=== PATIENT | male | born 1955 | race American Indian/Alaskan Native ===

== ENCOUNTER 2018-05-31 04:32 | Inpatient (IN) | payer MEDICARE, OTHER ==
[2018-05-31] MEDS ORDERED: D50W (25GM) Syringe IV ONE (04:45)
[2018-05-31] MEDS: D50W (25GM) Syringe IV PRN ×4 (04:55→16:34)
[2018-05-31 05:27] LABS: Hematocrit 45.8 % (35.5-45.6); Hemoglobin 14.7 gm/dl (11.8-15.2); Mean Corpuscular HGB Conc 32 % (32-34); Mean Corpuscular Hemoglobin 28 pg (28-32); Mean Corpuscular Volume 86 fl (84-94); Platelet Count 192 K/mm3 (140-440); Red Blood Count 5.33 M/mm3 (3.65-5.03); Red Cell Distribution Width 16.4 % (13.2-15.2)
[2018-05-31 05:37] LABS: INR 1.74 (0.87-1.13)
[2018-05-31 05:38] LABS: Partial Thromboplastin Time 28.2 Sec. (24.2-36.6)
[2018-05-31 06:04] LABS: Bilirubin,Urine NEG (Negative); Blood,Urine SM (Negative); Color,Urine Amber (Yellow); Mucus,Urine FEW /HPF
[2018-05-31 06:06] LABS: Protein,Urine >500 mg/dL (Negative)
--- NOTE | 2018-05-31 06:06 | XRay Report ---
FINAL REPORT EXAM: XR CHEST 1V AP HISTORY: hypoxia TECHNIQUE: AP portable view(s) of the chest obtained. PRIORS: None. FINDINGS: No mediastinal shift. Cardiomegaly. Left larger than right pleural effusions with ill-defined bibasilar opacities. No pneumothorax. Question minimally displaced anterolateral left 9th rib fracture. IMPRESSION: Cardiomegaly and left larger than right pleural effusion. Question minimally displaced anterolateral left 9th rib fracture.
[2018-05-31 06:09] LABS: Amphetamine Screen,Urine PRESUMPTIVE NEGATIVE; Benzodiazepines Screen,Urine PRESUMPTIVE NEGATIVE; Cannabinoid Screen,Urine PRESUMPTIVE NEGATIVE; Cocaine Screen,Urine PRESUMPTIVE NEGATIVE; Methadone Screen,Urine PRESUMPTIVE NEGATIVE; Opiate Screen,Urine PRESUMPTIVE NEGATIVE
[2018-05-31 06:11] LABS: Basophils % (Manual) 0 % (0.0-1.8); Total Cells Counted 100
[2018-05-31 06:12] LABS: Anisocytosis 1+; Burr Cells 1+; Crenated RBC 2+; Giant Platelets Rare; Ovalocytes 1+; Target Cells Few
[2018-05-31 06:16] LABS: Creatine Kinase MB 22.3 ng/mL (0.0-4.0)
[2018-05-31 06:20] LABS: Calcium 7.8 mg/dL (8.4-10.2)
[2018-05-31] MEDS ORDERED: VANCOMYCIN/NS 1 GM/250 ML 1 GM/250 ML BAG IV ONE (06:38)
[2018-05-31] MEDS ORDERED: ROCEPHIN/NS 1 GM/50 ML 1 GM/50 ML BAG IV ONE (06:38)
[2018-05-31] MEDS ORDERED: CALCIUM GLUCONATE 1,000 MG in NACL 0.9% 100 ML IV ONE (06:40)
[2018-05-31] MEDS ORDERED: HumuLIN R IV ONE (06:40)
[2018-05-31] MEDS ORDERED: MAXIPIME/NS 1 GM/100 ML 1 GM/100 ML BAG IV ONE (06:41)
--- NOTE | 2018-05-31 06:51 | Emergency Department Report ---
ED Altered Mental Status HPI - General Chief Complaint: Hypoglycemia Stated Complaint: LOW BLOOD GLUCOSE Time Seen by Provider: 05/31/18 06:21 Source: EMS Mode of arrival: Stretcher Limitations: Altered Mental Status, Physical Limitation - History of Present Illness Initial Comments: Daughter reports patient with hx HTN and CHF. Denies blood thinners. Reports patient has heart percent of ~10%. Reports patient was fine yesterday. Last seen normal at approximately midnight. Reports that around 0330 this morning patient was found altered, foaming at the mouth, and with extremities clinched. Denies hx of seizure. Reports patient last diabetes number was "7" and that the patient was deemed pre-diabetic. Denies hx of taking DM medications. ER nurse reports EMS recorded accucheck of 14. Reports EMS administered one amp D50. Reports accucheck upon arrival in the ER of 39. Reports patient received approximately 2 amps D50 in the ER. Family reports patient symptoms improved after receiving sugar in the IV. MD Complaint: altered mental status - Related Data Home Medications Medication Instructions Recorded Confirmed Last Taken Furosemide [Lasix] 20 mg PO DAILY 05/31/18 05/31/18 Unknown Isosorbide Dinitrate 30 mg PO DAILY 05/31/18 05/31/18 Unknown hydrALAZINE 50 mg PO TID 05/31/18 05/31/18 Unknown Allergies Allergy/AdvReac Type Severity Reaction Status Date / Time Unable to Assess Allergy Verified 05/31/18 06:39 ED Review of Systems ROS: Stated complaint: LOW BLOOD GLUCOSE Other details as noted in HPI Comment: Unobtainable due to pts medical conditions ED Past Medical Hx - Past Medical History Hx Diabetes: Yes - Social History Smoking Status: Never Smoker Substance Use Type: None - Medications Home Medications: Home Medications Medication Instructions Recorded Confirmed Last Taken Type Furosemide [Lasix] 20 mg PO DAILY 05/31/18 05/31/18 Unknown History Isosorbide Dinitrate 30 mg PO DAILY 05/31/18 05/31/18 Unknown History hydrALAZINE 50 mg PO TID 05/31/18 05/31/18 Unknown History ED Physical Exam - General Limitations: Altered Mental Status, Physical Limitation - Other Other exam information: GENERAL: Patient in mild acute distress HEAD: Normocephalic, atraumatic EYES: PERRLA, EOM intact NOSE: No tenderness, discharge, sinus tenderness MOUTH: No erythema, bleeding, exudate HEART: Regular rate and rhythm, no murmur, S1-S2 are auscultated, pulses are symmetric LUNGS: bilateral breath sounds. No wheezing, rales, rhonchi ABDOMEN: Normal bowel sounds, no tenderness, no rebound, no guarding, no masses , no CVA tenderness MUSCULOSKELETAL: no redness, mild swelling, no tenderness NEUROLOGIC: Alert but patient writing in bed with periods of altered mental status incomprehensible sounds, Oriented x2, Cranial nerves intact, normal sensation, no focal motor deficit SKIN: Skin is warm and dry - Assessment Assessment Interval: Baseline - Level of Consciousness 1a. Level of Consciousness: alert - LOC Questions 1b. LOC Questions: answers correctly - LOC Command 1c. LOC Commands: performs tasks correctly - Best Gaze 2. Best Gaze: normal - Visual 3. Visual: no visual loss - Facial Palsy 4. Facial Palsy: normal symmetrical movement - Motor Arm 5b. Motor Arm Right: no drift 5a. Motor Arm Left: no drift - Motor Leg 6a. Motor Leg Left: some gravity effort 6b. Motor Leg Right: some gravity effort - Limb Ataxia 7. Limb Ataxia: absent - Sensory 8. Sensory: normal - Best Language 9. Best Language: mild/moderate aphasia - Dysarthria 10. Dysarthria: mild/moderate dysarthria - Extinction and Inattention 11. Extinction/Inattention: no abnormality - Scoring Total Score: 6 Stroke Severity: Moderate Stroke ED Course Vital Signs 05/31/18 05/31/18 05/31/18 04:53 04:55 04:56 Temperature 90.3 F L Pulse Rate 95 H 66 79 Respiratory 18 12 Rate Blood Pressure 130/90 Blood Pressure 130/98 130/90 [Left] O2 Sat by Pulse Oximetry 05/31/18 05/31/18 05/31/18 06:01 07:30 07:31 Temperature 89.9 F L Pulse Rate 63 Respiratory 13 Rate Blood Pressure 147/108 Blood Pressure [Left] O2 Sat by Pulse 97 99 Oximetry 05/31/18 11:20 Temperature 92.2 F L Pulse Rate Respiratory Rate Blood Pressure Blood Pressure [Left] O2 Sat by Pulse Oximetry - Lab Data Result diagrams: 05/31/18 11:48 05/31/18 05:49 Lab Results 05/31/18 05/31/18 05/31/18 Range/Units 04:38 04:58 05:14 WBC (4.5-11.0) K/mm3 RBC (3.65-5.03) M/mm3 Hgb (11.8-15.2) gm/dl Hct (35.5-45.6) % MCV (84-94) fl MCH (28-32) pg MCHC (32-34) % RDW (13.2-15.2) % Plt Count (140-440) K/mm3 Add Manual Diff Total Counted Seg Neuts % (Manual) (40.0-70.0) % Band Neutrophils % % Lymphocytes % (Manual) (13.4-35.0) % Reactive Lymphs % (Man) % Monocytes % (Manual) (0.0-7.3) % Eosinophils % (Manual) (0.0-4.3) % Basophils % (Manual) (0.0-1.8) % Metamyelocytes % % Myelocytes % % Promyelocytes % % Blast Cells % % Nucleated RBC % (0.0-0.9) % Seg Neutrophils # Man (1.8-7.7) K/mm3 Band Neutrophils # K/mm3 Lymphocytes # (Manual) (1.2-5.4) K/mm3 Abs React Lymphs (Man) K/mm3 Monocytes # (Manual) (0.0-0.8) K/mm3 Eosinophils # (Manual) (0.0-0.4) K/mm3 Basophils # (Manual) (0.0-0.1) K/mm3 Metamyelocytes # K/mm3 Myelocytes # K/mm3 Promyelocytes # K/mm3 Blast Cells # K/mm3 WBC Morphology Hypersegmented Neuts Hyposegmented Neuts Hypogranular Neuts Smudge Cells Toxic Granulation Toxic Vacuolation Dohle Bodies Pelger-Huet Anomaly Trae Rods Platelet Estimate Clumped Platelets Plt Clumps, EDTA Large Platelets Giant Platelets Platelet Satelliting Plt Morphology Comment RBC Morphology Dimorphic RBCs Polychromasia Hypochromasia Poikilocytosis Anisocytosis Microcytosis Macrocytosis Spherocytes Pappenheimer Bodies Sickle Cells Target Cells Tear Drop Cells Ovalocytes Helmet Cells [place] Bodies [place] Rings Andres Cells Bite Cells Crenated Cell Elliptocytes Acanthocytes (Spur) Rouleaux Hemoglobin C Crystals Schistocytes Malaria parasites Dann Bodies Hem Pathologist Commnt PT (12.2-14.9) Sec. INR (0.87-1.13) APTT (24.2-36.6) Sec. Sodium (137-145) mmol/L Potassium (3.6-5.0) mmol/L Chloride (98-107) mmol/L Carbon Dioxide (22-30) mmol/L Anion Gap mmol/L BUN (9-20) mg/dL Creatinine (0.8-1.5) mg/dL Estimated GFR ml/min BUN/Creatinine Ratio % Glucose (75-100) mg/dL POC Glucose < 40 L 64 L 258 H (70-105) Lactic Acid (0.7-2.0) mmol/L Calcium (8.4-10.2) mg/dL Magnesium (1.7-2.3) mg/dL Total Bilirubin (0.1-1.2) mg/dL AST (5-40) units/L ALT (7-56) units/L Alkaline Phosphatase (35-129) units/L Ammonia (25-60) umol/L Total Creatine Kinase (55-170) units/L CK-MB (CK-2) (0.0-4.0) ng/mL CK-MB (CK-2) Rel Index (0-4) Troponin T (0.00-0.029) ng/mL NT-Pro-B Natriuret Pep (0-900) pg/mL Total Protein (6.3-8.2) g/dL Albumin (3.9-5) g/dL Albumin/Globulin Ratio % Triglycerides (2-149) mg/dL Cholesterol (50-199) mg/dL LDL Cholesterol Direct (50-130) mg/dL HDL Cholesterol (40-59) mg/dL Cholesterol/HDL Ratio % Urine Color (Yellow) Urine Turbidity (Clear) Urine pH (5.0-7.0) Ur Specific [place] (1.003-1.030) Urine Protein (Negative) mg/dL Urine Glucose (UA) (Negative) mg/dL Urine Ketones (Negative) mg/dL Urine Blood (Negative) Urine Nitrite (Negative) Urine Bilirubin (Negative) Urine Urobilinogen (<2.0) mg/dL Ur Leukocyte Esterase (Negative) Urine WBC (Auto) (0.0-6.0) /HPF Urine RBC (Auto) (0.0-6.0) /HPF U Epithel Cells (Auto) (0-13.0) /HPF Urine Mucus /HPF Urine Yeast (Budding) /HPF Urine Opiates Screen Urine Methadone Screen Ur Barbiturates Screen Ur Phencyclidine Scrn Ur Amphetamines Screen U Benzodiazepines Scrn Urine Cocaine Screen U Marijuana (THC) Screen Drugs of Abuse Note Plasma/Serum Alcohol (0-0.07) % 05/31/18 05/31/18 05/31/18 Range/Units 05:15 05:15 05:20 WBC 5.9 (4.5-11.0) K/mm3 RBC 5.33 H (3.65-5.03) M/mm3 Hgb 14.7 (11.8-15.2) gm/dl Hct 45.8 H (35.5-45.6) % MCV 86 (84-94) fl MCH 28 (28-32) pg MCHC 32 (32-34) % RDW 16.4 H (13.2-15.2) % Plt Count 192 (140-440) K/mm3 Add Manual Diff Complete Total Counted 100 Seg Neuts % (Manual) 88.0 H (40.0-70.0) % Band Neutrophils % 0 % Lymphocytes % (Manual) 6.0 L (13.4-35.0) % Reactive Lymphs % (Man) 0 % Monocytes % (Manual) 2.0 (0.0-7.3) % Eosinophils % (Manual) 4.0 (0.0-4.3) % Basophils % (Manual) 0 (0.0-1.8) % Metamyelocytes % 0 % Myelocytes % 0 % Promyelocytes % 0 % Blast Cells % 0 % Nucleated RBC % 1.0 H (0.0-0.9) % Seg Neutrophils # Man 5.2 (1.8-7.7) K/mm3 Band Neutrophils # 0.0 K/mm3 Lymphocytes # (Manual) 0.4 L (1.2-5.4) K/mm3 Abs React Lymphs (Man) 0.0 K/mm3 Monocytes # (Manual) 0.1 (0.0-0.8) K/mm3 Eosinophils # (Manual) 0.2 (0.0-0.4) K/mm3 Basophils # (Manual) 0.0 (0.0-0.1) K/mm3 Metamyelocytes # 0.0 K/mm3 Myelocytes # 0.0 K/mm3 Promyelocytes # 0.0 K/mm3 Blast Cells # 0.0 K/mm3 WBC Morphology Not Reportable Hypersegmented Neuts Not Reportable Hyposegmented Neuts Not Reportable Hypogranular Neuts Not Reportable Smudge Cells Not Reportable Toxic Granulation Not Reportable Toxic Vacuolation Not Reportable Dohle Bodies Not Reportable Pelger-Huet Anomaly Not Reportable Trae Rods Not Reportable Platelet Estimate Appears normal Clumped Platelets Not Reportable Plt Clumps, EDTA Not Reportable Large Platelets Not Reportable Giant Platelets Rare Platelet Satelliting Not Reportable Plt Morphology Comment Not Reportable RBC Morphology Not Reportable Dimorphic RBCs Not Reportable Polychromasia 1+ Hypochromasia Not Reportable Poikilocytosis Not Reportable Anisocytosis 1+ Microcytosis Not Reportable Macrocytosis Not Reportable Spherocytes Not Reportable Pappenheimer Bodies Not Reportable Sickle Cells Not Reportable Target Cells Few Tear Drop Cells Not Reportable Ovalocytes 1+ Helmet Cells Not Reportable [place] Bodies Not Reportable [place] Rings Not Reportable Andres Cells 1+ Bite Cells Not Reportable Crenated Cell 2+ Elliptocytes Not Reportable Acanthocytes (Spur) Not Reportable Rouleaux Not Reportable Hemoglobin C Crystals Not Reportable Schistocytes Not Reportable Malaria parasites Not Reportable Dann Bodies Not Reportable Hem Pathologist Commnt No PT 20.9 H (12.2-14.9) Sec. INR 1.74 H (0.87-1.13) APTT 28.2 (24.2-36.6) Sec. Sodium (137-145) mmol/L Potassium (3.6-5.0) mmol/L Chloride (98-107) mmol/L Carbon Dioxide (22-30) mmol/L Anion Gap mmol/L BUN (9-20) mg/dL Creatinine (0.8-1.5) mg/dL Estimated GFR ml/min BUN/Creatinine Ratio % Glucose (75-100) mg/dL POC Glucose (70-105) Lactic Acid (0.7-2.0) mmol/L Calcium (8.4-10.2) mg/dL Magnesium (1.7-2.3) mg/dL Total Bilirubin (0.1-1.2) mg/dL AST (5-40) units/L ALT (7-56) units/L Alkaline Phosphatase (35-129) units/L Ammonia (25-60) umol/L Total Creatine Kinase (55-170) units/L CK-MB (CK-2) (0.0-4.0) ng/mL CK-MB (CK-2) Rel Index (0-4) Troponin T (0.00-0.029) ng/mL NT-Pro-B Natriuret Pep (0-900) pg/mL Total Protein (6.3-8.2) g/dL Albumin (3.9-5) g/dL Albumin/Globulin Ratio % Triglycerides (2-149) mg/dL Cholesterol (50-199) mg/dL LDL Cholesterol Direct (50-130) mg/dL HDL Cholesterol (40-59) mg/dL Cholesterol/HDL Ratio % Urine Color [place] (Yellow) Urine Turbidity Slightly-cloudy (Clear) Urine pH 5.0 (5.0-7.0) Ur Specific [place] 1.016 (1.003-1.030) Urine Protein >500 (Negative) mg/dL Urine Glucose (UA) Neg (Negative) mg/dL Urine Ketones Neg (Negative) mg/dL Urine Blood Sm (Negative) Urine Nitrite Neg (Negative) Urine Bilirubin Neg (Negative) Urine Urobilinogen 4.0 (<2.0) mg/dL Ur Leukocyte Esterase Neg (Negative) Urine WBC (Auto) 6.0 (0.0-6.0) /HPF Urine RBC (Auto) 9.0 (0.0-6.0) /HPF U Epithel Cells (Auto) < 1.0 (0-13.0) /HPF Urine Mucus Few /HPF Urine Yeast (Budding) 1+ /HPF Urine Opiates Screen Urine Methadone Screen Ur Barbiturates Screen Ur Phencyclidine Scrn Ur Amphetamines Screen U Benzodiazepines Scrn Urine Cocaine Screen U Marijuana (THC) Screen Drugs of Abuse Note Plasma/Serum Alcohol (0-0.07) % 05/31/18 05/31/18 05/31/18 Range/Units 05:20 05:22 05:22 WBC (4.5-11.0) K/mm3 RBC (3.65-5.03) M/mm3 Hgb (11.8-15.2) gm/dl Hct (35.5-45.6) % MCV (84-94) fl MCH (28-32) pg MCHC (32-34) % RDW (13.2-15.2) % Plt Count (140-440) K/mm3 Add Manual Diff Total Counted Seg Neuts % (Manual) (40.0-70.0) % Band Neutrophils % % Lymphocytes % (Manual) (13.4-35.0) % Reactive Lymphs % (Man) % Monocytes % (Manual) (0.0-7.3) % Eosinophils % (Manual) (0.0-4.3) % Basophils % (Manual) (0.0-1.8) % Metamyelocytes % % Myelocytes % % Promyelocytes % % Blast Cells % % Nucleated RBC % (0.0-0.9) % Seg Neutrophils # Man (1.8-7.7) K/mm3 Band Neutrophils # K/mm3 Lymphocytes # (Manual) (1.2-5.4) K/mm3 Abs React Lymphs (Man) K/mm3 Monocytes # (Manual) (0.0-0.8) K/mm3 Eosinophils # (Manual) (0.0-0.4) K/mm3 Basophils # (Manual) (0.0-0.1) K/mm3 Metamyelocytes # K/mm3 Myelocytes # K/mm3 Promyelocytes # K/mm3 Blast Cells # K/mm3 WBC Morphology Hypersegmented Neuts Hyposegmented Neuts Hypogranular Neuts Smudge Cells Toxic Granulation Toxic Vacuolation Dohle Bodies Pelger-Huet Anomaly Trae Rods Platelet Estimate Clumped Platelets Plt Clumps, EDTA Large Platelets Giant Platelets Platelet Satelliting Plt Morphology Comment RBC Morphology Dimorphic RBCs Polychromasia Hypochromasia Poikilocytosis Anisocytosis Microcytosis Macrocytosis Spherocytes Pappenheimer Bodies Sickle Cells Target Cells Tear Drop Cells Ovalocytes Helmet Cells [place] Bodies [place] Rings Andres Cells Bite Cells Crenated Cell Elliptocytes Acanthocytes (Spur) Rouleaux Hemoglobin C Crystals Schistocytes Malaria parasites Dann Bodies Hem Pathologist Commnt PT (12.2-14.9) Sec. INR (0.87-1.13) APTT (24.2-36.6) Sec. Sodium (137-145) mmol/L Potassium (3.6-5.0) mmol/L Chloride (98-107) mmol/L Carbon Dioxide (22-30) mmol/L Anion Gap mmol/L BUN (9-20) mg/dL Creatinine (0.8-1.5) mg/dL Estimated GFR ml/min BUN/Creatinine Ratio % Glucose (75-100) mg/dL POC Glucose (70-105) Lactic Acid (0.7-2.0) mmol/L Calcium (8.4-10.2) mg/dL Magnesium (1.7-2.3) mg/dL Total Bilirubin (0.1-1.2) mg/dL AST (5-40) units/L ALT (7-56) units/L Alkaline Phosphatase (35-129) units/L Ammonia 68.0 H (25-60) umol/L Total Creatine Kinase (55-170) units/L CK-MB (CK-2) (0.0-4.0) ng/mL CK-MB (CK-2) Rel Index (0-4) Troponin T (0.00-0.029) ng/mL NT-Pro-B Natriuret Pep (0-900) pg/mL Total Protein (6.3-8.2) g/dL Albumin (3.9-5) g/dL Albumin/Globulin Ratio % Triglycerides (2-149) mg/dL Cholesterol (50-199) mg/dL LDL Cholesterol Direct (50-130) mg/dL HDL Cholesterol (40-59) mg/dL Cholesterol/HDL Ratio % Urine Color (Yellow) Urine Turbidity (Clear) Urine pH (5.0-7.0) Ur Specific [place] (1.003-1.030) Urine Protein (Negative) mg/dL Urine Glucose (UA) (Negative) mg/dL Urine Ketones (Negative) mg/dL Urine Blood (Negative) Urine Nitrite (Negative) Urine Bilirubin (Negative) Urine Urobilinogen (<2.0) mg/dL Ur Leukocyte Esterase (Negative) Urine WBC (Auto) (0.0-6.0) /HPF Urine RBC (Auto) (0.0-6.0) /HPF U Epithel Cells (Auto) (0-13.0) /HPF Urine Mucus /HPF Urine Yeast (Budding) /HPF Urine Opiates Screen Presumptive negative Urine Methadone Screen Presumptive negative Ur Barbiturates Screen Presumptive negative Ur Phencyclidine Scrn Presumptive negative Ur Amphetamines Screen Presumptive negative U Benzodiazepines Scrn Presumptive negative Urine Cocaine Screen Presumptive negative U Marijuana (THC) Screen Presumptive negative Drugs of Abuse Note Disclamer Plasma/Serum Alcohol < 0.01 (0-0.07) % 05/31/18 05/31/18 05/31/18 Range/Units 05:49 07:13 07:13 WBC (4.5-11.0) K/mm3 RBC (3.65-5.03) M/mm3 Hgb (11.8-15.2) gm/dl Hct (35.5-45.6) % MCV (84-94) fl MCH (28-32) pg MCHC (32-34) % RDW (13.2-15.2) % Plt Count (140-440) K/mm3 Add Manual Diff Total Counted Seg Neuts % (Manual) (40.0-70.0) % Band Neutrophils % % Lymphocytes % (Manual) (13.4-35.0) % Reactive Lymphs % (Man) % Monocytes % (Manual) (0.0-7.3) % Eosinophils % (Manual) (0.0-4.3) % Basophils % (Manual) (0.0-1.8) % Metamyelocytes % % Myelocytes % % Promyelocytes % % Blast Cells % % Nucleated RBC % (0.0-0.9) % Seg Neutrophils # Man (1.8-7.7) K/mm3 Band Neutrophils # K/mm3 Lymphocytes # (Manual) (1.2-5.4) K/mm3 Abs React Lymphs (Man) K/mm3 Monocytes # (Manual) (0.0-0.8) K/mm3 Eosinophils # (Manual) (0.0-0.4) K/mm3 Basophils # (Manual) (0.0-0.1) K/mm3 Metamyelocytes # K/mm3 Myelocytes # K/mm3 Promyelocytes # K/mm3 Blast Cells # K/mm3 WBC Morphology Hypersegmented Neuts Hyposegmented Neuts Hypogranular Neuts Smudge Cells Toxic Granulation Toxic Vacuolation Dohle Bodies Pelger-Huet Anomaly Trae Rods Platelet Estimate Clumped Platelets Plt Clumps, EDTA Large Platelets Giant Platelets Platelet Satelliting Plt Morphology Comment RBC Morphology Dimorphic RBCs Polychromasia Hypochromasia Poikilocytosis Anisocytosis Microcytosis Macrocytosis Spherocytes Pappenheimer Bodies Sickle Cells Target Cells Tear Drop Cells Ovalocytes Helmet Cells [place] Bodies [place] Rings Andres Cells Bite Cells Crenated Cell Elliptocytes Acanthocytes (Spur) Rouleaux Hemoglobin C Crystals Schistocytes Malaria parasites Dann Bodies Hem Pathologist Commnt PT (12.2-14.9) Sec. INR (0.87-1.13) APTT (24.2-36.6) Sec. Sodium 135 L (137-145) mmol/L Potassium 6.0 H (3.6-5.0) mmol/L Chloride 104.3 (98-107) mmol/L Carbon Dioxide 13 L (22-30) mmol/L Anion Gap 24 mmol/L BUN 87 H (9-20) mg/dL Creatinine 2.5 H (0.8-1.5) mg/dL Estimated GFR 32 ml/min BUN/Creatinine Ratio 35 % Glucose 249 H (75-100) mg/dL POC Glucose (70-105) Lactic Acid 1.50 (0.7-2.0) mmol/L Calcium 7.8 L (8.4-10.2) mg/dL Magnesium 2.40 H (1.7-2.3) mg/dL Total Bilirubin 2.60 H (0.1-1.2) mg/dL AST 60 H (5-40) units/L ALT 55 (7-56) units/L Alkaline Phosphatase 592 H (35-129) units/L Ammonia (25-60) umol/L Total Creatine Kinase 374 H (55-170) units/L CK-MB (CK-2) 22.3 H (0.0-4.0) ng/mL CK-MB (CK-2) Rel Index 5.9 H (0-4) Troponin T 0.260 H* (0.00-0.029) ng/mL NT-Pro-B Natriuret Pep 09098 H (0-900) pg/mL Total Protein 5.5 L (6.3-8.2) g/dL Albumin 3.0 L (3.9-5) g/dL Albumin/Globulin Ratio 1.2 % Triglycerides 16 (2-149) mg/dL Cholesterol 142 (50-199) mg/dL LDL Cholesterol Direct 52 (50-130) mg/dL HDL Cholesterol 91 H (40-59) mg/dL Cholesterol/HDL Ratio 1.56 % Urine Color (Yellow) Urine Turbidity (Clear) Urine pH (5.0-7.0) Ur Specific [place] (1.003-1.030) Urine Protein (Negative) mg/dL Urine Glucose (UA) (Negative) mg/dL Urine Ketones (Negative) mg/dL Urine Blood (Negative) Urine Nitrite (Negative) Urine Bilirubin (Negative) Urine Urobilinogen (<2.0) mg/dL Ur Leukocyte Esterase (Negative) Urine WBC (Auto) (0.0-6.0) /HPF Urine RBC (Auto) (0.0-6.0) /HPF U Epithel Cells (Auto) (0-13.0) /HPF Urine Mucus /HPF Urine Yeast (Budding) /HPF Urine Opiates Screen Urine Methadone Screen Ur Barbiturates Screen Ur Phencyclidine Scrn Ur Amphetamines Screen U Benzodiazepines Scrn Urine Cocaine Screen U Marijuana (THC) Screen Drugs of Abuse Note Plasma/Serum Alcohol (0-0.07) % 05/31/18 05/31/18 05/31/18 Range/Units 07:22 09:33 10:53 WBC (4.5-11.0) K/mm3 RBC (3.65-5.03) M/mm3 Hgb (11.8-15.2) gm/dl Hct (35.5-45.6) % MCV (84-94) fl MCH (28-32) pg MCHC (32-34) % RDW (13.2-15.2) % Plt Count (140-440) K/mm3 Add Manual Diff Total Counted Seg Neuts % (Manual) (40.0-70.0) % Band Neutrophils % % Lymphocytes % (Manual) (13.4-35.0) % Reactive Lymphs % (Man) % Monocytes % (Manual) (0.0-7.3) % Eosinophils % (Manual) (0.0-4.3) % Basophils % (Manual) (0.0-1.8) % Metamyelocytes % % Myelocytes % % Promyelocytes % % Blast Cells % % Nucleated RBC % (0.0-0.9) % Seg Neutrophils # Man (1.8-7.7) K/mm3 Band Neutrophils # K/mm3 Lymphocytes # (Manual) (1.2-5.4) K/mm3 Abs React Lymphs (Man) K/mm3 Monocytes # (Manual) (0.0-0.8) K/mm3 Eosinophils # (Manual) (0.0-0.4) K/mm3 Basophils # (Manual) (0.0-0.1) K/mm3 Metamyelocytes # K/mm3 Myelocytes # K/mm3 Promyelocytes # K/mm3 Blast Cells # K/mm3 WBC Morphology Hypersegmented Neuts Hyposegmented Neuts Hypogranular Neuts Smudge Cells Toxic Granulation Toxic Vacuolation Dohle Bodies Pelger-Huet Anomaly Trae Rods Platelet Estimate Clumped Platelets Plt Clumps, EDTA Large Platelets Giant Platelets Platelet Satelliting Plt Morphology Comment RBC Morphology Dimorphic RBCs Polychromasia Hypochromasia Poikilocytosis Anisocytosis Microcytosis Macrocytosis Spherocytes Pappenheimer Bodies Sickle Cells Target Cells Tear Drop Cells Ovalocytes Helmet Cells [place] Bodies [place] Rings Baxter Cells Bite Cells Crenated Cell Elliptocytes Acanthocytes (Spur) Rouleaux Hemoglobin C Crystals Schistocytes Malaria parasites Dann Bodies Hem Pathologist Commnt PT (12.2-14.9) Sec. INR (0.87-1.13) APTT (24.2-36.6) Sec. Sodium (137-145) mmol/L Potassium (3.6-5.0) mmol/L Chloride (98-107) mmol/L Carbon Dioxide (22-30) mmol/L Anion Gap mmol/L BUN (9-20) mg/dL Creatinine (0.8-1.5) mg/dL Estimated GFR ml/min BUN/Creatinine Ratio % Glucose (75-100) mg/dL POC Glucose 124 H 168 H 106 H (70-105) Lactic Acid (0.7-2.0) mmol/L Calcium (8.4-10.2) mg/dL Magnesium (1.7-2.3) mg/dL Total Bilirubin (0.1-1.2) mg/dL AST (5-40) units/L ALT (7-56) units/L Alkaline Phosphatase (35-129) units/L Ammonia (25-60) umol/L Total Creatine Kinase (55-170) units/L CK-MB (CK-2) (0.0-4.0) ng/mL CK-MB (CK-2) Rel Index (0-4) Troponin T (0.00-0.029) ng/mL NT-Pro-B Natriuret Pep (0-900) pg/mL Total Protein (6.3-8.2) g/dL Albumin (3.9-5) g/dL Albumin/Globulin Ratio % Triglycerides (2-149) mg/dL Cholesterol (50-199) mg/dL LDL Cholesterol Direct (50-130) mg/dL HDL Cholesterol (40-59) mg/dL Cholesterol/HDL Ratio % Urine Color (Yellow) Urine Turbidity (Clear) Urine pH (5.0-7.0) Ur Specific [place] (1.003-1.030) Urine Protein (Negative) mg/dL Urine Glucose (UA) (Negative) mg/dL Urine Ketones (Negative) mg/dL Urine Blood (Negative) Urine Nitrite (Negative) Urine Bilirubin (Negative) Urine Urobilinogen (<2.0) mg/dL Ur Leukocyte Esterase (Negative) Urine WBC (Auto) (0.0-6.0) /HPF Urine RBC (Auto) (0.0-6.0) /HPF U Epithel Cells (Auto) (0-13.0) /HPF Urine Mucus /HPF Urine Yeast (Budding) /HPF Urine Opiates Screen Urine Methadone Screen Ur Barbiturates Screen Ur Phencyclidine Scrn Ur Amphetamines Screen U Benzodiazepines Scrn Urine Cocaine Screen U Marijuana (THC) Screen Drugs of Abuse Note Plasma/Serum Alcohol (0-0.07) % - Medical Decision Making At 1030 Dr. Myles hospitalist recommends admit patient to Dr. Martinez. Request consult ICU for acceptance of patient to the ICU. At 1121 Dr. Jenna Perdomo Neurology updated. Reports patient NIHSS improved to 0. Dr. Perdomo recommends low likelihood of CVA with improving symptoms after dextrose administration. Recommends MRI evaluation during hospitalization but not emergent in the ER. Recommends no TPA. Reports if symptoms worsen please re-consult neurology for evaluation for TPA. Declines evalution in the ER at this time. If MRI brain shows any findings, willing to evaluate patient. At 1124 Dr. Frances ICU updated and agrees to ICU admission. Will evaluate patient. Critical Care Time: Yes (42) Critical care attestation.: If time is entered above; I have spent that time in minutes in the direct care of this critically ill patient, excluding procedure time. ED Disposition Clinical Impression: Hyperammonemia, Hypoglycemia, Non-ST elevation [place] (NSTEMI), Abnormal ECG, Hyperkalemia, Metabolic acidosis, Multiorgan failure, Pleural effusion, Hyperbilirubinemia Altered mental status, unspecified Qualifiers: Altered mental status type: unspecified Qualified Code(s): R41.82 - Altered mental status, unspecified Acute renal failure (ARF) Qualifiers: Acute renal failure type: unspecified Qualified Code(s): N17.9 - Acute kidney failure, unspecified Hypothermia Qualifiers: Encounter type: initial encounter Qualified Code(s): T68.XXXA - Hypothermia, initial encounter Pneumonia Qualifiers: Pneumonia type: due to unspecified organism Laterality: bilateral Lung location : unspecified part of lung Qualified Code(s): J18.9 - Pneumonia, unspecified organism Sepsis Qualifiers: Sepsis type: sepsis due to unspecified organism Qualified Code(s): A41.9 - Sepsis, unspecified organism Disposition: DC-09 OP ADMIT IP TO THIS HOSP Is pt being admited?: Yes Condition: Critical Time of Disposition: 11:33
[2018-05-31] MEDS ORDERED: SODIUM BICARBONATE IV ONE (07:00)
--- NOTE | 2018-05-31 07:18 | Cat Scan Report ---
FINAL REPORT EXAM: CT HEAD/BRAIN WO CON HISTORY: altered mental status TECHNIQUE: CT imaging is acquired through the brain without contrast. Transaxial reformations are provided. PRIORS: None. FINDINGS: Examination is compromised by extensive streak artifact. Ventricles and CSF spaces are proportionately enlarged, consistent with parenchymal atrophy. Scattered deep and subcortical white matter hypodense foci are confluent in some areas and are compatible with microvascular angiopathy. No acute intracranial hemorrhage or mass effect. No skull fracture. The mastoid air cells are clear. Small fluid levels in the maxillary sinuses. IMPRESSION: No acute intracranial abnormality identified within limits of this exam. There are chronic sequela of atrophy and microvascular angiopathy. Small fluid levels in the maxillary sinuses are suggestive of sinusitis.
[2018-05-31 08:39] LABS: Chol/HDL Ratio 1.56 %
--- NOTE | 2018-05-31 09:11 | XRay Report ---
AP PELVIS: HISTORY: Trauma, pelvic pain. There is mild rotation to the left. No pelvic fracture, bony lesion or diastasis is appreciated. The hips appear anatomic. Soft tissue gas overlies the right pubic bone and right superior pelvic ramus which could represent a soft tissue injury. IMPRESSION: No injury to the bony pelvis is appreciated.
[2018-05-31] MEDS ORDERED: ASPIRIN PR ONE (10:16)
[2018-05-31] MEDS ORDERED: NITRO-BID 2% TP ONE (11:14)
[2018-05-31] MEDS ORDERED: MORPHINE ONE (11:15)
[2018-05-31] MEDS ORDERED: KIONEX PR ONE ×2 (11:22→23:02)
[2018-05-31] MEDS ORDERED: MORPHINE IV ONE (11:23)
[2018-05-31] MEDS ORDERED: TYLENOL PO PRN (11:24)
[2018-05-31] MEDS ORDERED: ZOFRAN IV PRN (11:24)
[2018-05-31] MEDS ORDERED: SODIUM CHLORIDE FLUSH SYRINGE 10 ML IV PRN (11:24)
--- NOTE | 2018-05-31 11:42 | History and Physical Report ---
History of Present Illness Date of examination: 05/31/18 Chief complaint: Chest pain History of present illness: 63-year-old -[place]ian male presented to the emergency department with complaints of chest pain and shortness of breath. Patient said he had chest pain for the last 1 week, sharp, 6 out of 10 in intensity, intermittent, with no radiation. No aggravating or elevating factors identified. Patient is also complaining of shortness of breath and dry cough but denied diaphoresis. Patient was agitated and on restraints. Patient was recently diagnosed with hypertension and diabetes. He denied any of the medical conditions. REVIEW OF SYSTEMS: GENERAL: no weight change, no fatigue, no fever HEAD: no head ache EYES: no blurry vision, no acute visual loss EARS: no hearing loss, no discharge, no earache NOSE: no stuffiness, no sneezing, no discharge MOUTH, THROAT AND NECK: no bleeding gums, no sore throat, no swollen neck CARDIAC: As stated in the HPI. RESPIRATORY: As stated in the HPI. GI: no decreased appetite, no nausea, no vomiting, no dysphagia, no diarrhea, no constipation, no abdominal pain URINARY: no change in frequency, no urgency, no polyuria, no hematuria, no incontinence MUSCULOSKELETAL: no muscle weakness, no pain, no joint stiffness NEUROLOGIC: no loss of sensation/numbness, no tingling, no tremors, no weakness/ paralysis HEMATOLOGIC: no anemia, no easy bruising SKIN: no rashes ENDOCRINE: no heat/cold intolerance, no polyuria, no polydipsia, no thyroid problems PSYCHIATRIC: no anxiety, no depression, no suicidal ideations Past History Past Medical History: diabetes, hypertension Past Surgical History: Other (couldn't obtained) Social history: full code. denies: smoking, alcohol abuse, prescription drug abuse, IV drug use Family history: no significant family history Medications and Allergies Allergies Allergy/AdvReac Type Severity Reaction Status Date / Time Unable to Assess Allergy Verified 05/31/18 06:39 Home Medications Medication Instructions Recorded Confirmed Last Taken Type Furosemide [Lasix] 20 mg PO DAILY 05/31/18 05/31/18 Unknown History Isosorbide Dinitrate 30 mg PO DAILY 05/31/18 05/31/18 Unknown History hydrALAZINE 50 mg PO TID 05/31/18 05/31/18 Unknown History Active Meds: Active Medications Acetaminophen (Tylenol) 650 mg PO Q4H PRN PRN Reason: Pain MILD(1-3)/Fever >100.5/VARGAS Albuterol/Ipratropium (Duoneb *Not For Prn Use*) 1 ampul IH QIDRT ALYSIA Dextrose (D50w (25gm) Syringe) 50 ml IV PRN PRN PRN Reason: Hypoglycemia Last Admin: 05/31/18 04:58 Dose: 50 ml Furosemide (Lasix) 40 mg IV ONCE ONE Stop: 05/31/18 11:29 Heparin Sodium/Sodium Chloride (Heparin/ 0.45% Nacl-25,000 Unit/500 Ml) 25,000 unit in 500 mls @ 20.412 mls/hr IV TITRATE ALYSIA; Protocol Morphine Sulfate (Morphine) 2 mg IV Q4H PRN PRN Reason: Pain, Moderate (4-6) Ondansetron HCl (Zofran) 4 mg IV Q8H PRN PRN Reason: Nausea And Vomiting Sodium Chloride (Sodium Chloride Flush Syringe 10 Ml) 10 ml IV BID ALYSIA Sodium Chloride (Sodium Chloride Flush Syringe 10 Ml) 10 ml IV PRN PRN PRN Reason: LINE FLUSH Sodium Polystyrene Sulfonate (Kionex) 60 gm VT ONCE ONE Stop: 05/31/18 11:23 Exam - Physical Exam Narrative exam: Not in cardiopulmonary distress. The patient appeared well nourished and normally developed. Vital signs as documented. Head exam is unremarkable. No scleral icterus . Neck is without jugular venous distension, thyromegaly, or carotid bruits. Lungs coarse creptations. Cardiac exam reveals regular rate and Rhythm. First and second heart sounds normal. No murmurs, rubs or gallops. Abdominal exam reveals normal bowel sounds, no masses, no organomegaly and no aortic enlargement. Extremities are nonedematous and both femoral and pedal pulses are normal. CLINICAL INFORMATICS MANAGER: Alert and oriented 3. Patient was agitated and on restraints. - Constitutional Vitals: Temp Pulse Resp BP Pulse Ox 92.2 F L 63 13 147/108 99 05/31/18 11:20 05/31/18 07:30 05/31/18 07:30 05/31/18 07:30 05/31/18 07:31 Results - Labs CBC & Chem 7: 05/31/18 05:15 05/31/18 05:49 Labs: Laboratory Last Values WBC 5.9 K/mm3 (4.5-11.0) 05/31/18 05:15 RBC 5.33 M/mm3 (3.65-5.03) H 05/31/18 05:15 Hgb 14.7 gm/dl (11.8-15.2) 05/31/18 05:15 Hct 45.8 % (35.5-45.6) H 05/31/18 05:15 MCV 86 fl (84-94) 05/31/18 05:15 MCH 28 pg (28-32) 05/31/18 05:15 MCHC 32 % (32-34) 05/31/18 05:15 RDW 16.4 % (13.2-15.2) H 05/31/18 05:15 Plt Count 192 K/mm3 (140-440) 05/31/18 05:15 Add Manual Diff Complete 05/31/18 05:15 Total Counted 100 05/31/18 05:15 Seg Neuts % (Manual) 88.0 % (40.0-70.0) H 05/31/18 05:15 Band Neutrophils % 0 % 05/31/18 05:15 Lymphocytes % (Manual) 6.0 % (13.4-35.0) L 05/31/18 05:15 Reactive Lymphs % (Man) 0 % 05/31/18 05:15 Monocytes % (Manual) 2.0 % (0.0-7.3) 05/31/18 05:15 Eosinophils % (Manual) 4.0 % (0.0-4.3) 05/31/18 05:15 Basophils % (Manual) 0 % (0.0-1.8) 05/31/18 05:15 Metamyelocytes % 0 % 05/31/18 05:15 Myelocytes % 0 % 05/31/18 05:15 Promyelocytes % 0 % 05/31/18 05:15 Blast Cells % 0 % 05/31/18 05:15 Nucleated RBC % 1.0 % (0.0-0.9) H 05/31/18 05:15 Seg Neutrophils # Man 5.2 K/mm3 (1.8-7.7) 05/31/18 05:15 Band Neutrophils # 0.0 K/mm3 05/31/18 05:15 Lymphocytes # (Manual) 0.4 K/mm3 (1.2-5.4) L 05/31/18 05:15 Abs React Lymphs (Man) 0.0 K/mm3 05/31/18 05:15 Monocytes # (Manual) 0.1 K/mm3 (0.0-0.8) 05/31/18 05:15 Eosinophils # (Manual) 0.2 K/mm3 (0.0-0.4) 05/31/18 05:15 Basophils # (Manual) 0.0 K/mm3 (0.0-0.1) 05/31/18 05:15 Metamyelocytes # 0.0 K/mm3 05/31/18 05:15 Myelocytes # 0.0 K/mm3 05/31/18 05:15 Promyelocytes # 0.0 K/mm3 05/31/18 05:15 Blast Cells # 0.0 K/mm3 05/31/18 05:15 WBC Morphology Not Reportable 05/31/18 05:15 Hypersegmented Neuts Not Reportable 05/31/18 05:15 Hyposegmented Neuts Not Reportable 05/31/18 05:15 Hypogranular Neuts Not Reportable 05/31/18 05:15 Smudge Cells Not Reportable 05/31/18 05:15 Toxic Granulation Not Reportable 05/31/18 05:15 Toxic Vacuolation Not Reportable 05/31/18 05:15 Dohle Bodies Not Reportable 05/31/18 05:15 Pelger-Huet Anomaly Not Reportable 05/31/18 05:15 Trae Rods Not Reportable 05/31/18 05:15 Platelet Estimate Appears normal 05/31/18 05:15 Clumped Platelets Not Reportable 05/31/18 05:15 Plt Clumps, EDTA Not Reportable 05/31/18 05:15 Large Platelets Not Reportable 05/31/18 05:15 Giant Platelets Rare 05/31/18 05:15 Platelet Satelliting Not Reportable 05/31/18 05:15 Plt Morphology Comment Not Reportable 05/31/18 05:15 RBC Morphology Not Reportable 05/31/18 05:15 Dimorphic RBCs Not Reportable 05/31/18 05:15 Polychromasia 1+ 05/31/18 05:15 Hypochromasia Not Reportable 05/31/18 05:15 Poikilocytosis Not Reportable 05/31/18 05:15 Anisocytosis 1+ 05/31/18 05:15 Microcytosis Not Reportable 05/31/18 05:15 Macrocytosis Not Reportable 05/31/18 05:15 Spherocytes Not Reportable 05/31/18 05:15 Pappenheimer Bodies Not Reportable 05/31/18 05:15 Sickle Cells Not Reportable 05/31/18 05:15 Target Cells Few 05/31/18 05:15 Tear Drop Cells Not Reportable 05/31/18 05:15 Ovalocytes 1+ 05/31/18 05:15 Helmet Cells Not Reportable 05/31/18 05:15 [place] Bodies Not Reportable 05/31/18 05:15 [place] Rings Not Reportable 05/31/18 05:15 Andres Cells 1+ 05/31/18 05:15 Bite Cells Not Reportable 05/31/18 05:15 Crenated Cell 2+ 05/31/18 05:15 Elliptocytes Not Reportable 05/31/18 05:15 Acanthocytes (Spur) Not Reportable 05/31/18 05:15 Rouleaux Not Reportable 05/31/18 05:15 Hemoglobin C Crystals Not Reportable 05/31/18 05:15 Schistocytes Not Reportable 05/31/18 05:15 Malaria parasites Not Reportable 05/31/18 05:15 Dann Bodies Not Reportable 05/31/18 05:15 Hem Pathologist Commnt No 05/31/18 05:15 PT 20.9 Sec. (12.2-14.9) H 05/31/18 05:15 INR 1.74 (0.87-1.13) H 05/31/18 05:15 APTT 28.2 Sec. (24.2-36.6) 05/31/18 05:15 Sodium 135 mmol/L (137-145) L 05/31/18 05:49 Potassium 6.0 mmol/L (3.6-5.0) H 05/31/18 05:49 Chloride 104.3 mmol/L (98-107) 05/31/18 05:49 Carbon Dioxide 13 mmol/L (22-30) L 05/31/18 05:49 Anion Gap 24 mmol/L 05/31/18 05:49 BUN 87 mg/dL (9-20) H 05/31/18 05:49 Creatinine 2.5 mg/dL (0.8-1.5) H 05/31/18 05:49 Estimated GFR 32 ml/min 05/31/18 05:49 BUN/Creatinine Ratio 35 % 05/31/18 05:49 Glucose 249 mg/dL (75-100) H 05/31/18 05:49 POC Glucose 106 (70-105) H 05/31/18 10:53 Lactic Acid 1.50 mmol/L (0.7-2.0) 05/31/18 07:13 Calcium 7.8 mg/dL (8.4-10.2) L 05/31/18 05:49 Magnesium 2.40 mg/dL (1.7-2.3) H 05/31/18 07:13 Total Bilirubin 2.60 mg/dL (0.1-1.2) H 05/31/18 05:49 AST 60 units/L (5-40) H 05/31/18 05:49 ALT 55 units/L (7-56) 05/31/18 05:49 Alkaline Phosphatase 592 units/L (35-129) H 05/31/18 05:49 Ammonia 68.0 umol/L (25-60) H 05/31/18 05:22 Total Creatine Kinase 374 units/L (55-170) H 05/31/18 05:49 CK-MB (CK-2) 22.3 ng/mL (0.0-4.0) H 05/31/18 05:49 CK-MB (CK-2) Rel Index 5.9 (0-4) H 05/31/18 05:49 Troponin T 0.260 ng/mL (0.00-0.029) H* 05/31/18 05:49 NT-Pro-B Natriuret Pep 02798 pg/mL (0-900) H 05/31/18 05:49 Total Protein 5.5 g/dL (6.3-8.2) L 05/31/18 05:49 Albumin 3.0 g/dL (3.9-5) L 05/31/18 05:49 Albumin/Globulin Ratio 1.2 % 05/31/18 05:49 Triglycerides 16 mg/dL (2-149) 08/30/18 05:49 Cholesterol 142 mg/dL (50-199) 05/31/18 05:49 LDL Cholesterol Direct 52 mg/dL (50-130) 05/31/18 05:49 HDL Cholesterol 91 mg/dL (40-59) H 05/31/18 05:49 Cholesterol/HDL Ratio 1.56 % 05/31/18 05:49 Urine Color Khloe (Yellow) 05/31/18 05:20 Urine Turbidity Slightly-cloudy (Clear) 05/31/18 05:20 Urine pH 5.0 (5.0-7.0) 05/31/18 05:20 Ur Specific Tyler 1.016 (1.003-1.030) 05/31/18 05:20 Urine Protein >500 mg/dL (Negative) 05/31/18 05:20 Urine Glucose (UA) Neg mg/dL (Negative) 05/31/18 05:20 Urine Ketones Neg mg/dL (Negative) 05/31/18 05:20 Urine Blood Sm (Negative) 05/31/18 05:20 Urine Nitrite Neg (Negative) 05/31/18 05:20 Urine Bilirubin Neg (Negative) 05/31/18 05:20 Urine Urobilinogen 4.0 mg/dL (<2.0) 05/31/18 05:20 Ur Leukocyte Esterase Neg (Negative) 05/31/18 05:20 Urine WBC (Auto) 6.0 /HPF (0.0-6.0) 05/31/18 05:20 Urine RBC (Auto) 9.0 /HPF (0.0-6.0) 05/31/18 05:20 U Epithel Cells (Auto) < 1.0 /HPF (0-13.0) 05/31/18 05:20 Urine Mucus Few /HPF 05/31/18 05:20 Urine Yeast (Budding) 1+ /HPF 05/31/18 05:20 Urine Opiates Screen Presumptive negative 05/31/18 05:20 Urine Methadone Screen Presumptive negative 05/31/18 05:20 Ur Barbiturates Screen Presumptive negative 05/31/18 05:20 Ur Phencyclidine Scrn Presumptive negative 05/31/18 05:20 Ur Amphetamines Screen Presumptive negative 05/31/18 05:20 U Benzodiazepines Scrn Presumptive negative 08/30/18 05:20 Urine Cocaine Screen Presumptive negative 05/31/18 05:20 U Marijuana (THC) Screen Presumptive negative 05/31/18 05:20 Drugs of Abuse Note Disclamer 05/31/18 05:20 Plasma/Serum Alcohol < 0.01 % (0-0.07) 05/31/18 05:22 Assessment and Plan Assessment and plan: 63-year-old -[place] male was presented to the ED with complaints of shortness of breath, chest pain, altered mental status Cardiac enzymes was done in the ED and was high, chest x-ray showed bilateral pleural effusion, elevated BNP, elevated creatinine STEMI - Patient is on heparin drip, aspirin, - Cardiology consulted - We'll trend cardiac enzymes Acute renal failure - Nephrology consulted CHF - Echo - Given a dose of Lasix Hypothermia - Blood cultures were taken - Patient was given a dose of cefepime in the ED - on rewarming Agitation/confusion - CT head was done and negative for acute intracranial process - We'll monitor closely DVT prophylaxis - On heparin drip Disposition - Admitted to telemetry floor Advance Directives: Yes VTE prophylaxis?: Chemical Plan of care discussed with patient/family: Yes
[2018-05-31] MEDS ORDERED: HEPARIN/ 0.45% NACL-25,000 UNIT/500 ML 25,000 UNIT/500 ML BAG IV SCH (12:00)
[2018-05-31] MEDS ORDERED: SODIUM BICARBONATE 50 MEQ in NACL 0.9% 1000 ML 1,000 ML IV ONE (12:00)
[2018-05-31 12:03] LABS: Hematocrit 49.2 % (35.5-45.6); Hemoglobin 15.4 gm/dl (11.8-15.2)
[2018-05-31 12:16] LABS: INR 1.71 (0.87-1.13)
[2018-05-31 12:17] LABS: Partial Thromboplastin Time 32.6 Sec. (24.2-36.6)
--- NOTE | 2018-05-31 12:24 | Consultation ---
History of Present Illness Consult date: 05/31/18 Reason for consult: dyspnea, chest pain, other (AMS) History of present illness: I'm called to evaluate the case of a 63-year-old -Sy[place] male, for possible sick ICU admission reportedly with multiorgan failure. The patient presented to the ED after being found by family , in a confusional state associated with hypoglycemia, according to the record notes. This was reversible with a MELLISA but later found to be hypothermic with signs of chest congestion. Chest x-ray showed bilateral pleural effusion with cardiomegaly. Reportedly, he had advanced cardiomyopathy, heart reportedly working "10%". No recent history of drug use and toxicology panel was negative. It helped her blood gases show severe respiratory acidosis with fair oxygen level. Patient had been admitted to the ICU with diagnosis of STEMI after cardiology evaluation and abnormal troponins for further care. Blood sugar is improving. Were asked to see to assist in ICU support Past History Past Medical History: diabetes, hypertension Past Surgical History: Other (couldn't obtained) Social history: full code. denies: smoking, alcohol abuse, prescription drug abuse, IV drug use Family history: no significant family history Medications and Allergies Allergies Allergy/AdvReac Type Severity Reaction Status Date / Time Unable to Assess Allergy Verified 05/31/18 06:39 Home Medications Medication Instructions Recorded Confirmed Last Taken Type Furosemide [Lasix] 20 mg PO DAILY 05/31/18 05/31/18 Unknown History Isosorbide Dinitrate 30 mg PO DAILY 05/31/18 05/31/18 Unknown History hydrALAZINE 50 mg PO TID 05/31/18 05/31/18 Unknown History Active Meds: Active Medications Acetaminophen (Tylenol) 650 mg PO Q4H PRN PRN Reason: Pain MILD(1-3)/Fever >100.5/VARGAS Albuterol/Ipratropium (Duoneb *Not For Prn Use*) 1 ampul IH QIDRT ALYSIA Dextrose (D50w (25gm) Syringe) 50 ml IV PRN PRN PRN Reason: Hypoglycemia Last Admin: 05/31/18 04:58 Dose: 50 ml Furosemide (Lasix) 40 mg IV ONCE ONE Stop: 05/31/18 12:29 Heparin Sodium/Sodium Chloride (Heparin/ 0.45% Nacl-25,000 Unit/500 Ml) 25,000 unit in 500 mls @ 20 mls/hr IV TITRATE ALYSIA; Protocol Sodium Bicarbonate 50 meq/ (Sodium Chloride) 1,050 mls @ 100 mls/hr IV DIRECT ONE Stop: 05/31/18 22:29 Sodium Bicarbonate 150 meq/ (Dextrose) 1,150 mls @ 75 mls/hr IV DIRECT ALYSIA Morphine Sulfate (Morphine) 2 mg IV Q4H PRN PRN Reason: Pain, Moderate (4-6) Ondansetron HCl (Zofran) 4 mg IV Q8H PRN PRN Reason: Nausea And Vomiting Sodium Chloride (Sodium Chloride Flush Syringe 10 Ml) 10 ml IV BID ALYSIA Sodium Chloride (Sodium Chloride Flush Syringe 10 Ml) 10 ml IV PRN PRN PRN Reason: LINE FLUSH Physical Examination Vital signs: Vital Signs Pulse Resp BP 95 H 18 130/98 05/31/18 04:53 05/31/18 04:53 05/31/18 04:53 Results - Laboratory Findings CBC and BMP: 05/31/18 11:48 05/31/18 05:49 ABG POC ABG pH 6.997 (7.35-7.45) L 05/31/18 11:51 POC ABG pCO2 59.6 (35-45) H 05/31/18 11:51 POC ABG pO2 86 (80-105) 05/31/18 11:51 POC ABG HCO3 14.6 05/31/18 11:51 POC ABG Total CO2 16 05/31/18 11:51 POC ABG O2 Sat 89 05/31/18 11:51 PT/INR, D-dimer PT 20.6 Sec. (12.2-14.9) H 05/31/18 11:48 INR 1.71 (0.87-1.13) H 05/31/18 11:48 D-Dimer 1834.40 ng/mlDDU (0-234) H 05/31/18 11:48 Abnormal lab findings: Abnormal Labs 05/31/18 05/31/18 05/31/18 04:38 04:58 05:14 RBC Hgb Hct RDW Seg Neuts % (Manual) Lymphocytes % (Manual) Nucleated RBC % Lymphocytes # (Manual) PT INR D-Dimer POC ABG pH POC ABG pCO2 Sodium Potassium Carbon Dioxide BUN Creatinine Glucose POC Glucose < 40 L 64 L 258 H Calcium Magnesium Total Bilirubin AST Alkaline Phosphatase Ammonia Total Creatine Kinase CK-MB (CK-2) CK-MB (CK-2) Rel Index Troponin T NT-Pro-B Natriuret Pep Total Protein Albumin HDL Cholesterol 05/31/18 05/31/18 05/31/18 05:15 05:15 05:22 RBC 5.33 H Hgb Hct 45.8 H RDW 16.4 H Seg Neuts % (Manual) 88.0 H Lymphocytes % (Manual) 6.0 L Nucleated RBC % 1.0 H Lymphocytes # (Manual) 0.4 L PT 20.9 H INR 1.74 H D-Dimer POC ABG pH POC ABG pCO2 Sodium Potassium Carbon Dioxide BUN Creatinine Glucose POC Glucose Calcium Magnesium Total Bilirubin AST Alkaline Phosphatase Ammonia 68.0 H Total Creatine Kinase CK-MB (CK-2) CK-MB (CK-2) Rel Index Troponin T NT-Pro-B Natriuret Pep Total Protein Albumin HDL Cholesterol 05/31/18 05/31/18 05/31/18 05:49 07:13 07:22 RBC Hgb Hct RDW Seg Neuts % (Manual) Lymphocytes % (Manual) Nucleated RBC % Lymphocytes # (Manual) PT INR D-Dimer POC ABG pH POC ABG pCO2 Sodium 135 L Potassium 6.0 H Carbon Dioxide 13 L BUN 87 H Creatinine 2.5 H Glucose 249 H POC Glucose 124 H Calcium 7.8 L Magnesium 2.40 H Total Bilirubin 2.60 H AST 60 H Alkaline Phosphatase 592 H Ammonia Total Creatine Kinase 374 H CK-MB (CK-2) 22.3 H CK-MB (CK-2) Rel Index 5.9 H Troponin T 0.260 H* NT-Pro-B Natriuret Pep 22042 H Total Protein 5.5 L Albumin 3.0 L HDL Cholesterol 91 H 05/31/18 05/31/18 05/31/18 09:33 10:53 11:48 RBC Hgb 15.4 H Hct 49.2 H RDW Seg Neuts % (Manual) Lymphocytes % (Manual) Nucleated RBC % Lymphocytes # (Manual) PT INR D-Dimer POC ABG pH POC ABG pCO2 Sodium Potassium Carbon Dioxide BUN Creatinine Glucose POC Glucose 168 H 106 H Calcium Magnesium Total Bilirubin AST Alkaline Phosphatase Ammonia Total Creatine Kinase CK-MB (CK-2) CK-MB (CK-2) Rel Index Troponin T NT-Pro-B Natriuret Pep Total Protein Albumin HDL Cholesterol 05/31/18 05/31/18 11:48 11:51 RBC Hgb Hct RDW Seg Neuts % (Manual) Lymphocytes % (Manual) Nucleated RBC % Lymphocytes # (Manual) PT 20.6 H INR 1.71 H D-Dimer 1834.40 H POC ABG pH 6.997 L POC ABG pCO2 59.6 H Sodium Potassium Carbon Dioxide BUN Creatinine Glucose POC Glucose Calcium Magnesium Total Bilirubin AST Alkaline Phosphatase Ammonia Total Creatine Kinase CK-MB (CK-2) CK-MB (CK-2) Rel Index Troponin T NT-Pro-B Natriuret Pep Total Protein Albumin HDL Cholesterol Assessment and Plan Acute hypercapnia respiratory failure STEMI AMS associated with hypoglycemia episode CHF with exacerbation Cardiomyopathy Acute on chronic kidney injury Recommendations Discussed with ED and RT/nursing staff- Initiate noninvasive ventilation, BiPAP 14/5 cm H2O, backup rate 14, titrate FiO2 to maintain oximetry of 95% Stat DuoNeb 1 ampule nebulizer therapy and continue this every 4-6 hours as needed Solu-Medrol 60 mg every 8 hours Gentle diureses, initiate IV nitroglycerin if needed Check echocardiogram results Follow-up on cardiology recommendations regarding non-STEMI management Update ABGs and 40 minutes after above, watch for further deterioration respiratory failure and need for intubation Discussed with patient in detail. All questions answered. Thanks Critical care time was 45 minutes of [id number] evaluation and coordination of care
[2018-05-31] MEDS ORDERED: LASIX IV ONE (12:28)
[2018-05-31] MEDS: DUONEB *Not for PRN Use IH SCH ×3 (12:40→20:07)
[2018-05-31] MEDS ORDERED: NACL 0.45% 1000 ML 1,000 ML with SODIUM BICARBONATE 50 MEQ IV ONE (13:00)
[2018-05-31] MEDS ORDERED: AMIDATE IV ONE ×2 (13:25→16:57)
[2018-05-31] MEDS ORDERED: ZEMURON IV ONE ×2 (13:25→16:57)
[2018-05-31] MEDS ORDERED: ARTIFICIAL TEARS OPHTH OINT OU PRN (13:38)
[2018-05-31] MEDS ORDERED: VASELINE LIP THERAPY TP PRN (13:38)
--- NOTE | 2018-05-31 13:56 | XRay Report ---
AP CHEST: HISTORY: Endotracheal tube placement An endotracheal tube has been inserted which terminates 4.3 cm superior to the yany. Mild cardiomegaly, mild pulmonary venous congestion, moderate left pleural effusion and small right pleural effusion are identified. Mild atelectatic changes are noted in the lower lung zones. IMPRESSION: Adequate placement of the endotracheal tube. CHF
[2018-05-31] MEDS ORDERED: NACL 0.9% 500 ML IV SCH (14:00)
[2018-05-31] MEDS ORDERED: DIPRIVAN 10 MG/ML 1,000 MG/100 ML BOTTLE IV SCH (14:00)
--- NOTE | 2018-05-31 14:08 | Consultation ---
History of Present Illness Consult date: 05/31/18 Requesting physician: ROBYN METZGER Consult reason: elevated troponin History of present illness: The pt is a 63 YO male who presented from home with AMS. He is lethargic with no family at bedside on evaluation and thus HPI is obtained per the chart and primary RN. The patient was resportedly in his usual state of health yesterday and was last seen well around midnight. Around 0330 this morning the patient was found altered, foaming at the mouth, and with extremities clinched. ER nurse reports EMS recorded accucheck of 14. On evaluation, pt is lethargic but responsive to verbal stimuli. He denies any current chest pain. Past History Past Medical History: diabetes, hypertension Past Surgical History: Other (couldn't obtained) Social history: full code. denies: smoking, alcohol abuse, prescription drug abuse, IV drug use Family history: no significant family history Medications and Allergies Allergies Allergy/AdvReac Type Severity Reaction Status Date / Time Unable to Assess Allergy Verified 05/31/18 06:39 Home Medications Medication Instructions Recorded Confirmed Last Taken Type Furosemide [Lasix] 20 mg PO DAILY 05/31/18 05/31/18 Unknown History Isosorbide Dinitrate 30 mg PO DAILY 05/31/18 05/31/18 Unknown History hydrALAZINE 50 mg PO TID 05/31/18 05/31/18 Unknown History Active Meds: Active Medications Acetaminophen (Tylenol) 650 mg PO Q4H PRN PRN Reason: Pain MILD(1-3)/Fever >100.5/VARGAS Albuterol/Ipratropium (Duoneb *Not For Prn Use*) 1 ampul IH QIDRT ALYSIA Last Admin: 05/31/18 12:40 Dose: 1 ampul Dextrose (D50w (25gm) Syringe) 50 ml IV PRN PRN PRN Reason: Hypoglycemia Last Admin: 05/31/18 04:58 Dose: 50 ml Hydrophilic Ointment (Vaseline Lip Therapy) 1 applic TP Q2HR PRN PRN Reason: Dry Lips Heparin Sodium/Sodium Chloride (Heparin/ 0.45% Nacl-25,000 Unit/500 Ml) 25,000 unit in 500 mls @ 20 mls/hr IV TITRATE ALYSIA; Protocol Last Admin: 05/31/18 13:48 Dose: 1,000 units/hr, 20 mls/hr Sodium Bicarbonate 150 meq/ (Dextrose) 1,150 mls @ 75 mls/hr IV DIRECT ALYSIA Sodium Bicarbonate 50 meq/ (Sodium Chloride) 1,000 mls @ 100 mls/hr IV DIRECT ONE Stop: 05/31/18 22:59 Propofol (Diprivan 10 Mg/Ml) 1,000 mg in 100 mls @ 2.041 mls/hr IV TITR ALYSIA; Protocol Last Admin: 05/31/18 13:48 Dose: 5 mcg/kg/min, 2.041 mls/hr Morphine Sulfate (Morphine) 2 mg IV Q4H PRN PRN Reason: Pain, Moderate (4-6) Multi-Ingred Cream/Lotion/Oil/Oint (Artificial Tears Ophth Oint) 1 applic OU Q4HR PRN PRN Reason: Dry Eye(s) Ondansetron HCl (Zofran) 4 mg IV Q8H PRN PRN Reason: Nausea And Vomiting Sodium Chloride (Sodium Chloride Flush Syringe 10 Ml) 10 ml IV BID ALYSIA Sodium Chloride (Sodium Chloride Flush Syringe 10 Ml) 10 ml IV PRN PRN PRN Reason: LINE FLUSH Sodium Chloride (Nacl 0.9% 500 Ml) 1 ml IV DIRECT ALYSIA Review of Systems Cardiovascular: no chest pain Physical Examination Vital Signs Pulse Resp BP 95 H 18 130/98 05/31/18 04:53 05/31/18 04:53 05/31/18 04:53 General appearance: other (lethargic) HEENT: Positive: PERRL Neck: Positive: neck supple, trachea midline Cardiac: Positive: Reg Rate and Rhythm, S1/S2 Lungs: Positive: Decreased Breath Sounds Neuro: Positive: Other (lethargic) Abdomen: Positive: Soft. Negative: Tender Skin: Negative: Rash, Wound Extremities: Present: +2 Edema (BLE) Results 05/31/18 11:48 05/31/18 05:49 Cardiac Enzymes 05/31/18 Range/Units 05:49 AST 60 H (5-40) units/L CK-MB (CK-2) 22.3 H (0.0-4.0) ng/mL Coagulation 05/31/18 05/31/18 Range/Units 05:15 11:48 PT 20.9 H 20.6 H (12.2-14.9) Sec. INR 1.74 H 1.71 H (0.87-1.13) APTT 28.2 32.6 (24.2-36.6) Sec. Lipids 05/31/18 Range/Units 05:49 Triglycerides 16 (2-149) mg/dL Cholesterol 142 (50-199) mg/dL HDL Cholesterol 91 H (40-59) mg/dL Cholesterol/HDL Ratio 1.56 % CBC 05/31/18 05/31/18 Range/Units 05:15 11:48 WBC 5.9 (4.5-11.0) K/mm3 RBC 5.33 H (3.65-5.03) M/mm3 Hgb 14.7 15.4 H (11.8-15.2) gm/dl Hct 45.8 H 49.2 H (35.5-45.6) % Plt Count 192 185 (140-440) K/mm3 Comprehensive Metabolic Panel 05/31/18 Range/Units 05:49 Sodium 135 L (137-145) mmol/L Potassium 6.0 H (3.6-5.0) mmol/L Chloride 104.3 (98-107) mmol/L Carbon Dioxide 13 L (22-30) mmol/L BUN 87 H (9-20) mg/dL Creatinine 2.5 H (0.8-1.5) mg/dL Glucose 249 H (75-100) mg/dL Calcium 7.8 L (8.4-10.2) mg/dL AST 60 H (5-40) units/L ALT 55 (7-56) units/L Alkaline Phosphatase 592 H (35-129) units/L Total Protein 5.5 L (6.3-8.2) g/dL Albumin 3.0 L (3.9-5) g/dL - Imaging and Cardiology Echo: pending EKG: report reviewed, image reviewed EKG interpretations - Telemetry EKG Rhythm: Sinus Rhythm - EKG Sinus rhythms and dysrhythmias: sinus rhythm Assessment and Plan Agree with heparin gtt. Obtain echo. Cont cautious diuresis as tolerated. Await nephrology consultation. The patient has been seen in conjunction with Dr. Zamora who agrees with the assessment and plan of care. - Patient Problems (1) Non-ST elevation HI (NSTEMI) Current Visit: Yes Status: Acute (2) Acute heart failure Current Visit: Yes Status: Acute (3) Metabolic encephalopathy Current Visit: Yes Status: Acute (4) Acute on chronic kidney failure Current Visit: Yes Status: Acute (5) Hyperkalemia Current Visit: Yes Status: Acute (6) Hypoglycemia Current Visit: Yes Status: Acute (7) Hypothermia Current Visit: Yes Status: Acute Qualifiers: Encounter type: initial encounter Qualified Code(s): T68.XXXA - Hypothermia , initial encounter
--- NOTE | 2018-05-31 14:58 | Consultation ---
History of Present Illness - Reason for Consult Consult date: 05/31/18 acute renal failure, hyperkalemia, metabolic acidosis - History of Present Illness History obtained from medical records as patient is intubated. Daughter reports patient with hx HTN and CHF. Denies blood thinners. Reports patient has heart percent of ~10%. Reports patient was fine yesterday. Last seen normal at approximately midnight. Reports that around 0330 this morning patient was found altered, foaming at the mouth, and with extremities clinched. Denies hx of seizure. Reports patient last diabetes number was "7" and that the patient was deemed pre-diabetic. Denies hx of taking DM medications. ER nurse reports EMS recorded accucheck of 14. Reports EMS administered one amp D50. Reports accucheck upon arrival in the ER of 39. Reports patient received approximately 2 amps D50 in the ER. Family reports patient symptoms improved after receiving sugar in the IV. Past History Past Medical History: diabetes, hypertension Past Surgical History: Other (couldn't obtained) Social history: full code. denies: smoking, alcohol abuse, prescription drug abuse, IV drug use Family history: no significant family history Medications and Allergies Allergies Allergy/AdvReac Type Severity Reaction Status Date / Time Unable to Assess Allergy Verified 05/31/18 06:39 Home Medications Medication Instructions Recorded Confirmed Last Taken Type Furosemide [Lasix] 20 mg PO DAILY 05/31/18 05/31/18 Unknown History Isosorbide Dinitrate 30 mg PO DAILY 05/31/18 05/31/18 Unknown History hydrALAZINE 50 mg PO TID 05/31/18 05/31/18 Unknown History Active Meds: Active Medications Acetaminophen (Tylenol) 650 mg PO Q4H PRN PRN Reason: Pain MILD(1-3)/Fever >100.5/VARGAS Albuterol/Ipratropium (Duoneb *Not For Prn Use*) 1 ampul IH QIDRT ALYSIA Last Admin: 05/31/18 12:40 Dose: 1 ampul Dextrose (D50w (25gm) Syringe) 50 ml IV PRN PRN PRN Reason: Hypoglycemia Last Admin: 05/31/18 04:58 Dose: 50 ml Hydrophilic Ointment (Vaseline Lip Therapy) 1 applic TP Q2HR PRN PRN Reason: Dry Lips Heparin Sodium/Sodium Chloride (Heparin/ 0.45% Nacl-25,000 Unit/500 Ml) 25,000 unit in 500 mls @ 20 mls/hr IV TITRATE ALYSIA; Protocol Last Admin: 05/31/18 13:48 Dose: 1,000 units/hr, 20 mls/hr Sodium Bicarbonate 150 meq/ (Dextrose) 1,150 mls @ 75 mls/hr IV DIRECT ALYSIA Sodium Bicarbonate 50 meq/ (Sodium Chloride) 1,000 mls @ 100 mls/hr IV DIRECT ONE Stop: 05/31/18 22:59 Propofol (Diprivan 10 Mg/Ml) 1,000 mg in 100 mls @ 2.041 mls/hr IV TITR ALYSIA; Protocol Last Admin: 05/31/18 13:48 Dose: 5 mcg/kg/min, 2.041 mls/hr Morphine Sulfate (Morphine) 2 mg IV Q4H PRN PRN Reason: Pain, Moderate (4-6) Multi-Ingred Cream/Lotion/Oil/Oint (Artificial Tears Ophth Oint) 1 applic OU Q4HR PRN PRN Reason: Dry Eye(s) Ondansetron HCl (Zofran) 4 mg IV Q8H PRN PRN Reason: Nausea And Vomiting Sodium Chloride (Sodium Chloride Flush Syringe 10 Ml) 10 ml IV BID ALYSIA Sodium Chloride (Sodium Chloride Flush Syringe 10 Ml) 10 ml IV PRN PRN PRN Reason: LINE FLUSH Sodium Chloride (Nacl 0.9% 500 Ml) 1 ml IV DIRECT ALYSIA Review of Systems ROS unobtainable: due to endotracheal tube Exam - Vital Signs Vital signs: Vital Signs Pulse Resp BP 95 H 18 130/98 05/31/18 04:53 05/31/18 04:53 05/31/18 04:53 - General Appearance General appearance: well-developed, well-nourished, sedated on ventilator, intubated EENT: ATNC, other (ETT in place) Respiratory: Clear to Ascultation Heart: regular, S1S2 Gastrointestinal: Present: normal. Absent: distended, masses Integumentary: no rash, warm and dry Neurologic: other (sedated) Musculoskeletal: Present: other (no edema) Results - Lab Results 05/31/18 11:48 05/31/18 05:49 Most recent lab results Calcium 7.8 mg/dL (8.4-10.2) L 05/31/18 05:49 Magnesium 2.40 mg/dL (1.7-2.3) H 05/31/18 07:13 Assessment and Plan Impression: * Nonoliguric acute kidney injury secondary to prerenal azotemia vs ATN * Acute respiratory failure on mechanical ventilation * NSTEMI * Hyperkalemia * Severe hypoglycemia * Mixed resp/metabolic acidosis * Hypertension Plan: * Continue IVF for hydration - bicarb gtt * Patient now intubated - vent management per [facility] * He is s/p kayexelate. Will order follow up BMP * No indication for hemodiaylsis at present, renal prognosis is guarded * Consultants' recommendations reviewed * Strict I/O * Dose medications for renal function
[2018-05-31] MEDS ORDERED: SODIUM BICARBONATE FEEDTUBE PRN (15:26)
[2018-05-31] MEDS ORDERED: SIMPLE SYRUP FEEDTUBE PRN ×2 (15:26)
[2018-05-31] MEDS ORDERED: PANCREAZE DR 10,500 UNIT FEEDTUBE PRN (15:26)
[2018-05-31] MEDS ORDERED: DIPRIVAN 10 MG/ML 1,000 MG/100 ML BOTTLE IV ONE (16:35)
[2018-05-31] MEDS: SODIUM BICARBONATE 150 MEQ in D5W 1,000 ML IV SCH (18:00)
[2018-05-31] MEDS: PEPCID IV SCH (19:54)
[2018-05-31 21:14] LABS: Calcium 7.2 mg/dL (8.4-10.2)
[2018-05-31] MEDS: MORPHINE IV PRN (21:23)
[2018-05-31 23:36] LABS: Hematocrit 41.9 % (35.5-45.6); Hemoglobin 13.6 gm/dl (11.8-15.2)
--- NOTE | 2018-06-01 00:19 | Cat Scan Report ---
FINAL REPORT PROCEDURE: CT CHEST WO CON TECHNIQUE: Computerized axial tomography of the chest was performed without contrast material. This study is performed without intravenous contrast and the sensitivity for pathology, including neoplasms, adenopathy, abscess, pulmonary embolism and aortic dissection, is reduced. HISTORY: coughing blood COMPARISON: No prior studies are available for comparison. TECHNICAL QUALITY: Satisfactory. FINDINGS: Heart and pericardium: Normal. Thoracic aorta: Normal. Pulmonary vasculature: Normal. Lymph nodes: No enlarged thoracic lymph nodes. Lungs: Moderate vascular congestion with bilateral lower lung infiltrates and atelectasis noted. There are significant bilateral effusions. The endotracheal tube ends 4 centimeters above the yany.. Pleural space: Significant bilateral effusions.. Musculoskeletal structures: No significant abnormality. Upper abdominal structures: Moderate ascites. There is cholelithiasis. No dilatation of the biliary ductal system.. IMPRESSION: CHF with bilateral lower lung infiltrates and atelectasis. There are significant bilateral effusions. The endotracheal tube ends 4 centimeters from the yany. Upper abdominal ascites is mild. There is cholelithiasis..
--- NOTE | 2018-06-01 00:53 | Event Note ---
Notified by nurse that patient has blood coming from the mouth Hold heparin drip, check serial hemoglobin Obtain PT /inr Obtain stat CT chest which showed pneumonia Start IV zosyn, give vitamin K Discussed with daughter at bedside The high probability of a clinically significant, sudden or life threatening deterioration of the [respiratory, hemodynamic and neurological] system(s) required my full and direct attention, intervention and personal management. The aggregate critical care time was [35] minutes. This time is in addition to time spent performing reported procedures but includes the following: [x] Data Review and interpretation [x] Patient assessment and monitoring of vital signs [x] Documentation [x] Medication orders and management
[2018-06-01] MEDS ORDERED: ZOSYN/NS 2.25 GM/50ML 2.25 GM/50 ML BAG IV SCH (01:00)
[2018-06-01] MEDS: MORPHINE IV PRN (01:40)
[2018-06-01 02:40] LABS: INR 1.79 (0.87-1.13)
--- NOTE | 2018-06-01 02:41 | XRay Report ---
FINAL REPORT PROCEDURE: XR CHEST 1V AP TECHNIQUE: Chest radiograph anteroposterior view. CPT 59772 HISTORY: follow up respiratory failure COMPARISON: 05/31/2018 FINDINGS: Heart: The heart size is enlarged but stable. Mediastinum/Vessels: Normal. Lungs/Pleural space: Mild atelectasis and effusion left lower lung. Slight vascular congestion. Bony thorax: No acute osseous abnormality. Life support devices: None. IMPRESSION: Mild atelectasis and effusion left lower lung. Slight vascular congestion. Stable cardiomegaly..
[2018-06-01 02:42] LABS: Partial Thromboplastin Time 33.2 Sec. (24.2-36.6)
[2018-06-01 04:24] LABS: Hematocrit 40.8 % (35.5-45.6); Hemoglobin 13.3 gm/dl (11.8-15.2); Mean Corpuscular HGB Conc 33 % (32-34); Mean Corpuscular Hemoglobin 27 pg (28-32); Mean Corpuscular Volume 83 fl (84-94); Platelet Count 135 K/mm3 (140-440); Red Cell Distribution Width 15.4 % (13.2-15.2)
[2018-06-01 04:39] LABS: Calcium 7.2 mg/dL (8.4-10.2)
[2018-06-01] MEDS: SODIUM CHLORIDE FLUSH SYRINGE 10 ML IV SCH ×3 (05:47→21:19)
[2018-06-01] MEDS ORDERED: VITAMIN K (ADULT ONLY) SUB-Q ONE (06:30)
[2018-06-01] MEDS: DUONEB *Not for PRN Use IH SCH ×4 (07:30→20:25)
[2018-06-01] MEDS: SODIUM BICARBONATE 150 MEQ in D5W 1,000 ML IV SCH (08:13)
[2018-06-01 08:46] LABS: Basophils % (Manual) 0 % (0.0-1.8); Eosinophils % (Manual) 0 % (0.0-4.3); Total Cells Counted 100
[2018-06-01 08:47] LABS: Giant Platelets Few; Platelet Estimate Consistent w Auto
[2018-06-01 08:48] LABS: Anisocytosis 1+; Poikilocytosis 1+; Target Cells 1+
--- NOTE | 2018-06-01 09:24 | Progress Note ---
Assessment and Plan Acute hypercapnia respiratory failure NONSTEMI Severe bronchospasm, most likely cardiac asthma. Per family, he is a nonsmoker and has never been treated for asthma or COPD. AMS associated with hypoglycemia episode. Per family patient with decreased oral intake in the past week CHF with exacerbation Cardiomyopathy Acute on chronic kidney injury Recommendations Albuterol or DuoNeb every 6 hours as needed Solu-Medrol 60 mg every 8 hours Gentle diureses, monitor blood pressure and electrolytes Continue serial blood sugar monitoring, currently on D5 infusion, D50 as needed Sedation vacation If appropriate, initiate pressure support 10/5 cm H2O on monitor tolerance. Wean pressure support accordingly Check echocardiogram results Follow-up on cardiology recommendations regarding non-STEMI management Discussed with family in detail. All questions answered. Critical care time was 31 minutes of [id number] evaluation and coordination of care Subjective Date of service: 06/01/18 Principal diagnosis: Respiratory failure, non STEMI,CMP Interval history: Sedated, intubated Objective Vital Signs - 12hr 05/31/18 05/31/18 05/31/18 21:30 21:40 21:50 Temperature Pulse Rate 73 75 72 Pulse Rate [ Anterior Bilateral Throughout] Respiratory 18 18 17 Rate Respiratory Rate [Anterior Bilateral Throughout] Blood Pressure 128/87 128/87 128/90 O2 Sat by Pulse 100 100 100 Oximetry 05/31/18 05/31/18 05/31/18 22:00 22:10 22:20 Temperature Pulse Rate 74 71 70 Pulse Rate [ Anterior Bilateral Throughout] Respiratory 17 18 15 Rate Respiratory Rate [Anterior Bilateral Throughout] Blood Pressure 127/89 127/89 124/88 O2 Sat by Pulse 100 100 Oximetry 05/31/18 05/31/18 05/31/18 22:30 22:40 22:50 Temperature Pulse Rate 73 77 78 Pulse Rate [ Anterior Bilateral Throughout] Respiratory 19 16 18 Rate Respiratory Rate [Anterior Bilateral Throughout] Blood Pressure 127/89 127/89 114/93 O2 Sat by Pulse 95 100 Oximetry 05/31/18 05/31/18 05/31/18 23:00 23:10 23:20 Temperature Pulse Rate 74 72 72 Pulse Rate [ Anterior Bilateral Throughout] Respiratory 18 18 18 Rate Respiratory Rate [Anterior Bilateral Throughout] Blood Pressure 124/86 124/86 123/91 O2 Sat by Pulse 100 100 100 Oximetry 05/31/18 05/31/18 06/01/18 23:30 23:40 00:00 Temperature 99.5 F Pulse Rate 74 71 Pulse Rate [ Anterior Bilateral Throughout] Respiratory 17 18 Rate Respiratory Rate [Anterior Bilateral Throughout] Blood Pressure 116/80 116/80 O2 Sat by Pulse 100 100 Oximetry 06/01/18 06/01/18 06/01/18 00:14 00:20 00:30 Temperature Pulse Rate 74 74 70 Pulse Rate [ Anterior Bilateral Throughout] Respiratory 18 15 19 Rate Respiratory Rate [Anterior Bilateral Throughout] Blood Pressure 116/80 116/89 126/88 O2 Sat by Pulse 100 100 Oximetry 06/01/18 06/01/18 06/01/18 00:38 00:40 00:50 Temperature Pulse Rate 70 71 74 Pulse Rate [ Anterior Bilateral Throughout] Respiratory 18 14 Rate Respiratory Rate [Anterior Bilateral Throughout] Blood Pressure 126/88 126/88 124/87 O2 Sat by Pulse 100 100 100 Oximetry 06/01/18 06/01/18 06/01/18 01:00 01:10 01:20 Temperature Pulse Rate 71 74 73 Pulse Rate [ Anterior Bilateral Throughout] Respiratory 18 18 18 Rate Respiratory Rate [Anterior Bilateral Throughout] Blood Pressure 128/87 124/87 129/89 O2 Sat by Pulse 100 100 Oximetry 06/01/18 06/01/18 06/01/18 01:30 01:40 01:50 Temperature Pulse Rate 70 71 70 Pulse Rate [ Anterior Bilateral Throughout] Respiratory 18 18 18 Rate Respiratory Rate [Anterior Bilateral Throughout] Blood Pressure 126/88 128/87 125/88 O2 Sat by Pulse 100 100 100 Oximetry 06/01/18 06/01/18 06/01/18 02:00 02:10 02:20 Temperature Pulse Rate 69 70 68 Pulse Rate [ Anterior Bilateral Throughout] Respiratory 18 18 18 Rate Respiratory Rate [Anterior Bilateral Throughout] Blood Pressure 125/88 126/88 132/92 O2 Sat by Pulse 100 100 100 Oximetry 06/01/18 06/01/18 06/01/18 02:30 02:40 02:50 Temperature Pulse Rate 68 70 69 Pulse Rate [ Anterior Bilateral Throughout] Respiratory 18 17 16 Rate Respiratory Rate [Anterior Bilateral Throughout] Blood Pressure 127/89 132/92 133/97 O2 Sat by Pulse 100 100 100 Oximetry 06/01/18 06/01/18 06/01/18 03:00 03:10 03:20 Temperature Pulse Rate 71 68 69 Pulse Rate [ Anterior Bilateral Throughout] Respiratory 17 18 18 Rate Respiratory Rate [Anterior Bilateral Throughout] Blood Pressure 138/94 127/89 130/94 O2 Sat by Pulse 100 100 100 Oximetry 06/01/18 06/01/18 06/01/18 03:30 03:40 03:50 Temperature Pulse Rate 68 75 70 Pulse Rate [ Anterior Bilateral Throughout] Respiratory 18 15 18 Rate Respiratory Rate [Anterior Bilateral Throughout] Blood Pressure 132/92 132/92 133/93 O2 Sat by Pulse 100 100 100 Oximetry 06/01/18 06/01/18 06/01/18 04:00 04:10 04:20 Temperature 97.2 F L Pulse Rate 73 69 67 Pulse Rate [ Anterior Bilateral Throughout] Respiratory 16 16 18 Rate Respiratory Rate [Anterior Bilateral Throughout] Blood Pressure 137/93 137/93 132/89 O2 Sat by Pulse 100 100 100 Oximetry 06/01/18 06/01/18 06/01/18 04:30 04:40 04:50 Temperature Pulse Rate 67 67 67 Pulse Rate [ Anterior Bilateral Throughout] Respiratory 14 18 18 Rate Respiratory Rate [Anterior Bilateral Throughout] Blood Pressure 140/89 140/89 128/89 O2 Sat by Pulse 100 100 100 Oximetry 06/01/18 06/01/18 06/01/18 04:55 05:00 05:10 Temperature Pulse Rate 68 69 67 Pulse Rate [ Anterior Bilateral Throughout] Respiratory 18 18 Rate Respiratory Rate [Anterior Bilateral Throughout] Blood Pressure 128/89 129/89 140/89 O2 Sat by Pulse 100 100 100 Oximetry 06/01/18 06/01/18 06/01/18 05:20 05:30 05:40 Temperature Pulse Rate 67 67 69 Pulse Rate [ Anterior Bilateral Throughout] Respiratory 18 18 17 Rate Respiratory Rate [Anterior Bilateral Throughout] Blood Pressure 128/92 132/92 132/92 O2 Sat by Pulse 100 100 Oximetry 06/01/18 06/01/18 06/01/18 05:50 06:00 07:31 Temperature Pulse Rate 68 69 Pulse Rate [ 70 Anterior Bilateral Throughout] Respiratory 18 14 Rate Respiratory 18 Rate [Anterior Bilateral Throughout] Blood Pressure 137/93 137/93 O2 Sat by Pulse 100 100 Oximetry 06/01/18 07:39 Temperature Pulse Rate 71 Pulse Rate [ Anterior Bilateral Throughout] Respiratory Rate Respiratory Rate [Anterior Bilateral Throughout] Blood Pressure 138/95 O2 Sat by Pulse 100 Oximetry Constitutional: no acute distress Eyes: non-icteric ENT: oropharynx moist Neck: supple, no JVD, other ([facility]) Ascultation: Bilateral: clear, diminished breath sounds Cardiovascular: regular rate and rhythm Gastrointestinal: normoactive bowel sounds, non-distended Integumentary: normal Extremities: no cyanosis, other (+ 2 pretibial edema) CBC and BMP: 06/01/18 09:07 06/01/18 03:40 ABG, PT/INR, D-dimer: ABG POC ABG pH 7.474 (7.35-7.45) H 06/01/18 04:59 POC ABG pCO2 26.1 (35-45) L 06/01/18 04:59 POC ABG pO2 116 (80-105) H 06/01/18 04:59 POC ABG HCO3 19.1 06/01/18 04:59 POC ABG Total CO2 20 06/01/18 04:59 POC ABG O2 Sat 99 06/01/18 04:59 PT/INR, D-dimer PT 21.4 Sec. (12.2-14.9) H 06/01/18 01:12 INR 1.79 (0.87-1.13) H 06/01/18 01:12 D-Dimer 1834.40 ng/mlDDU (0-234) H 05/31/18 11:48 Abnormal lab findings: Abnormal Labs 05/31/18 05/31/18 05/31/18 04:38 04:58 05:14 RBC Hgb Hct MCV MCH RDW Plt Count Seg Neuts % (Manual) Lymphocytes % (Manual) Nucleated RBC % Lymphocytes # (Manual) PT INR D-Dimer POC ABG pH POC ABG pCO2 POC ABG pO2 Sodium Potassium Carbon Dioxide BUN Creatinine Glucose POC Glucose < 40 L 64 L 258 H Calcium Magnesium Total Bilirubin AST Alkaline Phosphatase Ammonia Total Creatine Kinase CK-MB (CK-2) CK-MB (CK-2) Rel Index Troponin T NT-Pro-B Natriuret Pep Total Protein Albumin HDL Cholesterol 05/31/18 05/31/18 05/31/18 05:15 05:15 05:22 RBC 5.33 H Hgb Hct 45.8 H MCV MCH RDW 16.4 H Plt Count Seg Neuts % (Manual) 88.0 H Lymphocytes % (Manual) 6.0 L Nucleated RBC % 1.0 H Lymphocytes # (Manual) 0.4 L PT 20.9 H INR 1.74 H D-Dimer POC ABG pH POC ABG pCO2 POC ABG pO2 Sodium Potassium Carbon Dioxide BUN Creatinine Glucose POC Glucose Calcium Magnesium Total Bilirubin AST Alkaline Phosphatase Ammonia 68.0 H Total Creatine Kinase CK-MB (CK-2) CK-MB (CK-2) Rel Index Troponin T NT-Pro-B Natriuret Pep Total Protein Albumin HDL Cholesterol 05/31/18 05/31/18 05/31/18 05:49 07:13 07:22 RBC Hgb Hct MCV MCH RDW Plt Count Seg Neuts % (Manual) Lymphocytes % (Manual) Nucleated RBC % Lymphocytes # (Manual) PT INR D-Dimer POC ABG pH POC ABG pCO2 POC ABG pO2 Sodium 135 L Potassium 6.0 H Carbon Dioxide 13 L BUN 87 H Creatinine 2.5 H Glucose 249 H POC Glucose 124 H Calcium 7.8 L Magnesium 2.40 H Total Bilirubin 2.60 H AST 60 H Alkaline Phosphatase 592 H Ammonia Total Creatine Kinase 374 H CK-MB (CK-2) 22.3 H CK-MB (CK-2) Rel Index 5.9 H Troponin T 0.260 H* NT-Pro-B Natriuret Pep 50051 H Total Protein 5.5 L Albumin 3.0 L HDL Cholesterol 91 H 05/31/18 05/31/18 05/31/18 09:33 10:53 11:48 RBC Hgb 15.4 H Hct 49.2 H MCV MCH RDW Plt Count Seg Neuts % (Manual) Lymphocytes % (Manual) Nucleated RBC % Lymphocytes # (Manual) PT INR D-Dimer POC ABG pH POC ABG pCO2 POC ABG pO2 Sodium Potassium Carbon Dioxide BUN Creatinine Glucose POC Glucose 168 H 106 H Calcium Magnesium Total Bilirubin AST Alkaline Phosphatase Ammonia Total Creatine Kinase CK-MB (CK-2) CK-MB (CK-2) Rel Index Troponin T NT-Pro-B Natriuret Pep Total Protein Albumin HDL Cholesterol 05/31/18 05/31/18 05/31/18 11:48 11:48 11:51 RBC Hgb Hct MCV MCH RDW Plt Count Seg Neuts % (Manual) Lymphocytes % (Manual) Nucleated RBC % Lymphocytes # (Manual) PT 20.6 H INR 1.71 H D-Dimer 1834.40 H POC ABG pH 6.997 L POC ABG pCO2 59.6 H POC ABG pO2 Sodium Potassium Carbon Dioxide BUN Creatinine Glucose POC Glucose Calcium Magnesium Total Bilirubin AST Alkaline Phosphatase Ammonia Total Creatine Kinase CK-MB (CK-2) CK-MB (CK-2) Rel Index Troponin T 0.230 H* NT-Pro-B Natriuret Pep Total Protein Albumin HDL Cholesterol 05/31/18 05/31/18 05/31/18 15:53 18:29 19:26 RBC Hgb Hct MCV MCH RDW Plt Count Seg Neuts % (Manual) Lymphocytes % (Manual) Nucleated RBC % Lymphocytes # (Manual) PT INR D-Dimer POC ABG pH 7.328 L POC ABG pCO2 29.6 L POC ABG pO2 200 H Sodium Potassium Carbon Dioxide BUN Creatinine Glucose POC Glucose < 40 L 68 L Calcium Magnesium Total Bilirubin AST Alkaline Phosphatase Ammonia Total Creatine Kinase CK-MB (CK-2) CK-MB (CK-2) Rel Index Troponin T NT-Pro-B Natriuret Pep Total Protein Albumin HDL Cholesterol 05/31/18 06/01/18 06/01/18 20:40 01:12 03:40 RBC Hgb Hct MCV 83 L MCH 27 L RDW 15.4 H Plt Count 135 L Seg Neuts % (Manual) 95.0 H Lymphocytes % (Manual) 4.0 L Nucleated RBC % Lymphocytes # (Manual) 0.3 L PT 21.4 H INR 1.79 H D-Dimer POC ABG pH POC ABG pCO2 POC ABG pO2 Sodium Potassium 5.5 H Carbon Dioxide 13 L BUN 89 H Creatinine 2.7 H Glucose 72 L POC Glucose Calcium 7.2 L Magnesium Total Bilirubin AST Alkaline Phosphatase Ammonia Total Creatine Kinase CK-MB (CK-2) CK-MB (CK-2) Rel Index Troponin T NT-Pro-B Natriuret Pep Total Protein Albumin HDL Cholesterol 06/01/18 06/01/18 06/01/18 03:40 04:59 08:29 RBC Hgb Hct MCV MCH RDW Plt Count Seg Neuts % (Manual) Lymphocytes % (Manual) Nucleated RBC % Lymphocytes # (Manual) PT INR D-Dimer POC ABG pH 7.474 H POC ABG pCO2 26.1 L POC ABG pO2 116 H Sodium Potassium 5.3 H Carbon Dioxide 16 L BUN 92 H Creatinine 2.7 H Glucose 61 L POC Glucose 69 L Calcium 7.2 L Magnesium Total Bilirubin AST Alkaline Phosphatase Ammonia Total Creatine Kinase CK-MB (CK-2) CK-MB (CK-2) Rel Index Troponin T NT-Pro-B Natriuret Pep Total Protein Albumin HDL Cholesterol
[2018-06-01] MEDS: PEPCID IV SCH (09:26)
[2018-06-01] MEDS: D50W (25GM) Syringe IV PRN ×2 (09:26→17:05)
[2018-06-01 09:57] LABS: Hematocrit 40.6 % (35.5-45.6); Hemoglobin 13.3 gm/dl (11.8-15.2)
--- NOTE | 2018-06-01 10:08 | Progress Note ---
Subjective Principal diagnosis: Respiratory failure, non STEMI,CMP Interval history: Patient was seen today for follow-up on multiple renal related issues in the critical care setting, vitals labs intake output medications were reviewed Interdisciplinary notes were also reviewed Past medical history: Reviewed Family history: Reviewed Allergies: Reviewed Current medication: Reviewed Physical examination: General no acute distress HEENT: Oral mucosa moist Neck: Supple no JVD Chest: Few bilateral basilar crackles posteriorly otherwise clear anteriorly Heart: Regular rate and rhythm S1-S2 heard no S3-S4 Abdomen: Soft nontender no organomegaly Extremities: 2+ edema no peripheral cyanosis dry skin Psychiatric: No agitation and aggression noted Assessment and plan: Acute kidney injury in a patient who is 63-year-old but unfortunately has a ejection fraction of only 10% status post non-ST elevation TN current potassium around 5.3 with a bicarbonate of 16, renal function appears to be stable creatinine is around 2.7, follow renal function, may need Lasix, start bicarbonate for now Metabolic acidosis somewhat better today, GI bleed? Being followed by gastroenterology service Patient does have multiple risk factors for underlying chronic kidney disease, he'll be prone to cardiorenal syndrome which can result in progressive decline in renal function, creatinine is holding stable History of coronary artery disease, poor ejection fraction, elevated troponin stable Patient requires a renal ultrasonogram We'll place him on bicarbonate drip Renal prognosis remains guarded at this time We'll continue to follow and make recommendation from renal standpoint Objective - Vital Signs Vital signs: Vital Signs - 12hr 05/31/18 05/31/18 05/31/18 22:10 22:20 22:30 Temperature Pulse Rate 71 70 73 Pulse Rate [ Anterior Bilateral Throughout] Respiratory 18 15 19 Rate Respiratory Rate [Anterior Bilateral Throughout] Blood Pressure 127/89 124/88 127/89 O2 Sat by Pulse 100 100 Oximetry 05/31/18 05/31/18 05/31/18 22:40 22:50 23:00 Temperature Pulse Rate 77 78 74 Pulse Rate [ Anterior Bilateral Throughout] Respiratory 16 18 18 Rate Respiratory Rate [Anterior Bilateral Throughout] Blood Pressure 127/89 114/93 124/86 O2 Sat by Pulse 95 100 100 Oximetry 05/31/18 05/31/18 05/31/18 23:10 23:20 23:30 Temperature Pulse Rate 72 72 74 Pulse Rate [ Anterior Bilateral Throughout] Respiratory 18 18 17 Rate Respiratory Rate [Anterior Bilateral Throughout] Blood Pressure 124/86 123/91 116/80 O2 Sat by Pulse 100 100 100 Oximetry 05/31/18 06/01/18 06/01/18 23:40 00:00 00:14 Temperature 99.5 F Pulse Rate 71 74 Pulse Rate [ Anterior Bilateral Throughout] Respiratory 18 18 Rate Respiratory Rate [Anterior Bilateral Throughout] Blood Pressure 116/80 116/80 O2 Sat by Pulse 100 Oximetry 06/01/18 06/01/18 06/01/18 00:20 00:30 00:38 Temperature Pulse Rate 74 70 70 Pulse Rate [ Anterior Bilateral Throughout] Respiratory 15 19 Rate Respiratory Rate [Anterior Bilateral Throughout] Blood Pressure 116/89 126/88 126/88 O2 Sat by Pulse 100 100 100 Oximetry 06/01/18 06/01/18 06/01/18 00:40 00:50 01:00 Temperature Pulse Rate 71 74 71 Pulse Rate [ Anterior Bilateral Throughout] Respiratory 18 14 18 Rate Respiratory Rate [Anterior Bilateral Throughout] Blood Pressure 126/88 124/87 128/87 O2 Sat by Pulse 100 100 100 Oximetry 06/01/18 06/01/18 06/01/18 01:10 01:20 01:30 Temperature Pulse Rate 74 73 70 Pulse Rate [ Anterior Bilateral Throughout] Respiratory 18 18 18 Rate Respiratory Rate [Anterior Bilateral Throughout] Blood Pressure 124/87 129/89 126/88 O2 Sat by Pulse 100 100 Oximetry 06/01/18 06/01/18 06/01/18 01:40 01:50 02:00 Temperature Pulse Rate 71 70 69 Pulse Rate [ Anterior Bilateral Throughout] Respiratory 18 18 18 Rate Respiratory Rate [Anterior Bilateral Throughout] Blood Pressure 128/87 125/88 125/88 O2 Sat by Pulse 100 100 100 Oximetry 06/01/18 06/01/18 06/01/18 02:10 02:20 02:30 Temperature Pulse Rate 70 68 68 Pulse Rate [ Anterior Bilateral Throughout] Respiratory 18 18 18 Rate Respiratory Rate [Anterior Bilateral Throughout] Blood Pressure 126/88 132/92 127/89 O2 Sat by Pulse 100 100 100 Oximetry 06/01/18 06/01/18 06/01/18 02:40 02:50 03:00 Temperature Pulse Rate 70 69 71 Pulse Rate [ Anterior Bilateral Throughout] Respiratory 17 16 17 Rate Respiratory Rate [Anterior Bilateral Throughout] Blood Pressure 132/92 133/97 138/94 O2 Sat by Pulse 100 100 100 Oximetry 06/01/18 06/01/18 06/01/18 03:10 03:20 03:30 Temperature Pulse Rate 68 69 68 Pulse Rate [ Anterior Bilateral Throughout] Respiratory 18 18 18 Rate Respiratory Rate [Anterior Bilateral Throughout] Blood Pressure 127/89 130/94 132/92 O2 Sat by Pulse 100 100 100 Oximetry 06/01/18 06/01/18 06/01/18 03:40 03:50 04:00 Temperature 97.2 F L Pulse Rate 75 70 73 Pulse Rate [ Anterior Bilateral Throughout] Respiratory 15 18 16 Rate Respiratory Rate [Anterior Bilateral Throughout] Blood Pressure 132/92 133/93 137/93 O2 Sat by Pulse 100 100 100 Oximetry 06/01/18 06/01/18 06/01/18 04:10 04:20 04:30 Temperature Pulse Rate 69 67 67 Pulse Rate [ Anterior Bilateral Throughout] Respiratory 16 18 14 Rate Respiratory Rate [Anterior Bilateral Throughout] Blood Pressure 137/93 132/89 140/89 O2 Sat by Pulse 100 100 100 Oximetry 06/01/18 06/01/18 06/01/18 04:40 04:50 04:55 Temperature Pulse Rate 67 67 68 Pulse Rate [ Anterior Bilateral Throughout] Respiratory 18 18 Rate Respiratory Rate [Anterior Bilateral Throughout] Blood Pressure 140/89 128/89 128/89 O2 Sat by Pulse 100 100 100 Oximetry 06/01/18 06/01/18 06/01/18 05:00 05:10 05:20 Temperature Pulse Rate 69 67 67 Pulse Rate [ Anterior Bilateral Throughout] Respiratory 18 18 18 Rate Respiratory Rate [Anterior Bilateral Throughout] Blood Pressure 129/89 140/89 128/92 O2 Sat by Pulse 100 100 100 Oximetry 06/01/18 06/01/18 06/01/18 05:30 05:40 05:50 Temperature Pulse Rate 67 69 68 Pulse Rate [ Anterior Bilateral Throughout] Respiratory 18 17 18 Rate Respiratory Rate [Anterior Bilateral Throughout] Blood Pressure 132/92 132/92 137/93 O2 Sat by Pulse 100 100 Oximetry 06/01/18 06/01/18 06/01/18 06:00 07:31 07:39 Temperature Pulse Rate 69 71 Pulse Rate [ 70 Anterior Bilateral Throughout] Respiratory 14 Rate Respiratory 18 Rate [Anterior Bilateral Throughout] Blood Pressure 137/93 138/95 O2 Sat by Pulse 100 100 Oximetry - Lab 06/02/18 04:53 06/02/18 04:53 Most recent lab results Calcium 7.2 mg/dL (8.4-10.2) L 06/01/18 03:40 Magnesium 2.40 mg/dL (1.7-2.3) H 05/31/18 07:13
--- NOTE | 2018-06-01 11:08 | Gastroenterology Consultation ---
History of Present Illness - Reason for Consult Consult date: 06/01/18 GI bleed Requesting physician: ROBYN METZGER - History of Present Illness Patient is a 63 y/o male with PMH of HTN and CHF who was brought to ED by EMS after being found by family in a confusional state associated with hypoglycemia and was admitted with multiorgan failure. Toxicology panel negative. He is currently in ICU, sedated and intubated on vent being treated for acute hypercapnia respiratory failure, mixed resp/metablolic acidosis, hypothermia, NSTEMI, CHF, hypoglycemia, hyperkalemia, and acute on chronic kidney injury. GI has been consulted for GI bleed after patient developed bleeding with bright red blood from his mouth last night. No evidence of vomiting blood, melena, or hematochezia per nursing. No hx of PUD , liver disease, or GI bleeding per family. No blood thinning medications at home but was placed on heparin drip on admission which is currently being held. Past History Past Medical History: diabetes, heart failure, hypertension Past Surgical History: Other (unknown) Social history: full code. denies: smoking, alcohol abuse, prescription drug abuse, IV drug use Family history: no significant family history Medications and Allergies Allergies Allergy/AdvReac Type Severity Reaction Status Date / Time Unable to Assess Allergy Verified 05/31/18 06:39 Home Medications Medication Instructions Recorded Confirmed Last Taken Type Furosemide [Lasix] 20 mg PO DAILY 05/31/18 05/31/18 Unknown History Isosorbide Dinitrate 30 mg PO DAILY 05/31/18 05/31/18 Unknown History hydrALAZINE 50 mg PO TID 05/31/18 05/31/18 Unknown History Active Meds: Active Medications Acetaminophen (Tylenol) 650 mg PO Q4H PRN PRN Reason: Pain MILD(1-3)/Fever >100.5/VARGAS Albuterol/Ipratropium (Duoneb *Not For Prn Use*) 1 ampul IH QIDRT [facility] Last Admin: 06/01/18 07:30 Dose: 1 ampul Lipase/Protease/Amylase (Pancreleanne 10,500 Unit) 1 each FEEDTUBE PRN PRN PRN Reason: For Clogged Feeding Tube Dextrose (D50w (25gm) Syringe) 50 ml IV PRN PRN PRN Reason: Hypoglycemia Last Admin: 06/01/18 09:26 Dose: 50 ml Famotidine (Pepcid) 20 mg IV DAILY [facility] Last Admin: 06/01/18 09:26 Dose: 20 mg Hydrophilic Ointment (Vaseline Lip Therapy) 1 applic TP Q2HR PRN PRN Reason: Dry Lips Heparin Sodium/Sodium Chloride (Heparin/ 0.45% Nacl-25,000 Unit/500 Ml) 25,000 unit in 500 mls @ 20 mls/hr IV TITRATE [facility]; Protocol Last Admin: 05/31/18 13:48 Dose: 1,000 units/hr, 20 mls/hr Sodium Bicarbonate 150 meq/ (Dextrose) 1,150 mls @ 75 mls/hr IV DIRECT [facility]IA Last Admin: 06/01/18 08:13 Dose: 75 mls/hr Propofol (Diprivan 10 Mg/Ml) 1,000 mg in 100 mls @ 2.041 mls/hr IV TITR [facility]; Protocol Last Titration: 05/31/18 21:07 Dose: 4.99 mcg/kg/min, 2.041 mls/hr Piperacillin Sod/Tazobactam Sod (Zosyn/Ns 2.25 Gm/50ml) 2.25 gm in 50 mls @ 100 mls/hr IV Q6HR AL[facility]IA; Protocol Morphine Sulfate (Morphine) 2 mg IV Q4H PRN PRN Reason: Pain, Moderate (4-6) Last Admin: 06/01/18 01:40 Dose: 2 mg Multi-Ingred Cream/Lotion/Oil/Oint (Artificial Tears Ophth Oint) 1 applic OU Q4HR PRN PRN Reason: Dry Eye(s) Ondansetron HCl (Zofran) 4 mg IV Q8H PRN PRN Reason: Nausea And Vomiting Simple Syrup (Simple Syrup) 15 ml FEEDTUBE PRN PRN PRN Reason: Hypoglycemia Simple Syrup (Simple Syrup) 30 ml FEEDTUBE PRN PRN PRN Reason: Hypoglycemia Sodium Bicarbonate (Sodium Bicarbonate) 325 mg FEEDTUBE PRN PRN PRN Reason: For Clogged Feeding Tube Sodium Chloride (Sodium Chloride Flush Syringe 10 Ml) 10 ml IV BID AL[facility]IA Last Admin: 06/01/18 09:27 Dose: 10 ml Sodium Chloride (Sodium Chloride Flush Syringe 10 Ml) 10 ml IV PRN PRN PRN Reason: LINE FLUSH Sodium Chloride (Nacl 0.9% 500 Ml) 1 ml IV DIRECT ALYSIA Review of Systems - Review of Systems ROS unobtainable: due to endotracheal tube, due to mental status Exam - Constitutional Vital Signs: Temp Pulse Resp BP Pulse Ox 97.2 F L 71 17 135/101 100 06/01/18 04:00 06/01/18 10:50 06/01/18 10:50 06/01/18 10:50 06/01/18 10:50 General appearance: other (intubated on vent) - Respiratory Respiratory: bilateral: diminished - Cardiovascular Rhythm: regular Heart Sounds: Present: S1 & S2 - Gastrointestinal General gastrointestinal: Present: soft, non-distended, normal bowel sounds - Neurologic Neurological: other (unable to assess) - Labs CBC & Chem 7: 06/01/18 09:07 06/01/18 03:40 Lab Results: Laboratory Results - last 24 hr 05/31/18 05/31/18 05/31/18 11:48 11:48 11:48 WBC RBC Hgb 15.4 H Hct 49.2 H MCV MCH MCHC RDW Plt Count 185 Add Manual Diff Total Counted Seg Neuts % (Manual) Band Neutrophils % Lymphocytes % (Manual) Reactive Lymphs % (Man) Monocytes % (Manual) Eosinophils % (Manual) Basophils % (Manual) Metamyelocytes % Myelocytes % Promyelocytes % Blast Cells % Nucleated RBC % Seg Neutrophils # Man Band Neutrophils # Lymphocytes # (Manual) Abs React Lymphs (Man) Monocytes # (Manual) Eosinophils # (Manual) Basophils # (Manual) Metamyelocytes # Myelocytes # Promyelocytes # Blast Cells # WBC Morphology Hypersegmented Neuts Hyposegmented Neuts Hypogranular Neuts Smudge Cells Toxic Granulation Toxic Vacuolation Dohle Bodies Pelger-Huet Anomaly Trae Rods Platelet Estimate Clumped Platelets Plt Clumps, EDTA Large Platelets Giant Platelets Platelet Satelliting Plt Morphology Comment RBC Morphology Dimorphic RBCs Polychromasia Hypochromasia Poikilocytosis Anisocytosis Microcytosis Macrocytosis Spherocytes Pappenheimer Bodies Sickle Cells Target Cells Tear Drop Cells Ovalocytes Helmet Cells Hall-Bourbon Bodies [place] Rings Andres Cells Bite Cells Crenated Cell Elliptocytes Acanthocytes (Spur) Rouleaux Hemoglobin C Crystals Schistocytes Malaria parasites Dann Bodies Hem Pathologist Commnt PT 20.6 H INR 1.71 H APTT 32.6 D-Dimer 1834.40 H Heparin Anti-Xa Level POC ABG pH POC ABG pCO2 POC ABG pO2 POC ABG HCO3 POC ABG Total CO2 POC ABG O2 Sat POC ABG Base Excess FiO2 Sodium Potassium Chloride Carbon Dioxide Anion Gap BUN Creatinine Estimated GFR BUN/Creatinine Ratio Glucose POC Glucose Calcium Troponin T 0.230 H* 05/31/18 05/31/18 05/31/18 11:51 15:53 18:29 WBC RBC Hgb Hct MCV MCH MCHC RDW Plt Count Add Manual Diff Total Counted Seg Neuts % (Manual) Band Neutrophils % Lymphocytes % (Manual) Reactive Lymphs % (Man) Monocytes % (Manual) Eosinophils % (Manual) Basophils % (Manual) Metamyelocytes % Myelocytes % Promyelocytes % Blast Cells % Nucleated RBC % Seg Neutrophils # Man Band Neutrophils # Lymphocytes # (Manual) Abs React Lymphs (Man) Monocytes # (Manual) Eosinophils # (Manual) Basophils # (Manual) Metamyelocytes # Myelocytes # Promyelocytes # Blast Cells # WBC Morphology Hypersegmented Neuts Hyposegmented Neuts Hypogranular Neuts Smudge Cells Toxic Granulation Toxic Vacuolation Dohle Bodies Pelger-Huet Anomaly Trae Rods Platelet Estimate Clumped Platelets Plt Clumps, EDTA Large Platelets Giant Platelets Platelet Satelliting Plt Morphology Comment RBC Morphology Dimorphic RBCs Polychromasia Hypochromasia Poikilocytosis Anisocytosis Microcytosis Macrocytosis Spherocytes Pappenheimer Bodies Sickle Cells Target Cells Tear Drop Cells Ovalocytes Helmet Cells Hall-[place]ourbon Bodies [place] Rings Andres Cells Bite Cells Crenated Cell Elliptocytes Acanthocytes (Spur) Rouleaux Hemoglobin C Crystals Schistocytes Malaria parasites Dann Bodies Hem Pathologist Commnt PT INR APTT D-Dimer Heparin Anti-Xa Level POC ABG pH 6.997 L 7.328 L POC ABG pCO2 59.6 H 29.6 L POC ABG pO2 86 200 H POC ABG HCO3 14.6 15.6 POC ABG Total CO2 16 16 POC ABG O2 Sat 89 100 POC ABG Base Excess -17 -10 FiO2 28 50 Sodium Potassium Chloride Carbon Dioxide Anion Gap BUN Creatinine Estimated GFR BUN/Creatinine Ratio Glucose POC Glucose < 40 L Calcium Troponin T 05/31/18 05/31/18 05/31/18 19:26 20:40 20:40 WBC RBC Hgb Hct MCV MCH MCHC RDW Plt Count Add Manual Diff Total Counted Seg Neuts % (Manual) Band Neutrophils % Lymphocytes % (Manual) Reactive Lymphs % (Man) Monocytes % (Manual) Eosinophils % (Manual) Basophils % (Manual) Metamyelocytes % Myelocytes % Promyelocytes % Blast Cells % Nucleated RBC % Seg Neutrophils # Man Band Neutrophils # Lymphocytes # (Manual) Abs React Lymphs (Man) Monocytes # (Manual) Eosinophils # (Manual) Basophils # (Manual) Metamyelocytes # Myelocytes # Promyelocytes # Blast Cells # WBC Morphology Hypersegmented Neuts Hyposegmented Neuts Hypogranular Neuts Smudge Cells Toxic Granulation Toxic Vacuolation Dohle Bodies Pelger-Huet Anomaly Trae Rods Platelet Estimate Clumped Platelets Plt Clumps, EDTA Large Platelets Giant Platelets Platelet Satelliting Plt Morphology Comment RBC Morphology Dimorphic RBCs Polychromasia Hypochromasia Poikilocytosis Anisocytosis Microcytosis Macrocytosis Spherocytes Pappenheimer Bodies Sickle Cells Target Cells Tear Drop Cells Ovalocytes Helmet Cells Hall-[place]ourbon Bodies [place] Rings [place] Cells Bite Cells Crenated Cell Elliptocytes Acanthocytes (Spur) Rouleaux Hemoglobin C Crystals Schistocytes Malaria parasites Dann Bodies Hem Pathologist Commnt PT INR APTT D-Dimer Heparin Anti-Xa Level 0.40 POC ABG pH POC ABG pCO2 POC ABG pO2 POC ABG HCO3 POC ABG Total CO2 POC ABG O2 Sat POC ABG Base Excess FiO2 Sodium 137 Potassium 5.5 H Chloride 105.2 Carbon Dioxide 13 L Anion Gap 24 BUN 89 H Creatinine 2.7 H Estimated GFR 29 BUN/Creatinine Ratio 33 Glucose 72 L POC Glucose 68 L Calcium 7.2 L Troponin T 05/31/18 05/31/18 06/01/18 22:02 23:27 01:12 WBC RBC Hgb 13.6 Hct 41.9 D MCV MCH MCHC RDW Plt Count Add Manual Diff Total Counted Seg Neuts % (Manual) Band Neutrophils % Lymphocytes % (Manual) Reactive Lymphs % (Man) Monocytes % (Manual) Eosinophils % (Manual) Basophils % (Manual) Metamyelocytes % Myelocytes % Promyelocytes % Blast Cells % Nucleated RBC % Seg Neutrophils # Man Band Neutrophils # Lymphocytes # (Manual) Abs React Lymphs (Man) Monocytes # (Manual) Eosinophils # (Manual) Basophils # (Manual) Metamyelocytes # Myelocytes # Promyelocytes # Blast Cells # WBC Morphology Hypersegmented Neuts Hyposegmented Neuts Hypogranular Neuts Smudge Cells Toxic Granulation Toxic Vacuolation Dohle Bodies Pelger-Huet Anomaly Trae Rods Platelet Estimate Clumped Platelets Plt Clumps, EDTA Large Platelets Giant Platelets Platelet Satelliting Plt Morphology Comment RBC Morphology Dimorphic RBCs Polychromasia Hypochromasia Poikilocytosis Anisocytosis Microcytosis Macrocytosis Spherocytes Pappenheimer Bodies Sickle Cells Target Cells Tear Drop Cells Ovalocytes Helmet Cells Hall-[place]ourbon Bodies [place] Rings Andres Cells Bite Cells Crenated Cell Elliptocytes Acanthocytes (Spur) Rouleaux Hemoglobin C Crystals Schistocytes Malaria parasites Dann Bodies Hem Pathologist Commnt PT 21.4 H INR 1.79 H APTT 33.2 D-Dimer Heparin Anti-Xa Level POC ABG pH POC ABG pCO2 POC ABG pO2 POC ABG HCO3 POC ABG Total CO2 POC ABG O2 Sat POC ABG Base Excess FiO2 Sodium Potassium Chloride Carbon Dioxide Anion Gap BUN Creatinine Estimated GFR BUN/Creatinine Ratio Glucose POC Glucose 76 Calcium Troponin T 06/01/18 06/01/18 06/01/18 03:40 03:40 04:59 WBC 7.7 RBC 4.90 Hgb 13.3 Hct 40.8 MCV 83 L MCH 27 L MCHC 33 RDW 15.4 H Plt Count 135 L Add Manual Diff Complete Total Counted 100 Seg Neuts % (Manual) 95.0 H Band Neutrophils % 0 Lymphocytes % (Manual) 4.0 L Reactive Lymphs % (Man) 0 Monocytes % (Manual) 1.0 Eosinophils % (Manual) 0 Basophils % (Manual) 0 Metamyelocytes % 0 Myelocytes % 0 Promyelocytes % 0 Blast Cells % 0 Nucleated RBC % Not Reportable Seg Neutrophils # Man 7.3 Band Neutrophils # 0.0 Lymphocytes # (Manual) 0.3 L Abs React Lymphs (Man) 0.0 Monocytes # (Manual) 0.1 Eosinophils # (Manual) 0.0 Basophils # (Manual) 0.0 Metamyelocytes # 0.0 Myelocytes # 0.0 Promyelocytes # 0.0 Blast Cells # 0.0 WBC Morphology Not Reportable Hypersegmented Neuts Not Reportable Hyposegmented Neuts Not Reportable Hypogranular Neuts Not Reportable Smudge Cells Not Reportable Toxic Granulation Not Reportable Toxic Vacuolation Not Reportable Dohle Bodies Not Reportable Pelger-Huet Anomaly Not Reportable Trae Rods Not Reportable Platelet Estimate Consistent w auto Clumped Platelets Not Reportable Plt Clumps, EDTA Not Reportable Large Platelets Not Reportable Giant Platelets Few Platelet Satelliting Not Reportable Plt Morphology Comment Not Reportable RBC Morphology Not Reportable Dimorphic RBCs Not Reportable Polychromasia Not Reportable Hypochromasia Not Reportable Poikilocytosis 1+ Anisocytosis 1+ Microcytosis Not Reportable Macrocytosis Not Reportable Spherocytes Not Reportable Pappenheimer Bodies Not Reportable Sickle Cells Not Reportable Target Cells 1+ Tear Drop Cells Not Reportable Ovalocytes Not Reportable Helmet Cells Not Reportable Hall-Bourbon Bodies Not Reportable [place] Rings Not Reportable [place] Cells Not Reportable Bite Cells Not Reportable Crenated Cell Not Reportable Elliptocytes Not Reportable Acanthocytes (Spur) Not Reportable Rouleaux Not Reportable Hemoglobin C Crystals Not Reportable Schistocytes Not Reportable Malaria parasites Not Reportable Dann Bodies Not Reportable Hem Pathologist Commnt No PT INR APTT D-Dimer Heparin Anti-Xa Level POC ABG pH 7.474 H POC ABG pCO2 26.1 L POC ABG pO2 116 H POC ABG HCO3 19.1 POC ABG Total CO2 20 POC ABG O2 Sat 99 POC ABG Base Excess -4 FiO2 35 Sodium 139 Potassium 5.3 H Chloride 104.4 Carbon Dioxide 16 L Anion Gap 24 BUN 92 H Creatinine 2.7 H Estimated GFR 29 BUN/Creatinine Ratio 34 Glucose 61 L POC Glucose Calcium 7.2 L Troponin T 06/01/18 06/01/18 06/01/18 08:29 09:07 10:49 WBC RBC Hgb 13.3 Hct 40.6 MCV MCH MCHC RDW Plt Count Add Manual Diff Total Counted Seg Neuts % (Manual) Band Neutrophils % Lymphocytes % (Manual) Reactive Lymphs % (Man) Monocytes % (Manual) Eosinophils % (Manual) Basophils % (Manual) Metamyelocytes % Myelocytes % Promyelocytes % Blast Cells % Nucleated RBC % Seg Neutrophils # Man Band Neutrophils # Lymphocytes # (Manual) Abs React Lymphs (Man) Monocytes # (Manual) Eosinophils # (Manual) Basophils # (Manual) Metamyelocytes # Myelocytes # Promyelocytes # Blast Cells # WBC Morphology Hypersegmented Neuts Hyposegmented Neuts Hypogranular Neuts Smudge Cells Toxic Granulation Toxic Vacuolation Dohle Bodies Pelger-Huet Anomaly Trae Rods Platelet Estimate Clumped Platelets Plt Clumps, EDTA Large Platelets Giant Platelets Platelet Satelliting Plt Morphology Comment RBC Morphology Dimorphic RBCs Polychromasia Hypochromasia Poikilocytosis Anisocytosis Microcytosis Macrocytosis Spherocytes Pappenheimer Bodies Sickle Cells Target Cells Tear Drop Cells Ovalocytes Helmet Cells Hall-[place]ourbon Bodies [place] Rings Andres Cells Bite Cells Crenated Cell Elliptocytes Acanthocytes (Spur) Rouleaux Hemoglobin C Crystals Schistocytes Malaria parasites Dann Bodies Hem Pathologist Commnt PT INR APTT D-Dimer Heparin Anti-Xa Level POC ABG pH POC ABG pCO2 POC ABG pO2 POC ABG HCO3 POC ABG Total CO2 POC ABG O2 Sat POC ABG Base Excess FiO2 Sodium Potassium Chloride Carbon Dioxide Anion Gap BUN Creatinine Estimated GFR BUN/Creatinine Ratio Glucose POC Glucose 69 L 108 H Calcium Troponin T Assessment and Plan 1.GI bleed? -H/H WNL (13.3/40.6) -continue to monitor H/H and transfuse as needed -hold blood thinning medications -bright red blood suctioned from mouth overnight per nursing (old blood noted on oral mucosa upon exam) -etiology unclear- possibly 2/2 to trauma vs other- no clinical evidence of significant GI bleeding at this time -will consider EGD based on progress -start on PPI -continue supportive care -will follow
[2018-06-01] MEDS: ZOSYN/NS 2.25 GM/50ML 2.25 GM/50 ML BAG IV SCH ×2 (11:56→17:44)
[2018-06-01] MEDS ORDERED: PROVENTIL IH PRN (12:40)
--- NOTE | 2018-06-01 13:01 | Progress Note ---
Assessment and Plan Echo reviewed - EF 5-10%, LA mild to mod dilated, RA mildly dilated, mod to severe MR, mod to severe TR, mild AR, pseudonormalization, RV mildly dilated, RV systolic function severely reduced, mod pulm HTN with RVSP 52mmHg, small pericardial effusion. Pt's family at bedside report that pt was diagnosed with HF and CMP at [place] in 11/2017. [place] records reviewed - pt underwent LHC & RHC on 12/27/2017 which showed nonobstructive CAD with RCA 40% and Cristiano 35% lesions; non-ischemic cardiomyoapthy. Heparin gtt d/c'd in setting of hemoptysis. GI consultation noted. Cont to trend Yulissa. Repeat EKG in AM. Continue volume optimization per nephrology. Initiate IV lopressor. No ACEI/ARB at this time in setting of renal insufficiency. The patient has been seen in conjunction with Dr. Zamora who agrees with the assessment and plan of care. - Patient Problems (1) Acute combined systolic and diastolic heart failure Current Visit: Yes Status: Acute (2) NICM (nonischemic cardiomyopathy) Current Visit: Yes Status: Chronic (3) Right ventricular systolic dysfunction Current Visit: Yes Status: Acute (4) Pulmonary HTN Current Visit: Yes Status: Chronic (5) Non-ST elevation PR (NSTEMI) Current Visit: Yes Status: Acute (6) Metabolic encephalopathy Current Visit: Yes Status: Acute (7) Acute on chronic kidney failure Current Visit: Yes Status: Acute (8) Hyperkalemia Current Visit: Yes Status: Acute (9) Hypoglycemia Current Visit: Yes Status: Acute (10) Hypothermia Current Visit: Yes Status: Acute Qualifiers: Encounter type: initial encounter Qualified Code(s): T68.XXXA - Hypothermia , initial encounter (11) Moderate to severe mitral regurgitation Current Visit: Yes Status: Chronic (12) Tricuspid regurgitation Current Visit: Yes Status: Chronic Subjective Date of service: 06/01/18 Principal diagnosis: Respiratory failure, non STEMI,CMP Interval history: pt was intubated overnight. remains intubated, awakened with verbal stimuli. family at bedside. pt developed bleeding from ET tube overnight and thus heparin gtt has been held. Objective Last Vital Signs Temp 97.2 F L 06/01/18 04:00 Pulse 75 06/01/18 12:16 Resp 18 06/01/18 12:16 BP 141/94 06/01/18 12:16 Pulse Ox 100 06/01/18 12:16 - Physical Examination General: Other (intubated) Neck: Positive: neck supple, trachea midline Cardiac: Positive: Reg Rate and Rhythm, S1/S2, Systolic Murmur Lungs: Positive: Decreased Breath Sounds, Ventilated Respirations Neuro: Positive: Other (lethargic) Abdomen: Positive: Soft. Negative: Tender Skin: Negative: Rash, Wound Extremities: Present: +2 Edema (BLE) - Labs and Meds Coagulation 06/01/18 Range/Units 01:12 PT 21.4 H (12.2-14.9) Sec. INR 1.79 H (0.87-1.13) APTT 33.2 (24.2-36.6) Sec. CBC 05/31/18 06/01/18 06/01/18 Range/Units 23:27 03:40 09:07 WBC 7.7 (4.5-11.0) K/mm3 RBC 4.90 (3.65-5.03) M/mm3 Hgb 13.6 13.3 13.3 (11.8-15.2) gm/dl Hct 41.9 D 40.8 40.6 (35.5-45.6) % Plt Count 135 L (140-440) K/mm3 Comprehensive Metabolic Panel 05/31/18 06/01/18 Range/Units 20:40 03:40 Sodium 137 139 (137-145) mmol/L Potassium 5.5 H 5.3 H (3.6-5.0) mmol/L Chloride 105.2 104.4 (98-107) mmol/L Carbon Dioxide 13 L 16 L (22-30) mmol/L BUN 89 H 92 H (9-20) mg/dL Creatinine 2.7 H 2.7 H (0.8-1.5) mg/dL Glucose 72 L 61 L (75-100) mg/dL Calcium 7.2 L 7.2 L (8.4-10.2) mg/dL - Imaging and Cardiology EKG: report reviewed, image reviewed Echo: report reviewed (EF 5-10%, LA mild to mod dilated, RA mildly dilated, mod to severe MR, mod to severe TR, mild AR, pseudonormalization, RV mildly dilated , RV systolic function severely reduced, mod pulm HTN with RVSP 52mmHg, small pericardial effusion. ) Cardiac cath: report reviewed (pt underwent LHC & RHC on 12/27/2017 which showed nonobstructive CAD with RCA 40% and Cristiano 35% lesions; non-ischemic cardiomyoapthy. ) - Telemetry EKG Rhythm: Sinus Rhythm - EKG Sinus rhythms and dysrhythmias: sinus rhythm
[2018-06-01] MEDS ORDERED: LOPRESSOR IV SCH (14:00)
[2018-06-01 15:41] LABS: Hematocrit 43.8 % (35.5-45.6); Hemoglobin 14.2 gm/dl (11.8-15.2)
--- NOTE | 2018-06-01 16:21 | Progress Note ---
Assessment and Plan Assessment and plan: 63-year-old -[place] male was presented to the ED with complaints of shortness of breath, chest pain, altered mental status Cardiac enzymes was done in the ED and was high, chest x-ray showed bilateral pleural effusion, elevated BNP, elevated creatinine NSTEMI - Patient is on heparin drip, aspirin, - Cardiology consult appreciated - trend cardiac enzymes Acute renal failure - Nephrology consulted CHF - EF 5-10%, will follow cardiology recommendations Hypothermia - Blood cultures were taken - Patient is on Zosyn Respiratory/metabolic acidosis - Patient was intubated and on mechanical ventilation - Sodium bicarbonate bicarbonate was given DVT prophylaxis - On heparin drip Disposition - Continue ICU care History Interval history: Patient was seen and evaluated this morning, patient is intubated, patient was awake and agitated. Hospitalist Physical - Physical exam Narrative exam: Patient was intubated and agitated. The patient appeared well nourished and normally developed. Vital signs as documented. Head exam is unremarkable. No scleral icterus . Neck is without jugular venous distension, thyromegaly, or carotid bruits. Lungs coarse creptations. Cardiac exam reveals regular rate and Rhythm. Abdominal exam reveals normal bowel sounds, no masses, no organomegaly and no aortic enlargement. Extremities are nonedematous and both femoral and pedal pulses are normal. 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 - Constitutional Vitals: Temp Pulse Resp BP Pulse Ox 97.2 F L 66 10 L 144/103 100 06/01/18 16:00 06/01/18 16:00 06/01/18 16:00 06/01/18 16:00 06/01/18 16:00 General appearance: Present: other (lethargic) Results - Labs CBC & Chem 7: 06/01/18 15:26 06/01/18 03:40 Labs: Laboratory Last Values WBC 7.7 K/mm3 (4.5-11.0) 06/01/18 03:40 RBC 4.90 M/mm3 (3.65-5.03) 06/01/18 03:40 Hgb 14.2 gm/dl (11.8-15.2) 06/01/18 15:26 Hct 43.8 % (35.5-45.6) 06/01/18 15:26 MCV 83 fl (84-94) L 06/01/18 03:40 MCH 27 pg (28-32) L 06/01/18 03:40 MCHC 33 % (32-34) 06/01/18 03:40 RDW 15.4 % (13.2-15.2) H 06/01/18 03:40 Plt Count 135 K/mm3 (140-440) L 06/01/18 03:40 Add Manual Diff Complete 06/01/18 03:40 Total Counted 100 06/01/18 03:40 Seg Neuts % (Manual) 95.0 % (40.0-70.0) H 06/01/18 03:40 Band Neutrophils % 0 % 06/01/18 03:40 Lymphocytes % (Manual) 4.0 % (13.4-35.0) L 06/01/18 03:40 Reactive Lymphs % (Man) 0 % 06/01/18 03:40 Monocytes % (Manual) 1.0 % (0.0-7.3) 06/01/18 03:40 Eosinophils % (Manual) 0 % (0.0-4.3) 06/01/18 03:40 Basophils % (Manual) 0 % (0.0-1.8) 06/01/18 03:40 Metamyelocytes % 0 % 06/01/18 03:40 Myelocytes % 0 % 06/01/18 03:40 Promyelocytes % 0 % 06/01/18 03:40 Blast Cells % 0 % 06/01/18 03:40 Nucleated RBC % Not Reportable 06/01/18 03:40 Seg Neutrophils # Man 7.3 K/mm3 (1.8-7.7) 06/01/18 03:40 Band Neutrophils # 0.0 K/mm3 06/01/18 03:40 Lymphocytes # (Manual) 0.3 K/mm3 (1.2-5.4) L 06/01/18 03:40 Abs React Lymphs (Man) 0.0 K/mm3 06/01/18 03:40 Monocytes # (Manual) 0.1 K/mm3 (0.0-0.8) 06/01/18 03:40 Eosinophils # (Manual) 0.0 K/mm3 (0.0-0.4) 06/01/18 03:40 Basophils # (Manual) 0.0 K/mm3 (0.0-0.1) 06/01/18 03:40 Metamyelocytes # 0.0 K/mm3 06/01/18 03:40 Myelocytes # 0.0 K/mm3 06/01/18 03:40 Promyelocytes # 0.0 K/mm3 06/01/18 03:40 Blast Cells # 0.0 K/mm3 06/01/18 03:40 WBC Morphology Not Reportable 06/01/18 03:40 Hypersegmented Neuts Not Reportable 06/01/18 03:40 Hyposegmented Neuts Not Reportable 06/01/18 03:40 Hypogranular Neuts Not Reportable 06/01/18 03:40 Smudge Cells Not Reportable 06/01/18 03:40 Toxic Granulation Not Reportable 06/01/18 03:40 Toxic Vacuolation Not Reportable 06/01/18 03:40 Dohle Bodies Not Reportable 06/01/18 03:40 Pelger-Huet Anomaly Not Reportable 06/01/18 03:40 Trae Rods Not Reportable 06/01/18 03:40 Platelet Estimate Consistent w auto 06/01/18 03:40 Clumped Platelets Not Reportable 06/01/18 03:40 Plt Clumps, EDTA Not Reportable 06/01/18 03:40 Large Platelets Not Reportable 06/01/18 03:40 Giant Platelets Few 06/01/18 03:40 Platelet Satelliting Not Reportable 06/01/18 03:40 Plt Morphology Comment Not Reportable 06/01/18 03:40 RBC Morphology Not Reportable 06/01/18 03:40 Dimorphic RBCs Not Reportable 06/01/18 03:40 Polychromasia Not Reportable 06/01/18 03:40 Hypochromasia Not Reportable 06/01/18 03:40 Poikilocytosis 1+ 06/01/18 03:40 Anisocytosis 1+ 06/01/18 03:40 Microcytosis Not Reportable 06/01/18 03:40 Macrocytosis Not Reportable 06/01/18 03:40 Spherocytes Not Reportable 06/01/18 03:40 Pappenheimer Bodies Not Reportable 06/01/18 03:40 Sickle Cells Not Reportable 06/01/18 03:40 Target Cells 1+ 06/01/18 03:40 Tear Drop Cells Not Reportable 06/01/18 03:40 Ovalocytes Not Reportable 06/01/18 03:40 Helmet Cells Not Reportable 06/01/18 03:40 Hall-Parral Bodies Not Reportable 06/01/18 03:40 [place] Rings Not Reportable 06/01/18 03:40 Andres Cells Not Reportable 06/01/18 03:40 Bite Cells Not Reportable 06/01/18 03:40 Crenated Cell Not Reportable 06/01/18 03:40 Elliptocytes Not Reportable 06/01/18 03:40 Acanthocytes (Spur) Not Reportable 06/01/18 03:40 Rouleaux Not Reportable 06/01/18 03:40 Hemoglobin C Crystals Not Reportable 06/01/18 03:40 Schistocytes Not Reportable 06/01/18 03:40 Malaria parasites Not Reportable 06/01/18 03:40 Dann Bodies Not Reportable 06/01/18 03:40 Hem Pathologist Commnt No 06/01/18 03:40 PT 21.4 Sec. (12.2-14.9) H 06/01/18 01:12 INR 1.79 (0.87-1.13) H 06/01/18 01:12 APTT 33.2 Sec. (24.2-36.6) 06/01/18 01:12 D-Dimer 1834.40 ng/mlDDU (0-234) H 05/31/18 11:48 Heparin Anti-Xa Level 0.40 U.I./ml (0.3-0.7) 05/31/18 20:40 POC ABG pH 7.474 (7.35-7.45) H 06/01/18 04:59 POC ABG pCO2 26.1 (35-45) L 06/01/18 04:59 POC ABG pO2 116 (80-105) H 06/01/18 04:59 POC ABG HCO3 19.1 06/01/18 04:59 POC ABG Total CO2 20 06/01/18 04:59 POC ABG O2 Sat 99 06/01/18 04:59 POC ABG Base Excess -4 06/01/18 04:59 FiO2 35 % 06/01/18 04:59 Sodium 139 mmol/L (137-145) 06/01/18 03:40 Potassium 5.3 mmol/L (3.6-5.0) H 06/01/18 03:40 Chloride 104.4 mmol/L (98-107) 06/01/18 03:40 Carbon Dioxide 16 mmol/L (22-30) L 06/01/18 03:40 Anion Gap 24 mmol/L 06/01/18 03:40 BUN 92 mg/dL (9-20) H 06/01/18 03:40 Creatinine 2.7 mg/dL (0.8-1.5) H 06/01/18 03:40 Estimated GFR 29 ml/min 06/01/18 03:40 BUN/Creatinine Ratio 34 % 06/01/18 03:40 Glucose 61 mg/dL (75-100) L 06/01/18 03:40 POC Glucose 71 (70-105) 06/01/18 14:16 Lactic Acid 1.50 mmol/L (0.7-2.0) 05/31/18 07:13 Calcium 7.2 mg/dL (8.4-10.2) L 06/01/18 03:40 Magnesium 2.40 mg/dL (1.7-2.3) H 05/31/18 07:13 Total Bilirubin 2.60 mg/dL (0.1-1.2) H 05/31/18 05:49 AST 60 units/L (5-40) H 05/31/18 05:49 ALT 55 units/L (7-56) 05/31/18 05:49 Alkaline Phosphatase 592 units/L (35-129) H 05/31/18 05:49 Ammonia 68.0 umol/L (25-60) H 05/31/18 05:22 Total Creatine Kinase 374 units/L (55-170) H 05/31/18 05:49 CK-MB (CK-2) 22.3 ng/mL (0.0-4.0) H 05/31/18 05:49 CK-MB (CK-2) Rel Index 5.9 (0-4) H 05/31/18 05:49 Troponin T 0.242 ng/mL (0.00-0.029) H* 06/01/18 14:02 NT-Pro-B Natriuret Pep 23100 pg/mL (0-900) H 05/31/18 05:49 Total Protein 5.5 g/dL (6.3-8.2) L 05/31/18 05:49 Albumin 3.0 g/dL (3.9-5) L 05/31/18 05:49 Albumin/Globulin Ratio 1.2 % 05/31/18 05:49 Triglycerides 16 mg/dL (2-149) 05/31/18 05:49 Cholesterol 142 mg/dL (50-199) 05/31/18 05:49 LDL Cholesterol Direct 52 mg/dL (50-130) 05/31/18 05:49 HDL Cholesterol 91 mg/dL (40-59) H 05/31/18 05:49 Cholesterol/HDL Ratio 1.56 % 05/31/18 05:49 Urine Color Khloe (Yellow) 05/31/18 05:20 Urine Turbidity Slightly-cloudy (Clear) 05/31/18 05:20 Urine pH 5.0 (5.0-7.0) 05/31/18 05:20 Ur Specific [place] 1.016 (1.003-1.030) 05/31/18 05:20 Urine Protein >500 mg/dL (Negative) 05/31/18 05:20 Urine Glucose (UA) Neg mg/dL (Negative) 05/31/18 05:20 Urine Ketones Neg mg/dL (Negative) 05/31/18 05:20 Urine Blood Sm (Negative) 05/31/18 05:20 Urine Nitrite Neg (Negative) 05/31/18 05:20 Urine Bilirubin Neg (Negative) 05/31/18 05:20 Urine Urobilinogen 4.0 mg/dL (<2.0) 05/31/18 05:20 Ur Leukocyte Esterase Neg (Negative) 05/31/18 05:20 Urine WBC (Auto) 6.0 /HPF (0.0-6.0) 05/31/18 05:20 Urine RBC (Auto) 9.0 /HPF (0.0-6.0) 05/31/18 05:20 U Epithel Cells (Auto) < 1.0 /HPF (0-13.0) 05/31/18 05:20 Urine Mucus Few /HPF 05/31/18 05:20 Urine Yeast (Budding) 1+ /HPF 05/31/18 05:20 Urine Opiates Screen Presumptive negative 05/31/18 05:20 Urine Methadone Screen Presumptive negative 05/31/18 05:20 Ur Barbiturates Screen Presumptive negative 05/31/18 05:20 Ur Phencyclidine Scrn Presumptive negative 05/31/18 05:20 Ur Amphetamines Screen Presumptive negative 05/31/18 05:20 U Benzodiazepines Scrn Presumptive negative 05/31/18 05:20 Urine Cocaine Screen Presumptive negative 05/31/18 05:20 U Marijuana (THC) Screen Presumptive negative 05/31/18 05:20 Drugs of Abuse Note Disclamer 05/31/18 05:20 Plasma/Serum Alcohol < 0.01 % (0-0.07) 05/31/18 05:22
[2018-06-01] MEDS: NITRO-BID 2% TP SCH (17:42)
[2018-06-01] MEDS: APRESOLINE PO SCH (21:16)
[2018-06-02] MEDS: SODIUM BICARBONATE 150 MEQ in D5W 1,000 ML IV SCH (01:57)
[2018-06-02] MEDS: ZOSYN/NS 2.25 GM/50ML 2.25 GM/50 ML BAG IV SCH ×4 (01:57→18:30)
[2018-06-02] MEDS: DUONEB *Not for PRN Use IH SCH ×4 (02:13→21:20)
--- NOTE | 2018-06-02 03:38 | XRay Report ---
FINAL REPORT PROCEDURE: XR CHEST 1V AP TECHNIQUE: Chest radiograph anteroposterior view. CPT 75715 HISTORY: follow up respiratory failure COMPARISON: 06/01/2018 FINDINGS: Heart: The heart size is enlarged but stable. Mediastinum/Vessels: Normal. Lungs/Pleural space: Mild bilateral lower lung atelectasis/infiltrate. No effusion or pneumothorax. Slight vascular congestion.. Bony thorax: No acute osseous abnormality. Life support devices: None. IMPRESSION: There is vascular congestion with mild atelectasis/infiltrate bilateral lower lungs..
[2018-06-02 05:26] LABS: Hematocrit 41.7 % (35.5-45.6); Hemoglobin 14.1 gm/dl (11.8-15.2); Mean Corpuscular HGB Conc 34 % (32-34); Mean Corpuscular Hemoglobin 27 pg (28-32); Mean Corpuscular Volume 81 fl (84-94); Platelet Count 141 K/mm3 (140-440); Red Blood Count 5.12 M/mm3 (3.65-5.03); Red Cell Distribution Width 15.1 % (13.2-15.2)
[2018-06-02] MEDS: APRESOLINE PO SCH ×3 (05:27→22:06)
[2018-06-02] MEDS: NITRO-BID 2% TP SCH ×3 (05:32→18:44)
[2018-06-02 06:17] LABS: Basophils % (Manual) 0 % (0.0-1.8); Eosinophils % (Manual) 0 % (0.0-4.3); Target Cells 1+; Total Cells Counted 100
[2018-06-02 06:18] LABS: Platelet Estimate Consistent w Auto
[2018-06-02 07:24] LABS: Calcium 7.7 mg/dL (8.4-10.2)
--- NOTE | 2018-06-02 08:10 | Progress Note ---
Assessment and Plan - Patient Problems (1) Acute respiratory failure Current Visit: Yes Status: Acute (2) Acute combined systolic and diastolic heart failure Current Visit: Yes Status: Acute (3) Acute heart failure Current Visit: Yes Status: Acute (4) Acute on chronic kidney failure Current Visit: Yes Status: Acute (5) Hyperkalemia Current Visit: Yes Status: Acute (6) Metabolic acidosis Current Visit: Yes Status: Acute (7) Metabolic encephalopathy Current Visit: Yes Status: Acute (8) Non-ST elevation [place] (NSTEMI) Current Visit: Yes Status: Acute (9) Pleural effusion Current Visit: Yes Status: Acute Subjective Principal diagnosis: Respiratory failure, non STEMI,CMP Interval history: awake and responsive extubated on 2lpm Objective Vital Signs - 12hr 06/01/18 06/01/18 06/01/18 20:20 20:26 20:30 Temperature Pulse Rate 79 76 Pulse Rate [ 76 Anterior Bilateral Throughout] Respiratory 12 10 L Rate Respiratory 11 L Rate [Anterior Bilateral Throughout] Blood Pressure 166/119 166/119 O2 Sat by Pulse 100 100 100 Oximetry 06/01/18 06/01/18 06/01/18 20:40 20:50 21:00 Temperature Pulse Rate 77 79 81 Pulse Rate [ Anterior Bilateral Throughout] Respiratory 8 L 9 L 8 L Rate Respiratory Rate [Anterior Bilateral Throughout] Blood Pressure 172/120 172/120 172/120 O2 Sat by Pulse 100 100 100 Oximetry 06/01/18 06/01/18 06/01/18 21:05 21:10 21:15 Temperature Pulse Rate 87 85 Pulse Rate [ 75 Anterior Bilateral Throughout] Respiratory 12 15 Rate Respiratory 14 Rate [Anterior Bilateral Throughout] Blood Pressure 167/120 O2 Sat by Pulse 100 100 Oximetry 06/01/18 06/01/18 06/01/18 21:16 21:20 21:30 Temperature Pulse Rate 83 82 84 Pulse Rate [ Anterior Bilateral Throughout] Respiratory 10 L 18 Rate Respiratory Rate [Anterior Bilateral Throughout] Blood Pressure 167/120 167/120 167/120 O2 Sat by Pulse 100 100 Oximetry 06/01/18 06/01/18 06/01/18 21:40 21:50 22:00 Temperature Pulse Rate 83 86 87 Pulse Rate [ Anterior Bilateral Throughout] Respiratory 15 16 16 Rate Respiratory Rate [Anterior Bilateral Throughout] Blood Pressure 162/111 162/111 167/120 O2 Sat by Pulse 100 100 99 Oximetry 06/01/18 06/01/18 06/01/18 22:10 22:20 22:30 Temperature Pulse Rate 87 85 82 Pulse Rate [ Anterior Bilateral Throughout] Respiratory 16 14 14 Rate Respiratory Rate [Anterior Bilateral Throughout] Blood Pressure 152/103 152/103 152/103 O2 Sat by Pulse 100 99 100 Oximetry 06/01/18 06/01/18 06/01/18 22:40 22:50 23:00 Temperature Pulse Rate 81 80 80 Pulse Rate [ Anterior Bilateral Throughout] Respiratory 9 L 9 L 8 L Rate Respiratory Rate [Anterior Bilateral Throughout] Blood Pressure 159/96 159/96 159/96 O2 Sat by Pulse 99 100 100 Oximetry 06/01/18 06/01/18 06/01/18 23:10 23:20 23:30 Temperature Pulse Rate 80 79 82 Pulse Rate [ Anterior Bilateral Throughout] Respiratory 9 L 9 L 13 Rate Respiratory Rate [Anterior Bilateral Throughout] Blood Pressure 145/96 145/96 145/96 O2 Sat by Pulse 99 100 100 Oximetry 06/01/18 06/01/18 06/02/18 23:40 23:50 00:00 Temperature 98.4 F Pulse Rate 88 85 85 Pulse Rate [ Anterior Bilateral Throughout] Respiratory 18 15 20 Rate Respiratory Rate [Anterior Bilateral Throughout] Blood Pressure 155/108 155/108 155/108 O2 Sat by Pulse 98 100 98 Oximetry 06/02/18 06/02/18 06/02/18 00:10 00:20 00:30 Temperature Pulse Rate 86 82 83 Pulse Rate [ Anterior Bilateral Throughout] Respiratory 16 12 12 Rate Respiratory Rate [Anterior Bilateral Throughout] Blood Pressure 155/108 155/108 155/108 O2 Sat by Pulse 98 98 Oximetry 06/02/18 06/02/18 06/02/18 00:40 00:50 01:00 Temperature Pulse Rate 82 83 85 Pulse Rate [ Anterior Bilateral Throughout] Respiratory 10 L 13 14 Rate Respiratory Rate [Anterior Bilateral Throughout] Blood Pressure 155/108 144/101 144/101 O2 Sat by Pulse 98 99 98 Oximetry 06/02/18 06/02/18 06/02/18 01:10 01:20 01:30 Temperature Pulse Rate 85 83 85 Pulse Rate [ Anterior Bilateral Throughout] Respiratory 18 13 15 Rate Respiratory Rate [Anterior Bilateral Throughout] Blood Pressure 145/110 145/110 145/110 O2 Sat by Pulse 99 99 100 Oximetry 06/02/18 06/02/18 06/02/18 01:40 01:50 02:00 Temperature Pulse Rate 83 Pulse Rate [ Anterior Bilateral Throughout] Respiratory 14 Rate Respiratory Rate [Anterior Bilateral Throughout] Blood Pressure 145/110 145/110 140/99 O2 Sat by Pulse 99 99 Oximetry 06/02/18 06/02/18 06/02/18 02:10 02:13 02:20 Temperature Pulse Rate 84 86 Pulse Rate [ 85 Anterior Bilateral Throughout] Respiratory 16 13 Rate Respiratory 15 Rate [Anterior Bilateral Throughout] Blood Pressure 138/98 138/98 O2 Sat by Pulse 92 100 Oximetry 06/02/18 06/02/18 06/02/18 02:26 02:30 02:34 Temperature 98.4 F Pulse Rate 82 Pulse Rate [ 81 Anterior Bilateral Throughout] Respiratory 9 L Rate Respiratory 11 L Rate [Anterior Bilateral Throughout] Blood Pressure 138/98 O2 Sat by Pulse 100 Oximetry 06/02/18 06/02/18 06/02/18 02:40 02:50 03:00 Temperature Pulse Rate 85 87 87 Pulse Rate [ Anterior Bilateral Throughout] Respiratory 9 L 9 L 9 L Rate Respiratory Rate [Anterior Bilateral Throughout] Blood Pressure 147/102 147/102 147/102 O2 Sat by Pulse 100 100 100 Oximetry 06/02/18 06/02/18 06/02/18 03:10 03:20 03:30 Temperature Pulse Rate 91 H 88 91 H Pulse Rate [ Anterior Bilateral Throughout] Respiratory 16 9 L 16 Rate Respiratory Rate [Anterior Bilateral Throughout] Blood Pressure 139/102 139/102 139/102 O2 Sat by Pulse 99 100 100 Oximetry 06/02/18 06/02/18 06/02/18 03:40 03:50 04:00 Temperature Pulse Rate 91 H 90 90 Pulse Rate [ Anterior Bilateral Throughout] Respiratory 14 12 14 Rate Respiratory Rate [Anterior Bilateral Throughout] Blood Pressure 153/112 153/112 153/112 O2 Sat by Pulse 99 99 98 Oximetry 06/02/18 06/02/18 06/02/18 04:10 04:20 04:30 Temperature Pulse Rate 90 89 88 Pulse Rate [ Anterior Bilateral Throughout] Respiratory 12 11 L 11 L Rate Respiratory Rate [Anterior Bilateral Throughout] Blood Pressure 139/98 139/98 139/98 O2 Sat by Pulse 98 98 98 Oximetry 06/02/18 06/02/18 06/02/18 04:40 04:50 05:00 Temperature Pulse Rate 88 87 86 Pulse Rate [ Anterior Bilateral Throughout] Respiratory 10 L 14 12 Rate Respiratory Rate [Anterior Bilateral Throughout] Blood Pressure 141/102 141/102 141/102 O2 Sat by Pulse 98 99 99 Oximetry 06/02/18 06/02/18 05:13 05:27 Temperature Pulse Rate 86 85 Pulse Rate [ Anterior Bilateral Throughout] Respiratory 15 Rate Respiratory Rate [Anterior Bilateral Throughout] Blood Pressure 171/122 O2 Sat by Pulse 100 Oximetry Constitutional: no acute distress Eyes: non-icteric ENT: oropharynx moist Neck: supple, no JVD, other ([facility]) Ascultation: Bilateral: clear, diminished breath sounds Cardiovascular: regular rate and rhythm Gastrointestinal: normoactive bowel sounds, non-distended Integumentary: normal Extremities: no cyanosis, other (+ 2 pretibial edema) CBC and BMP: 06/02/18 04:53 06/02/18 04:53 ABG, PT/INR, D-dimer: ABG POC ABG pH 7.400 (7.35-7.45) 06/01/18 16:18 POC ABG pCO2 33.1 (35-45) L 06/01/18 16:18 POC ABG pO2 121 (80-105) H 06/01/18 16:18 POC ABG HCO3 20.5 06/01/18 16:18 POC ABG Total CO2 21 06/01/18 16:18 POC ABG O2 Sat 99 06/01/18 16:18 PT/INR, D-dimer PT 21.4 Sec. (12.2-14.9) H 06/01/18 01:12 INR 1.79 (0.87-1.13) H 06/01/18 01:12 D-Dimer 1834.40 ng/mlDDU (0-234) H 05/31/18 11:48 Abnormal lab findings: Abnormal Labs 05/31/18 05/31/18 05/31/18 04:38 04:58 05:14 RBC Hgb Hct MCV MCH RDW Plt Count Seg Neuts % (Manual) Lymphocytes % (Manual) Nucleated RBC % Seg Neutrophils # Man Lymphocytes # (Manual) PT INR D-Dimer POC ABG pH POC ABG pCO2 POC ABG pO2 Sodium Potassium Carbon Dioxide BUN Creatinine Glucose POC Glucose < 40 L 64 L 258 H Calcium Magnesium Total Bilirubin AST Alkaline Phosphatase Ammonia Total Creatine Kinase CK-MB (CK-2) CK-MB (CK-2) Rel Index Troponin T NT-Pro-B Natriuret Pep Total Protein Albumin HDL Cholesterol 05/31/18 05/31/18 05/31/18 05:15 05:15 05:22 RBC 5.33 H Hgb Hct 45.8 H MCV MCH RDW 16.4 H Plt Count Seg Neuts % (Manual) 88.0 H Lymphocytes % (Manual) 6.0 L Nucleated RBC % 1.0 H Seg Neutrophils # Man Lymphocytes # (Manual) 0.4 L PT 20.9 H INR 1.74 H D-Dimer POC ABG pH POC ABG pCO2 POC ABG pO2 Sodium Potassium Carbon Dioxide BUN Creatinine Glucose POC Glucose Calcium Magnesium Total Bilirubin AST Alkaline Phosphatase Ammonia 68.0 H Total Creatine Kinase CK-MB (CK-2) CK-MB (CK-2) Rel Index Troponin T NT-Pro-B Natriuret Pep Total Protein Albumin HDL Cholesterol 05/31/18 05/31/18 05/31/18 05:49 07:13 07:22 RBC Hgb Hct MCV MCH RDW Plt Count Seg Neuts % (Manual) Lymphocytes % (Manual) Nucleated RBC % Seg Neutrophils # Man Lymphocytes # (Manual) PT INR D-Dimer POC ABG pH POC ABG pCO2 POC ABG pO2 Sodium 135 L Potassium 6.0 H Carbon Dioxide 13 L BUN 87 H Creatinine 2.5 H Glucose 249 H POC Glucose 124 H Calcium 7.8 L Magnesium 2.40 H Total Bilirubin 2.60 H AST 60 H Alkaline Phosphatase 592 H Ammonia Total Creatine Kinase 374 H CK-MB (CK-2) 22.3 H CK-MB (CK-2) Rel Index 5.9 H Troponin T 0.260 H* NT-Pro-B Natriuret Pep 30107 H Total Protein 5.5 L Albumin 3.0 L HDL Cholesterol 91 H 05/31/18 05/31/18 05/31/18 09:33 10:53 11:48 RBC Hgb 15.4 H Hct 49.2 H MCV MCH RDW Plt Count Seg Neuts % (Manual) Lymphocytes % (Manual) Nucleated RBC % Seg Neutrophils # Man Lymphocytes # (Manual) PT INR D-Dimer POC ABG pH POC ABG pCO2 POC ABG pO2 Sodium Potassium Carbon Dioxide BUN Creatinine Glucose POC Glucose 168 H 106 H Calcium Magnesium Total Bilirubin AST Alkaline Phosphatase Ammonia Total Creatine Kinase CK-MB (CK-2) CK-MB (CK-2) Rel Index Troponin T NT-Pro-B Natriuret Pep Total Protein Albumin HDL Cholesterol 05/31/18 05/31/18 05/31/18 11:48 11:48 11:51 RBC Hgb Hct MCV MCH RDW Plt Count Seg Neuts % (Manual) Lymphocytes % (Manual) Nucleated RBC % Seg Neutrophils # Man Lymphocytes # (Manual) PT 20.6 H INR 1.71 H D-Dimer 1834.40 H POC ABG pH 6.997 L POC ABG pCO2 59.6 H POC ABG pO2 Sodium Potassium Carbon Dioxide BUN Creatinine Glucose POC Glucose Calcium Magnesium Total Bilirubin AST Alkaline Phosphatase Ammonia Total Creatine Kinase CK-MB (CK-2) CK-MB (CK-2) Rel Index Troponin T 0.230 H* NT-Pro-B Natriuret Pep Total Protein Albumin HDL Cholesterol 05/31/18 05/31/18 05/31/18 15:53 18:29 19:26 RBC Hgb Hct MCV MCH RDW Plt Count Seg Neuts % (Manual) Lymphocytes % (Manual) Nucleated RBC % Seg Neutrophils # Man Lymphocytes # (Manual) PT INR D-Dimer POC ABG pH 7.328 L POC ABG pCO2 29.6 L POC ABG pO2 200 H Sodium Potassium Carbon Dioxide BUN Creatinine Glucose POC Glucose < 40 L 68 L Calcium Magnesium Total Bilirubin AST Alkaline Phosphatase Ammonia Total Creatine Kinase CK-MB (CK-2) CK-MB (CK-2) Rel Index Troponin T NT-Pro-B Natriuret Pep Total Protein Albumin HDL Cholesterol 05/31/18 06/01/18 06/01/18 20:40 01:12 03:40 RBC Hgb Hct MCV 83 L MCH 27 L RDW 15.4 H Plt Count 135 L Seg Neuts % (Manual) 95.0 H Lymphocytes % (Manual) 4.0 L Nucleated RBC % Seg Neutrophils # Man Lymphocytes # (Manual) 0.3 L PT 21.4 H INR 1.79 H D-Dimer POC ABG pH POC ABG pCO2 POC ABG pO2 Sodium Potassium 5.5 H Carbon Dioxide 13 L BUN 89 H Creatinine 2.7 H Glucose 72 L POC Glucose Calcium 7.2 L Magnesium Total Bilirubin AST Alkaline Phosphatase Ammonia Total Creatine Kinase CK-MB (CK-2) CK-MB (CK-2) Rel Index Troponin T NT-Pro-B Natriuret Pep Total Protein Albumin HDL Cholesterol 06/01/18 06/01/18 06/01/18 03:40 04:59 08:29 RBC Hgb Hct MCV MCH RDW Plt Count Seg Neuts % (Manual) Lymphocytes % (Manual) Nucleated RBC % Seg Neutrophils # Man Lymphocytes # (Manual) PT INR D-Dimer POC ABG pH 7.474 H POC ABG pCO2 26.1 L POC ABG pO2 116 H Sodium Potassium 5.3 H Carbon Dioxide 16 L BUN 92 H Creatinine 2.7 H Glucose 61 L POC Glucose 69 L Calcium 7.2 L Magnesium Total Bilirubin AST Alkaline Phosphatase Ammonia Total Creatine Kinase CK-MB (CK-2) CK-MB (CK-2) Rel Index Troponin T NT-Pro-B Natriuret Pep Total Protein Albumin HDL Cholesterol 06/01/18 06/01/18 06/01/18 10:49 14:02 16:18 RBC Hgb Hct MCV MCH RDW Plt Count Seg Neuts % (Manual) Lymphocytes % (Manual) Nucleated RBC % Seg Neutrophils # Man Lymphocytes # (Manual) PT INR D-Dimer POC ABG pH POC ABG pCO2 33.1 L POC ABG pO2 121 H Sodium Potassium Carbon Dioxide BUN Creatinine Glucose POC Glucose 108 H Calcium Magnesium Total Bilirubin AST Alkaline Phosphatase Ammonia Total Creatine Kinase CK-MB (CK-2) CK-MB (CK-2) Rel Index Troponin T 0.242 H* NT-Pro-B Natriuret Pep Total Protein Albumin HDL Cholesterol 06/01/18 06/02/18 06/02/18 16:58 04:53 04:53 RBC 5.12 H Hgb Hct MCV 81 L MCH 27 L RDW Plt Count Seg Neuts % (Manual) 87.0 H Lymphocytes % (Manual) 2.0 L Nucleated RBC % Seg Neutrophils # Man 9.2 H Lymphocytes # (Manual) 0.2 L PT INR D-Dimer POC ABG pH POC ABG pCO2 POC ABG pO2 Sodium Potassium 5.4 H Carbon Dioxide 16 L BUN 94 H Creatinine 2.7 H Glucose 101 H POC Glucose 69 L Calcium 7.7 L Magnesium Total Bilirubin AST Alkaline Phosphatase Ammonia Total Creatine Kinase CK-MB (CK-2) CK-MB (CK-2) Rel Index Troponin T NT-Pro-B Natriuret Pep Total Protein Albumin HDL Cholesterol
[2018-06-02] MEDS ORDERED: KIONEX PO ONE (09:08)
[2018-06-02] MEDS: PEPCID IV SCH (10:28)
[2018-06-02] MEDS: SODIUM CHLORIDE FLUSH SYRINGE 10 ML IV SCH ×2 (10:29→22:58)
--- NOTE | 2018-06-02 10:40 | Progress Note ---
Subjective Principal diagnosis: Respiratory failure, non STEMI,CMP Interval history: Patient was seen today for follow-up on multiple renal related issues in the critical care setting, Potassium 5.4 bicarbonate 16 he is alert awake Interdisciplinary notes were also reviewed Past medical history: Reviewed Family history: Reviewed Allergies: Reviewed Current medication: Reviewed Physical examination: General no acute distress HEENT: Oral mucosa moist Neck: Supple no JVD Chest: Few bilateral basilar crackles posteriorly otherwise clear anteriorly Heart: Regular rate and rhythm S1-S2 heard no S3-S4 Abdomen: Soft nontender no organomegaly Extremities: 2+ edema no peripheral cyanosis dry skin Psychiatric: No agitation and aggression noted Assessment and plan: Renal failure: Current creatinine stable at 2.7 Joel long discussion with patient told him that his renal prognosis is guarded and poor he will be prone to cardiorenal syndrome due to very poor ejection fraction, he'll also be at risk for progressive worsening of renal function Given that he has hyperkalemia and volume overload and blood pressure is relatively stable will give him 100 mg of IV Lasix Discontinue bicarbonate containing fluid for now Mild hyperkalemia 5.4 needs to be treated medically Severe cardiomyopathy with peripheral edema third spacing of fluid Prognosis very poor mortality risk very high I would suggest palliative care and his case, but obviously the final care plan has to be decided by the family, discussed with patient Not a good candidate for renal placement therapy due to severe cardiomyopathy and, multi-organ problems Recent respiratory failure, non-ST elevation [place] We'll continue to follow and make recommendation from renal standpoint Objective - Vital Signs Vital signs: Vital Signs - 12hr 06/01/18 06/01/18 06/01/18 22:50 23:00 23:10 Temperature Pulse Rate 80 80 80 Pulse Rate [ Anterior Bilateral Throughout] Respiratory 9 L 8 L 9 L Rate Respiratory Rate [Anterior Bilateral Throughout] Blood Pressure 159/96 159/96 145/96 O2 Sat by Pulse 100 100 99 Oximetry 06/01/18 06/01/18 06/01/18 23:20 23:30 23:40 Temperature 98.4 F Pulse Rate 79 82 88 Pulse Rate [ Anterior Bilateral Throughout] Respiratory 9 L 13 18 Rate Respiratory Rate [Anterior Bilateral Throughout] Blood Pressure 145/96 145/96 155/108 O2 Sat by Pulse 100 100 98 Oximetry 06/01/18 06/02/18 06/02/18 23:50 00:00 00:10 Temperature Pulse Rate 85 85 86 Pulse Rate [ Anterior Bilateral Throughout] Respiratory 15 20 16 Rate Respiratory Rate [Anterior Bilateral Throughout] Blood Pressure 155/108 155/108 155/108 O2 Sat by Pulse 100 98 Oximetry 06/02/18 06/02/18 06/02/18 00:20 00:30 00:40 Temperature Pulse Rate 82 83 82 Pulse Rate [ Anterior Bilateral Throughout] Respiratory 12 12 10 L Rate Respiratory Rate [Anterior Bilateral Throughout] Blood Pressure 155/108 155/108 155/108 O2 Sat by Pulse 98 98 98 Oximetry 06/02/18 06/02/18 06/02/18 00:50 01:00 01:10 Temperature Pulse Rate 83 85 85 Pulse Rate [ Anterior Bilateral Throughout] Respiratory 13 14 18 Rate Respiratory Rate [Anterior Bilateral Throughout] Blood Pressure 144/101 144/101 145/110 O2 Sat by Pulse 99 98 99 Oximetry 06/02/18 06/02/18 06/02/18 01:20 01:30 01:40 Temperature Pulse Rate 83 85 83 Pulse Rate [ Anterior Bilateral Throughout] Respiratory 13 15 14 Rate Respiratory Rate [Anterior Bilateral Throughout] Blood Pressure 145/110 145/110 145/110 O2 Sat by Pulse 99 100 Oximetry 06/02/18 06/02/18 06/02/18 01:50 02:00 02:10 Temperature Pulse Rate 84 Pulse Rate [ Anterior Bilateral Throughout] Respiratory 16 Rate Respiratory Rate [Anterior Bilateral Throughout] Blood Pressure 145/110 140/99 138/98 O2 Sat by Pulse 99 99 92 Oximetry 06/02/18 06/02/18 06/02/18 02:13 02:20 02:26 Temperature Pulse Rate 86 Pulse Rate [ 85 81 Anterior Bilateral Throughout] Respiratory 13 Rate Respiratory 15 11 L Rate [Anterior Bilateral Throughout] Blood Pressure 138/98 O2 Sat by Pulse 100 Oximetry 06/02/18 06/02/18 06/02/18 02:30 02:34 02:40 Temperature 98.4 F Pulse Rate 82 85 Pulse Rate [ Anterior Bilateral Throughout] Respiratory 9 L 9 L Rate Respiratory Rate [Anterior Bilateral Throughout] Blood Pressure 138/98 147/102 O2 Sat by Pulse 100 100 Oximetry 06/02/18 06/02/18 06/02/18 02:50 03:00 03:10 Temperature Pulse Rate 87 87 91 H Pulse Rate [ Anterior Bilateral Throughout] Respiratory 9 L 9 L 16 Rate Respiratory Rate [Anterior Bilateral Throughout] Blood Pressure 147/102 147/102 139/102 O2 Sat by Pulse 100 100 99 Oximetry 06/02/18 06/02/18 06/02/18 03:20 03:30 03:40 Temperature Pulse Rate 88 91 H 91 H Pulse Rate [ Anterior Bilateral Throughout] Respiratory 9 L 16 14 Rate Respiratory Rate [Anterior Bilateral Throughout] Blood Pressure 139/102 139/102 153/112 O2 Sat by Pulse 100 100 99 Oximetry 06/02/18 06/02/18 06/02/18 03:50 04:00 04:10 Temperature Pulse Rate 90 90 90 Pulse Rate [ Anterior Bilateral Throughout] Respiratory 12 14 12 Rate Respiratory Rate [Anterior Bilateral Throughout] Blood Pressure 153/112 153/112 139/98 O2 Sat by Pulse 99 98 98 Oximetry 06/02/18 06/02/18 06/02/18 04:20 04:30 04:40 Temperature Pulse Rate 89 88 88 Pulse Rate [ Anterior Bilateral Throughout] Respiratory 11 L 11 L 10 L Rate Respiratory Rate [Anterior Bilateral Throughout] Blood Pressure 139/98 139/98 141/102 O2 Sat by Pulse 98 98 98 Oximetry 06/02/18 06/02/18 06/02/18 04:50 05:00 05:10 Temperature Pulse Rate 87 86 86 Pulse Rate [ Anterior Bilateral Throughout] Respiratory 14 12 10 L Rate Respiratory Rate [Anterior Bilateral Throughout] Blood Pressure 141/102 141/102 141/102 O2 Sat by Pulse 99 99 99 Oximetry 06/02/18 06/02/18 06/02/18 05:13 05:20 05:27 Temperature Pulse Rate 86 86 85 Pulse Rate [ Anterior Bilateral Throughout] Respiratory 15 10 L Rate Respiratory Rate [Anterior Bilateral Throughout] Blood Pressure 171/122 171/122 O2 Sat by Pulse 100 99 Oximetry 06/02/18 06/02/18 06/02/18 05:30 05:40 05:50 Temperature Pulse Rate 87 85 85 Pulse Rate [ Anterior Bilateral Throughout] Respiratory 12 13 10 L Rate Respiratory Rate [Anterior Bilateral Throughout] Blood Pressure 171/122 171/122 171/122 O2 Sat by Pulse 99 97 98 Oximetry 06/02/18 06/02/18 06/02/18 06:00 06:10 06:20 Temperature Pulse Rate 85 83 83 Pulse Rate [ Anterior Bilateral Throughout] Respiratory 12 12 12 Rate Respiratory Rate [Anterior Bilateral Throughout] Blood Pressure 171/122 150/91 150/91 O2 Sat by Pulse 97 98 97 Oximetry 06/02/18 06/02/18 06/02/18 06:30 06:40 06:50 Temperature Pulse Rate 82 90 83 Pulse Rate [ Anterior Bilateral Throughout] Respiratory 12 11 L 15 Rate Respiratory Rate [Anterior Bilateral Throughout] Blood Pressure 150/91 136/90 136/90 O2 Sat by Pulse 97 97 97 Oximetry 06/02/18 06/02/18 06/02/18 07:00 07:10 07:20 Temperature Pulse Rate 81 81 81 Pulse Rate [ Anterior Bilateral Throughout] Respiratory 13 12 10 L Rate Respiratory Rate [Anterior Bilateral Throughout] Blood Pressure 136/90 134/93 134/93 O2 Sat by Pulse 97 97 96 Oximetry 06/02/18 06/02/18 06/02/18 07:30 07:40 07:50 Temperature Pulse Rate 82 80 79 Pulse Rate [ Anterior Bilateral Throughout] Respiratory 15 9 L 11 L Rate Respiratory Rate [Anterior Bilateral Throughout] Blood Pressure 134/93 133/92 133/92 O2 Sat by Pulse 98 96 97 Oximetry 06/02/18 06/02/18 06/02/18 08:00 08:10 08:20 Temperature 97.4 F L Pulse Rate 79 79 77 Pulse Rate [ Anterior Bilateral Throughout] Respiratory 13 13 11 L Rate Respiratory Rate [Anterior Bilateral Throughout] Blood Pressure 133/92 133/92 133/92 O2 Sat by Pulse 96 97 97 Oximetry 06/02/18 06/02/18 06/02/18 08:30 08:40 08:50 Temperature Pulse Rate 78 83 85 Pulse Rate [ Anterior Bilateral Throughout] Respiratory 11 L 15 14 Rate Respiratory Rate [Anterior Bilateral Throughout] Blood Pressure 133/92 124/96 124/96 O2 Sat by Pulse 98 97 97 Oximetry 06/02/18 06/02/18 06/02/18 09:00 09:10 09:21 Temperature Pulse Rate 86 86 86 Pulse Rate [ Anterior Bilateral Throughout] Respiratory 11 L 12 11 L Rate Respiratory Rate [Anterior Bilateral Throughout] Blood Pressure 124/96 124/96 124/96 O2 Sat by Pulse 96 95 96 Oximetry 06/02/18 06/02/18 06/02/18 09:30 09:41 09:51 Temperature Pulse Rate 86 86 86 Pulse Rate [ Anterior Bilateral Throughout] Respiratory 10 L 10 L 11 L Rate Respiratory Rate [Anterior Bilateral Throughout] Blood Pressure 130/87 132/94 132/94 O2 Sat by Pulse 95 96 97 Oximetry 06/02/18 06/02/18 06/02/18 10:00 10:11 10:21 Temperature Pulse Rate 85 85 85 Pulse Rate [ Anterior Bilateral Throughout] Respiratory 12 10 L 11 L Rate Respiratory Rate [Anterior Bilateral Throughout] Blood Pressure 134/105 130/87 130/87 O2 Sat by Pulse 98 95 96 Oximetry - Lab 06/02/18 04:53 06/02/18 04:53 Most recent lab results Calcium 7.7 mg/dL (8.4-10.2) L 06/02/18 04:53 Magnesium 2.40 mg/dL (1.7-2.3) H 05/31/18 07:13
[2018-06-02] MEDS ORDERED: LASIX 100 MG in NACL 0.9% 50 ML IV ONE (11:00)
--- NOTE | 2018-06-02 13:34 | Progress Note ---
Assessment and Plan Assessment and plan: 63-year-old -Malag[place] male was presented to the ED with complaints of shortness of breath, chest pain, altered mental status Cardiac enzymes was done in the ED and was high, chest x-ray showed bilateral pleural effusion, elevated BNP, elevated creatinine NSTEMI - Patient is on heparin drip, aspirin, - Cardiology consult appreciated - trend cardiac enzymes Acute renal failure - Nephrology consulted CHF - EF 5-10%, will follow cardiology recommendations Hypothermia - Blood cultures no growth so far - Patient is on Zosyn Respiratory/metabolic acidosis - Patient was intubated and on mechanical ventilation, extubated on 06/01 -Resolved DVT prophylaxis - On heparin drip Disposition -Transferred to the floor History Interval history: Patient was seen and evaluated this morning, patient was extubated yesterday [] Hospitalist Physical - Physical exam Narrative exam: Patient was not in cardiopulmonary distress. The patient appeared well nourished and normally developed. Vital signs as documented. Head exam is unremarkable. No scleral icterus . Neck is without jugular venous distension, thyromegaly, or carotid bruits. Lungs coarse creptations. Cardiac exam reveals regular rate and Rhythm. Abdominal exam reveals normal bowel sounds, no masses, no organomegaly and no aortic enlargement. Extremities are nonedematous and both femoral and pedal pulses are normal. PROVIDER RELATIONS REP alert and oriented 3 - Constitutional Vitals: Temp Pulse Resp BP Pulse Ox 97.4 F L 83 12 139/96 96 06/02/18 08:00 06/02/18 11:02 06/02/18 11:00 06/02/18 11:02 06/02/18 11:00 General appearance: Present: other (lethargic) Results - Labs CBC & Chem 7: 06/02/18 04:53 06/02/18 04:53 Labs: Laboratory Last Values WBC 10.6 K/mm3 (4.5-11.0) 06/02/18 04:53 RBC 5.12 M/mm3 (3.65-5.03) H 06/02/18 04:53 Hgb 14.1 gm/dl (11.8-15.2) 06/02/18 04:53 Hct 41.7 % (35.5-45.6) 06/02/18 04:53 MCV 81 fl (84-94) L 06/02/18 04:53 MCH 27 pg (28-32) L 06/02/18 04:53 MCHC 34 % (32-34) 06/02/18 04:53 RDW 15.1 % (13.2-15.2) 06/02/18 04:53 Plt Count 141 K/mm3 (140-440) 06/02/18 04:53 Add Manual Diff Complete 06/02/18 04:53 Total Counted 100 06/02/18 04:53 Seg Neuts % (Manual) 87.0 % (40.0-70.0) H 06/02/18 04:53 Band Neutrophils % 9.0 % 06/02/18 04:53 Lymphocytes % (Manual) 2.0 % (13.4-35.0) L 06/02/18 04:53 Reactive Lymphs % (Man) 0 % 06/02/18 04:53 Monocytes % (Manual) 2.0 % (0.0-7.3) 06/02/18 04:53 Eosinophils % (Manual) 0 % (0.0-4.3) 06/02/18 04:53 Basophils % (Manual) 0 % (0.0-1.8) 06/02/18 04:53 Metamyelocytes % 0 % 06/02/18 04:53 Myelocytes % 0 % 06/02/18 04:53 Promyelocytes % 0 % 06/02/18 04:53 Blast Cells % 0 % 06/02/18 04:53 Nucleated RBC % Not Reportable 06/02/18 04:53 Seg Neutrophils # Man 9.2 K/mm3 (1.8-7.7) H 06/02/18 04:53 Band Neutrophils # 1.0 K/mm3 06/02/18 04:53 Lymphocytes # (Manual) 0.2 K/mm3 (1.2-5.4) L 06/02/18 04:53 Abs React Lymphs (Man) 0.0 K/mm3 06/02/18 04:53 Monocytes # (Manual) 0.2 K/mm3 (0.0-0.8) 06/02/18 04:53 Eosinophils # (Manual) 0.0 K/mm3 (0.0-0.4) 06/02/18 04:53 Basophils # (Manual) 0.0 K/mm3 (0.0-0.1) 06/02/18 04:53 Metamyelocytes # 0.0 K/mm3 06/02/18 04:53 Myelocytes # 0.0 K/mm3 06/02/18 04:53 Promyelocytes # 0.0 K/mm3 06/02/18 04:53 Blast Cells # 0.0 K/mm3 06/02/18 04:53 WBC Morphology Not Reportable 06/02/18 04:53 Hypersegmented Neuts Not Reportable 06/02/18 04:53 Hyposegmented Neuts Not Reportable 06/02/18 04:53 Hypogranular Neuts Not Reportable 06/02/18 04:53 Smudge Cells Not Reportable 06/02/18 04:53 Toxic Granulation Not Reportable 06/02/18 04:53 Toxic Vacuolation Not Reportable 06/02/18 04:53 Dohle Bodies Not Reportable 06/02/18 04:53 Pelger-Huet Anomaly Not Reportable 06/02/18 04:53 Trae Rods Not Reportable 06/02/18 04:53 Platelet Estimate Consistent w auto 06/02/18 04:53 Clumped Platelets Not Reportable 06/02/18 04:53 Plt Clumps, EDTA Not Reportable 06/02/18 04:53 Large Platelets Not Reportable 06/02/18 04:53 Giant Platelets Not Reportable 06/02/18 04:53 Platelet Satelliting Not Reportable 06/02/18 04:53 Plt Morphology Comment Not Reportable 06/02/18 04:53 RBC Morphology Not Reportable 06/02/18 04:53 Dimorphic RBCs Not Reportable 06/02/18 04:53 Polychromasia 1+ 06/02/18 04:53 Hypochromasia Not Reportable 06/02/18 04:53 Poikilocytosis Not Reportable 06/02/18 04:53 Anisocytosis Not Reportable 06/02/18 04:53 Microcytosis Not Reportable 06/02/18 04:53 Macrocytosis Not Reportable 06/02/18 04:53 Spherocytes Not Reportable 06/02/18 04:53 Pappenheimer Bodies Not Reportable 06/02/18 04:53 Sickle Cells Not Reportable 06/02/18 04:53 Target Cells 1+ 06/02/18 04:53 Tear Drop Cells Not Reportable 06/02/18 04:53 Ovalocytes Not Reportable 06/02/18 04:53 Helmet Cells Not Reportable 06/02/18 04:53 [place] Bodies Not Reportable 06/02/18 04:53 [place] Rings Not Reportable 06/02/18 04:53 Andres Cells Not Reportable 06/02/18 04:53 Bite Cells Not Reportable 06/02/18 04:53 Crenated Cell Not Reportable 06/02/18 04:53 Elliptocytes Not Reportable 06/02/18 04:53 Acanthocytes (Spur) Not Reportable 06/02/18 04:53 Rouleaux Not Reportable 06/02/18 04:53 Hemoglobin C Crystals Not Reportable 06/02/18 04:53 Schistocytes Not Reportable 06/02/18 04:53 Malaria parasites Not Reportable 06/02/18 04:53 Dann Bodies Not Reportable 06/02/18 04:53 Hem Pathologist Commnt No 06/02/18 04:53 PT 21.4 Sec. (12.2-14.9) H 06/01/18 01:12 INR 1.79 (0.87-1.13) H 06/01/18 01:12 APTT 33.2 Sec. (24.2-36.6) 06/01/18 01:12 D-Dimer 1834.40 ng/mlDDU (0-234) H 05/31/18 11:48 Heparin Anti-Xa Level 0.40 U.I./ml (0.3-0.7) 05/31/18 20:40 POC ABG pH 7.400 (7.35-7.45) 06/01/18 16:18 POC ABG pCO2 33.1 (35-45) L 06/01/18 16:18 POC ABG pO2 121 (80-105) H 06/01/18 16:18 POC ABG HCO3 20.5 06/01/18 16:18 POC ABG Total CO2 21 06/01/18 16:18 POC ABG O2 Sat 99 06/01/18 16:18 POC ABG Base Excess -4 06/01/18 16:18 FiO2 35 % 06/01/18 16:18 Sodium 142 mmol/L (137-145) 06/02/18 04:53 Potassium 5.4 mmol/L (3.6-5.0) H 06/02/18 04:53 Chloride 105.2 mmol/L (98-107) 06/02/18 04:53 Carbon Dioxide 16 mmol/L (22-30) L 06/02/18 04:53 Anion Gap 26 mmol/L 06/02/18 04:53 BUN 94 mg/dL (9-20) H 06/02/18 04:53 Creatinine 2.7 mg/dL (0.8-1.5) H 06/02/18 04:53 Estimated GFR 29 ml/min 06/02/18 04:53 BUN/Creatinine Ratio 35 % 06/02/18 04:53 Glucose 101 mg/dL (75-100) H 06/02/18 04:53 POC Glucose 133 (70-105) H 06/02/18 11:50 Lactic Acid 1.50 mmol/L (0.7-2.0) 05/31/18 07:13 Calcium 7.7 mg/dL (8.4-10.2) L 06/02/18 04:53 Magnesium 2.40 mg/dL (1.7-2.3) H 05/31/18 07:13 Total Bilirubin 2.60 mg/dL (0.1-1.2) H 05/31/18 05:49 AST 60 units/L (5-40) H 05/31/18 05:49 ALT 55 units/L (7-56) 05/31/18 05:49 Alkaline Phosphatase 592 units/L (35-129) H 05/31/18 05:49 Ammonia 68.0 umol/L (25-60) H 05/31/18 05:22 Total Creatine Kinase 374 units/L (55-170) H 05/31/18 05:49 CK-MB (CK-2) 22.3 ng/mL (0.0-4.0) H 05/31/18 05:49 CK-MB (CK-2) Rel Index 5.9 (0-4) H 05/31/18 05:49 Troponin T 0.268 ng/mL (0.00-0.029) H* 06/02/18 04:52 NT-Pro-B Natriuret Pep 13087 pg/mL (0-900) H 05/31/18 05:49 Total Protein 5.5 g/dL (6.3-8.2) L 05/31/18 05:49 Albumin 3.0 g/dL (3.9-5) L 05/31/18 05:49 Albumin/Globulin Ratio 1.2 % 05/31/18 05:49 Triglycerides 16 mg/dL (2-149) 05/31/18 05:49 Cholesterol 142 mg/dL (50-199) 05/31/18 05:49 LDL Cholesterol Direct 52 mg/dL (50-130) 05/31/18 05:49 HDL Cholesterol 91 mg/dL (40-59) H 05/31/18 05:49 Cholesterol/HDL Ratio 1.56 % 05/31/18 05:49 Urine Color Khloe (Yellow) 05/31/18 05:20 Urine Turbidity Slightly-cloudy (Clear) 05/31/18 05:20 Urine pH 5.0 (5.0-7.0) 05/31/18 05:20 Ur Specific [place] 1.016 (1.003-1.030) 05/31/18 05:20 Urine Protein >500 mg/dL (Negative) 05/31/18 05:20 Urine Glucose (UA) Neg mg/dL (Negative) 05/31/18 05:20 Urine Ketones Neg mg/dL (Negative) 05/31/18 05:20 Urine Blood Sm (Negative) 05/31/18 05:20 Urine Nitrite Neg (Negative) 05/31/18 05:20 Urine Bilirubin Neg (Negative) 05/31/18 05:20 Urine Urobilinogen 4.0 mg/dL (<2.0) 05/31/18 05:20 Ur Leukocyte Esterase Neg (Negative) 05/31/18 05:20 Urine WBC (Auto) 6.0 /HPF (0.0-6.0) 05/31/18 05:20 Urine RBC (Auto) 9.0 /HPF (0.0-6.0) 05/31/18 05:20 U Epithel Cells (Auto) < 1.0 /HPF (0-13.0) 05/31/18 05:20 Urine Mucus Few /HPF 05/31/18 05:20 Urine Yeast (Budding) 1+ /HPF 05/31/18 05:20 Urine Opiates Screen Presumptive negative 05/31/18 05:20 Urine Methadone Screen Presumptive negative 05/31/18 05:20 Ur Barbiturates Screen Presumptive negative 05/31/18 05:20 Ur Phencyclidine Scrn Presumptive negative 05/31/18 05:20 Ur Amphetamines Screen Presumptive negative 05/31/18 05:20 U Benzodiazepines Scrn Presumptive negative 05/31/18 05:20 Urine Cocaine Screen Presumptive negative 05/31/18 05:20 U Marijuana (THC) Screen Presumptive negative 05/31/18 05:20 Drugs of Abuse Note Disclamer 05/31/18 05:20 Plasma/Serum Alcohol < 0.01 % (0-0.07) 05/31/18 05:22
--- NOTE | 2018-06-02 16:16 | Progress Note ---
Assessment and Plan Patient appears to be comfortable today. He has been extubated. Overall he seems to be doing better continue current management. Overall prognosis remains guarded because of his multiple medical issues. - Patient Problems (1) Acute combined systolic and diastolic heart failure Current Visit: Yes Status: Acute (2) Acute on chronic kidney failure Current Visit: Yes Status: Acute (3) Acute respiratory failure Current Visit: Yes Status: Acute (4) Altered mental status, unspecified Current Visit: Yes Status: Acute Qualifiers: Altered mental status type: unspecified Qualified Code(s): R41.82 - Altered mental status, unspecified (5) Non-ST elevation [place] (NSTEMI) Current Visit: Yes Status: Acute (6) Right ventricular systolic dysfunction Current Visit: Yes Status: Acute (7) Moderate to severe mitral regurgitation Current Visit: Yes Status: Chronic (8) NICM (nonischemic cardiomyopathy) Current Visit: Yes Status: Chronic (9) Pulmonary HTN Current Visit: Yes Status: Chronic (10) Tricuspid regurgitation Current Visit: Yes Status: Chronic Subjective Date of service: 06/02/18 Principal diagnosis: Respiratory failure, non STEMI,CMP Interval history: Patient has been extubated. He is comfortable denies any chest pain or difficulty in breathing diet is being advanced gradually. Objective Vital Signs Temp Pulse Pulse Resp Resp BP Pulse Ox 06/02/18 13:52 80 18 06/02/18 11:02 83 139/96 06/02/18 11:00 84 12 139/96 96 06/02/18 10:51 83 14 134/105 96 06/02/18 10:41 84 15 134/105 96 06/02/18 10:30 86 14 130/87 96 06/02/18 10:21 85 11 L 130/87 96 06/02/18 10:11 85 10 L 130/87 95 06/02/18 10:00 85 12 134/105 96 06/02/18 09:51 86 11 L 132/94 97 06/02/18 09:41 86 10 L 132/94 96 06/02/18 09:30 86 10 L 130/87 95 06/02/18 09:21 86 11 L 124/96 96 06/02/18 09:10 86 12 124/96 95 06/02/18 09:00 86 11 L 124/96 96 06/02/18 08:50 85 14 124/96 97 06/02/18 08:40 83 15 124/96 97 06/02/18 08:30 78 11 L 133/92 98 06/02/18 08:20 77 11 L 133/92 97 06/02/18 08:10 79 13 133/92 97 06/02/18 08:00 97.4 F L 79 85 13 18 133/92 96 06/02/18 07:50 79 83 11 L 18 133/92 97 06/02/18 07:40 80 9 L 133/92 96 06/02/18 07:30 82 15 134/93 98 06/02/18 07:20 81 10 L 134/93 96 06/02/18 07:10 81 12 134/93 97 06/02/18 07:00 81 13 136/90 97 06/02/18 06:50 83 15 136/90 97 06/02/18 06:40 90 11 L 136/90 97 06/02/18 06:30 82 12 150/91 97 06/02/18 06:20 83 12 150/91 97 06/02/18 06:10 83 12 150/91 98 06/02/18 06:00 85 12 171/122 97 06/02/18 05:50 85 10 L 171/122 98 06/02/18 05:40 85 13 171/122 97 06/02/18 05:30 87 12 171/122 99 06/02/18 05:27 85 171/122 06/02/18 05:20 86 10 L 171/122 99 06/02/18 05:13 86 15 100 06/02/18 05:10 86 10 L 141/102 99 06/02/18 05:00 86 12 141/102 99 06/02/18 04:50 87 14 141/102 99 06/02/18 04:40 88 10 L 141/102 98 06/02/18 04:30 88 11 L 139/98 98 06/02/18 04:20 89 11 L 139/98 98 06/02/18 04:10 90 12 139/98 98 06/02/18 04:00 90 14 153/112 98 06/02/18 03:50 90 12 153/112 99 06/02/18 03:40 91 H 14 153/112 99 06/02/18 03:30 91 H 16 139/102 100 06/02/18 03:20 88 9 L 139/102 100 06/02/18 03:10 91 H 16 139/102 99 06/02/18 03:00 87 9 L 147/102 100 06/02/18 02:50 87 9 L 147/102 100 06/02/18 02:40 85 9 L 147/102 100 06/02/18 02:34 98.4 F 06/02/18 02:30 82 9 L 138/98 100 06/02/18 02:26 81 11 L 06/02/18 02:20 86 13 138/98 100 06/02/18 02:13 85 15 06/02/18 02:10 84 16 138/98 92 06/02/18 02:00 140/99 99 06/02/18 01:50 145/110 99 06/02/18 01:40 83 14 145/110 06/02/18 01:30 85 15 145/110 100 06/02/18 01:20 83 13 145/110 99 06/02/18 01:10 85 18 145/110 99 06/02/18 01:00 85 14 144/101 98 06/02/18 00:50 83 13 144/101 99 06/02/18 00:40 82 10 L 155/108 98 06/02/18 00:30 83 12 155/108 98 06/02/18 00:20 82 12 155/108 98 06/02/18 00:10 86 16 155/108 06/02/18 00:00 85 20 155/108 98 06/01/18 23:50 85 15 155/108 100 06/01/18 23:40 98.4 F 88 18 155/108 98 06/01/18 23:30 82 13 145/96 100 06/01/18 23:20 79 9 L 145/96 100 06/01/18 23:10 80 9 L 145/96 99 06/01/18 23:00 80 8 L 159/96 100 06/01/18 22:50 80 9 L 159/96 100 06/01/18 22:40 81 9 L 159/96 99 06/01/18 22:30 82 14 152/103 100 06/01/18 22:20 85 14 152/103 99 06/01/18 22:10 87 16 152/103 100 06/01/18 22:00 87 16 167/120 99 06/01/18 21:50 86 16 162/111 100 06/01/18 21:40 83 15 162/111 100 06/01/18 21:30 84 18 167/120 100 06/01/18 21:20 82 10 L 167/120 100 06/01/18 21:16 83 167/120 06/01/18 21:15 85 15 100 06/01/18 21:10 87 12 167/120 100 06/01/18 21:05 75 14 06/01/18 21:00 81 8 L 172/120 100 06/01/18 20:50 79 9 L 172/120 100 06/01/18 20:40 77 8 L 172/120 100 06/01/18 20:30 76 10 L 166/119 100 06/01/18 20:26 76 11 L 100 06/01/18 20:20 79 12 166/119 100 06/01/18 20:10 79 11 L 166/119 100 06/01/18 20:00 97.1 F L 77 10 L 158/117 100 06/01/18 19:50 77 11 L 158/117 100 06/01/18 19:45 89 15 100 06/01/18 19:40 76 12 158/117 100 06/01/18 19:30 77 15 158/117 95 06/01/18 19:20 75 13 156/112 100 06/01/18 19:10 75 13 153/109 99 06/01/18 19:00 77 13 156/118 100 06/01/18 18:50 76 11 L 156/118 80 L 06/01/18 18:40 76 13 156/112 91 06/01/18 18:30 75 13 156/118 98 06/01/18 18:20 74 12 156/118 99 06/01/18 18:18 75 12 156/118 100 06/01/18 18:10 77 14 156/118 100 06/01/18 18:09 76 15 156/118 100 06/01/18 18:00 74 12 145/115 100 06/01/18 17:50 73 11 L 145/115 100 06/01/18 17:42 74 145/115 06/01/18 17:40 75 12 145/115 100 06/01/18 17:30 74 13 144/111 100 06/01/18 17:20 72 11 L 144/111 100 08/31/18 17:15 97 06/01/18 17:10 72 13 144/111 100 06/01/18 17:00 71 7 L 147/109 100 06/01/18 16:50 69 7 L 147/109 100 06/01/18 16:44 97.2 F L 06/01/18 16:40 69 7 L 147/109 99 06/01/18 16:30 70 7 L 144/103 100 06/01/18 16:20 69 7 L 144/103 100 - Physical Examination General: Other (intubated) HEENT: Positive: PERRL Neck: Positive: neck supple, trachea midline Cardiac: Positive: Regular Rate Lungs: Positive: Decreased Breath Sounds (both bases) Neuro: Positive: Other (lethargic) Abdomen: Positive: Soft. Negative: Tender Skin: Negative: Rash, Wound Extremities: Present: +2 Edema (BLE) - Labs and Meds CBC 06/02/18 Range/Units 04:53 WBC 10.6 (4.5-11.0) K/mm3 RBC 5.12 H (3.65-5.03) M/mm3 Hgb 14.1 (11.8-15.2) gm/dl Hct 41.7 (35.5-45.6) % Plt Count 141 (140-440) K/mm3 Comprehensive Metabolic Panel 06/02/18 Range/Units 04:53 Sodium 142 (137-145) mmol/L Potassium 5.4 H (3.6-5.0) mmol/L Chloride 105.2 (98-107) mmol/L Carbon Dioxide 16 L (22-30) mmol/L BUN 94 H (9-20) mg/dL Creatinine 2.7 H (0.8-1.5) mg/dL Glucose 101 H (75-100) mg/dL Calcium 7.7 L (8.4-10.2) mg/dL - Imaging and Cardiology EKG: report reviewed, image reviewed Echo: report reviewed (EF 5-10%, LA mild to mod dilated, RA mildly dilated, mod to severe MR, mod to severe TR, mild AR, pseudonormalization, RV mildly dilated , RV systolic function severely reduced, mod pulm HTN with RVSP 52mmHg, small pericardial effusion. ) Cardiac cath: report reviewed (pt underwent LHC & RHC on 12/27/2017 which showed nonobstructive CAD with RCA 40% and Cristiano 35% lesions; non-ischemic cardiomyoapthy. ) - EKG Sinus rhythms and dysrhythmias: sinus rhythm
[2018-06-02] MEDS: APRESOLINE IV PRN (18:43)
[2018-06-02 18:48] LABS: Albumin 2.9 g/dL (3.9-5); Calcium 7.5 mg/dL (8.4-10.2)
[2018-06-02] MEDS: MORPHINE IV PRN (22:57)
[2018-06-03] MEDS: ZOSYN/NS 2.25 GM/50ML 2.25 GM/50 ML BAG IV SCH ×4 (00:08→17:24)
[2018-06-03] MEDS: DUONEB *Not for PRN Use IH SCH ×4 (03:02→20:12)
--- NOTE | 2018-06-03 03:26 | XRay Report ---
FINAL REPORT PROCEDURE: XR CHEST 1V AP TECHNIQUE: Chest radiograph anteroposterior view. CPT 23517 HISTORY: follow up respiratory failure COMPARISON: 06/02/2018 FINDINGS: Heart: Heart size is enlarged but stable.. Mediastinum/Vessels: Normal. Lungs/Pleural space: Mild bilateral lower lung atelectasis with slight left effusion. The vascular congestion has diminished.. Bony thorax: No acute osseous abnormality. Life support devices: None. IMPRESSION: There is mild bilateral lower lung atelectasis. There is a slight left effusion..
[2018-06-03] MEDS: APRESOLINE PO SCH ×3 (05:18→21:42)
[2018-06-03] MEDS: NITRO-BID 2% TP SCH ×3 (05:18→17:24)
--- NOTE | 2018-06-03 09:54 | Progress Note ---
Subjective Principal diagnosis: Respiratory failure, non STEMI,CMP Interval history: Patient was seen today for follow-up on multiple renal related issues in the critical care setting, vitals labs intake output medications were reviewed feeling better today Interdisciplinary notes were also reviewed Past medical history: Reviewed Family history: Reviewed Allergies: Reviewed Current medication: Reviewed Physical examination: General no acute distress HEENT: Oral mucosa moist Neck: Supple no JVD Chest: Few bilateral basilar crackles posteriorly otherwise clear anteriorly Heart: Regular rate and rhythm S1-S2 heard no S3-S4 Abdomen: Soft nontender no organomegaly Extremities: 2+ edema no peripheral cyanosis dry skin Psychiatric: No agitation and aggression noted Assessment and plan: Renal failure: Creatinine is currently stable patient appears to be doing better hyperkalemia: Appears to have improved Severe congestive heart failure with cardiomyopathy prone to worsening of renal function over time Patient counseled and educated regarding multiple related issues we will continue to administer Lasix as tolera status post non-ST elevation SC current potassium around 5.3 with a bicarbonate of 16, renal function appears to be stable creatinine is around 2.7, follow renal function Metabolic acidosis somewhat better today, GI bleed? Being followed by gastroenterology service Patient does have multiple risk factors for underlying chronic kidney disease, he'll be prone to cardiorenal syndrome which can result in progressive decline in renal function, creatinine is holding stable History of coronary artery disease, poor ejection fraction, elevated troponin stable Renal prognosis remains guarded at this time We'll continue to follow and make recommendation from renal standpoint Objective - Vital Signs Vital signs: Vital Signs - 12hr 06/02/18 06/02/18 06/02/18 22:00 22:06 23:28 Temperature 97.4 F L Pulse Rate 82 82 Pulse Rate [ Anterior Bilateral Throughout] Respiratory 18 Rate Respiratory Rate [Anterior Bilateral Throughout] Blood Pressure 144/99 Blood Pressure [Left] O2 Sat by Pulse 99 Oximetry 06/03/18 06/03/18 06/03/18 00:00 03:04 03:06 Temperature 97.8 F Pulse Rate 74 Pulse Rate [ 74 Anterior Bilateral Throughout] Respiratory 16 Rate Respiratory 18 Rate [Anterior Bilateral Throughout] Blood Pressure Blood Pressure 149/104 [Left] O2 Sat by Pulse 99 Oximetry 06/03/18 06/03/18 06/03/18 03:21 04:15 05:18 Temperature Pulse Rate 77 75 Pulse Rate [ 81 Anterior Bilateral Throughout] Respiratory 15 Rate Respiratory 16 Rate [Anterior Bilateral Throughout] Blood Pressure 153/100 Blood Pressure 151/107 [Left] O2 Sat by Pulse 99 Oximetry 06/03/18 06/03/18 06/03/18 08:00 08:10 09:24 Temperature 97.4 F L Pulse Rate Pulse Rate [ 77 78 Anterior Bilateral Throughout] Respiratory Rate Respiratory 18 18 Rate [Anterior Bilateral Throughout] Blood Pressure Blood Pressure [Left] O2 Sat by Pulse 99 Oximetry - Lab 06/02/18 04:53 06/02/18 17:47 Most recent lab results Calcium 7.5 mg/dL (8.4-10.2) L 06/02/18 17:47 Magnesium 2.40 mg/dL (1.7-2.3) H 05/31/18 07:13
[2018-06-03] MEDS: SODIUM CHLORIDE FLUSH SYRINGE 10 ML IV SCH ×2 (09:57→21:43)
[2018-06-03] MEDS: PEPCID IV SCH (09:57)
--- NOTE | 2018-06-03 11:53 | Progress Note ---
Assessment and Plan - Patient Problems (1) Acute respiratory failure Current Visit: Yes Status: Acute (2) Acute combined systolic and diastolic heart failure Current Visit: Yes Status: Acute (3) Acute heart failure Current Visit: Yes Status: Acute (4) Acute on chronic kidney failure Current Visit: Yes Status: Acute (5) Hyperkalemia Current Visit: Yes Status: Acute (6) Metabolic acidosis Current Visit: Yes Status: Acute (7) Metabolic encephalopathy Current Visit: Yes Status: Acute (8) Non-ST elevation NV (NSTEMI) Current Visit: Yes Status: Acute (9) Pleural effusion Current Visit: Yes Status: Acute Subjective Principal diagnosis: Respiratory failure, non STEMI,CMP Interval history: no sob Objective Vital Signs - 12hr 06/03/18 06/03/18 06/03/18 00:00 03:04 03:06 Temperature 97.8 F Pulse Rate 74 Pulse Rate [ 74 Anterior Bilateral Throughout] Respiratory 16 Rate Respiratory 18 Rate [Anterior Bilateral Throughout] Blood Pressure Blood Pressure 149/104 [Left] O2 Sat by Pulse 99 Oximetry 06/03/18 06/03/18 06/03/18 03:21 04:15 05:18 Temperature Pulse Rate 77 75 Pulse Rate [ 81 Anterior Bilateral Throughout] Respiratory 15 Rate Respiratory 16 Rate [Anterior Bilateral Throughout] Blood Pressure 153/100 Blood Pressure 151/107 [Left] O2 Sat by Pulse 99 Oximetry 06/03/18 06/03/18 06/03/18 08:00 08:10 09:24 Temperature 97.4 F L Pulse Rate 77 Pulse Rate [ 77 78 Anterior Bilateral Throughout] Respiratory 12 Rate Respiratory 18 18 Rate [Anterior Bilateral Throughout] Blood Pressure Blood Pressure 162/112 [Left] O2 Sat by Pulse 98 99 Oximetry 06/03/18 10:00 Temperature Pulse Rate 80 Pulse Rate [ Anterior Bilateral Throughout] Respiratory Rate Respiratory Rate [Anterior Bilateral Throughout] Blood Pressure Blood Pressure [Left] O2 Sat by Pulse 100 Oximetry Constitutional: no acute distress Eyes: non-icteric ENT: oropharynx moist Neck: supple, no JVD, other ([facility]) Ascultation: Bilateral: clear, diminished breath sounds Cardiovascular: regular rate and rhythm Gastrointestinal: normoactive bowel sounds, non-distended Integumentary: normal Extremities: no cyanosis, other (+ 2 pretibial edema) CBC and BMP: 06/02/18 04:53 06/02/18 17:47 ABG, PT/INR, D-dimer: ABG POC ABG pH 7.400 (7.35-7.45) 06/01/18 16:18 POC ABG pCO2 33.1 (35-45) L 06/01/18 16:18 POC ABG pO2 121 (80-105) H 06/01/18 16:18 POC ABG HCO3 20.5 06/01/18 16:18 POC ABG Total CO2 21 06/01/18 16:18 POC ABG O2 Sat 99 06/01/18 16:18 PT/INR, D-dimer PT 21.4 Sec. (12.2-14.9) H 06/01/18 01:12 INR 1.79 (0.87-1.13) H 06/01/18 01:12 D-Dimer 1834.40 ng/mlDDU (0-234) H 05/31/18 11:48 Abnormal lab findings: Abnormal Labs 05/31/18 05/31/18 05/31/18 04:38 04:58 05:14 RBC Hgb Hct MCV MCH RDW Plt Count Seg Neuts % (Manual) Lymphocytes % (Manual) Nucleated RBC % Seg Neutrophils # Man Lymphocytes # (Manual) PT INR D-Dimer POC ABG pH POC ABG pCO2 POC ABG pO2 Sodium Potassium Carbon Dioxide BUN Creatinine Glucose POC Glucose < 40 L 64 L 258 H Calcium Magnesium Total Bilirubin AST ALT Alkaline Phosphatase Ammonia Total Creatine Kinase CK-MB (CK-2) CK-MB (CK-2) Rel Index Troponin T NT-Pro-B Natriuret Pep Total Protein Albumin HDL Cholesterol 05/31/18 05/31/18 05/31/18 05:15 05:15 05:22 RBC 5.33 H Hgb Hct 45.8 H MCV MCH RDW 16.4 H Plt Count Seg Neuts % (Manual) 88.0 H Lymphocytes % (Manual) 6.0 L Nucleated RBC % 1.0 H Seg Neutrophils # Man Lymphocytes # (Manual) 0.4 L PT 20.9 H INR 1.74 H D-Dimer POC ABG pH POC ABG pCO2 POC ABG pO2 Sodium Potassium Carbon Dioxide BUN Creatinine Glucose POC Glucose Calcium Magnesium Total Bilirubin AST ALT Alkaline Phosphatase Ammonia 68.0 H Total Creatine Kinase CK-MB (CK-2) CK-MB (CK-2) Rel Index Troponin T NT-Pro-B Natriuret Pep Total Protein Albumin HDL Cholesterol 05/31/18 05/31/18 05/31/18 05:49 07:13 07:22 RBC Hgb Hct MCV MCH RDW Plt Count Seg Neuts % (Manual) Lymphocytes % (Manual) Nucleated RBC % Seg Neutrophils # Man Lymphocytes # (Manual) PT INR D-Dimer POC ABG pH POC ABG pCO2 POC ABG pO2 Sodium 135 L Potassium 6.0 H Carbon Dioxide 13 L BUN 87 H Creatinine 2.5 H Glucose 249 H POC Glucose 124 H Calcium 7.8 L Magnesium 2.40 H Total Bilirubin 2.60 H AST 60 H ALT Alkaline Phosphatase 592 H Ammonia Total Creatine Kinase 374 H CK-MB (CK-2) 22.3 H CK-MB (CK-2) Rel Index 5.9 H Troponin T 0.260 H* NT-Pro-B Natriuret Pep 73098 H Total Protein 5.5 L Albumin 3.0 L HDL Cholesterol 91 H 05/31/18 05/31/18 05/31/18 09:33 10:53 11:48 RBC Hgb 15.4 H Hct 49.2 H MCV MCH RDW Plt Count Seg Neuts % (Manual) Lymphocytes % (Manual) Nucleated RBC % Seg Neutrophils # Man Lymphocytes # (Manual) PT INR D-Dimer POC ABG pH POC ABG pCO2 POC ABG pO2 Sodium Potassium Carbon Dioxide BUN Creatinine Glucose POC Glucose 168 H 106 H Calcium Magnesium Total Bilirubin AST ALT Alkaline Phosphatase Ammonia Total Creatine Kinase CK-MB (CK-2) CK-MB (CK-2) Rel Index Troponin T NT-Pro-B Natriuret Pep Total Protein Albumin HDL Cholesterol 05/31/18 05/31/18 05/31/18 11:48 11:48 11:51 RBC Hgb Hct MCV MCH RDW Plt Count Seg Neuts % (Manual) Lymphocytes % (Manual) Nucleated RBC % Seg Neutrophils # Man Lymphocytes # (Manual) PT 20.6 H INR 1.71 H D-Dimer 1834.40 H POC ABG pH 6.997 L POC ABG pCO2 59.6 H POC ABG pO2 Sodium Potassium Carbon Dioxide BUN Creatinine Glucose POC Glucose Calcium Magnesium Total Bilirubin AST ALT Alkaline Phosphatase Ammonia Total Creatine Kinase CK-MB (CK-2) CK-MB (CK-2) Rel Index Troponin T 0.230 H* NT-Pro-B Natriuret Pep Total Protein Albumin HDL Cholesterol 05/31/18 05/31/18 05/31/18 15:53 18:29 19:26 RBC Hgb Hct MCV MCH RDW Plt Count Seg Neuts % (Manual) Lymphocytes % (Manual) Nucleated RBC % Seg Neutrophils # Man Lymphocytes # (Manual) PT INR D-Dimer POC ABG pH 7.328 L POC ABG pCO2 29.6 L POC ABG pO2 200 H Sodium Potassium Carbon Dioxide BUN Creatinine Glucose POC Glucose < 40 L 68 L Calcium Magnesium Total Bilirubin AST ALT Alkaline Phosphatase Ammonia Total Creatine Kinase CK-MB (CK-2) CK-MB (CK-2) Rel Index Troponin T NT-Pro-B Natriuret Pep Total Protein Albumin HDL Cholesterol 05/31/18 06/01/18 06/01/18 20:40 01:12 03:40 RBC Hgb Hct MCV 83 L MCH 27 L RDW 15.4 H Plt Count 135 L Seg Neuts % (Manual) 95.0 H Lymphocytes % (Manual) 4.0 L Nucleated RBC % Seg Neutrophils # Man Lymphocytes # (Manual) 0.3 L PT 21.4 H INR 1.79 H D-Dimer POC ABG pH POC ABG pCO2 POC ABG pO2 Sodium Potassium 5.5 H Carbon Dioxide 13 L BUN 89 H Creatinine 2.7 H Glucose 72 L POC Glucose Calcium 7.2 L Magnesium Total Bilirubin AST ALT Alkaline Phosphatase Ammonia Total Creatine Kinase CK-MB (CK-2) CK-MB (CK-2) Rel Index Troponin T NT-Pro-B Natriuret Pep Total Protein Albumin HDL Cholesterol 06/01/18 06/01/18 06/01/18 03:40 04:59 08:29 RBC Hgb Hct MCV MCH RDW Plt Count Seg Neuts % (Manual) Lymphocytes % (Manual) Nucleated RBC % Seg Neutrophils # Man Lymphocytes # (Manual) PT INR D-Dimer POC ABG pH 7.474 H POC ABG pCO2 26.1 L POC ABG pO2 116 H Sodium Potassium 5.3 H Carbon Dioxide 16 L BUN 92 H Creatinine 2.7 H Glucose 61 L POC Glucose 69 L Calcium 7.2 L Magnesium Total Bilirubin AST ALT Alkaline Phosphatase Ammonia Total Creatine Kinase CK-MB (CK-2) CK-MB (CK-2) Rel Index Troponin T NT-Pro-B Natriuret Pep Total Protein Albumin HDL Cholesterol 06/01/18 06/01/18 06/01/18 10:49 14:02 16:18 RBC Hgb Hct MCV MCH RDW Plt Count Seg Neuts % (Manual) Lymphocytes % (Manual) Nucleated RBC % Seg Neutrophils # Man Lymphocytes # (Manual) PT INR D-Dimer POC ABG pH POC ABG pCO2 33.1 L POC ABG pO2 121 H Sodium Potassium Carbon Dioxide BUN Creatinine Glucose POC Glucose 108 H Calcium Magnesium Total Bilirubin AST ALT Alkaline Phosphatase Ammonia Total Creatine Kinase CK-MB (CK-2) CK-MB (CK-2) Rel Index Troponin T 0.242 H* NT-Pro-B Natriuret Pep Total Protein Albumin HDL Cholesterol 06/01/18 06/02/18 06/02/18 16:58 04:52 04:53 RBC 5.12 H Hgb Hct MCV 81 L MCH 27 L RDW Plt Count Seg Neuts % (Manual) 87.0 H Lymphocytes % (Manual) 2.0 L Nucleated RBC % Seg Neutrophils # Man 9.2 H Lymphocytes # (Manual) 0.2 L PT INR D-Dimer POC ABG pH POC ABG pCO2 POC ABG pO2 Sodium Potassium Carbon Dioxide BUN Creatinine Glucose POC Glucose 69 L Calcium Magnesium Total Bilirubin AST ALT Alkaline Phosphatase Ammonia Total Creatine Kinase CK-MB (CK-2) CK-MB (CK-2) Rel Index Troponin T 0.268 H* NT-Pro-B Natriuret Pep Total Protein Albumin HDL Cholesterol 06/02/18 06/02/18 06/02/18 04:53 11:50 14:05 RBC Hgb Hct MCV MCH RDW Plt Count Seg Neuts % (Manual) Lymphocytes % (Manual) Nucleated RBC % Seg Neutrophils # Man Lymphocytes # (Manual) PT INR D-Dimer POC ABG pH POC ABG pCO2 POC ABG pO2 Sodium Potassium 5.4 H Carbon Dioxide 16 L BUN 94 H Creatinine 2.7 H Glucose 101 H POC Glucose 133 H 113 H Calcium 7.7 L Magnesium Total Bilirubin AST ALT Alkaline Phosphatase Ammonia Total Creatine Kinase CK-MB (CK-2) CK-MB (CK-2) Rel Index Troponin T NT-Pro-B Natriuret Pep Total Protein Albumin HDL Cholesterol 06/02/18 06/02/18 17:47 17:55 RBC Hgb Hct MCV MCH RDW Plt Count Seg Neuts % (Manual) Lymphocytes % (Manual) Nucleated RBC % Seg Neutrophils # Man Lymphocytes # (Manual) PT INR D-Dimer POC ABG pH POC ABG pCO2 POC ABG pO2 Sodium Potassium Carbon Dioxide 21 L BUN 90 H Creatinine 2.7 H Glucose 120 H POC Glucose 120 H Calcium 7.5 L Magnesium Total Bilirubin 2.70 H AST 92 H ALT 67 H Alkaline Phosphatase 624 H Ammonia Total Creatine Kinase CK-MB (CK-2) CK-MB (CK-2) Rel Index Troponin T NT-Pro-B Natriuret Pep Total Protein 5.4 L Albumin 2.9 L HDL Cholesterol
--- NOTE | 2018-06-03 14:46 | Progress Note ---
Assessment and Plan Patient appears to be comfortable today. Patient is feeling better and eating better. Family is in the room. Discussed with Dr. Martinez Overall he seems to be doing better continue current management. Overall prognosis remains guarded because of his multiple medical issues. Increase activity gradually. - Patient Problems (1) Acute combined systolic and diastolic heart failure Current Visit: Yes Status: Acute (2) Acute on chronic kidney failure Current Visit: Yes Status: Acute (3) Acute respiratory failure Current Visit: Yes Status: Acute (4) Altered mental status, unspecified Current Visit: Yes Status: Acute Qualifiers: Altered mental status type: unspecified Qualified Code(s): R41.82 - Altered mental status, unspecified (5) Non-ST elevation CT (NSTEMI) Current Visit: Yes Status: Acute (6) Right ventricular systolic dysfunction Current Visit: Yes Status: Acute (7) Moderate to severe mitral regurgitation Current Visit: Yes Status: Chronic (8) NICM (nonischemic cardiomyopathy) Current Visit: Yes Status: Chronic (9) Pulmonary HTN Current Visit: Yes Status: Chronic (10) Tricuspid regurgitation Current Visit: Yes Status: Chronic Subjective Date of service: 06/03/18 Principal diagnosis: Respiratory failure, non STEMI,CMP Interval history: Patient appears to be more comfortable and in no distress. Patient denies chest pain or significant difficulty in breathing or palpitations. Family in the room. Objective Vital Signs Temp Pulse Pulse Resp Resp BP BP 06/03/18 12:34 97.2 F L 06/03/18 11:50 06/03/18 10:00 80 06/03/18 09:24 06/03/18 08:10 78 18 06/03/18 08:00 97.4 F L 77 77 12 18 162/112 06/03/18 05:18 75 153/100 06/03/18 04:15 77 15 151/107 06/03/18 03:21 81 16 06/03/18 03:06 97.8 F 06/03/18 03:04 74 18 06/03/18 00:00 74 16 149/104 06/02/18 23:28 97.4 F L 06/02/18 22:06 82 144/99 06/02/18 22:00 82 18 06/02/18 20:45 97.6 F 85 14 159/91 06/02/18 20:00 97.6 F 06/02/18 19:51 86 10 L 138/100 06/02/18 19:41 87 12 138/100 06/02/18 19:30 87 15 138/100 06/02/18 19:21 90 13 141/93 06/02/18 19:11 88 16 141/93 06/02/18 19:00 88 15 141/93 06/02/18 18:51 86 19 163/107 06/02/18 18:44 85 163/107 06/02/18 18:43 85 163/107 06/02/18 18:41 87 12 163/107 06/02/18 18:31 87 13 163/107 06/02/18 18:21 87 12 148/113 06/02/18 18:11 86 12 148/113 06/02/18 18:01 87 15 148/113 06/02/18 17:51 84 12 156/104 06/02/18 17:41 88 15 156/104 06/02/18 17:30 91 H 14 156/104 06/02/18 17:21 90 13 157/115 06/02/18 17:11 88 14 157/115 06/02/18 17:00 88 10 L 157/115 06/02/18 16:51 91 H 12 149/104 06/02/18 16:41 90 18 155/106 06/02/18 16:31 94 H 15 155/106 06/02/18 16:21 88 10 L 149/104 06/02/18 16:11 89 13 149/104 06/02/18 16:00 98.0 F 93 H 16 149/104 06/02/18 15:51 89 10 L 163/101 06/02/18 15:41 92 H 10 L 163/101 06/02/18 15:30 94 H 11 L 163/101 06/02/18 15:21 93 H 12 150/96 06/02/18 15:11 92 H 12 150/96 06/02/18 15:00 94 H 24 150/96 06/02/18 14:51 91 H 13 143/101 Pulse Ox 06/03/18 12:34 06/03/18 11:50 99 06/03/18 10:00 06/03/18 09:24 99 06/03/18 08:10 06/03/18 08:00 100 06/03/18 05:18 06/03/18 04:15 99 06/03/18 03:21 06/03/18 03:06 06/03/18 03:04 06/03/18 00:00 99 06/02/18 23:28 06/02/18 22:06 06/02/18 22:00 99 06/02/18 20:45 99 06/02/18 20:00 06/02/18 19:51 96 06/02/18 19:41 96 06/02/18 19:30 96 06/02/18 19:21 97 06/02/18 19:11 97 06/02/18 19:00 97 06/02/18 18:51 97 06/02/18 18:44 06/02/18 18:43 06/02/18 18:41 98 06/02/18 18:31 100 06/02/18 18:21 98 06/02/18 18:11 96 06/02/18 18:01 96 06/02/18 17:51 96 06/02/18 17:41 98 06/02/18 17:30 97 06/02/18 17:21 97 06/02/18 17:11 97 06/02/18 17:00 99 06/02/18 16:51 98 06/02/18 16:41 99 06/02/18 16:31 99 06/02/18 16:21 97 06/02/18 16:11 97 06/02/18 16:00 100 06/02/18 15:51 97 06/02/18 15:41 98 06/02/18 15:30 98 06/02/18 15:21 98 06/02/18 15:11 98 06/02/18 15:00 98 06/02/18 14:51 97 - Physical Examination General: Other (intubated) HEENT: Positive: PERRL Neck: Positive: neck supple, trachea midline Cardiac: Positive: Reg Rate and Rhythm Lungs: Positive: clear to auscultation Neuro: Positive: Other (lethargic) Abdomen: Positive: Soft. Negative: Tender Skin: Negative: Rash, Wound Extremities: Present: +2 Edema (BLE) - Labs and Meds Cardiac Enzymes 06/02/18 Range/Units 17:47 AST 92 H (5-40) units/L Comprehensive Metabolic Panel 06/02/18 Range/Units 17:47 Sodium 139 (137-145) mmol/L Potassium 4.3 D (3.6-5.0) mmol/L Chloride 101.3 (98-107) mmol/L Carbon Dioxide 21 L (22-30) mmol/L BUN 90 H (9-20) mg/dL Creatinine 2.7 H (0.8-1.5) mg/dL Glucose 120 H (75-100) mg/dL Calcium 7.5 L (8.4-10.2) mg/dL AST 92 H (5-40) units/L ALT 67 H (7-56) units/L Alkaline Phosphatase 624 H (35-129) units/L Total Protein 5.4 L (6.3-8.2) g/dL Albumin 2.9 L (3.9-5) g/dL - Imaging and Cardiology EKG: report reviewed, image reviewed Echo: report reviewed (EF 5-10%, LA mild to mod dilated, RA mildly dilated, mod to severe MR, mod to severe TR, mild AR, pseudonormalization, RV mildly dilated , RV systolic function severely reduced, mod pulm HTN with RVSP 52mmHg, small pericardial effusion. ) Cardiac cath: report reviewed (pt underwent LHC & RHC on 12/27/2017 which showed nonobstructive CAD with RCA 40% and Cristiano 35% lesions; non-ischemic cardiomyoapthy. ) - EKG Sinus rhythms and dysrhythmias: sinus rhythm
--- NOTE | 2018-06-03 14:52 | Progress Note ---
Assessment and Plan Assessment and plan: 63-year-old -[place] male was presented to the ED with complaints of shortness of breath, chest pain, altered mental status Cardiac enzymes was done in the ED and was high, chest x-ray showed bilateral pleural effusion, elevated BNP, elevated creatinine NSTEMI - Patient is on heparin drip, aspirin, - Cardiology consult appreciated - Likely due to CHF Acute renal failure - Nephrology consulted CHF - EF 5-10%, will follow cardiology recommendations - Patient is breathing comfortable Hypothermia - Blood cultures no growth so far - Patient is on Zosyn Respiratory/metabolic acidosis - Patient was intubated and on mechanical ventilation, extubated on 06/01 -Resolved DVT prophylaxis - On heparin drip Disposition - Possible DC tomorrow History Interval history: Patient was seen and evaluated this morning, patient was extubated on [06/01] Hospitalist Physical - Physical exam Narrative exam: Patient was not in cardiopulmonary distress. The patient appeared well nourished and normally developed. Vital signs as documented. Head exam is unremarkable. No scleral icterus . Neck is without jugular venous distension, thyromegaly, or carotid bruits. Lungs coarse creptations. Cardiac exam reveals regular rate and Rhythm. Abdominal exam reveals normal bowel sounds, no masses, no organomegaly and no aortic enlargement. Extremities trace pretibial edema. 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 3 - Constitutional Vitals: Temp Pulse Resp BP Pulse Ox 97.2 F L 80 18 162/112 99 06/03/18 12:34 06/03/18 10:00 06/03/18 08:10 06/03/18 08:00 06/03/18 11:50 General appearance: Present: other (lethargic) Results - Labs CBC & Chem 7: 06/02/18 04:53 06/02/18 17:47 Labs: Laboratory Last Values WBC 10.6 K/mm3 (4.5-11.0) 06/02/18 04:53 RBC 5.12 M/mm3 (3.65-5.03) H 06/02/18 04:53 Hgb 14.1 gm/dl (11.8-15.2) 06/02/18 04:53 Hct 41.7 % (35.5-45.6) 06/02/18 04:53 MCV 81 fl (84-94) L 06/02/18 04:53 MCH 27 pg (28-32) L 06/02/18 04:53 MCHC 34 % (32-34) 06/02/18 04:53 RDW 15.1 % (13.2-15.2) 06/02/18 04:53 Plt Count 141 K/mm3 (140-440) 06/02/18 04:53 Add Manual Diff Complete 06/02/18 04:53 Total Counted 100 06/02/18 04:53 Seg Neuts % (Manual) 87.0 % (40.0-70.0) H 06/02/18 04:53 Band Neutrophils % 9.0 % 06/02/18 04:53 Lymphocytes % (Manual) 2.0 % (13.4-35.0) L 06/02/18 04:53 Reactive Lymphs % (Man) 0 % 06/02/18 04:53 Monocytes % (Manual) 2.0 % (0.0-7.3) 06/02/18 04:53 Eosinophils % (Manual) 0 % (0.0-4.3) 06/02/18 04:53 Basophils % (Manual) 0 % (0.0-1.8) 06/02/18 04:53 Metamyelocytes % 0 % 06/02/18 04:53 Myelocytes % 0 % 06/02/18 04:53 Promyelocytes % 0 % 06/02/18 04:53 Blast Cells % 0 % 06/02/18 04:53 Nucleated RBC % Not Reportable 06/02/18 04:53 Seg Neutrophils # Man 9.2 K/mm3 (1.8-7.7) H 06/02/18 04:53 Band Neutrophils # 1.0 K/mm3 06/02/18 04:53 Lymphocytes # (Manual) 0.2 K/mm3 (1.2-5.4) L 06/02/18 04:53 Abs React Lymphs (Man) 0.0 K/mm3 06/02/18 04:53 Monocytes # (Manual) 0.2 K/mm3 (0.0-0.8) 06/02/18 04:53 Eosinophils # (Manual) 0.0 K/mm3 (0.0-0.4) 06/02/18 04:53 Basophils # (Manual) 0.0 K/mm3 (0.0-0.1) 06/02/18 04:53 Metamyelocytes # 0.0 K/mm3 06/02/18 04:53 Myelocytes # 0.0 K/mm3 06/02/18 04:53 Promyelocytes # 0.0 K/mm3 06/02/18 04:53 Blast Cells # 0.0 K/mm3 06/02/18 04:53 WBC Morphology Not Reportable 06/02/18 04:53 Hypersegmented Neuts Not Reportable 06/02/18 04:53 Hyposegmented Neuts Not Reportable 06/02/18 04:53 Hypogranular Neuts Not Reportable 06/02/18 04:53 Smudge Cells Not Reportable 06/02/18 04:53 Toxic Granulation Not Reportable 06/02/18 04:53 Toxic Vacuolation Not Reportable 06/02/18 04:53 Dohle Bodies Not Reportable 06/02/18 04:53 Pelger-Huet Anomaly Not Reportable 06/02/18 04:53 Trae Rods Not Reportable 06/02/18 04:53 Platelet Estimate Consistent w auto 06/02/18 04:53 Clumped Platelets Not Reportable 06/02/18 04:53 Plt Clumps, EDTA Not Reportable 06/02/18 04:53 Large Platelets Not Reportable 06/02/18 04:53 Giant Platelets Not Reportable 06/02/18 04:53 Platelet Satelliting Not Reportable 06/02/18 04:53 Plt Morphology Comment Not Reportable 06/02/18 04:53 RBC Morphology Not Reportable 06/02/18 04:53 Dimorphic RBCs Not Reportable 06/02/18 04:53 Polychromasia 1+ 06/02/18 04:53 Hypochromasia Not Reportable 06/02/18 04:53 Poikilocytosis Not Reportable 06/02/18 04:53 Anisocytosis Not Reportable 06/02/18 04:53 Microcytosis Not Reportable 06/02/18 04:53 Macrocytosis Not Reportable 06/02/18 04:53 Spherocytes Not Reportable 06/02/18 04:53 Pappenheimer Bodies Not Reportable 06/02/18 04:53 Sickle Cells Not Reportable 06/02/18 04:53 Target Cells 1+ 06/02/18 04:53 Tear Drop Cells Not Reportable 06/02/18 04:53 Ovalocytes Not Reportable 06/02/18 04:53 Helmet Cells Not Reportable 06/02/18 04:53 [place] Bodies Not Reportable 06/02/18 04:53 [place] Rings Not Reportable 06/02/18 04:53 Andres Cells Not Reportable 06/02/18 04:53 Bite Cells Not Reportable 06/02/18 04:53 Crenated Cell Not Reportable 06/02/18 04:53 Elliptocytes Not Reportable 06/02/18 04:53 Acanthocytes (Spur) Not Reportable 06/02/18 04:53 Rouleaux Not Reportable 06/02/18 04:53 Hemoglobin C Crystals Not Reportable 06/02/18 04:53 Schistocytes Not Reportable 06/02/18 04:53 Malaria parasites Not Reportable 06/02/18 04:53 Dann Bodies Not Reportable 06/02/18 04:53 Hem Pathologist Commnt No 06/02/18 04:53 PT 21.4 Sec. (12.2-14.9) H 06/01/18 01:12 INR 1.79 (0.87-1.13) H 06/01/18 01:12 APTT 33.2 Sec. (24.2-36.6) 06/01/18 01:12 D-Dimer 1834.40 ng/mlDDU (0-234) H 05/31/18 11:48 Heparin Anti-Xa Level 0.40 U.I./ml (0.3-0.7) 05/31/18 20:40 POC ABG pH 7.400 (7.35-7.45) 06/01/18 16:18 POC ABG pCO2 33.1 (35-45) L 06/01/18 16:18 POC ABG pO2 121 (80-105) H 06/01/18 16:18 POC ABG HCO3 20.5 06/01/18 16:18 POC ABG Total CO2 21 06/01/18 16:18 POC ABG O2 Sat 99 06/01/18 16:18 POC ABG Base Excess -4 06/01/18 16:18 FiO2 35 % 06/01/18 16:18 Sodium 139 mmol/L (137-145) 06/02/18 17:47 Potassium 4.3 mmol/L (3.6-5.0) D 06/02/18 17:47 Chloride 101.3 mmol/L (98-107) 06/02/18 17:47 Carbon Dioxide 21 mmol/L (22-30) L 06/02/18 17:47 Anion Gap 21 mmol/L 06/02/18 17:47 BUN 90 mg/dL (9-20) H 06/02/18 17:47 Creatinine 2.7 mg/dL (0.8-1.5) H 06/02/18 17:47 Estimated GFR 29 ml/min 06/02/18 17:47 BUN/Creatinine Ratio 33 % 06/02/18 17:47 Glucose 120 mg/dL (75-100) H 06/02/18 17:47 POC Glucose 120 (70-105) H 06/02/18 17:55 Lactic Acid 1.50 mmol/L (0.7-2.0) 05/31/18 07:13 Calcium 7.5 mg/dL (8.4-10.2) L 06/02/18 17:47 Magnesium 2.40 mg/dL (1.7-2.3) H 05/31/18 07:13 Total Bilirubin 2.70 mg/dL (0.1-1.2) H 06/02/18 17:47 AST 92 units/L (5-40) H 06/02/18 17:47 ALT 67 units/L (7-56) H 06/02/18 17:47 Alkaline Phosphatase 624 units/L (35-129) H 06/02/18 17:47 Ammonia 68.0 umol/L (25-60) H 05/31/18 05:22 Total Creatine Kinase 374 units/L (55-170) H 05/31/18 05:49 CK-MB (CK-2) 22.3 ng/mL (0.0-4.0) H 05/31/18 05:49 CK-MB (CK-2) Rel Index 5.9 (0-4) H 05/31/18 05:49 Troponin T 0.268 ng/mL (0.00-0.029) H* 06/02/18 04:52 NT-Pro-B Natriuret Pep 15054 pg/mL (0-900) H 05/31/18 05:49 Total Protein 5.4 g/dL (6.3-8.2) L 06/02/18 17:47 Albumin 2.9 g/dL (3.9-5) L 06/02/18 17:47 Albumin/Globulin Ratio 1.2 % 06/02/18 17:47 Triglycerides 16 mg/dL (2-149) 05/31/18 05:49 Cholesterol 142 mg/dL (50-199) 05/31/18 05:49 LDL Cholesterol Direct 52 mg/dL (50-130) 05/31/18 05:49 HDL Cholesterol 91 mg/dL (40-59) H 05/31/18 05:49 Cholesterol/HDL Ratio 1.56 % 05/31/18 05:49 Urine Color Khloe (Yellow) 05/31/18 05:20 Urine Turbidity Slightly-cloudy (Clear) 05/31/18 05:20 Urine pH 5.0 (5.0-7.0) 05/31/18 05:20 Ur Specific Lynn 1.016 (1.003-1.030) 05/31/18 05:20 Urine Protein >500 mg/dL (Negative) 05/31/18 05:20 Urine Glucose (UA) Neg mg/dL (Negative) 05/31/18 05:20 Urine Ketones Neg mg/dL (Negative) 05/31/18 05:20 Urine Blood Sm (Negative) 05/31/18 05:20 Urine Nitrite Neg (Negative) 05/31/18 05:20 Urine Bilirubin Neg (Negative) 05/31/18 05:20 Urine Urobilinogen 4.0 mg/dL (<2.0) 05/31/18 05:20 Ur Leukocyte Esterase Neg (Negative) 05/31/18 05:20 Urine WBC (Auto) 6.0 /HPF (0.0-6.0) 05/31/18 05:20 Urine RBC (Auto) 9.0 /HPF (0.0-6.0) 05/31/18 05:20 U Epithel Cells (Auto) < 1.0 /HPF (0-13.0) 05/31/18 05:20 Urine Mucus Few /HPF 05/31/18 05:20 Urine Yeast (Budding) 1+ /HPF 05/31/18 05:20 Urine Opiates Screen Presumptive negative 05/31/18 05:20 Urine Methadone Screen Presumptive negative 05/31/18 05:20 Ur Barbiturates Screen Presumptive negative 05/31/18 05:20 Ur Phencyclidine Scrn Presumptive negative 05/31/18 05:20 Ur Amphetamines Screen Presumptive negative 05/31/18 05:20 U Benzodiazepines Scrn Presumptive negative 05/31/18 05:20 Urine Cocaine Screen Presumptive negative 05/31/18 05:20 U Marijuana (THC) Screen Presumptive negative 05/31/18 05:20 Drugs of Abuse Note Disclamer 05/31/18 05:20 Plasma/Serum Alcohol < 0.01 % (0-0.07) 05/31/18 05:22
[2018-06-04] MEDS: ZOSYN/NS 2.25 GM/50ML 2.25 GM/50 ML BAG IV SCH ×5 (00:05→23:45)
[2018-06-04] MEDS: DUONEB *Not for PRN Use IH SCH ×4 (04:19→20:18)
[2018-06-04] MEDS: APRESOLINE PO SCH ×3 (05:40→23:32)
[2018-06-04] MEDS: NITRO-BID 2% TP SCH ×3 (05:40→18:23)
[2018-06-04 08:01] LABS: Calcium 7.7 mg/dL (8.4-10.2)
[2018-06-04 08:03] LABS: Hematocrit 40.6 % (35.5-45.6); Hemoglobin 13.4 gm/dl (11.8-15.2)
--- NOTE | 2018-06-04 08:37 | XRay Report ---
AP CHEST: HISTORY: Follow up respiratory failure Mild increase in pulmonary venous congestion and medium left pleural effusion since 06/03/18. Cardiomegaly and small right pleural effusion are stable. Mild bibasilar atelectatic changes are stable. IMPRESSION: Mild increase in volume overload since yesterday's exam.
[2018-06-04] MEDS: PEPCID IV SCH (10:15)
[2018-06-04] MEDS: SODIUM CHLORIDE FLUSH SYRINGE 10 ML IV SCH ×2 (10:25→23:33)
--- NOTE | 2018-06-04 10:48 | Progress Note ---
Subjective Principal diagnosis: Respiratory failure, non STEMI,CMP Interval history: Patient was seen today for follow-up on multiple renal related issues in the critical care setting, vitals labs intake output medications were reviewed feeling better today Interdisciplinary notes were also reviewed Past medical history: Reviewed Family history: Reviewed Allergies: Reviewed Current medication: Reviewed Physical examination: General no acute distress HEENT: Oral mucosa moist Neck: Supple no JVD Chest: Few bilateral basilar crackles posteriorly otherwise clear anteriorly Heart: Regular rate and rhythm S1-S2 heard no S3-S4 Abdomen: Soft nontender no organomegaly Extremities: 2+ edema no peripheral cyanosis dry skin Psychiatric: No agitation and aggression noted Assessment and plan: Acute kidney injury renal function is stable at this time mild improvement in creatinine tolerated Lasix well Severe cardiomyopathy status post non-ST elevation VT ejection fraction of the 10% range Hyperkalemia/metabolic acidosis is improving currently will give another dose of Lasix 100 mg IV Patient as well as family members have been adequately informed about the nature and severity of renal failure Currently will need to monitor renal function closely avoid nephrotoxic medication not a good candidate for IVY or ARB for now History of coronary artery disease, poor ejection fraction, elevated troponin stable Renal prognosis remains guarded at this time We'll continue to follow and make recommendation from renal standpoint Objective - Vital Signs Vital signs: Vital Signs - 12hr 06/03/18 06/04/18 06/04/18 23:30 00:00 00:30 Temperature 97.4 F L 97.4 F L Pulse Rate 84 Respiratory 13 Rate Blood Pressure Blood Pressure 131/90 [Left] O2 Sat by Pulse 100 97 Oximetry 06/04/18 06/04/18 06/04/18 04:00 04:16 05:40 Temperature 97.9 F Pulse Rate 84 86 Respiratory 13 Rate Blood Pressure 144/96 Blood Pressure 141/94 [Left] O2 Sat by Pulse 99 99 Oximetry 06/04/18 06/04/18 08:00 08:30 Temperature 98.7 F Pulse Rate Respiratory Rate Blood Pressure Blood Pressure [Left] O2 Sat by Pulse 99 Oximetry - Lab 06/04/18 07:21 06/04/18 07:27 Most recent lab results Calcium 7.7 mg/dL (8.4-10.2) L 06/04/18 07:27 Magnesium 2.40 mg/dL (1.7-2.3) H 05/31/18 07:13
[2018-06-04] MEDS ORDERED: LASIX 100 MG in NACL 0.9% 50 ML IV ONE (10:49)
--- NOTE | 2018-06-04 11:24 | Progress Note ---
Assessment and Plan Imp: 1. NICMP 2. A/C systolic CHF 3. Pleural effusions 2/2 above 4. EDER 5. Acute respiratory failure, hypoxia 6. Pulm HTN 2/2 #'s 1 and 2 Rec: 1. Diuresis 2. BP/cardiac optimization 3. Monitor CXR periodically 4. Not convinced about the pneumonia diagnosis, but okay to complete a brief course of Zosyn (5 days should be adequate) 5. Wean O2 to keep sats 88% or above; home O2 eval. 6. Try to mobilize Plan of care reviewed with patient/family, they understand/agree Subjective Date of service: 06/04/18 Principal diagnosis: Respiratory failure, non STEMI,CMP Interval history: No events. Breathing better. No chest pain. No cough, sputum. Feels weak. Has some nasal congestion. On 1L NC. Active Medications Acetaminophen (Tylenol) 650 mg PO Q4H PRN PRN Reason: Pain MILD(1-3)/Fever >100.5/VARGAS Albuterol (Proventil) 2.5 mg IH Q4HRT PRN PRN Reason: Shortness Of Breath Albuterol/Ipratropium (Duoneb *Not For Prn Use*) 1 ampul IH TIDRT [facility] Last Admin: 06/04/18 08:33 Dose: Not Given Lipase/Protease/Amylase (Alessio Richardson 10,500 Unit) 1 each FEEDTUBE PRN PRN PRN Reason: For Clogged Feeding Tube Dextrose (D50w (25gm) Syringe) 50 ml IV PRN PRN PRN Reason: Hypoglycemia Last Admin: 06/01/18 17:05 Dose: 50 ml Famotidine (Pepcid) 20 mg IV DAILY [facility] Last Admin: 06/03/18 09:57 Dose: 20 mg Hydralazine HCl (Apresoline) 25 mg PO Q8HR [facility] Last Admin: 06/04/18 05:40 Dose: 25 mg Hydralazine HCl (Apresoline) 5 mg IV Q6H PRN PRN Reason: Systolic greater than 175 Last Admin: 06/02/18 18:43 Dose: 5 mg Hydrophilic Ointment (Vaseline Lip Therapy) 1 applic TP Q2HR PRN PRN Reason: Dry Lips Heparin Sodium/Sodium Chloride (Heparin/ 0.45% Nacl-25,000 Unit/500 Ml) 25,000 unit in 500 mls @ 20 mls/hr IV TITRATE [facility]; Protocol Last Admin: 05/31/18 13:48 Dose: 1,000 units/hr, 20 mls/hr Propofol (Diprivan 10 Mg/Ml) 1,000 mg in 100 mls @ 2.041 mls/hr IV TITR [facility]; Protocol Last Titration: 06/01/18 17:20 Dose: 0 mcg/kg/min, 0 mls/hr Piperacillin Sod/Tazobactam Sod (Zosyn/Ns 2.25 Gm/50ml) 2.25 gm in 50 mls @ 100 mls/hr IV Q6HR [facility]; Protocol Last Admin: 06/04/18 05:39 Dose: 100 mls/hr Furosemide 100 mg/ Sodium (Chloride) 60 mls @ 100 mls/hr IV ONCE ONE Stop: 06/04/18 11:24 Morphine Sulfate (Morphine) 2 mg IV Q4H PRN PRN Reason: Pain, Moderate (4-6) Last Admin: 06/02/18 22:57 Dose: 2 mg Multi-Ingred Cream/Lotion/Oil/Oint (Artificial Tears Ophth Oint) 1 applic OU Q4HR PRN PRN Reason: Dry Eye(s) Nitroglycerin (Nitro-Bid 2%) 1 inch TP TIDNTG [facility]; Protocol Last Admin: 06/04/18 05:40 Dose: 1 inch Ondansetron HCl (Zofran) 4 mg IV Q8H PRN PRN Reason: Nausea And Vomiting Simple Syrup (Simple Syrup) 15 ml FEEDTUBE PRN PRN PRN Reason: Hypoglycemia Simple Syrup (Simple Syrup) 30 ml FEEDTUBE PRN PRN PRN Reason: Hypoglycemia Sodium Bicarbonate (Sodium Bicarbonate) 325 mg FEEDTUBE PRN PRN PRN Reason: For Clogged Feeding Tube Sodium Chloride (Sodium Chloride Flush Syringe 10 Ml) 10 ml IV BID [facility] Last Admin: 06/03/18 21:43 Dose: 10 ml Sodium Chloride (Sodium Chloride Flush Syringe 10 Ml) 10 ml IV PRN PRN PRN Reason: LINE FLUSH Sodium Chloride (Nacl 0.9% 500 Ml) 1 ml IV DIRECT [facility] Objective Vital Signs - 12hr 06/03/18 06/04/18 06/04/18 23:30 00:00 00:30 Temperature 97.4 F L 97.4 F L Pulse Rate 84 Respiratory 13 Rate Blood Pressure Blood Pressure 131/90 [Left] O2 Sat by Pulse 100 97 Oximetry 06/04/18 06/04/18 06/04/18 04:00 04:16 05:40 Temperature 97.9 F Pulse Rate 84 86 Respiratory 13 Rate Blood Pressure 144/96 Blood Pressure 141/94 [Left] O2 Sat by Pulse 99 99 Oximetry 06/04/18 06/04/18 08:00 08:30 Temperature 98.7 F Pulse Rate Respiratory Rate Blood Pressure Blood Pressure [Left] O2 Sat by Pulse 99 Oximetry Constitutional: no acute distress, other (weak-appearing) Eyes: non-icteric ENT: oropharynx moist Neck: supple Effort: normal Ascultation: Bilateral: clear (anteriorly) Cardiovascular: regular rate and rhythm (no mrg) Gastrointestinal: normoactive bowel sounds, non-distended Integumentary: normal Extremities: no cyanosis, edema (1+ bilateral edema) Neurologic: normal mental status, non-focal exam, pupils equal and round Psychiatric: mood appropriate, affect normal CBC and BMP: 06/04/18 07:21 06/04/18 07:27 ABG, PT/INR, D-dimer: ABG POC ABG pH 7.400 (7.35-7.45) 06/01/18 16:18 POC ABG pCO2 33.1 (35-45) L 06/01/18 16:18 POC ABG pO2 121 (80-105) H 06/01/18 16:18 POC ABG HCO3 20.5 06/01/18 16:18 POC ABG Total CO2 21 06/01/18 16:18 POC ABG O2 Sat 99 06/01/18 16:18 PT/INR, D-dimer PT 21.4 Sec. (12.2-14.9) H 06/01/18 01:12 INR 1.79 (0.87-1.13) H 06/01/18 01:12 D-Dimer 1834.40 ng/mlDDU (0-234) H 05/31/18 11:48 Abnormal lab findings: Abnormal Labs 05/31/18 05/31/18 05/31/18 04:38 04:58 05:14 RBC Hgb Hct MCV MCH RDW Plt Count Seg Neuts % (Manual) Lymphocytes % (Manual) Nucleated RBC % Seg Neutrophils # Man Lymphocytes # (Manual) PT INR D-Dimer POC ABG pH POC ABG pCO2 POC ABG pO2 Sodium Potassium Carbon Dioxide BUN Creatinine Glucose POC Glucose < 40 L 64 L 258 H Calcium Magnesium Total Bilirubin AST ALT Alkaline Phosphatase Ammonia Total Creatine Kinase CK-MB (CK-2) CK-MB (CK-2) Rel Index Troponin T NT-Pro-B Natriuret Pep Total Protein Albumin HDL Cholesterol 05/31/18 05/31/18 05/31/18 05:15 05:15 05:22 RBC 5.33 H Hgb Hct 45.8 H MCV MCH RDW 16.4 H Plt Count Seg Neuts % (Manual) 88.0 H Lymphocytes % (Manual) 6.0 L Nucleated RBC % 1.0 H Seg Neutrophils # Man Lymphocytes # (Manual) 0.4 L PT 20.9 H INR 1.74 H D-Dimer POC ABG pH POC ABG pCO2 POC ABG pO2 Sodium Potassium Carbon Dioxide BUN Creatinine Glucose POC Glucose Calcium Magnesium Total Bilirubin AST ALT Alkaline Phosphatase Ammonia 68.0 H Total Creatine Kinase CK-MB (CK-2) CK-MB (CK-2) Rel Index Troponin T NT-Pro-B Natriuret Pep Total Protein Albumin HDL Cholesterol 05/31/18 05/31/18 05/31/18 05:49 07:13 07:22 RBC Hgb Hct MCV MCH RDW Plt Count Seg Neuts % (Manual) Lymphocytes % (Manual) Nucleated RBC % Seg Neutrophils # Man Lymphocytes # (Manual) PT INR D-Dimer POC ABG pH POC ABG pCO2 POC ABG pO2 Sodium 135 L Potassium 6.0 H Carbon Dioxide 13 L BUN 87 H Creatinine 2.5 H Glucose 249 H POC Glucose 124 H Calcium 7.8 L Magnesium 2.40 H Total Bilirubin 2.60 H AST 60 H ALT Alkaline Phosphatase 592 H Ammonia Total Creatine Kinase 374 H CK-MB (CK-2) 22.3 H CK-MB (CK-2) Rel Index 5.9 H Troponin T 0.260 H* NT-Pro-B Natriuret Pep 53995 H Total Protein 5.5 L Albumin 3.0 L HDL Cholesterol 91 H 05/31/18 05/31/18 05/31/18 09:33 10:53 11:48 RBC Hgb 15.4 H Hct 49.2 H MCV MCH RDW Plt Count Seg Neuts % (Manual) Lymphocytes % (Manual) Nucleated RBC % Seg Neutrophils # Man Lymphocytes # (Manual) PT INR D-Dimer POC ABG pH POC ABG pCO2 POC ABG pO2 Sodium Potassium Carbon Dioxide BUN Creatinine Glucose POC Glucose 168 H 106 H Calcium Magnesium Total Bilirubin AST ALT Alkaline Phosphatase Ammonia Total Creatine Kinase CK-MB (CK-2) CK-MB (CK-2) Rel Index Troponin T NT-Pro-B Natriuret Pep Total Protein Albumin HDL Cholesterol 05/31/18 05/31/18 05/31/18 11:48 11:48 11:51 RBC Hgb Hct MCV MCH RDW Plt Count Seg Neuts % (Manual) Lymphocytes % (Manual) Nucleated RBC % Seg Neutrophils # Man Lymphocytes # (Manual) PT 20.6 H INR 1.71 H D-Dimer 1834.40 H POC ABG pH 6.997 L POC ABG pCO2 59.6 H POC ABG pO2 Sodium Potassium Carbon Dioxide BUN Creatinine Glucose POC Glucose Calcium Magnesium Total Bilirubin AST ALT Alkaline Phosphatase Ammonia Total Creatine Kinase CK-MB (CK-2) CK-MB (CK-2) Rel Index Troponin T 0.230 H* NT-Pro-B Natriuret Pep Total Protein Albumin HDL Cholesterol 05/31/18 05/31/18 05/31/18 15:53 18:29 19:26 RBC Hgb Hct MCV MCH RDW Plt Count Seg Neuts % (Manual) Lymphocytes % (Manual) Nucleated RBC % Seg Neutrophils # Man Lymphocytes # (Manual) PT INR D-Dimer POC ABG pH 7.328 L POC ABG pCO2 29.6 L POC ABG pO2 200 H Sodium Potassium Carbon Dioxide BUN Creatinine Glucose POC Glucose < 40 L 68 L Calcium Magnesium Total Bilirubin AST ALT Alkaline Phosphatase Ammonia Total Creatine Kinase CK-MB (CK-2) CK-MB (CK-2) Rel Index Troponin T NT-Pro-B Natriuret Pep Total Protein Albumin HDL Cholesterol 05/31/18 06/01/18 06/01/18 20:40 01:12 03:40 RBC Hgb Hct MCV 83 L MCH 27 L RDW 15.4 H Plt Count 135 L Seg Neuts % (Manual) 95.0 H Lymphocytes % (Manual) 4.0 L Nucleated RBC % Seg Neutrophils # Man Lymphocytes # (Manual) 0.3 L PT 21.4 H INR 1.79 H D-Dimer POC ABG pH POC ABG pCO2 POC ABG pO2 Sodium Potassium 5.5 H Carbon Dioxide 13 L BUN 89 H Creatinine 2.7 H Glucose 72 L POC Glucose Calcium 7.2 L Magnesium Total Bilirubin AST ALT Alkaline Phosphatase Ammonia Total Creatine Kinase CK-MB (CK-2) CK-MB (CK-2) Rel Index Troponin T NT-Pro-B Natriuret Pep Total Protein Albumin HDL Cholesterol 06/01/18 06/01/18 06/01/18 03:40 04:59 08:29 RBC Hgb Hct MCV MCH RDW Plt Count Seg Neuts % (Manual) Lymphocytes % (Manual) Nucleated RBC % Seg Neutrophils # Man Lymphocytes # (Manual) PT INR D-Dimer POC ABG pH 7.474 H POC ABG pCO2 26.1 L POC ABG pO2 116 H Sodium Potassium 5.3 H Carbon Dioxide 16 L BUN 92 H Creatinine 2.7 H Glucose 61 L POC Glucose 69 L Calcium 7.2 L Magnesium Total Bilirubin AST ALT Alkaline Phosphatase Ammonia Total Creatine Kinase CK-MB (CK-2) CK-MB (CK-2) Rel Index Troponin T NT-Pro-B Natriuret Pep Total Protein Albumin HDL Cholesterol 06/01/18 06/01/18 06/01/18 10:49 14:02 16:18 RBC Hgb Hct MCV MCH RDW Plt Count Seg Neuts % (Manual) Lymphocytes % (Manual) Nucleated RBC % Seg Neutrophils # Man Lymphocytes # (Manual) PT INR D-Dimer POC ABG pH POC ABG pCO2 33.1 L POC ABG pO2 121 H Sodium Potassium Carbon Dioxide BUN Creatinine Glucose POC Glucose 108 H Calcium Magnesium Total Bilirubin AST ALT Alkaline Phosphatase Ammonia Total Creatine Kinase CK-MB (CK-2) CK-MB (CK-2) Rel Index Troponin T 0.242 H* NT-Pro-B Natriuret Pep Total Protein Albumin HDL Cholesterol 06/01/18 06/02/18 06/02/18 16:58 04:52 04:53 RBC 5.12 H Hgb Hct MCV 81 L MCH 27 L RDW Plt Count Seg Neuts % (Manual) 87.0 H Lymphocytes % (Manual) 2.0 L Nucleated RBC % Seg Neutrophils # Man 9.2 H Lymphocytes # (Manual) 0.2 L PT INR D-Dimer POC ABG pH POC ABG pCO2 POC ABG pO2 Sodium Potassium Carbon Dioxide BUN Creatinine Glucose POC Glucose 69 L Calcium Magnesium Total Bilirubin AST ALT Alkaline Phosphatase Ammonia Total Creatine Kinase CK-MB (CK-2) CK-MB (CK-2) Rel Index Troponin T 0.268 H* NT-Pro-B Natriuret Pep Total Protein Albumin HDL Cholesterol 06/02/18 06/02/18 06/02/18 04:53 11:50 14:05 RBC Hgb Hct MCV MCH RDW Plt Count Seg Neuts % (Manual) Lymphocytes % (Manual) Nucleated RBC % Seg Neutrophils # Man Lymphocytes # (Manual) PT INR D-Dimer POC ABG pH POC ABG pCO2 POC ABG pO2 Sodium Potassium 5.4 H Carbon Dioxide 16 L BUN 94 H Creatinine 2.7 H Glucose 101 H POC Glucose 133 H 113 H Calcium 7.7 L Magnesium Total Bilirubin AST ALT Alkaline Phosphatase Ammonia Total Creatine Kinase CK-MB (CK-2) CK-MB (CK-2) Rel Index Troponin T NT-Pro-B Natriuret Pep Total Protein Albumin HDL Cholesterol 06/02/18 06/02/18 06/04/18 17:47 17:55 07:27 RBC Hgb Hct MCV MCH RDW Plt Count Seg Neuts % (Manual) Lymphocytes % (Manual) Nucleated RBC % Seg Neutrophils # Man Lymphocytes # (Manual) PT INR D-Dimer POC ABG pH POC ABG pCO2 POC ABG pO2 Sodium Potassium Carbon Dioxide 21 L 20 L BUN 90 H 87 H Creatinine 2.7 H 2.5 H Glucose 120 H 71 L POC Glucose 120 H Calcium 7.5 L 7.7 L Magnesium Total Bilirubin 2.70 H AST 92 H ALT 67 H Alkaline Phosphatase 624 H Ammonia Total Creatine Kinase CK-MB (CK-2) CK-MB (CK-2) Rel Index Troponin T NT-Pro-B Natriuret Pep Total Protein 5.4 L Albumin 2.9 L HDL Cholesterol Chest x-ray: report reviewed, image reviewed CT scan - chest: report reviewed, image reviewed
--- NOTE | 2018-06-04 13:11 | Progress Note ---
Assessment and Plan Patient appears to be comfortable today. Patient is feeling better and eating better. Family is in the room. Discussed with daughter on the phone. t. Overall prognosis remains guarded because of his multiple medical issues. Increase activity gradually. - Patient Problems (1) Acute combined systolic and diastolic heart failure Current Visit: Yes Status: Acute (2) Acute on chronic kidney failure Current Visit: Yes Status: Acute (3) Acute respiratory failure Current Visit: Yes Status: Acute (4) Altered mental status, unspecified Current Visit: Yes Status: Acute Qualifiers: Altered mental status type: unspecified Qualified Code(s): R41.82 - Altered mental status, unspecified (5) Non-ST elevation NE (NSTEMI) Current Visit: Yes Status: Acute (6) Right ventricular systolic dysfunction Current Visit: Yes Status: Acute (7) Moderate to severe mitral regurgitation Current Visit: Yes Status: Chronic (8) NICM (nonischemic cardiomyopathy) Current Visit: Yes Status: Chronic (9) Pulmonary HTN Current Visit: Yes Status: Chronic (10) Tricuspid regurgitation Current Visit: Yes Status: Chronic Subjective Date of service: 06/04/18 Principal diagnosis: Respiratory failure, non STEMI,CMP Interval history: Patient is feeling better. Mild dyspnea and fatigue are present. Waiting for the physical therapy Objective Vital Signs Temp Pulse Pulse Resp Resp BP BP 06/04/18 12:00 97.5 F L 06/04/18 08:30 06/04/18 08:00 98.7 F 06/04/18 05:40 86 144/96 06/04/18 04:16 06/04/18 04:00 97.9 F 84 13 141/94 06/04/18 00:30 97.4 F L 84 13 131/90 06/04/18 00:00 06/03/18 23:30 97.4 F L 06/03/18 22:00 87 06/03/18 21:42 88 136/90 06/03/18 20:23 81 13 06/03/18 20:12 81 18 06/03/18 20:00 97.3 F L 79 15 129/91 06/03/18 19:56 97.3 F L 06/03/18 17:24 81 139/98 06/03/18 16:00 83 15 139/98 06/03/18 14:30 87 18 06/03/18 14:20 88 18 Pulse Ox 06/04/18 12:00 06/04/18 08:30 99 06/04/18 08:00 06/04/18 05:40 06/04/18 04:16 99 06/04/18 04:00 99 06/04/18 00:30 97 06/04/18 00:00 100 06/03/18 23:30 06/03/18 22:00 06/03/18 21:42 06/03/18 20:23 99 06/03/18 20:12 06/03/18 20:00 99 06/03/18 19:56 06/03/18 17:24 06/03/18 16:00 100 06/03/18 14:30 06/03/18 14:20 - Physical Examination General: Other (intubated) HEENT: Positive: PERRL Neck: Positive: neck supple, trachea midline Lungs: Positive: clear to auscultation Neuro: Positive: Other (lethargic) Abdomen: Positive: Soft. Negative: Tender Skin: Negative: Rash, Wound Extremities: Present: +2 Edema (BLE) - Labs and Meds CBC 06/04/18 Range/Units 07:21 Hgb 13.4 (11.8-15.2) gm/dl Hct 40.6 (35.5-45.6) % Plt Count 140 (140-440) K/mm3 Comprehensive Metabolic Panel 06/04/18 Range/Units 07:27 Sodium 140 (137-145) mmol/L Potassium 4.5 (3.6-5.0) mmol/L Chloride 101.5 (98-107) mmol/L Carbon Dioxide 20 L (22-30) mmol/L BUN 87 H (9-20) mg/dL Creatinine 2.5 H (0.8-1.5) mg/dL Glucose 71 L (75-100) mg/dL Calcium 7.7 L (8.4-10.2) mg/dL - Imaging and Cardiology EKG: report reviewed, image reviewed Echo: report reviewed (EF 5-10%, LA mild to mod dilated, RA mildly dilated, mod to severe MR, mod to severe TR, mild AR, pseudonormalization, RV mildly dilated , RV systolic function severely reduced, mod pulm HTN with RVSP 52mmHg, small pericardial effusion. ) Cardiac cath: report reviewed (pt underwent LHC & RHC on 12/27/2017 which showed nonobstructive CAD with RCA 40% and Cristiano 35% lesions; non-ischemic cardiomyoapthy. ) - EKG Sinus rhythms and dysrhythmias: sinus rhythm
[2018-06-04] MEDS: APRESOLINE IV PRN ×2 (14:43→20:28)
--- NOTE | 2018-06-04 15:58 | Progress Note ---
Assessment and Plan Assessment and plan: 63-year-old -[place] male was presented to the ED with complaints of shortness of breath, chest pain, altered mental status Cardiac enzymes was done in the ED and was high, chest x-ray showed bilateral pleural effusion, elevated BNP, elevated creatinine. NSTEMI - Patient is on heparin drip, aspirin, - Cardiology consult appreciated - Likely due to CHF Acute renal failure - Nephrology consulted CHF - EF 5-10%, will follow cardiology recommendations - Patient is breathing comfortable Hypothermia - Blood cultures no growth so far - Patient is on Zosyn Respiratory/metabolic acidosis - Patient was intubated and on mechanical ventilation, extubated on 06/01 -Resolved Per the daughter the patient was confused - he has chronic liver disease and ammonia was checked , normal DVT prophylaxis - On heparin drip Disposition - Check home o2 - Possible DC tomorrow History Interval history: Patient was seen and evaluated this morning, patient was extubated on [06/01] Hospitalist Physical - Physical exam Narrative exam: Patient was not in cardiopulmonary distress. The patient appeared well nourished and normally developed. Vital signs as documented. Head exam is unremarkable. No scleral icterus . Neck is without jugular venous distension, thyromegaly, or carotid bruits. Lungs coarse creptations. Cardiac exam reveals regular rate and Rhythm. Abdominal exam reveals normal bowel sounds, no masses, no organomegaly and no aortic enlargement. Extremities trace pretibial edema. 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 3 - Constitutional Vitals: Temp Pulse Resp BP Pulse Ox 97.5 F L 80 13 178/99 99 06/04/18 12:00 06/04/18 14:43 06/04/18 04:00 06/04/18 14:43 06/04/18 08:30 General appearance: Present: other (lethargic) Results - Labs CBC & Chem 7: 06/04/18 07:21 06/04/18 07:27 Labs: Laboratory Last Values WBC 10.6 K/mm3 (4.5-11.0) 06/02/18 04:53 RBC 5.12 M/mm3 (3.65-5.03) H 06/02/18 04:53 Hgb 13.4 gm/dl (11.8-15.2) 06/04/18 07:21 Hct 40.6 % (35.5-45.6) 06/04/18 07:21 MCV 81 fl (84-94) L 06/02/18 04:53 MCH 27 pg (28-32) L 06/02/18 04:53 MCHC 34 % (32-34) 06/02/18 04:53 RDW 15.1 % (13.2-15.2) 06/02/18 04:53 Plt Count 140 K/mm3 (140-440) 06/04/18 07:21 Add Manual Diff Complete 06/02/18 04:53 Total Counted 100 06/02/18 04:53 Seg Neuts % (Manual) 87.0 % (40.0-70.0) H 06/02/18 04:53 Band Neutrophils % 9.0 % 06/02/18 04:53 Lymphocytes % (Manual) 2.0 % (13.4-35.0) L 06/02/18 04:53 Reactive Lymphs % (Man) 0 % 06/02/18 04:53 Monocytes % (Manual) 2.0 % (0.0-7.3) 06/02/18 04:53 Eosinophils % (Manual) 0 % (0.0-4.3) 06/02/18 04:53 Basophils % (Manual) 0 % (0.0-1.8) 06/02/18 04:53 Metamyelocytes % 0 % 06/02/18 04:53 Myelocytes % 0 % 06/02/18 04:53 Promyelocytes % 0 % 06/02/18 04:53 Blast Cells % 0 % 06/02/18 04:53 Nucleated RBC % Not Reportable 06/02/18 04:53 Seg Neutrophils # Man 9.2 K/mm3 (1.8-7.7) H 06/02/18 04:53 Band Neutrophils # 1.0 K/mm3 06/02/18 04:53 Lymphocytes # (Manual) 0.2 K/mm3 (1.2-5.4) L 06/02/18 04:53 Abs React Lymphs (Man) 0.0 K/mm3 06/02/18 04:53 Monocytes # (Manual) 0.2 K/mm3 (0.0-0.8) 06/02/18 04:53 Eosinophils # (Manual) 0.0 K/mm3 (0.0-0.4) 06/02/18 04:53 Basophils # (Manual) 0.0 K/mm3 (0.0-0.1) 06/02/18 04:53 Metamyelocytes # 0.0 K/mm3 06/02/18 04:53 Myelocytes # 0.0 K/mm3 06/02/18 04:53 Promyelocytes # 0.0 K/mm3 06/02/18 04:53 Blast Cells # 0.0 K/mm3 06/02/18 04:53 WBC Morphology Not Reportable 06/02/18 04:53 Hypersegmented Neuts Not Reportable 06/02/18 04:53 Hyposegmented Neuts Not Reportable 06/02/18 04:53 Hypogranular Neuts Not Reportable 06/02/18 04:53 Smudge Cells Not Reportable 06/02/18 04:53 Toxic Granulation Not Reportable 06/02/18 04:53 Toxic Vacuolation Not Reportable 06/02/18 04:53 Dohle Bodies Not Reportable 06/02/18 04:53 Pelger-Huet Anomaly Not Reportable 06/02/18 04:53 Trae Rods Not Reportable 06/02/18 04:53 Platelet Estimate Consistent w auto 06/02/18 04:53 Clumped Platelets Not Reportable 06/02/18 04:53 Plt Clumps, EDTA Not Reportable 06/02/18 04:53 Large Platelets Not Reportable 06/02/18 04:53 Giant Platelets Not Reportable 06/02/18 04:53 Platelet Satelliting Not Reportable 06/02/18 04:53 Plt Morphology Comment Not Reportable 06/02/18 04:53 RBC Morphology Not Reportable 06/02/18 04:53 Dimorphic RBCs Not Reportable 06/02/18 04:53 Polychromasia 1+ 06/02/18 04:53 Hypochromasia Not Reportable 06/02/18 04:53 Poikilocytosis Not Reportable 06/02/18 04:53 Anisocytosis Not Reportable 06/02/18 04:53 Microcytosis Not Reportable 06/02/18 04:53 Macrocytosis Not Reportable 06/02/18 04:53 Spherocytes Not Reportable 06/02/18 04:53 Pappenheimer Bodies Not Reportable 06/02/18 04:53 Sickle Cells Not Reportable 06/02/18 04:53 Target Cells 1+ 06/02/18 04:53 Tear Drop Cells Not Reportable 06/02/18 04:53 Ovalocytes Not Reportable 06/02/18 04:53 Helmet Cells Not Reportable 06/02/18 04:53 [place] Bodies Not Reportable 06/02/18 04:53 [place] Rings Not Reportable 06/02/18 04:53 [place] Cells Not Reportable 06/02/18 04:53 Bite Cells Not Reportable 06/02/18 04:53 Crenated Cell Not Reportable 06/02/18 04:53 Elliptocytes Not Reportable 06/02/18 04:53 Acanthocytes (Spur) Not Reportable 06/02/18 04:53 Rouleaux Not Reportable 06/02/18 04:53 Hemoglobin C Crystals Not Reportable 06/02/18 04:53 Schistocytes Not Reportable 06/02/18 04:53 Malaria parasites Not Reportable 06/02/18 04:53 Dann Bodies Not Reportable 06/02/18 04:53 Hem Pathologist Commnt No 06/02/18 04:53 PT 21.4 Sec. (12.2-14.9) H 06/01/18 01:12 INR 1.79 (0.87-1.13) H 06/01/18 01:12 APTT 33.2 Sec. (24.2-36.6) 06/01/18 01:12 D-Dimer 1834.40 ng/mlDDU (0-234) H 05/31/18 11:48 Heparin Anti-Xa Level 0.40 U.I./ml (0.3-0.7) 05/31/18 20:40 POC ABG pH 7.400 (7.35-7.45) 06/01/18 16:18 POC ABG pCO2 33.1 (35-45) L 06/01/18 16:18 POC ABG pO2 121 (80-105) H 06/01/18 16:18 POC ABG HCO3 20.5 06/01/18 16:18 POC ABG Total CO2 21 06/01/18 16:18 POC ABG O2 Sat 99 06/01/18 16:18 POC ABG Base Excess -4 06/01/18 16:18 FiO2 35 % 06/01/18 16:18 Sodium 140 mmol/L (137-145) 06/04/18 07:27 Potassium 4.5 mmol/L (3.6-5.0) 06/04/18 07:27 Chloride 101.5 mmol/L (98-107) 06/04/18 07:27 Carbon Dioxide 20 mmol/L (22-30) L 06/04/18 07:27 Anion Gap 23 mmol/L 06/04/18 07:27 BUN 87 mg/dL (9-20) H 06/04/18 07:27 Creatinine 2.5 mg/dL (0.8-1.5) H 06/04/18 07:27 Estimated GFR 32 ml/min 06/04/18 07:27 BUN/Creatinine Ratio 35 % 06/04/18 07:27 Glucose 71 mg/dL (75-100) L 06/04/18 07:27 POC Glucose 86 (70-105) 06/04/18 13:20 Lactic Acid 1.50 mmol/L (0.7-2.0) 05/31/18 07:13 Calcium 7.7 mg/dL (8.4-10.2) L 06/04/18 07:27 Magnesium 2.40 mg/dL (1.7-2.3) H 05/31/18 07:13 Total Bilirubin 2.70 mg/dL (0.1-1.2) H 06/02/18 17:47 AST 92 units/L (5-40) H 06/02/18 17:47 ALT 67 units/L (7-56) H 06/02/18 17:47 Alkaline Phosphatase 624 units/L (35-129) H 06/02/18 17:47 Ammonia 35.0 umol/L (25-60) 06/04/18 10:48 Total Creatine Kinase 374 units/L (55-170) H 05/31/18 05:49 CK-MB (CK-2) 22.3 ng/mL (0.0-4.0) H 05/31/18 05:49 CK-MB (CK-2) Rel Index 5.9 (0-4) H 05/31/18 05:49 Troponin T 0.268 ng/mL (0.00-0.029) H* 06/02/18 04:52 NT-Pro-B Natriuret Pep 05083 pg/mL (0-900) H 05/31/18 05:49 Total Protein 5.4 g/dL (6.3-8.2) L 06/02/18 17:47 Albumin 2.9 g/dL (3.9-5) L 06/02/18 17:47 Albumin/Globulin Ratio 1.2 % 06/02/18 17:47 Triglycerides 16 mg/dL (2-149) 05/31/18 05:49 Cholesterol 142 mg/dL (50-199) 05/31/18 05:49 LDL Cholesterol Direct 52 mg/dL (50-130) 05/31/18 05:49 HDL Cholesterol 91 mg/dL (40-59) H 05/31/18 05:49 Cholesterol/HDL Ratio 1.56 % 05/31/18 05:49 Urine Color Khloe (Yellow) 05/31/18 05:20 Urine Turbidity Slightly-cloudy (Clear) 05/31/18 05:20 Urine pH 5.0 (5.0-7.0) 05/31/18 05:20 Ur Specific [place] 1.016 (1.003-1.030) 05/31/18 05:20 Urine Protein >500 mg/dL (Negative) 05/31/18 05:20 Urine Glucose (UA) Neg mg/dL (Negative) 05/31/18 05:20 Urine Ketones Neg mg/dL (Negative) 05/31/18 05:20 Urine Blood Sm (Negative) 05/31/18 05:20 Urine Nitrite Neg (Negative) 05/31/18 05:20 Urine Bilirubin Neg (Negative) 05/31/18 05:20 Urine Urobilinogen 4.0 mg/dL (<2.0) 05/31/18 05:20 Ur Leukocyte Esterase Neg (Negative) 05/31/18 05:20 Urine WBC (Auto) 6.0 /HPF (0.0-6.0) 05/31/18 05:20 Urine RBC (Auto) 9.0 /HPF (0.0-6.0) 05/31/18 05:20 U Epithel Cells (Auto) < 1.0 /HPF (0-13.0) 05/31/18 05:20 Urine Mucus Few /HPF 05/31/18 05:20 Urine Yeast (Budding) 1+ /HPF 05/31/18 05:20 Urine Opiates Screen Presumptive negative 05/31/18 05:20 Urine Methadone Screen Presumptive negative 05/31/18 05:20 Ur Barbiturates Screen Presumptive negative 05/31/18 05:20 Ur Phencyclidine Scrn Presumptive negative 05/31/18 05:20 Ur Amphetamines Screen Presumptive negative 05/31/18 05:20 U Benzodiazepines Scrn Presumptive negative 05/31/18 05:20 Urine Cocaine Screen Presumptive negative 05/31/18 05:20 U Marijuana (THC) Screen Presumptive negative 05/31/18 05:20 Drugs of Abuse Note Disclamer 05/31/18 05:20 Plasma/Serum Alcohol < 0.01 % (0-0.07) 05/31/18 05:22
[2018-06-05] MEDS: ZOSYN/NS 2.25 GM/50ML 2.25 GM/50 ML BAG IV SCH ×3 (05:37→18:45)
[2018-06-05] MEDS: APRESOLINE PO SCH ×3 (05:38→22:45)
[2018-06-05] MEDS: NITRO-BID 2% TP SCH ×2 (05:38→12:16)
--- NOTE | 2018-06-05 09:10 | Progress Note ---
Assessment and Plan Assessment * Acute kidney injury. * Severe cardiomyopathy status post non-ST elevation VA ejection fraction of the 10% range * Hyperkalemia * metabolic acidosis * History of coronary artery disease, poor ejection fraction, Recommendations * patient's volume status much improved . Good response to 100 mg lasix * pt wetting diapers . Output not being measured . Use lower dose of lasix * Recheck renal function * Avoid nephrotoxins * Not a good candidate for ACEI or ARB at this time * Renal prognosis remains guarded at this time Subjective Date of service: 06/05/18 Principal diagnosis: Respiratory failure, non STEMI,CMP Interval history: patient feel better this morning . SOB much improved . Denies nausea or vomiting Objective - Vital Signs Vital signs: Vital Signs - 12hr 06/04/18 06/04/18 06/05/18 22:00 23:32 00:00 Temperature 98.0 F Pulse Rate 79 77 75 Respiratory 12 Rate Blood Pressure 141/95 Blood Pressure 150/93 [Left] O2 Sat by Pulse 97 Oximetry 06/05/18 06/05/18 06/05/18 04:00 05:38 08:00 Temperature 97.9 F Pulse Rate 77 77 70 Respiratory 12 12 Rate Blood Pressure 153/94 Blood Pressure 140/105 133/103 [Left] O2 Sat by Pulse 100 98 Oximetry - General Appearance General appearance: chronically ill, frail EENT: PERRL, mucous membranes moist Neck: no JVD, no thyromegaly, no carotid bruit, supple Respiratory: Present: Clear to Ascultation Cardiology: regular, normal heart rate Gastrointestinal: normal, normoactive bowel sounds Integumentary: other (1+ edema . wrinkling of skin noted ) - Lab 06/04/18 07:21 06/04/18 07:27 Most recent lab results Calcium 7.7 mg/dL (8.4-10.2) L 06/04/18 07:27 Magnesium 2.40 mg/dL (1.7-2.3) H 05/31/18 07:13
[2018-06-05] MEDS: DUONEB *Not for PRN Use IH SCH ×3 (09:19→20:58)
[2018-06-05] MEDS: PEPCID IV SCH (10:01)
[2018-06-05] MEDS: LASIX IV SCH (10:18)
[2018-06-05] MEDS: SODIUM CHLORIDE FLUSH SYRINGE 10 ML IV SCH ×2 (10:18→22:46)
[2018-06-05] MEDS: PEPCID PO SCH (10:23)
--- NOTE | 2018-06-05 11:27 | Progress Note ---
Assessment and Plan Assessment and plan: NSTEMI - Patient is on heparin drip, aspirin, - Cardiology consult appreciated - Likely due to CHF Acute renal failure - Nephrology consulted CHF - EF 5-10%, will follow cardiology recommendations - Patient is breathing comfortable Hypothermia - Blood cultures no growth so far - Patient is on Zosyn Respiratory/metabolic acidosis - Patient was intubated and on mechanical ventilation, extubated on 06/01 -Resolved Encephalopathy - he has chronic liver disease and ammonia was checked , normal DVT prophylaxis - On heparin drip Disposition PT is recommending 24-hour supervision versus rehabilitation placement. I have attempted to reach both daughter Alexys with no success. History Interval history: 63-year-old -Congolese male was presented to the ED with complaints of shortness of breath, chest pain, altered mental status Cardiac enzymes was done in the ED and was high, chest x-ray showed bilateral pleural effusion, elevated BNP, elevated creatinine. Hospitalist Physical - Constitutional Vitals: Temp Pulse Resp BP Pulse Ox 97.9 F 70 12 133/103 98 06/05/18 04:00 06/05/18 08:00 06/05/18 08:00 06/05/18 08:00 06/05/18 08:00 General appearance: Present: other (lethargic) - EENT Eyes: Present: PERRL, EOM intact ENT: hearing intact, clear oral mucosa, dentition normal - Neck Neck: Present: supple, normal ROM - Respiratory Respiratory effort: normal Respiratory: bilateral: CTA - Cardiovascular Rhythm: regular Heart Sounds: Present: S1 & S2. Absent: gallop, rub - Extremities Extremities: no ischemia, No edema, Full ROM - Abdominal General gastrointestinal: soft, non-tender, non-distended, normal bowel sounds - Integumentary Integumentary: Present: clear, warm, dry - Neurologic Neurologic: CNII-XII intact, moves all extremities Results - Labs CBC & Chem 7: 06/04/18 07:21 06/04/18 07:27 Labs: Laboratory Last Values WBC 10.6 K/mm3 (4.5-11.0) 06/02/18 04:53 RBC 5.12 M/mm3 (3.65-5.03) H 06/02/18 04:53 Hgb 13.4 gm/dl (11.8-15.2) 06/04/18 07:21 Hct 40.6 % (35.5-45.6) 06/04/18 07:21 MCV 81 fl (84-94) L 06/02/18 04:53 MCH 27 pg (28-32) L 06/02/18 04:53 MCHC 34 % (32-34) 06/02/18 04:53 RDW 15.1 % (13.2-15.2) 06/02/18 04:53 Plt Count 140 K/mm3 (140-440) 06/04/18 07:21 Add Manual Diff Complete 06/02/18 04:53 Total Counted 100 06/02/18 04:53 Seg Neuts % (Manual) 87.0 % (40.0-70.0) H 06/02/18 04:53 Band Neutrophils % 9.0 % 06/02/18 04:53 Lymphocytes % (Manual) 2.0 % (13.4-35.0) L 06/02/18 04:53 Reactive Lymphs % (Man) 0 % 06/02/18 04:53 Monocytes % (Manual) 2.0 % (0.0-7.3) 06/02/18 04:53 Eosinophils % (Manual) 0 % (0.0-4.3) 06/02/18 04:53 Basophils % (Manual) 0 % (0.0-1.8) 06/02/18 04:53 Metamyelocytes % 0 % 06/02/18 04:53 Myelocytes % 0 % 06/02/18 04:53 Promyelocytes % 0 % 06/02/18 04:53 Blast Cells % 0 % 06/02/18 04:53 Nucleated RBC % Not Reportable 06/02/18 04:53 Seg Neutrophils # Man 9.2 K/mm3 (1.8-7.7) H 06/02/18 04:53 Band Neutrophils # 1.0 K/mm3 06/02/18 04:53 Lymphocytes # (Manual) 0.2 K/mm3 (1.2-5.4) L 06/02/18 04:53 Abs React Lymphs (Man) 0.0 K/mm3 06/02/18 04:53 Monocytes # (Manual) 0.2 K/mm3 (0.0-0.8) 06/02/18 04:53 Eosinophils # (Manual) 0.0 K/mm3 (0.0-0.4) 06/02/18 04:53 Basophils # (Manual) 0.0 K/mm3 (0.0-0.1) 06/02/18 04:53 Metamyelocytes # 0.0 K/mm3 06/02/18 04:53 Myelocytes # 0.0 K/mm3 06/02/18 04:53 Promyelocytes # 0.0 K/mm3 06/02/18 04:53 Blast Cells # 0.0 K/mm3 06/02/18 04:53 WBC Morphology Not Reportable 06/02/18 04:53 Hypersegmented Neuts Not Reportable 06/02/18 04:53 Hyposegmented Neuts Not Reportable 06/02/18 04:53 Hypogranular Neuts Not Reportable 06/02/18 04:53 Smudge Cells Not Reportable 06/02/18 04:53 Toxic Granulation Not Reportable 06/02/18 04:53 Toxic Vacuolation Not Reportable 06/02/18 04:53 Dohle Bodies Not Reportable 06/02/18 04:53 Pelger-Huet Anomaly Not Reportable 06/02/18 04:53 Trae Rods Not Reportable 06/02/18 04:53 Platelet Estimate Consistent w auto 06/02/18 04:53 Clumped Platelets Not Reportable 06/02/18 04:53 Plt Clumps, EDTA Not Reportable 06/02/18 04:53 Large Platelets Not Reportable 06/02/18 04:53 Giant Platelets Not Reportable 06/02/18 04:53 Platelet Satelliting Not Reportable 06/02/18 04:53 Plt Morphology Comment Not Reportable 06/02/18 04:53 RBC Morphology Not Reportable 06/02/18 04:53 Dimorphic RBCs Not Reportable 06/02/18 04:53 Polychromasia 1+ 06/02/18 04:53 Hypochromasia Not Reportable 06/02/18 04:53 Poikilocytosis Not Reportable 06/02/18 04:53 Anisocytosis Not Reportable 06/02/18 04:53 Microcytosis Not Reportable 06/02/18 04:53 Macrocytosis Not Reportable 06/02/18 04:53 Spherocytes Not Reportable 06/02/18 04:53 Pappenheimer Bodies Not Reportable 06/02/18 04:53 Sickle Cells Not Reportable 06/02/18 04:53 Target Cells 1+ 06/02/18 04:53 Tear Drop Cells Not Reportable 06/02/18 04:53 Ovalocytes Not Reportable 06/02/18 04:53 Helmet Cells Not Reportable 06/02/18 04:53 Hall-[place] Bodies Not Reportable 06/02/18 04:53 [place] Rings Not Reportable 06/02/18 04:53 [place] Cells Not Reportable 06/02/18 04:53 Bite Cells Not Reportable 06/02/18 04:53 Crenated Cell Not Reportable 06/02/18 04:53 Elliptocytes Not Reportable 06/02/18 04:53 Acanthocytes (Spur) Not Reportable 06/02/18 04:53 Rouleaux Not Reportable 06/02/18 04:53 Hemoglobin C Crystals Not Reportable 06/02/18 04:53 Schistocytes Not Reportable 06/02/18 04:53 Malaria parasites Not Reportable 06/02/18 04:53 Dann Bodies Not Reportable 06/02/18 04:53 Hem Pathologist Commnt No 06/02/18 04:53 PT 21.4 Sec. (12.2-14.9) H 06/01/18 01:12 INR 1.79 (0.87-1.13) H 06/01/18 01:12 APTT 33.2 Sec. (24.2-36.6) 06/01/18 01:12 D-Dimer 1834.40 ng/mlDDU (0-234) H 05/31/18 11:48 Heparin Anti-Xa Level 0.40 U.I./ml (0.3-0.7) 05/31/18 20:40 POC ABG pH 7.400 (7.35-7.45) 06/01/18 16:18 POC ABG pCO2 33.1 (35-45) L 06/01/18 16:18 POC ABG pO2 121 (80-105) H 06/01/18 16:18 POC ABG HCO3 20.5 06/01/18 16:18 POC ABG Total CO2 21 06/01/18 16:18 POC ABG O2 Sat 99 06/01/18 16:18 POC ABG Base Excess -4 06/01/18 16:18 FiO2 35 % 06/01/18 16:18 Sodium 140 mmol/L (137-145) 06/04/18 07:27 Potassium 4.5 mmol/L (3.6-5.0) 06/04/18 07:27 Chloride 101.5 mmol/L (98-107) 06/04/18 07:27 Carbon Dioxide 20 mmol/L (22-30) L 06/04/18 07:27 Anion Gap 23 mmol/L 06/04/18 07:27 BUN 87 mg/dL (9-20) H 06/04/18 07:27 Creatinine 2.5 mg/dL (0.8-1.5) H 06/04/18 07:27 Estimated GFR 32 ml/min 06/04/18 07:27 BUN/Creatinine Ratio 35 % 06/04/18 07:27 Glucose 71 mg/dL (75-100) L 06/04/18 07:27 POC Glucose 86 (70-105) 06/04/18 13:20 Lactic Acid 1.50 mmol/L (0.7-2.0) 05/31/18 07:13 Calcium 7.7 mg/dL (8.4-10.2) L 06/04/18 07:27 Magnesium 2.40 mg/dL (1.7-2.3) H 05/31/18 07:13 Total Bilirubin 2.70 mg/dL (0.1-1.2) H 06/02/18 17:47 AST 92 units/L (5-40) H 06/02/18 17:47 ALT 67 units/L (7-56) H 06/02/18 17:47 Alkaline Phosphatase 624 units/L (35-129) H 06/02/18 17:47 Ammonia 35.0 umol/L (25-60) 06/04/18 10:48 Total Creatine Kinase 374 units/L (55-170) H 05/31/18 05:49 CK-MB (CK-2) 22.3 ng/mL (0.0-4.0) H 05/31/18 05:49 CK-MB (CK-2) Rel Index 5.9 (0-4) H 05/31/18 05:49 Troponin T 0.268 ng/mL (0.00-0.029) H* 09/01/18 04:52 NT-Pro-B Natriuret Pep 05743 pg/mL (0-900) H 05/31/18 05:49 Total Protein 5.4 g/dL (6.3-8.2) L 06/02/18 17:47 Albumin 2.9 g/dL (3.9-5) L 06/02/18 17:47 Albumin/Globulin Ratio 1.2 % 06/02/18 17:47 Triglycerides 16 mg/dL (2-149) 05/31/18 05:49 Cholesterol 142 mg/dL (50-199) 05/31/18 05:49 LDL Cholesterol Direct 52 mg/dL (50-130) 05/31/18 05:49 HDL Cholesterol 91 mg/dL (40-59) H 05/31/18 05:49 Cholesterol/HDL Ratio 1.56 % 05/31/18 05:49 Urine Color [place]hloe (Yellow) 05/31/18 05:20 Urine Turbidity Slightly-cloudy (Clear) 05/31/18 05:20 Urine pH 5.0 (5.0-7.0) 05/31/18 05:20 Ur Specific [place] 1.016 (1.003-1.030) 05/31/18 05:20 Urine Protein >500 mg/dL (Negative) 05/31/18 05:20 Urine Glucose (UA) Neg mg/dL (Negative) 05/31/18 05:20 Urine Ketones Neg mg/dL (Negative) 05/31/18 05:20 Urine Blood Sm (Negative) 05/31/18 05:20 Urine Nitrite Neg (Negative) 05/31/18 05:20 Urine Bilirubin Neg (Negative) 05/31/18 05:20 Urine Urobilinogen 4.0 mg/dL (<2.0) 05/31/18 05:20 Ur Leukocyte Esterase Neg (Negative) 05/31/18 05:20 Urine WBC (Auto) 6.0 /HPF (0.0-6.0) 05/31/18 05:20 Urine RBC (Auto) 9.0 /HPF (0.0-6.0) 05/31/18 05:20 U Epithel Cells (Auto) < 1.0 /HPF (0-13.0) 05/31/18 05:20 Urine Mucus Few /HPF 05/31/18 05:20 Urine Yeast (Budding) 1+ /HPF 05/31/18 05:20 Urine Opiates Screen Presumptive negative 05/31/18 05:20 Urine Methadone Screen Presumptive negative 05/31/18 05:20 Ur Barbiturates Screen Presumptive negative 05/31/18 05:20 Ur Phencyclidine Scrn Presumptive negative 05/31/18 05:20 Ur Amphetamines Screen Presumptive negative 05/31/18 05:20 U Benzodiazepines Scrn Presumptive negative 05/31/18 05:20 Urine Cocaine Screen Presumptive negative 05/31/18 05:20 U Marijuana (THC) Screen Presumptive negative 05/31/18 05:20 Drugs of Abuse Note Disclamer 05/31/18 05:20 Plasma/Serum Alcohol < 0.01 % (0-0.07) 05/31/18 05:22
--- NOTE | 2018-06-05 12:14 | Progress Note ---
Assessment and Plan Initiate coreg and Imdur. Continue hydralazine. No ACEI/ARB at this time in setting of renal insufficiency. Cont diuresis per nephrology. Overall prognosis remains guarded because of his multiple medical issues. Increase activity gradually. The patient has been seen in conjunction with Dr. ANNE-MARIE Gil who agrees with the assessment and plan of care. - Patient Problems (1) Acute combined systolic and diastolic heart failure Current Visit: Yes Status: Acute (2) NICM (nonischemic cardiomyopathy) Current Visit: Yes Status: Chronic (3) Right ventricular systolic dysfunction Current Visit: Yes Status: Acute (4) Pulmonary HTN Current Visit: Yes Status: Chronic (5) Non-ST elevation ID (NSTEMI) Current Visit: Yes Status: Acute (6) Metabolic encephalopathy Current Visit: Yes Status: Acute (7) Acute on chronic kidney failure Current Visit: Yes Status: Acute (8) Hyperkalemia Current Visit: Yes Status: Acute (9) Hypoglycemia Current Visit: Yes Status: Acute (10) Hypothermia Current Visit: Yes Status: Acute Qualifiers: Encounter type: initial encounter Qualified Code(s): T68.XXXA - Hypothermia , initial encounter (11) Moderate to severe mitral regurgitation Current Visit: Yes Status: Chronic (12) Tricuspid regurgitation Current Visit: Yes Status: Chronic Subjective Date of service: 06/05/18 Principal diagnosis: Respiratory failure, non STEMI,CMP Interval history: pt resting comfortably in bed, alert and oriented. states he is feeling better today. no family at bedside. Objective Last Vital Signs Temp 97.9 F 06/05/18 04:00 Pulse 70 06/05/18 08:00 Resp 12 06/05/18 08:00 BP 133/103 06/05/18 08:00 Pulse Ox 98 06/05/18 08:00 - Physical Examination General: No Apparent Distress HEENT: Positive: PERRL Neck: Positive: neck supple, trachea midline Cardiac: Positive: Reg Rate and Rhythm, S1/S2, Systolic Murmur Lungs: Positive: Decreased Breath Sounds Neuro: Positive: Grossly Intact Abdomen: Positive: Soft. Negative: Tender Skin: Negative: Rash, Wound Extremities: Absent: edema - Imaging and Cardiology EKG: report reviewed, image reviewed Echo: report reviewed (EF 5-10%, LA mild to mod dilated, RA mildly dilated, mod to severe MR, mod to severe TR, mild AR, pseudonormalization, RV mildly dilated , RV systolic function severely reduced, mod pulm HTN with RVSP 52mmHg, small pericardial effusion. ) Cardiac cath: report reviewed (pt underwent LHC & RHC on 12/27/2017 which showed nonobstructive CAD with RCA 40% and Cristiano 35% lesions; non-ischemic cardiomyoapthy. ) - EKG Sinus rhythms and dysrhythmias: sinus rhythm
--- NOTE | 2018-06-05 16:07 | Progress Note ---
Assessment and Plan Imp: 1. NICMP 2. A/C systolic CHF 3. Pleural effusions 2/2 above 4. EDER 5. Acute respiratory failure, hypoxia 6. Pulm HTN 2/2 #'s 1 and 2 Rec: 1. Diuresis 2. BP/cardiac optimization 3. Monitor CXR periodically 4. Not convinced about the pneumonia diagnosis, but okay to complete a brief course of Zosyn (5 days should be adequate) 5. Wean O2 to keep sats 88% or above; home O2 eval. 6. Try to mobilize; pulm status stable Plan of care reviewed with patient/family, they understand/agree Subjective Date of service: 06/05/18 Principal diagnosis: Respiratory failure, non STEMI,CMP Interval history: No events. Breathing better. No chest pain. No cough, sputum. Feels weak. Has some nasal congestion. On RA currently. Active Medications Acetaminophen (Tylenol) 650 mg PO Q4H PRN PRN Reason: Pain MILD(1-3)/Fever >100.5/VARGSA Albuterol (Proventil) 2.5 mg IH Q4HRT PRN PRN Reason: Shortness Of Breath Albuterol/Ipratropium (Duoneb *Not For Prn Use*) 1 ampul IH TIDRT [facility] Last Admin: 06/05/18 09:19 Dose: Not Given Lipase/Protease/Amylase (Pancreaztomas Dr 10,500 Unit) 1 each FEEDTUBE PRN PRN PRN Reason: For Clogged Feeding Tube Carvedilol (Coreg) 3.125 mg PO BID [facility] Dextrose (D50w (25gm) Syringe) 50 ml IV PRN PRN PRN Reason: Hypoglycemia Last Admin: 06/01/18 17:05 Dose: 50 ml Famotidine (Pepcid) 20 mg PO DAILY [facility] Last Admin: 06/05/18 10:23 Dose: 20 mg Furosemide (Lasix) 40 mg IV 0600,1800 [facility] Last Admin: 06/05/18 10:18 Dose: 40 mg Hydralazine HCl (Apresoline) 25 mg PO Q8HR [facility] Last Admin: 06/05/18 15:00 Dose: 25 mg Hydrophilic Ointment (Vaseline Lip Therapy) 1 applic TP Q2HR PRN PRN Reason: Dry Lips Heparin Sodium/Sodium Chloride (Heparin/ 0.45% Nacl-25,000 Unit/500 Ml) 25,000 unit in 500 mls @ 20 mls/hr IV TITRATE [facility]; Protocol Last Admin: 05/31/18 13:48 Dose: 1,000 units/hr, 20 mls/hr Piperacillin Sod/Tazobactam Sod (Zosyn/Ns 2.25 Gm/50ml) 2.25 gm in 50 mls @ 100 mls/hr IV Q6HR [facility]; Protocol Last Admin: 06/05/18 12:15 Dose: 100 mls/hr Isosorbide Mononitrate (Imdur) 30 mg PO QDAY [facility] Morphine Sulfate (Morphine) 2 mg IV Q4H PRN PRN Reason: Pain, Moderate (4-6) Last Admin: 06/02/18 22:57 Dose: 2 mg Multi-Ingred Cream/Lotion/Oil/Oint (Artificial Tears Ophth Oint) 1 applic OU Q4HR PRN PRN Reason: Dry Eye(s) Ondansetron HCl (Zofran) 4 mg IV Q8H PRN PRN Reason: Nausea And Vomiting Simple Syrup (Simple Syrup) 15 ml FEEDTUBE PRN PRN PRN Reason: Hypoglycemia Simple Syrup (Simple Syrup) 30 ml FEEDTUBE PRN PRN PRN Reason: Hypoglycemia Sodium Bicarbonate (Sodium Bicarbonate) 325 mg FEEDTUBE PRN PRN PRN Reason: For Clogged Feeding Tube Sodium Chloride (Sodium Chloride Flush Syringe 10 Ml) 10 ml IV BID [facility] Last Admin: 06/05/18 10:18 Dose: 10 ml Sodium Chloride (Sodium Chloride Flush Syringe 10 Ml) 10 ml IV PRN PRN PRN Reason: LINE FLUSH Sodium Chloride (Nacl 0.9% 500 Ml) 1 ml IV DIRECT [facility] Objective Vital Signs - 12hr 06/05/18 06/05/18 06/05/18 05:38 08:00 12:16 Pulse Rate 77 70 77 Respiratory 12 Rate Blood Pressure 153/94 140/101 Blood Pressure 133/103 [Left] O2 Sat by Pulse 98 Oximetry 06/05/18 15:00 Pulse Rate 69 Respiratory Rate Blood Pressure 131/104 Blood Pressure [Left] O2 Sat by Pulse Oximetry Constitutional: no acute distress, other (weak-appearing) Eyes: non-icteric ENT: oropharynx moist Neck: supple Effort: normal Ascultation: Bilateral: diminished breath sounds (bases) Cardiovascular: regular rate and rhythm (no mrg) Gastrointestinal: normoactive bowel sounds, non-distended Integumentary: normal Extremities: no cyanosis, edema (1+ bilateral edema up to thighs) Neurologic: normal mental status, non-focal exam, pupils equal and round Psychiatric: mood appropriate, affect normal CBC and BMP: 06/04/18 07:21 06/04/18 07:27 ABG, PT/INR, D-dimer: ABG POC ABG pH 7.400 (7.35-7.45) 06/01/18 16:18 POC ABG pCO2 33.1 (35-45) L 06/01/18 16:18 POC ABG pO2 121 (80-105) H 06/01/18 16:18 POC ABG HCO3 20.5 06/01/18 16:18 POC ABG Total CO2 21 06/01/18 16:18 POC ABG O2 Sat 99 06/01/18 16:18 PT/INR, D-dimer PT 21.4 Sec. (12.2-14.9) H 06/01/18 01:12 INR 1.79 (0.87-1.13) H 06/01/18 01:12 D-Dimer 1834.40 ng/mlDDU (0-234) H 05/31/18 11:48 Abnormal lab findings: Abnormal Labs 05/31/18 05/31/18 05/31/18 04:38 04:58 05:14 RBC Hgb Hct MCV MCH RDW Plt Count Seg Neuts % (Manual) Lymphocytes % (Manual) Nucleated RBC % Seg Neutrophils # Man Lymphocytes # (Manual) PT INR D-Dimer POC ABG pH POC ABG pCO2 POC ABG pO2 Sodium Potassium Carbon Dioxide BUN Creatinine Glucose POC Glucose < 40 L 64 L 258 H Calcium Magnesium Total Bilirubin AST ALT Alkaline Phosphatase Ammonia Total Creatine Kinase CK-MB (CK-2) CK-MB (CK-2) Rel Index Troponin T NT-Pro-B Natriuret Pep Total Protein Albumin HDL Cholesterol 05/31/18 05/31/18 05/31/18 05:15 05:15 05:22 RBC 5.33 H Hgb Hct 45.8 H MCV MCH RDW 16.4 H Plt Count Seg Neuts % (Manual) 88.0 H Lymphocytes % (Manual) 6.0 L Nucleated RBC % 1.0 H Seg Neutrophils # Man Lymphocytes # (Manual) 0.4 L PT 20.9 H INR 1.74 H D-Dimer POC ABG pH POC ABG pCO2 POC ABG pO2 Sodium Potassium Carbon Dioxide BUN Creatinine Glucose POC Glucose Calcium Magnesium Total Bilirubin AST ALT Alkaline Phosphatase Ammonia 68.0 H Total Creatine Kinase CK-MB (CK-2) CK-MB (CK-2) Rel Index Troponin T NT-Pro-B Natriuret Pep Total Protein Albumin HDL Cholesterol 05/31/18 05/31/18 05/31/18 05:49 07:13 07:22 RBC Hgb Hct MCV MCH RDW Plt Count Seg Neuts % (Manual) Lymphocytes % (Manual) Nucleated RBC % Seg Neutrophils # Man Lymphocytes # (Manual) PT INR D-Dimer POC ABG pH POC ABG pCO2 POC ABG pO2 Sodium 135 L Potassium 6.0 H Carbon Dioxide 13 L BUN 87 H Creatinine 2.5 H Glucose 249 H POC Glucose 124 H Calcium 7.8 L Magnesium 2.40 H Total Bilirubin 2.60 H AST 60 H ALT Alkaline Phosphatase 592 H Ammonia Total Creatine Kinase 374 H CK-MB (CK-2) 22.3 H CK-MB (CK-2) Rel Index 5.9 H Troponin T 0.260 H* NT-Pro-B Natriuret Pep 39036 H Total Protein 5.5 L Albumin 3.0 L HDL Cholesterol 91 H 05/31/18 05/31/18 05/31/18 09:33 10:53 11:48 RBC Hgb 15.4 H Hct 49.2 H MCV MCH RDW Plt Count Seg Neuts % (Manual) Lymphocytes % (Manual) Nucleated RBC % Seg Neutrophils # Man Lymphocytes # (Manual) PT INR D-Dimer POC ABG pH POC ABG pCO2 POC ABG pO2 Sodium Potassium Carbon Dioxide BUN Creatinine Glucose POC Glucose 168 H 106 H Calcium Magnesium Total Bilirubin AST ALT Alkaline Phosphatase Ammonia Total Creatine Kinase CK-MB (CK-2) CK-MB (CK-2) Rel Index Troponin T NT-Pro-B Natriuret Pep Total Protein Albumin HDL Cholesterol 05/31/18 05/31/18 05/31/18 11:48 11:48 11:51 RBC Hgb Hct MCV MCH RDW Plt Count Seg Neuts % (Manual) Lymphocytes % (Manual) Nucleated RBC % Seg Neutrophils # Man Lymphocytes # (Manual) PT 20.6 H INR 1.71 H D-Dimer 1834.40 H POC ABG pH 6.997 L POC ABG pCO2 59.6 H POC ABG pO2 Sodium Potassium Carbon Dioxide BUN Creatinine Glucose POC Glucose Calcium Magnesium Total Bilirubin AST ALT Alkaline Phosphatase Ammonia Total Creatine Kinase CK-MB (CK-2) CK-MB (CK-2) Rel Index Troponin T 0.230 H* NT-Pro-B Natriuret Pep Total Protein Albumin HDL Cholesterol 05/31/18 05/31/18 05/31/18 15:53 18:29 19:26 RBC Hgb Hct MCV MCH RDW Plt Count Seg Neuts % (Manual) Lymphocytes % (Manual) Nucleated RBC % Seg Neutrophils # Man Lymphocytes # (Manual) PT INR D-Dimer POC ABG pH 7.328 L POC ABG pCO2 29.6 L POC ABG pO2 200 H Sodium Potassium Carbon Dioxide BUN Creatinine Glucose POC Glucose < 40 L 68 L Calcium Magnesium Total Bilirubin AST ALT Alkaline Phosphatase Ammonia Total Creatine Kinase CK-MB (CK-2) CK-MB (CK-2) Rel Index Troponin T NT-Pro-B Natriuret Pep Total Protein Albumin HDL Cholesterol 05/31/18 06/01/18 06/01/18 20:40 01:12 03:40 RBC Hgb Hct MCV 83 L MCH 27 L RDW 15.4 H Plt Count 135 L Seg Neuts % (Manual) 95.0 H Lymphocytes % (Manual) 4.0 L Nucleated RBC % Seg Neutrophils # Man Lymphocytes # (Manual) 0.3 L PT 21.4 H INR 1.79 H D-Dimer POC ABG pH POC ABG pCO2 POC ABG pO2 Sodium Potassium 5.5 H Carbon Dioxide 13 L BUN 89 H Creatinine 2.7 H Glucose 72 L POC Glucose Calcium 7.2 L Magnesium Total Bilirubin AST ALT Alkaline Phosphatase Ammonia Total Creatine Kinase CK-MB (CK-2) CK-MB (CK-2) Rel Index Troponin T NT-Pro-B Natriuret Pep Total Protein Albumin HDL Cholesterol 06/01/18 06/01/18 06/01/18 03:40 04:59 08:29 RBC Hgb Hct MCV MCH RDW Plt Count Seg Neuts % (Manual) Lymphocytes % (Manual) Nucleated RBC % Seg Neutrophils # Man Lymphocytes # (Manual) PT INR D-Dimer POC ABG pH 7.474 H POC ABG pCO2 26.1 L POC ABG pO2 116 H Sodium Potassium 5.3 H Carbon Dioxide 16 L BUN 92 H Creatinine 2.7 H Glucose 61 L POC Glucose 69 L Calcium 7.2 L Magnesium Total Bilirubin AST ALT Alkaline Phosphatase Ammonia Total Creatine Kinase CK-MB (CK-2) CK-MB (CK-2) Rel Index Troponin T NT-Pro-B Natriuret Pep Total Protein Albumin HDL Cholesterol 06/01/18 06/01/18 06/01/18 10:49 14:02 16:18 RBC Hgb Hct MCV MCH RDW Plt Count Seg Neuts % (Manual) Lymphocytes % (Manual) Nucleated RBC % Seg Neutrophils # Man Lymphocytes # (Manual) PT INR D-Dimer POC ABG pH POC ABG pCO2 33.1 L POC ABG pO2 121 H Sodium Potassium Carbon Dioxide BUN Creatinine Glucose POC Glucose 108 H Calcium Magnesium Total Bilirubin AST ALT Alkaline Phosphatase Ammonia Total Creatine Kinase CK-MB (CK-2) CK-MB (CK-2) Rel Index Troponin T 0.242 H* NT-Pro-B Natriuret Pep Total Protein Albumin HDL Cholesterol 06/01/18 06/02/18 06/02/18 16:58 04:52 04:53 RBC 5.12 H Hgb Hct MCV 81 L MCH 27 L RDW Plt Count Seg Neuts % (Manual) 87.0 H Lymphocytes % (Manual) 2.0 L Nucleated RBC % Seg Neutrophils # Man 9.2 H Lymphocytes # (Manual) 0.2 L PT INR D-Dimer POC ABG pH POC ABG pCO2 POC ABG pO2 Sodium Potassium Carbon Dioxide BUN Creatinine Glucose POC Glucose 69 L Calcium Magnesium Total Bilirubin AST ALT Alkaline Phosphatase Ammonia Total Creatine Kinase CK-MB (CK-2) CK-MB (CK-2) Rel Index Troponin T 0.268 H* NT-Pro-B Natriuret Pep Total Protein Albumin HDL Cholesterol 06/02/18 06/02/18 06/02/18 04:53 11:50 14:05 RBC Hgb Hct MCV MCH RDW Plt Count Seg Neuts % (Manual) Lymphocytes % (Manual) Nucleated RBC % Seg Neutrophils # Man Lymphocytes # (Manual) PT INR D-Dimer POC ABG pH POC ABG pCO2 POC ABG pO2 Sodium Potassium 5.4 H Carbon Dioxide 16 L BUN 94 H Creatinine 2.7 H Glucose 101 H POC Glucose 133 H 113 H Calcium 7.7 L Magnesium Total Bilirubin AST ALT Alkaline Phosphatase Ammonia Total Creatine Kinase CK-MB (CK-2) CK-MB (CK-2) Rel Index Troponin T NT-Pro-B Natriuret Pep Total Protein Albumin HDL Cholesterol 06/02/18 06/02/18 06/04/18 17:47 17:55 07:27 RBC Hgb Hct MCV MCH RDW Plt Count Seg Neuts % (Manual) Lymphocytes % (Manual) Nucleated RBC % Seg Neutrophils # Man Lymphocytes # (Manual) PT INR D-Dimer POC ABG pH POC ABG pCO2 POC ABG pO2 Sodium Potassium Carbon Dioxide 21 L 20 L BUN 90 H 87 H Creatinine 2.7 H 2.5 H Glucose 120 H 71 L POC Glucose 120 H Calcium 7.5 L 7.7 L Magnesium Total Bilirubin 2.70 H AST 92 H ALT 67 H Alkaline Phosphatase 624 H Ammonia Total Creatine Kinase CK-MB (CK-2) CK-MB (CK-2) Rel Index Troponin T NT-Pro-B Natriuret Pep Total Protein 5.4 L Albumin 2.9 L HDL Cholesterol Chest x-ray: report reviewed, image reviewed
[2018-06-05] MEDS: COREG PO SCH (22:46)
[2018-06-06] MEDS: ZOSYN/NS 2.25 GM/50ML 2.25 GM/50 ML BAG IV SCH ×3 (00:17→13:50)
[2018-06-06] MEDS: LASIX IV SCH ×3 (05:01→17:55)
[2018-06-06] MEDS: APRESOLINE PO SCH ×3 (05:05→22:14)
[2018-06-06 06:08] LABS: Hematocrit 42.8 % (35.5-45.6); Hemoglobin 13.7 gm/dl (11.8-15.2)
--- NOTE | 2018-06-06 08:58 | Progress Note ---
Assessment and Plan Assessment * Acute kidney injury. * Severe cardiomyopathy status post non-ST elevation [place] ejection fraction of the 10% range * Hyperkalemia * metabolic acidosis * History of coronary artery disease, poor ejection fraction, Recommendations * patient's volume status is improving * pt was wetting diapers . Now has a condom catheter in place . Continue lasix 40 mg q 12 for now * Recheck renal function * Avoid nephrotoxins * Not a good candidate for ACEI or ARB at this time * Renal prognosis remains guarded at this time * Repeat CXR Subjective Date of service: 06/06/18 Principal diagnosis: Respiratory failure, non STEMI,CMP Interval history: patient feel better this morning . SOB much improved . Denies nausea or vomiting . Currently on warming blanket Objective - Vital Signs Vital signs: Vital Signs - 12hr 06/05/18 06/05/18 06/05/18 21:00 22:00 22:45 Temperature Pulse Rate 80 82 Respiratory Rate Blood Pressure 140/97 Blood Pressure [Left] O2 Sat by Pulse 96 Oximetry 06/05/18 06/06/18 06/06/18 22:46 00:00 04:00 Temperature 97.8 F 98.5 F Pulse Rate 84 72 72 Respiratory 10 L 11 L Rate Blood Pressure 140/97 Blood Pressure 118/94 128/93 [Left] O2 Sat by Pulse 99 100 Oximetry 06/06/18 06/06/18 05:05 08:00 Temperature 97.9 F Pulse Rate 72 93 H Respiratory 18 Rate Blood Pressure 131/97 Blood Pressure 124/83 [Left] O2 Sat by Pulse 96 Oximetry - General Appearance General appearance: chronically ill, frail EENT: PERRL, mucous membranes moist Neck: no JVD, no thyromegaly, no carotid bruit, supple Respiratory: Present: Decreased Breath Sounds (at the bases ) Cardiology: regular, normal heart rate Gastrointestinal: normal, normoactive bowel sounds Integumentary: other (1+ edema ) - Lab 06/06/18 05:08 06/06/18 05:08 Most recent lab results Calcium 8.0 mg/dL (8.4-10.2) L 06/06/18 05:08 Magnesium 2.40 mg/dL (1.7-2.3) H 05/31/18 07:13
[2018-06-06] MEDS: DUONEB *Not for PRN Use IH SCH ×2 (09:26→14:27)
--- NOTE | 2018-06-06 09:42 | XRay Report ---
AP CHEST: HISTORY: Shortness of breath Moderate to severe cardiomegaly, moderate pulmonary venous congestion and moderate bilateral pleural effusions are identified. There is compressive atelectasis in the lower lung zones. The upper lung zones are generally clear. No pneumothorax. The bony structures are grossly intact. IMPRESSION: CHF which appears slightly increased since 06/04/18 exam.
--- NOTE | 2018-06-06 10:17 | Progress Note ---
Assessment and Plan Cont present cardiac management. No ACEI/ARB at this time in setting of renal insufficiency. Cont diuresis per nephrology. Overall prognosis remains guarded because of his multiple medical issues. Increase activity gradually. The patient has been seen in conjunction with Dr. ANNE-MARIE Gil who agrees with the assessment and plan of care. - Patient Problems (1) Acute combined systolic and diastolic heart failure Current Visit: Yes Status: Acute (2) NICM (nonischemic cardiomyopathy) Current Visit: Yes Status: Chronic (3) Right ventricular systolic dysfunction Current Visit: Yes Status: Acute (4) Pulmonary HTN Current Visit: Yes Status: Chronic (5) Non-ST elevation [place] (NSTEMI) Current Visit: Yes Status: Acute (6) Metabolic encephalopathy Current Visit: Yes Status: Acute (7) Acute on chronic kidney failure Current Visit: Yes Status: Acute (8) Hyperkalemia Current Visit: Yes Status: Acute (9) Hypoglycemia Current Visit: Yes Status: Acute (10) Hypothermia Current Visit: Yes Status: Acute Qualifiers: Encounter type: initial encounter Qualified Code(s): T68.XXXA - Hypothermia , initial encounter (11) Moderate to severe mitral regurgitation Current Visit: Yes Status: Chronic (12) Tricuspid regurgitation Current Visit: Yes Status: Chronic Subjective Date of service: 06/06/18 Principal diagnosis: Respiratory failure, non STEMI,CMP Interval history: pt sitting up at bedside with physical therapy, alert and oriented. states he is feeling well. daughter at bedside. Objective Last Vital Signs Temp 97.9 F 06/06/18 08:00 Pulse 93 H 06/06/18 08:00 Resp 12 06/06/18 09:00 BP 124/83 06/06/18 08:00 Pulse Ox 95 06/06/18 09:00 - Physical Examination General: No Apparent Distress HEENT: Positive: PERRL Neck: Positive: neck supple, trachea midline Cardiac: Positive: Reg Rate and Rhythm, S1/S2 Lungs: Positive: Decreased Breath Sounds Neuro: Positive: Grossly Intact Abdomen: Positive: Soft. Negative: Tender Skin: Negative: Rash, Wound Extremities: Absent: edema - Labs and Meds CBC 06/06/18 Range/Units 05:08 Hgb 13.7 (11.8-15.2) gm/dl Hct 42.8 (35.5-45.6) % Plt Count 124 L (140-440) K/mm3 Comprehensive Metabolic Panel 06/06/18 Range/Units 05:08 Sodium 140 (137-145) mmol/L Potassium 4.1 (3.6-5.0) mmol/L Chloride 99.9 (98-107) mmol/L Carbon Dioxide 21 L (22-30) mmol/L BUN 98 H (9-20) mg/dL Creatinine 2.7 H (0.8-1.5) mg/dL Glucose 61 L (75-100) mg/dL Calcium 8.0 L (8.4-10.2) mg/dL - Imaging and Cardiology EKG: report reviewed, image reviewed Echo: report reviewed (EF 5-10%, LA mild to mod dilated, RA mildly dilated, mod to severe MR, mod to severe TR, mild AR, pseudonormalization, RV mildly dilated , RV systolic function severely reduced, mod pulm HTN with RVSP 52mmHg, small pericardial effusion. ) Cardiac cath: report reviewed (pt underwent LHC & RHC on 12/27/2017 which showed nonobstructive CAD with RCA 40% and Cristiano 35% lesions; non-ischemic cardiomyoapthy. ) - Telemetry EKG Rhythm: Sinus Rhythm - EKG Sinus rhythms and dysrhythmias: sinus rhythm
[2018-06-06] MEDS: COREG PO SCH ×2 (10:43→22:14)
[2018-06-06] MEDS: IMDUR PO SCH (10:43)
[2018-06-06] MEDS: PEPCID PO SCH (10:44)
[2018-06-06] MEDS: SODIUM CHLORIDE FLUSH SYRINGE 10 ML IV SCH ×2 (10:45→22:15)
--- NOTE | 2018-06-06 11:39 | Progress Note ---
Assessment and Plan Assessment and plan: NSTEMI - Patient is on heparin drip, aspirin, - Cardiology consult appreciated Acute renal failure - Nephrology consulted CHF - EF 5-10%, will follow cardiology recommendations - Patient is breathing comfortable - No ACEI/ARB at this time in setting of renal insufficiency. - Cont diuresis per nephrology. Hypothermia - Blood cultures no growth so far - Patient is on Zosyn Respiratory/metabolic acidosis - Patient was intubated and on mechanical ventilation, extubated on 06/01 -Resolved Encephalopathy - he has chronic liver disease and ammonia was checked , normal DVT prophylaxis - On heparin drip Disposition PT is recommending subacute rehabilitation placement. I discussed with the daughter at the bedside plan of care and placement. History Interval history: 63-year-old -Luxembourger male was presented to the ED with complaints of shortness of breath, chest pain, altered mental status Cardiac enzymes was done in the ED and was high, chest x-ray showed bilateral pleural effusion, elevated BNP, elevated creatinine. Hospitalist Physical - Constitutional Vitals: Temp Pulse Resp BP Pulse Ox 97.9 F 71 12 138/99 95 06/06/18 08:00 06/06/18 10:43 06/06/18 09:00 06/06/18 10:43 06/06/18 09:00 General appearance: Present: other (lethargic) - EENT Eyes: Present: PERRL, EOM intact ENT: hearing intact, clear oral mucosa, dentition normal - Neck Neck: Present: supple, normal ROM - Respiratory Respiratory effort: normal Respiratory: bilateral: CTA - Cardiovascular Rhythm: regular Heart Sounds: Present: S1 & S2. Absent: gallop, rub - Extremities Extremities: no ischemia, No edema, Full ROM - Abdominal General gastrointestinal: soft, non-tender, non-distended, normal bowel sounds - Integumentary Integumentary: Present: clear, warm, dry - Neurologic Neurologic: CNII-XII intact, moves all extremities Results - Labs CBC & Chem 7: 06/06/18 05:08 06/06/18 05:08 Labs: Laboratory Last Values WBC 10.6 K/mm3 (4.5-11.0) 06/02/18 04:53 RBC 5.12 M/mm3 (3.65-5.03) H 06/02/18 04:53 Hgb 13.7 gm/dl (11.8-15.2) 06/06/18 05:08 Hct 42.8 % (35.5-45.6) 06/06/18 05:08 MCV 81 fl (84-94) L 06/02/18 04:53 MCH 27 pg (28-32) L 06/02/18 04:53 MCHC 34 % (32-34) 06/02/18 04:53 RDW 15.1 % (13.2-15.2) 06/02/18 04:53 Plt Count 124 K/mm3 (140-440) L 06/06/18 05:08 Add Manual Diff Complete 06/02/18 04:53 Total Counted 100 06/02/18 04:53 Seg Neuts % (Manual) 87.0 % (40.0-70.0) H 06/02/18 04:53 Band Neutrophils % 9.0 % 06/02/18 04:53 Lymphocytes % (Manual) 2.0 % (13.4-35.0) L 06/02/18 04:53 Reactive Lymphs % (Man) 0 % 06/02/18 04:53 Monocytes % (Manual) 2.0 % (0.0-7.3) 06/02/18 04:53 Eosinophils % (Manual) 0 % (0.0-4.3) 06/02/18 04:53 Basophils % (Manual) 0 % (0.0-1.8) 06/02/18 04:53 Metamyelocytes % 0 % 06/02/18 04:53 Myelocytes % 0 % 06/02/18 04:53 Promyelocytes % 0 % 06/02/18 04:53 Blast Cells % 0 % 06/02/18 04:53 Nucleated RBC % Not Reportable 06/02/18 04:53 Seg Neutrophils # Man 9.2 K/mm3 (1.8-7.7) H 06/02/18 04:53 Band Neutrophils # 1.0 K/mm3 06/02/18 04:53 Lymphocytes # (Manual) 0.2 K/mm3 (1.2-5.4) L 06/02/18 04:53 Abs React Lymphs (Man) 0.0 K/mm3 06/02/18 04:53 Monocytes # (Manual) 0.2 K/mm3 (0.0-0.8) 06/02/18 04:53 Eosinophils # (Manual) 0.0 K/mm3 (0.0-0.4) 06/02/18 04:53 Basophils # (Manual) 0.0 K/mm3 (0.0-0.1) 06/02/18 04:53 Metamyelocytes # 0.0 K/mm3 06/02/18 04:53 Myelocytes # 0.0 K/mm3 06/02/18 04:53 Promyelocytes # 0.0 K/mm3 06/02/18 04:53 Blast Cells # 0.0 K/mm3 06/02/18 04:53 WBC Morphology Not Reportable 06/02/18 04:53 Hypersegmented Neuts Not Reportable 06/02/18 04:53 Hyposegmented Neuts Not Reportable 06/02/18 04:53 Hypogranular Neuts Not Reportable 06/02/18 04:53 Smudge Cells Not Reportable 06/02/18 04:53 Toxic Granulation Not Reportable 06/02/18 04:53 Toxic Vacuolation Not Reportable 06/02/18 04:53 Dohle Bodies Not Reportable 06/02/18 04:53 Pelger-Huet Anomaly Not Reportable 06/02/18 04:53 Trae Rods Not Reportable 06/02/18 04:53 Platelet Estimate Consistent w auto 06/02/18 04:53 Clumped Platelets Not Reportable 06/02/18 04:53 Plt Clumps, EDTA Not Reportable 06/02/18 04:53 Large Platelets Not Reportable 06/02/18 04:53 Giant Platelets Not Reportable 06/02/18 04:53 Platelet Satelliting Not Reportable 06/02/18 04:53 Plt Morphology Comment Not Reportable 06/02/18 04:53 RBC Morphology Not Reportable 06/02/18 04:53 Dimorphic RBCs Not Reportable 06/02/18 04:53 Polychromasia 1+ 06/02/18 04:53 Hypochromasia Not Reportable 06/02/18 04:53 Poikilocytosis Not Reportable 06/02/18 04:53 Anisocytosis Not Reportable 06/02/18 04:53 Microcytosis Not Reportable 06/02/18 04:53 Macrocytosis Not Reportable 06/02/18 04:53 Spherocytes Not Reportable 06/02/18 04:53 Pappenheimer Bodies Not Reportable 06/02/18 04:53 Sickle Cells Not Reportable 06/02/18 04:53 Target Cells 1+ 06/02/18 04:53 Tear Drop Cells Not Reportable 06/02/18 04:53 Ovalocytes Not Reportable 06/02/18 04:53 Helmet Cells Not Reportable 06/02/18 04:53 [place] Bodies Not Reportable 06/02/18 04:53 [place] Rings Not Reportable 06/02/18 04:53 Andres Cells Not Reportable 06/02/18 04:53 Bite Cells Not Reportable 06/02/18 04:53 Crenated Cell Not Reportable 06/02/18 04:53 Elliptocytes Not Reportable 06/02/18 04:53 Acanthocytes (Spur) Not Reportable 06/02/18 04:53 Rouleaux Not Reportable 06/02/18 04:53 Hemoglobin C Crystals Not Reportable 06/02/18 04:53 Schistocytes Not Reportable 06/02/18 04:53 Malaria parasites Not Reportable 06/02/18 04:53 Dann Bodies Not Reportable 06/02/18 04:53 Hem Pathologist Commnt No 06/02/18 04:53 PT 21.4 Sec. (12.2-14.9) H 06/01/18 01:12 INR 1.79 (0.87-1.13) H 06/01/18 01:12 APTT 33.2 Sec. (24.2-36.6) 06/01/18 01:12 D-Dimer 1834.40 ng/mlDDU (0-234) H 05/31/18 11:48 Heparin Anti-Xa Level 0.40 U.I./ml (0.3-0.7) 05/31/18 20:40 POC ABG pH 7.400 (7.35-7.45) 06/01/18 16:18 POC ABG pCO2 33.1 (35-45) L 06/01/18 16:18 POC ABG pO2 121 (80-105) H 06/01/18 16:18 POC ABG HCO3 20.5 06/01/18 16:18 POC ABG Total CO2 21 06/01/18 16:18 POC ABG O2 Sat 99 06/01/18 16:18 POC ABG Base Excess -4 06/01/18 16:18 FiO2 35 % 06/01/18 16:18 Sodium 140 mmol/L (137-145) 06/06/18 05:08 Potassium 4.1 mmol/L (3.6-5.0) 06/06/18 05:08 Chloride 99.9 mmol/L (98-107) 06/06/18 05:08 Carbon Dioxide 21 mmol/L (22-30) L 06/06/18 05:08 Anion Gap 23 mmol/L 06/06/18 05:08 BUN 98 mg/dL (9-20) H 06/06/18 05:08 Creatinine 2.7 mg/dL (0.8-1.5) H 06/06/18 05:08 Estimated GFR 29 ml/min 06/06/18 05:08 BUN/Creatinine Ratio 36 % 06/06/18 05:08 Glucose 61 mg/dL (75-100) L 06/06/18 05:08 POC Glucose 85 (70-105) 06/06/18 09:08 Lactic Acid 1.50 mmol/L (0.7-2.0) 05/31/18 07:13 Calcium 8.0 mg/dL (8.4-10.2) L 06/06/18 05:08 Magnesium 2.40 mg/dL (1.7-2.3) H 05/31/18 07:13 Total Bilirubin 2.70 mg/dL (0.1-1.2) H 06/02/18 17:47 AST 92 units/L (5-40) H 06/02/18 17:47 ALT 67 units/L (7-56) H 06/02/18 17:47 Alkaline Phosphatase 624 units/L (35-129) H 06/02/18 17:47 Ammonia 35.0 umol/L (25-60) 06/04/18 10:48 Total Creatine Kinase 374 units/L (55-170) H 05/31/18 05:49 CK-MB (CK-2) 22.3 ng/mL (0.0-4.0) H 05/31/18 05:49 CK-MB (CK-2) Rel Index 5.9 (0-4) H 05/31/18 05:49 Troponin T 0.268 ng/mL (0.00-0.029) H* 06/02/18 04:52 NT-Pro-B Natriuret Pep 46687 pg/mL (0-900) H 05/31/18 05:49 Total Protein 5.4 g/dL (6.3-8.2) L 06/02/18 17:47 Albumin 2.9 g/dL (3.9-5) L 06/02/18 17:47 Albumin/Globulin Ratio 1.2 % 06/02/18 17:47 Triglycerides 16 mg/dL (2-149) 05/31/18 05:49 Cholesterol 142 mg/dL (50-199) 05/31/18 05:49 LDL Cholesterol Direct 52 mg/dL (50-130) 05/31/18 05:49 HDL Cholesterol 91 mg/dL (40-59) H 05/31/18 05:49 Cholesterol/HDL Ratio 1.56 % 05/31/18 05:49 Urine Color [place] (Yellow) 05/31/18 05:20 Urine Turbidity Slightly-cloudy (Clear) 05/31/18 05:20 Urine pH 5.0 (5.0-7.0) 05/31/18 05:20 Ur Specific [place] 1.016 (1.003-1.030) 05/31/18 05:20 Urine Protein >500 mg/dL (Negative) 05/31/18 05:20 Urine Glucose (UA) Neg mg/dL (Negative) 05/31/18 05:20 Urine Ketones Neg mg/dL (Negative) 05/31/18 05:20 Urine Blood Sm (Negative) 05/31/18 05:20 Urine Nitrite Neg (Negative) 05/31/18 05:20 Urine Bilirubin Neg (Negative) 05/31/18 05:20 Urine Urobilinogen 4.0 mg/dL (<2.0) 05/31/18 05:20 Ur Leukocyte Esterase Neg (Negative) 05/31/18 05:20 Urine WBC (Auto) 6.0 /HPF (0.0-6.0) 05/31/18 05:20 Urine RBC (Auto) 9.0 /HPF (0.0-6.0) 05/31/18 05:20 U Epithel Cells (Auto) < 1.0 /HPF (0-13.0) 05/31/18 05:20 Urine Mucus Few /HPF 05/31/18 05:20 Urine Yeast (Budding) 1+ /HPF 05/31/18 05:20 Urine Opiates Screen Presumptive negative 05/31/18 05:20 Urine Methadone Screen Presumptive negative 05/31/18 05:20 Ur Barbiturates Screen Presumptive negative 05/31/18 05:20 Ur Phencyclidine Scrn Presumptive negative 05/31/18 05:20 Ur Amphetamines Screen Presumptive negative 05/31/18 05:20 U Benzodiazepines Scrn Presumptive negative 05/31/18 05:20 Urine Cocaine Screen Presumptive negative 05/31/18 05:20 U Marijuana (THC) Screen Presumptive negative 05/31/18 05:20 Drugs of Abuse Note Disclamer 05/31/18 05:20 Plasma/Serum Alcohol < 0.01 % (0-0.07) 05/31/18 05:22
[2018-06-06] MEDS: D50W (25GM) Syringe IV PRN (14:05)
--- NOTE | 2018-06-06 15:20 | Progress Note ---
Assessment and Plan Imp: 1. NICMP 2. A/C systolic CHF 3. Pleural effusions 2/2 above 4. EDER 5. Acute respiratory failure, hypoxia 6. Pulm HTN 2/2 #'s 1 and 2 Rec: 1. Diuresis 2. BP/cardiac optimization 3. Monitor CXR periodically 4. Not convinced about the pneumonia diagnosis; stop Zosyn 5. Wean O2 to keep sats 88% or above; home O2 eval. 6. Try to mobilize; needs to improve nutrition as well; pulm status stable 7. Still with significant CHF on CXR and diffuse peripheral edema; consider inotropic therapy if fails to adequately mobilize fluid with Lasix alone Plan of care reviewed with patient/family, they understand/agree Subjective Date of service: 06/06/18 Principal diagnosis: Respiratory failure, non STEMI,CMP Interval history: No events. Breathing better. No chest pain. No cough, sputum. Feels weak. Has some nasal congestion. On RA currently. Poor appetite and PO intake. Active Medications Acetaminophen (Tylenol) 650 mg PO Q4H PRN PRN Reason: Pain MILD(1-3)/Fever >100.5/VARGAS Albuterol (Proventil) 2.5 mg IH Q4HRT PRN PRN Reason: Shortness Of Breath Albuterol/Ipratropium (Duoneb *Not For Prn Use*) 1 ampul IH TIDRT [facility] Last Admin: 06/05/18 20:58 Dose: 1 ampul Lipase/Protease/Amylase (Pancreaze Dr 10,500 Unit) 1 each FEEDTUBE PRN PRN PRN Reason: For Clogged Feeding Tube Carvedilol (Coreg) 3.125 mg PO BID [facility] Last Admin: 06/06/18 10:43 Dose: 3.125 mg Dextrose (D50w (25gm) Syringe) 50 ml IV PRN PRN PRN Reason: Hypoglycemia Last Admin: 06/06/18 14:05 Dose: 50 ml Famotidine (Pepcid) 20 mg PO DAILY [facility] Last Admin: 06/06/18 10:44 Dose: 20 mg Furosemide (Lasix) 40 mg IV 0600,1800 [facility] Last Admin: 06/06/18 08:50 Dose: Not Given Hydralazine HCl (Apresoline) 25 mg PO Q8HR [facility] Last Admin: 06/06/18 13:51 Dose: 25 mg Hydrophilic Ointment (Vaseline Lip Therapy) 1 applic TP Q2HR PRN PRN Reason: Dry Lips Heparin Sodium/Sodium Chloride (Heparin/ 0.45% Nacl-25,000 Unit/500 Ml) 25,000 unit in 500 mls @ 20 mls/hr IV TITRATE [facility]; Protocol Last Admin: 05/31/18 13:48 Dose: 1,000 units/hr, 20 mls/hr Piperacillin Sod/Tazobactam Sod (Zosyn/Ns 2.25 Gm/50ml) 2.25 gm in 50 mls @ 100 mls/hr IV Q6HR [facility]; Protocol Last Admin: 06/06/18 13:50 Dose: 100 mls/hr Isosorbide Mononitrate (Imdur) 30 mg PO QDAY [facility] Last Admin: 06/06/18 10:43 Dose: 30 mg Morphine Sulfate (Morphine) 2 mg IV Q4H PRN PRN Reason: Pain, Moderate (4-6) Last Admin: 06/02/18 22:57 Dose: 2 mg Multi-Ingred Cream/Lotion/Oil/Oint (Artificial Tears Ophth Oint) 1 applic OU Q4HR PRN PRN Reason: Dry Eye(s) Ondansetron HCl (Zofran) 4 mg IV Q8H PRN PRN Reason: Nausea And Vomiting Simple Syrup (Simple Syrup) 15 ml FEEDTUBE PRN PRN PRN Reason: Hypoglycemia Simple Syrup (Simple Syrup) 30 ml FEEDTUBE PRN PRN PRN Reason: Hypoglycemia Sodium Bicarbonate (Sodium Bicarbonate) 325 mg FEEDTUBE PRN PRN PRN Reason: For Clogged Feeding Tube Sodium Chloride (Sodium Chloride Flush Syringe 10 Ml) 10 ml IV BID [facility] Last Admin: 06/06/18 10:45 Dose: 10 ml Sodium Chloride (Sodium Chloride Flush Syringe 10 Ml) 10 ml IV PRN PRN PRN Reason: LINE FLUSH Sodium Chloride (Nacl 0.9% 500 Ml) 1 ml IV DIRECT [facility] Objective Vital Signs - 12hr 06/06/18 06/06/18 06/06/18 04:00 05:05 08:00 Temperature 98.5 F 97.9 F Pulse Rate 72 72 93 H Respiratory 11 L 18 Rate Blood Pressure 131/97 Blood Pressure 128/93 124/83 [Left] O2 Sat by Pulse 100 96 Oximetry 06/06/18 06/06/18 06/06/18 09:00 10:00 10:43 Temperature Pulse Rate 70 71 Respiratory 12 Rate Blood Pressure 138/99 Blood Pressure [Left] O2 Sat by Pulse 95 Oximetry 06/06/18 12:00 Temperature 97.7 F Pulse Rate 103 H Respiratory Rate Blood Pressure Blood Pressure 121/94 [Left] O2 Sat by Pulse Oximetry Constitutional: no acute distress, other (weak-appearing) Eyes: non-icteric ENT: oropharynx moist Neck: supple Effort: normal Ascultation: Bilateral: diminished breath sounds (bases) Cardiovascular: regular rate and rhythm (no mrg) Gastrointestinal: normoactive bowel sounds, non-distended Integumentary: normal Extremities: no cyanosis, edema (1+ bilateral edema up to thighs) Neurologic: normal mental status, non-focal exam, pupils equal and round Psychiatric: mood appropriate, affect normal CBC and BMP: 06/06/18 05:08 06/06/18 05:08 ABG, PT/INR, D-dimer: ABG POC ABG pH 7.400 (7.35-7.45) 06/01/18 16:18 POC ABG pCO2 33.1 (35-45) L 06/01/18 16:18 POC ABG pO2 121 (80-105) H 06/01/18 16:18 POC ABG HCO3 20.5 06/01/18 16:18 POC ABG Total CO2 21 06/01/18 16:18 POC ABG O2 Sat 99 06/01/18 16:18 PT/INR, D-dimer PT 21.4 Sec. (12.2-14.9) H 06/01/18 01:12 INR 1.79 (0.87-1.13) H 06/01/18 01:12 D-Dimer 1834.40 ng/mlDDU (0-234) H 05/31/18 11:48 Abnormal lab findings: Abnormal Labs 05/31/18 05/31/18 05/31/18 04:38 04:58 05:14 RBC Hgb Hct MCV MCH RDW Plt Count Seg Neuts % (Manual) Lymphocytes % (Manual) Nucleated RBC % Seg Neutrophils # Man Lymphocytes # (Manual) PT INR D-Dimer POC ABG pH POC ABG pCO2 POC ABG pO2 Sodium Potassium Carbon Dioxide BUN Creatinine Glucose POC Glucose < 40 L 64 L 258 H Calcium Magnesium Total Bilirubin AST ALT Alkaline Phosphatase Ammonia Total Creatine Kinase CK-MB (CK-2) CK-MB (CK-2) Rel Index Troponin T NT-Pro-B Natriuret Pep Total Protein Albumin HDL Cholesterol 05/31/18 05/31/18 05/31/18 05:15 05:15 05:22 RBC 5.33 H Hgb Hct 45.8 H MCV MCH RDW 16.4 H Plt Count Seg Neuts % (Manual) 88.0 H Lymphocytes % (Manual) 6.0 L Nucleated RBC % 1.0 H Seg Neutrophils # Man Lymphocytes # (Manual) 0.4 L PT 20.9 H INR 1.74 H D-Dimer POC ABG pH POC ABG pCO2 POC ABG pO2 Sodium Potassium Carbon Dioxide BUN Creatinine Glucose POC Glucose Calcium Magnesium Total Bilirubin AST ALT Alkaline Phosphatase Ammonia 68.0 H Total Creatine Kinase CK-MB (CK-2) CK-MB (CK-2) Rel Index Troponin T NT-Pro-B Natriuret Pep Total Protein Albumin HDL Cholesterol 05/31/18 05/31/18 05/31/18 05:49 07:13 07:22 RBC Hgb Hct MCV MCH RDW Plt Count Seg Neuts % (Manual) Lymphocytes % (Manual) Nucleated RBC % Seg Neutrophils # Man Lymphocytes # (Manual) PT INR D-Dimer POC ABG pH POC ABG pCO2 POC ABG pO2 Sodium 135 L Potassium 6.0 H Carbon Dioxide 13 L BUN 87 H Creatinine 2.5 H Glucose 249 H POC Glucose 124 H Calcium 7.8 L Magnesium 2.40 H Total Bilirubin 2.60 H AST 60 H ALT Alkaline Phosphatase 592 H Ammonia Total Creatine Kinase 374 H CK-MB (CK-2) 22.3 H CK-MB (CK-2) Rel Index 5.9 H Troponin T 0.260 H* NT-Pro-B Natriuret Pep 11832 H Total Protein 5.5 L Albumin 3.0 L HDL Cholesterol 91 H 05/31/18 05/31/18 05/31/18 09:33 10:53 11:48 RBC Hgb 15.4 H Hct 49.2 H MCV MCH RDW Plt Count Seg Neuts % (Manual) Lymphocytes % (Manual) Nucleated RBC % Seg Neutrophils # Man Lymphocytes # (Manual) PT INR D-Dimer POC ABG pH POC ABG pCO2 POC ABG pO2 Sodium Potassium Carbon Dioxide BUN Creatinine Glucose POC Glucose 168 H 106 H Calcium Magnesium Total Bilirubin AST ALT Alkaline Phosphatase Ammonia Total Creatine Kinase CK-MB (CK-2) CK-MB (CK-2) Rel Index Troponin T NT-Pro-B Natriuret Pep Total Protein Albumin HDL Cholesterol 05/31/18 05/31/18 05/31/18 11:48 11:48 11:51 RBC Hgb Hct MCV MCH RDW Plt Count Seg Neuts % (Manual) Lymphocytes % (Manual) Nucleated RBC % Seg Neutrophils # Man Lymphocytes # (Manual) PT 20.6 H INR 1.71 H D-Dimer 1834.40 H POC ABG pH 6.997 L POC ABG pCO2 59.6 H POC ABG pO2 Sodium Potassium Carbon Dioxide BUN Creatinine Glucose POC Glucose Calcium Magnesium Total Bilirubin AST ALT Alkaline Phosphatase Ammonia Total Creatine Kinase CK-MB (CK-2) CK-MB (CK-2) Rel Index Troponin T 0.230 H* NT-Pro-B Natriuret Pep Total Protein Albumin HDL Cholesterol 05/31/18 05/31/18 05/31/18 15:53 18:29 19:26 RBC Hgb Hct MCV MCH RDW Plt Count Seg Neuts % (Manual) Lymphocytes % (Manual) Nucleated RBC % Seg Neutrophils # Man Lymphocytes # (Manual) PT INR D-Dimer POC ABG pH 7.328 L POC ABG pCO2 29.6 L POC ABG pO2 200 H Sodium Potassium Carbon Dioxide BUN Creatinine Glucose POC Glucose < 40 L 68 L Calcium Magnesium Total Bilirubin AST ALT Alkaline Phosphatase Ammonia Total Creatine Kinase CK-MB (CK-2) CK-MB (CK-2) Rel Index Troponin T NT-Pro-B Natriuret Pep Total Protein Albumin HDL Cholesterol 05/31/18 06/01/18 06/01/18 20:40 01:12 03:40 RBC Hgb Hct MCV 83 L MCH 27 L RDW 15.4 H Plt Count 135 L Seg Neuts % (Manual) 95.0 H Lymphocytes % (Manual) 4.0 L Nucleated RBC % Seg Neutrophils # Man Lymphocytes # (Manual) 0.3 L PT 21.4 H INR 1.79 H D-Dimer POC ABG pH POC ABG pCO2 POC ABG pO2 Sodium Potassium 5.5 H Carbon Dioxide 13 L BUN 89 H Creatinine 2.7 H Glucose 72 L POC Glucose Calcium 7.2 L Magnesium Total Bilirubin AST ALT Alkaline Phosphatase Ammonia Total Creatine Kinase CK-MB (CK-2) CK-MB (CK-2) Rel Index Troponin T NT-Pro-B Natriuret Pep Total Protein Albumin HDL Cholesterol 06/01/18 06/01/18 06/01/18 03:40 04:59 08:29 RBC Hgb Hct MCV MCH RDW Plt Count Seg Neuts % (Manual) Lymphocytes % (Manual) Nucleated RBC % Seg Neutrophils # Man Lymphocytes # (Manual) PT INR D-Dimer POC ABG pH 7.474 H POC ABG pCO2 26.1 L POC ABG pO2 116 H Sodium Potassium 5.3 H Carbon Dioxide 16 L BUN 92 H Creatinine 2.7 H Glucose 61 L POC Glucose 69 L Calcium 7.2 L Magnesium Total Bilirubin AST ALT Alkaline Phosphatase Ammonia Total Creatine Kinase CK-MB (CK-2) CK-MB (CK-2) Rel Index Troponin T NT-Pro-B Natriuret Pep Total Protein Albumin HDL Cholesterol 06/01/18 06/01/18 06/01/18 10:49 14:02 16:18 RBC Hgb Hct MCV MCH RDW Plt Count Seg Neuts % (Manual) Lymphocytes % (Manual) Nucleated RBC % Seg Neutrophils # Man Lymphocytes # (Manual) PT INR D-Dimer POC ABG pH POC ABG pCO2 33.1 L POC ABG pO2 121 H Sodium Potassium Carbon Dioxide BUN Creatinine Glucose POC Glucose 108 H Calcium Magnesium Total Bilirubin AST ALT Alkaline Phosphatase Ammonia Total Creatine Kinase CK-MB (CK-2) CK-MB (CK-2) Rel Index Troponin T 0.242 H* NT-Pro-B Natriuret Pep Total Protein Albumin HDL Cholesterol 06/01/18 06/02/18 06/02/18 16:58 04:52 04:53 RBC 5.12 H Hgb Hct MCV 81 L MCH 27 L RDW Plt Count Seg Neuts % (Manual) 87.0 H Lymphocytes % (Manual) 2.0 L Nucleated RBC % Seg Neutrophils # Man 9.2 H Lymphocytes # (Manual) 0.2 L PT INR D-Dimer POC ABG pH POC ABG pCO2 POC ABG pO2 Sodium Potassium Carbon Dioxide BUN Creatinine Glucose POC Glucose 69 L Calcium Magnesium Total Bilirubin AST ALT Alkaline Phosphatase Ammonia Total Creatine Kinase CK-MB (CK-2) CK-MB (CK-2) Rel Index Troponin T 0.268 H* NT-Pro-B Natriuret Pep Total Protein Albumin HDL Cholesterol 06/02/18 06/02/18 06/02/18 04:53 11:50 14:05 RBC Hgb Hct MCV MCH RDW Plt Count Seg Neuts % (Manual) Lymphocytes % (Manual) Nucleated RBC % Seg Neutrophils # Man Lymphocytes # (Manual) PT INR D-Dimer POC ABG pH POC ABG pCO2 POC ABG pO2 Sodium Potassium 5.4 H Carbon Dioxide 16 L BUN 94 H Creatinine 2.7 H Glucose 101 H POC Glucose 133 H 113 H Calcium 7.7 L Magnesium Total Bilirubin AST ALT Alkaline Phosphatase Ammonia Total Creatine Kinase CK-MB (CK-2) CK-MB (CK-2) Rel Index Troponin T NT-Pro-B Natriuret Pep Total Protein Albumin HDL Cholesterol 06/02/18 06/02/18 06/04/18 17:47 17:55 07:27 RBC Hgb Hct MCV MCH RDW Plt Count Seg Neuts % (Manual) Lymphocytes % (Manual) Nucleated RBC % Seg Neutrophils # Man Lymphocytes # (Manual) PT INR D-Dimer POC ABG pH POC ABG pCO2 POC ABG pO2 Sodium Potassium Carbon Dioxide 21 L 20 L BUN 90 H 87 H Creatinine 2.7 H 2.5 H Glucose 120 H 71 L POC Glucose 120 H Calcium 7.5 L 7.7 L Magnesium Total Bilirubin 2.70 H AST 92 H ALT 67 H Alkaline Phosphatase 624 H Ammonia Total Creatine Kinase CK-MB (CK-2) CK-MB (CK-2) Rel Index Troponin T NT-Pro-B Natriuret Pep Total Protein 5.4 L Albumin 2.9 L HDL Cholesterol 06/06/18 06/06/18 06/06/18 05:08 05:08 06:17 RBC Hgb Hct MCV MCH RDW Plt Count 124 L Seg Neuts % (Manual) Lymphocytes % (Manual) Nucleated RBC % Seg Neutrophils # Man Lymphocytes # (Manual) PT INR D-Dimer POC ABG pH POC ABG pCO2 POC ABG pO2 Sodium Potassium Carbon Dioxide 21 L BUN 98 H Creatinine 2.7 H Glucose 61 L POC Glucose 48 L Calcium 8.0 L Magnesium Total Bilirubin AST ALT Alkaline Phosphatase Ammonia Total Creatine Kinase CK-MB (CK-2) CK-MB (CK-2) Rel Index Troponin T NT-Pro-B Natriuret Pep Total Protein Albumin HDL Cholesterol 06/06/18 14:22 RBC Hgb Hct MCV MCH RDW Plt Count Seg Neuts % (Manual) Lymphocytes % (Manual) Nucleated RBC % Seg Neutrophils # Man Lymphocytes # (Manual) PT INR D-Dimer POC ABG pH POC ABG pCO2 POC ABG pO2 Sodium Potassium Carbon Dioxide BUN Creatinine Glucose POC Glucose 228 H Calcium Magnesium Total Bilirubin AST ALT Alkaline Phosphatase Ammonia Total Creatine Kinase CK-MB (CK-2) CK-MB (CK-2) Rel Index Troponin T NT-Pro-B Natriuret Pep Total Protein Albumin HDL Cholesterol Chest x-ray: report reviewed, image reviewed (CHF)
[2018-06-07] MEDS: D50W (25GM) Syringe IV PRN ×2 (02:17→08:40)
[2018-06-07] MEDS: APRESOLINE PO SCH (05:54)
[2018-06-07 05:57] LABS: Calcium 7.5 mg/dL (8.4-10.2)
[2018-06-07] MEDS: LASIX IV SCH (06:06)
--- NOTE | 2018-06-07 09:10 | Progress Note ---
Assessment and Plan Assessment * Acute kidney injury. * Severe cardiomyopathy status post non-ST elevation [place] ejection fraction of the 10% range * Hyperkalemia * metabolic acidosis * History of coronary artery disease, poor ejection fraction, Recommendations * patient's volume status has improved * pt has a condom catheter in place . approx 900 cc of urine recorded * BUN/ creatinine noted to be higher. Hold diuretics for now * Avoid nephrotoxins * Not a good candidate for ACEI or ARB at this time * Renal prognosis remains guarded at this time * Repeat CXR still showing CHF * Discussed with patient daughter at bedside about possibility of dialysis if renal function worsens . She is to discuss with other family members Subjective Date of service: 06/07/18 Principal diagnosis: Respiratory failure, non STEMI,CMP Interval history: patient feel well this morning . SOB much improved . Denies nausea or vomiting . Currently on warming blanket. Appetite still poor . Still confused Objective - Vital Signs Vital signs: Vital Signs - 12hr 06/06/18 06/06/18 06/06/18 21:33 22:00 22:07 Temperature Pulse Rate 61 60 66 Respiratory 10 L 10 L 14 Rate Blood Pressure 121/92 116/85 116/85 Blood Pressure [Left] O2 Sat by Pulse 98 98 99 Oximetry 06/06/18 06/06/18 06/06/18 22:14 23:00 23:34 Temperature Pulse Rate 62 62 63 Respiratory 10 L Rate Blood Pressure 116/85 114/81 Blood Pressure [Left] O2 Sat by Pulse 96 Oximetry 06/07/18 06/07/18 06/07/18 00:00 01:00 02:00 Temperature 97.4 F L Pulse Rate 60 61 67 Respiratory 11 L 13 16 Rate Blood Pressure 106/59 105/72 105/72 Blood Pressure 106/59 [Left] O2 Sat by Pulse 95 95 97 Oximetry 06/07/18 06/07/18 06/07/18 03:00 04:00 04:01 Temperature 98.1 F Pulse Rate 67 65 67 Respiratory 13 16 15 Rate Blood Pressure 108/78 106/75 Blood Pressure 106/75 [Left] O2 Sat by Pulse 98 96 Oximetry 06/07/18 06/07/18 06/07/18 05:00 05:54 06:00 Temperature Pulse Rate 65 65 65 Respiratory 13 12 Rate Blood Pressure 102/73 100/71 107/73 Blood Pressure [Left] O2 Sat by Pulse 97 97 Oximetry 06/07/18 06/07/18 07:00 08:00 Temperature 98.1 F Pulse Rate 67 67 Respiratory 15 13 Rate Blood Pressure 109/76 109/79 Blood Pressure [Left] O2 Sat by Pulse 97 99 Oximetry - General Appearance General appearance: chronically ill, frail EENT: PERRL, mucous membranes moist Neck: no JVD, no thyromegaly Respiratory: Present: Clear to Ascultation Cardiology: regular, normal heart rate Gastrointestinal: normal, normoactive bowel sounds Integumentary: no rash, other (1+ edema . Wrinkling of skin noted ) - Lab 06/06/18 05:08 06/07/18 05:07 Most recent lab results Calcium 7.5 mg/dL (8.4-10.2) L 06/07/18 05:07 Magnesium 2.40 mg/dL (1.7-2.3) H 05/31/18 07:13
--- NOTE | 2018-06-07 09:30 | Progress Note ---
Assessment and Plan Pt's volume status appears to be improving and pt appears clinically stable and comfortable. CXR yesterday showed persistent HF. Can consider dobutamine gtt if necessary for additional diuresis. Renal indices trending upwards. Cont diuresis per nephrology. Renal prognosis is guarded per nephrology. BPs borderline low this AM and thus hydralazine was held. D/c hydralazine and continue coreg and Imdur. No ACEI/ARB at this time in setting of renal insufficiency. Overall prognosis remains guarded because of his multiple medical issues. Increase activity gradually. D/w pt and pt's family members at bedside. The patient has been seen in conjunction with Dr. ANNE-MARIE Gil who agrees with the assessment and plan of care. - Patient Problems (1) Acute combined systolic and diastolic heart failure Current Visit: Yes Status: Acute (2) NICM (nonischemic cardiomyopathy) Current Visit: Yes Status: Chronic (3) Right ventricular systolic dysfunction Current Visit: Yes Status: Acute (4) Pulmonary HTN Current Visit: Yes Status: Chronic (5) Non-ST elevation [place] (NSTEMI) Current Visit: Yes Status: Acute (6) Metabolic encephalopathy Current Visit: Yes Status: Acute (7) Acute on chronic kidney failure Current Visit: Yes Status: Acute (8) Hyperkalemia Current Visit: Yes Status: Acute (9) Hypoglycemia Current Visit: Yes Status: Acute (10) Hypothermia Current Visit: Yes Status: Acute Qualifiers: Encounter type: initial encounter Qualified Code(s): T68.XXXA - Hypothermia , initial encounter (11) Moderate to severe mitral regurgitation Current Visit: Yes Status: Chronic (12) Tricuspid regurgitation Current Visit: Yes Status: Chronic Subjective Date of service: 06/07/18 Principal diagnosis: Respiratory failure, non STEMI,CMP Interval history: pt resting in bed, alert and oriented. states he is feeling well. family at bedside. Objective Last Vital Signs Temp 98.1 F 06/07/18 08:00 Pulse 67 06/07/18 08:00 Resp 95 H 06/07/18 08:00 BP 109/79 06/07/18 08:00 Pulse Ox 99 06/07/18 08:00 - Physical Examination General: No Apparent Distress HEENT: Positive: PERRL Neck: Positive: neck supple, trachea midline Cardiac: Positive: Reg Rate and Rhythm, S1/S2, Systolic Murmur Lungs: Positive: Decreased Breath Sounds Neuro: Positive: Grossly Intact Abdomen: Positive: Soft. Negative: Tender Skin: Negative: Rash, Wound Extremities: Absent: edema - Labs and Meds Comprehensive Metabolic Panel 06/07/18 Range/Units 05:07 Sodium 143 (137-145) mmol/L Potassium 3.6 (3.6-5.0) mmol/L Chloride 100.0 (98-107) mmol/L Carbon Dioxide 23 (22-30) mmol/L BUN 111 H (9-20) mg/dL Creatinine 2.9 H (0.8-1.5) mg/dL Glucose 92 (75-100) mg/dL Calcium 7.5 L (8.4-10.2) mg/dL - Imaging and Cardiology EKG: report reviewed, image reviewed Echo: report reviewed (EF 5-10%, LA mild to mod dilated, RA mildly dilated, mod to severe MR, mod to severe TR, mild AR, pseudonormalization, RV mildly dilated , RV systolic function severely reduced, mod pulm HTN with RVSP 52mmHg, small pericardial effusion. ) Cardiac cath: report reviewed (pt underwent LHC & RHC on 12/27/2017 which showed nonobstructive CAD with RCA 40% and Cristiano 35% lesions; non-ischemic cardiomyoapthy. ) - Telemetry EKG Rhythm: Sinus Rhythm - EKG Sinus rhythms and dysrhythmias: sinus rhythm
[2018-06-07] MEDS: PEPCID PO SCH (09:59)
[2018-06-07] MEDS: IMDUR PO SCH (09:59)
[2018-06-07] MEDS: COREG PO SCH ×2 (09:59→22:21)
[2018-06-07] MEDS: SODIUM CHLORIDE FLUSH SYRINGE 10 ML IV SCH ×2 (10:00→22:21)
--- NOTE | 2018-06-07 11:20 | Progress Note ---
Assessment and Plan Assessment and plan: NSTEMI - Patient is on heparin drip, aspirin, - Cardiology consult appreciated Acute renal failure - Nephrology consulted CHF - EF 5-10%, will follow cardiology recommendations - Patient is breathing comfortable - No ACEI/ARB at this time in setting of renal insufficiency. - Cont diuresis per nephrology. - Cardiology to consider dobutamine gtt if necessary for additional diuresis. Hypothermia - Blood cultures no growth so far - Patient is on Zosyn Respiratory/metabolic acidosis - Patient was intubated and on mechanical ventilation, extubated on 06/01 -Resolved Encephalopathy - he has chronic liver disease and ammonia was checked , normal DVT prophylaxis - On heparin drip Disposition PT is recommending subacute rehabilitation placement. I discussed with the daughter at the bedside plan of care and placement. Overall prognosis remains guarded History Interval history: 63-year-old -[place] male was presented to the ED with complaints of shortness of breath, chest pain, altered mental status Cardiac enzymes was done in the ED and was high, chest x-ray showed bilateral pleural effusion, elevated BNP, elevated creatinine. Hospitalist Physical - Constitutional Vitals: Temp Pulse Resp BP Pulse Ox 98.1 F 68 10 L 101/71 95 06/07/18 08:00 06/07/18 10:00 06/07/18 10:00 06/07/18 10:00 06/07/18 10:00 General appearance: Present: other (lethargic) - EENT Eyes: Present: PERRL, EOM intact ENT: hearing intact, clear oral mucosa, dentition normal - Neck Neck: Present: supple, normal ROM - Respiratory Respiratory effort: normal Respiratory: bilateral: CTA - Cardiovascular Rhythm: regular Heart Sounds: Present: S1 & S2. Absent: gallop, rub - Extremities Extremities: no ischemia, No edema, Full ROM - Abdominal General gastrointestinal: soft, non-tender, non-distended, normal bowel sounds - Integumentary Integumentary: Present: clear, warm, dry - Neurologic Neurologic: CNII-XII intact, moves all extremities Results - Labs CBC & Chem 7: 06/06/18 05:08 06/07/18 05:07 Labs: Laboratory Last Values WBC 10.6 K/mm3 (4.5-11.0) 06/02/18 04:53 RBC 5.12 M/mm3 (3.65-5.03) H 06/02/18 04:53 Hgb 13.7 gm/dl (11.8-15.2) 06/06/18 05:08 Hct 42.8 % (35.5-45.6) 06/06/18 05:08 MCV 81 fl (84-94) L 06/02/18 04:53 MCH 27 pg (28-32) L 06/02/18 04:53 MCHC 34 % (32-34) 06/02/18 04:53 RDW 15.1 % (13.2-15.2) 06/02/18 04:53 Plt Count 124 K/mm3 (140-440) L 06/06/18 05:08 Add Manual Diff Complete 06/02/18 04:53 Total Counted 100 06/02/18 04:53 Seg Neuts % (Manual) 87.0 % (40.0-70.0) H 06/02/18 04:53 Band Neutrophils % 9.0 % 06/02/18 04:53 Lymphocytes % (Manual) 2.0 % (13.4-35.0) L 06/02/18 04:53 Reactive Lymphs % (Man) 0 % 06/02/18 04:53 Monocytes % (Manual) 2.0 % (0.0-7.3) 06/02/18 04:53 Eosinophils % (Manual) 0 % (0.0-4.3) 06/02/18 04:53 Basophils % (Manual) 0 % (0.0-1.8) 06/02/18 04:53 Metamyelocytes % 0 % 06/02/18 04:53 Myelocytes % 0 % 06/02/18 04:53 Promyelocytes % 0 % 06/02/18 04:53 Blast Cells % 0 % 06/02/18 04:53 Nucleated RBC % Not Reportable 06/02/18 04:53 Seg Neutrophils # Man 9.2 K/mm3 (1.8-7.7) H 06/02/18 04:53 Band Neutrophils # 1.0 K/mm3 06/02/18 04:53 Lymphocytes # (Manual) 0.2 K/mm3 (1.2-5.4) L 06/02/18 04:53 Abs React Lymphs (Man) 0.0 K/mm3 06/02/18 04:53 Monocytes # (Manual) 0.2 K/mm3 (0.0-0.8) 06/02/18 04:53 Eosinophils # (Manual) 0.0 K/mm3 (0.0-0.4) 06/02/18 04:53 Basophils # (Manual) 0.0 K/mm3 (0.0-0.1) 06/02/18 04:53 Metamyelocytes # 0.0 K/mm3 06/02/18 04:53 Myelocytes # 0.0 K/mm3 06/02/18 04:53 Promyelocytes # 0.0 K/mm3 06/02/18 04:53 Blast Cells # 0.0 K/mm3 06/02/18 04:53 WBC Morphology Not Reportable 06/02/18 04:53 Hypersegmented Neuts Not Reportable 06/02/18 04:53 Hyposegmented Neuts Not Reportable 06/02/18 04:53 Hypogranular Neuts Not Reportable 06/02/18 04:53 Smudge Cells Not Reportable 06/02/18 04:53 Toxic Granulation Not Reportable 06/02/18 04:53 Toxic Vacuolation Not Reportable 06/02/18 04:53 Dohle Bodies Not Reportable 06/02/18 04:53 Pelger-Huet Anomaly Not Reportable 06/02/18 04:53 Trae Rods Not Reportable 06/02/18 04:53 Platelet Estimate Consistent w auto 06/02/18 04:53 Clumped Platelets Not Reportable 06/02/18 04:53 Plt Clumps, EDTA Not Reportable 06/02/18 04:53 Large Platelets Not Reportable 06/02/18 04:53 Giant Platelets Not Reportable 06/02/18 04:53 Platelet Satelliting Not Reportable 06/02/18 04:53 Plt Morphology Comment Not Reportable 06/02/18 04:53 RBC Morphology Not Reportable 06/02/18 04:53 Dimorphic RBCs Not Reportable 06/02/18 04:53 Polychromasia 1+ 06/02/18 04:53 Hypochromasia Not Reportable 06/02/18 04:53 Poikilocytosis Not Reportable 06/02/18 04:53 Anisocytosis Not Reportable 06/02/18 04:53 Microcytosis Not Reportable 06/02/18 04:53 Macrocytosis Not Reportable 06/02/18 04:53 Spherocytes Not Reportable 06/02/18 04:53 Pappenheimer Bodies Not Reportable 06/02/18 04:53 Sickle Cells Not Reportable 06/02/18 04:53 Target Cells 1+ 06/02/18 04:53 Tear Drop Cells Not Reportable 06/02/18 04:53 Ovalocytes Not Reportable 06/02/18 04:53 Helmet Cells Not Reportable 06/02/18 04:53 Hall-[place] Bodies Not Reportable 06/02/18 04:53 [place] Rings Not Reportable 06/02/18 04:53 Andres Cells Not Reportable 06/02/18 04:53 Bite Cells Not Reportable 06/02/18 04:53 Crenated Cell Not Reportable 06/02/18 04:53 Elliptocytes Not Reportable 06/02/18 04:53 Acanthocytes (Spur) Not Reportable 06/02/18 04:53 Rouleaux Not Reportable 06/02/18 04:53 Hemoglobin C Crystals Not Reportable 06/02/18 04:53 Schistocytes Not Reportable 06/02/18 04:53 Malaria parasites Not Reportable 06/02/18 04:53 Dann Bodies Not Reportable 06/02/18 04:53 Hem Pathologist Commnt No 06/02/18 04:53 PT 21.4 Sec. (12.2-14.9) H 06/01/18 01:12 INR 1.79 (0.87-1.13) H 06/01/18 01:12 APTT 33.2 Sec. (24.2-36.6) 06/01/18 01:12 D-Dimer 1834.40 ng/mlDDU (0-234) H 05/31/18 11:48 Heparin Anti-Xa Level 0.40 U.I./ml (0.3-0.7) 05/31/18 20:40 POC ABG pH 7.400 (7.35-7.45) 06/01/18 16:18 POC ABG pCO2 33.1 (35-45) L 06/01/18 16:18 POC ABG pO2 121 (80-105) H 06/01/18 16:18 POC ABG HCO3 20.5 06/01/18 16:18 POC ABG Total CO2 21 06/01/18 16:18 POC ABG O2 Sat 99 06/01/18 16:18 POC ABG Base Excess -4 06/01/18 16:18 FiO2 35 % 06/01/18 16:18 Sodium 143 mmol/L (137-145) 06/07/18 05:07 Potassium 3.6 mmol/L (3.6-5.0) 06/07/18 05:07 Chloride 100.0 mmol/L (98-107) 06/07/18 05:07 Carbon Dioxide 23 mmol/L (22-30) 06/07/18 05:07 Anion Gap 24 mmol/L 06/07/18 05:07 BUN 111 mg/dL (9-20) H 06/07/18 05:07 Creatinine 2.9 mg/dL (0.8-1.5) H 06/07/18 05:07 Estimated GFR 27 ml/min 06/07/18 05:07 BUN/Creatinine Ratio 38 % 06/07/18 05:07 Glucose 92 mg/dL (75-100) 06/07/18 05:07 POC Glucose 133 (70-105) H 06/07/18 09:03 Lactic Acid 1.50 mmol/L (0.7-2.0) 05/31/18 07:13 Calcium 7.5 mg/dL (8.4-10.2) L 06/07/18 05:07 Magnesium 2.40 mg/dL (1.7-2.3) H 05/31/18 07:13 Total Bilirubin 2.70 mg/dL (0.1-1.2) H 06/02/18 17:47 AST 92 units/L (5-40) H 06/02/18 17:47 ALT 67 units/L (7-56) H 06/02/18 17:47 Alkaline Phosphatase 624 units/L (35-129) H 06/02/18 17:47 Ammonia 35.0 umol/L (25-60) 06/04/18 10:48 Total Creatine Kinase 374 units/L (55-170) H 05/31/18 05:49 CK-MB (CK-2) 22.3 ng/mL (0.0-4.0) H 05/31/18 05:49 CK-MB (CK-2) Rel Index 5.9 (0-4) H 05/31/18 05:49 Troponin T 0.268 ng/mL (0.00-0.029) H* 06/02/18 04:52 NT-Pro-B Natriuret Pep 35730 pg/mL (0-900) H 05/31/18 05:49 Total Protein 5.4 g/dL (6.3-8.2) L 06/02/18 17:47 Albumin 2.9 g/dL (3.9-5) L 06/02/18 17:47 Albumin/Globulin Ratio 1.2 % 06/02/18 17:47 Triglycerides 16 mg/dL (2-149) 05/31/18 05:49 Cholesterol 142 mg/dL (50-199) 05/31/18 05:49 LDL Cholesterol Direct 52 mg/dL (50-130) 05/31/18 05:49 HDL Cholesterol 91 mg/dL (40-59) H 05/31/18 05:49 Cholesterol/HDL Ratio 1.56 % 05/31/18 05:49 Urine Color [place] (Yellow) 05/31/18 05:20 Urine Turbidity Slightly-cloudy (Clear) 05/31/18 05:20 Urine pH 5.0 (5.0-7.0) 05/31/18 05:20 Ur Specific [place] 1.016 (1.003-1.030) 05/31/18 05:20 Urine Protein >500 mg/dL (Negative) 05/31/18 05:20 Urine Glucose (UA) Neg mg/dL (Negative) 05/31/18 05:20 Urine Ketones Neg mg/dL (Negative) 05/31/18 05:20 Urine Blood Sm (Negative) 05/31/18 05:20 Urine Nitrite Neg (Negative) 05/31/18 05:20 Urine Bilirubin Neg (Negative) 05/31/18 05:20 Urine Urobilinogen 4.0 mg/dL (<2.0) 05/31/18 05:20 Ur Leukocyte Esterase Neg (Negative) 05/31/18 05:20 Urine WBC (Auto) 6.0 /HPF (0.0-6.0) 05/31/18 05:20 Urine RBC (Auto) 9.0 /HPF (0.0-6.0) 05/31/18 05:20 U Epithel Cells (Auto) < 1.0 /HPF (0-13.0) 05/31/18 05:20 Urine Mucus Few /HPF 05/31/18 05:20 Urine Yeast (Budding) 1+ /HPF 05/31/18 05:20 Urine Opiates Screen Presumptive negative 05/31/18 05:20 Urine Methadone Screen Presumptive negative 05/31/18 05:20 Ur Barbiturates Screen Presumptive negative 05/31/18 05:20 Ur Phencyclidine Scrn Presumptive negative 05/31/18 05:20 Ur Amphetamines Screen Presumptive negative 05/31/18 05:20 U Benzodiazepines Scrn Presumptive negative 05/31/18 05:20 Urine Cocaine Screen Presumptive negative 05/31/18 05:20 U Marijuana (THC) Screen Presumptive negative 05/31/18 05:20 Drugs of Abuse Note Disclamer 05/31/18 05:20 Plasma/Serum Alcohol < 0.01 % (0-0.07) 05/31/18 05:22
--- NOTE | 2018-06-07 13:55 | Progress Note ---
Assessment and Plan Imp: 1. NICMP 2. A/C systolic CHF 3. Pleural effusions 2/2 above 4. EDER 5. Acute respiratory failure, hypoxia 6. Pulm HTN 2/2 #'s 1 and 2 Rec: 1. Diuresis as tolerated 2. BP/cardiac optimization 3. Monitor CXR periodically 4. Not convinced about the pneumonia diagnosis; stopped Zosyn 5. Wean O2 to keep sats 88% or above; home O2 eval. 6. Try to mobilize; needs to improve nutrition as well; pulm status stable 7. Still with significant CHF on CXR and diffuse peripheral edema; consider inotropic therapy if fails to adequately mobilize fluid with Lasix alone 8. Check thyroid function and random cortisol 9. Prognosis is guarded due to multiple issues Plan of care reviewed with patient/family, they understand/agree Subjective Date of service: 06/07/18 Principal diagnosis: Respiratory failure, non STEMI,CMP Interval history: No events. Breathing stable. Having some hypoglycemia and hypothermia. No chest pain. No cough, sputum. Feels weak. Has some nasal congestion. On RA currently. Poor appetite and PO intake. Active Medications Acetaminophen (Tylenol) 650 mg PO Q4H PRN PRN Reason: Pain MILD(1-3)/Fever >100.5/VARGAS Albuterol (Proventil) 2.5 mg IH Q4HRT PRN PRN Reason: Shortness Of Breath Lipase/Protease/Amylase (Alessio Richardson 10,500 Unit) 1 each FEEDTUBE PRN PRN PRN Reason: For Clogged Feeding Tube Carvedilol (Coreg) 3.125 mg PO BID [facility] Last Admin: 06/07/18 09:59 Dose: 3.125 mg Dextrose (D50w (25gm) Syringe) 50 ml IV PRN PRN PRN Reason: Hypoglycemia Last Admin: 06/07/18 08:40 Dose: 50 ml Famotidine (Pepcid) 20 mg PO DAILY [facility] Last Admin: 06/07/18 09:59 Dose: 20 mg Hydrophilic Ointment (Vaseline Lip Therapy) 1 applic TP Q2HR PRN PRN Reason: Dry Lips Isosorbide Mononitrate (Imdur) 30 mg PO QDAY [facility] Last Admin: 06/07/18 09:59 Dose: 30 mg Morphine Sulfate (Morphine) 2 mg IV Q4H PRN PRN Reason: Pain, Moderate (4-6) Last Admin: 06/02/18 22:57 Dose: 2 mg Multi-Ingred Cream/Lotion/Oil/Oint (Artificial Tears Ophth Oint) 1 applic OU Q4HR PRN PRN Reason: Dry Eye(s) Ondansetron HCl (Zofran) 4 mg IV Q8H PRN PRN Reason: Nausea And Vomiting Simple Syrup (Simple Syrup) 15 ml FEEDTUBE PRN PRN PRN Reason: Hypoglycemia Simple Syrup (Simple Syrup) 30 ml FEEDTUBE PRN PRN PRN Reason: Hypoglycemia Sodium Bicarbonate (Sodium Bicarbonate) 325 mg FEEDTUBE PRN PRN PRN Reason: For Clogged Feeding Tube Sodium Chloride (Sodium Chloride Flush Syringe 10 Ml) 10 ml IV BID [facility] Last Admin: 06/07/18 10:00 Dose: 10 ml Sodium Chloride (Sodium Chloride Flush Syringe 10 Ml) 10 ml IV PRN PRN PRN Reason: LINE FLUSH Sodium Chloride (Nacl 0.9% 500 Ml) 1 ml IV DIRECT [facility] Objective Vital Signs - 12hr 06/07/18 06/07/18 06/07/18 02:00 03:00 04:00 Temperature 98.1 F Pulse Rate 67 67 65 Respiratory 16 13 16 Rate Blood Pressure 105/72 108/78 Blood Pressure 106/75 [Left] O2 Sat by Pulse 97 98 96 Oximetry 06/07/18 06/07/18 06/07/18 04:01 05:00 05:54 Temperature Pulse Rate 67 65 65 Respiratory 15 13 Rate Blood Pressure 106/75 102/73 100/71 Blood Pressure [Left] O2 Sat by Pulse 97 Oximetry 06/07/18 06/07/18 06/07/18 06:00 07:00 08:00 Temperature 98.1 F Pulse Rate 65 67 67 Respiratory 12 15 13 Rate Blood Pressure 107/73 109/76 109/79 Blood Pressure [Left] O2 Sat by Pulse 97 97 99 Oximetry 06/07/18 06/07/18 06/07/18 09:00 09:59 10:00 Temperature Pulse Rate 68 68 68 Respiratory 12 10 L Rate Blood Pressure 108/70 101/71 Blood Pressure [Left] O2 Sat by Pulse 94 95 Oximetry Constitutional: no acute distress, other (weak-appearing) Eyes: non-icteric ENT: oropharynx moist Neck: supple Effort: normal Ascultation: Bilateral: clear (anteriorly), diminished breath sounds (bases) Cardiovascular: regular rate and rhythm (no mrg) Gastrointestinal: normoactive bowel sounds, non-distended Integumentary: normal Extremities: no cyanosis, edema (1+ bilateral edema up to thighs) Neurologic: normal mental status, non-focal exam, pupils equal and round Psychiatric: mood appropriate, affect normal CBC and BMP: 06/06/18 05:08 06/07/18 05:07 ABG, PT/INR, D-dimer: ABG POC ABG pH 7.400 (7.35-7.45) 06/01/18 16:18 POC ABG pCO2 33.1 (35-45) L 06/01/18 16:18 POC ABG pO2 121 (80-105) H 06/01/18 16:18 POC ABG HCO3 20.5 06/01/18 16:18 POC ABG Total CO2 21 06/01/18 16:18 POC ABG O2 Sat 99 06/01/18 16:18 PT/INR, D-dimer PT 21.4 Sec. (12.2-14.9) H 06/01/18 01:12 INR 1.79 (0.87-1.13) H 06/01/18 01:12 D-Dimer 1834.40 ng/mlDDU (0-234) H 05/31/18 11:48 Abnormal lab findings: Abnormal Labs 05/31/18 05/31/18 05/31/18 04:38 04:58 05:14 RBC Hgb Hct MCV MCH RDW Plt Count Seg Neuts % (Manual) Lymphocytes % (Manual) Nucleated RBC % Seg Neutrophils # Man Lymphocytes # (Manual) PT INR D-Dimer POC ABG pH POC ABG pCO2 POC ABG pO2 Sodium Potassium Carbon Dioxide BUN Creatinine Glucose POC Glucose < 40 L 64 L 258 H Calcium Magnesium Total Bilirubin AST ALT Alkaline Phosphatase Ammonia Total Creatine Kinase CK-MB (CK-2) CK-MB (CK-2) Rel Index Troponin T NT-Pro-B Natriuret Pep Total Protein Albumin HDL Cholesterol 05/31/18 05/31/18 05/31/18 05:15 05:15 05:22 RBC 5.33 H Hgb Hct 45.8 H MCV MCH RDW 16.4 H Plt Count Seg Neuts % (Manual) 88.0 H Lymphocytes % (Manual) 6.0 L Nucleated RBC % 1.0 H Seg Neutrophils # Man Lymphocytes # (Manual) 0.4 L PT 20.9 H INR 1.74 H D-Dimer POC ABG pH POC ABG pCO2 POC ABG pO2 Sodium Potassium Carbon Dioxide BUN Creatinine Glucose POC Glucose Calcium Magnesium Total Bilirubin AST ALT Alkaline Phosphatase Ammonia 68.0 H Total Creatine Kinase CK-MB (CK-2) CK-MB (CK-2) Rel Index Troponin T NT-Pro-B Natriuret Pep Total Protein Albumin HDL Cholesterol 05/31/18 05/31/18 05/31/18 05:49 07:13 07:22 RBC Hgb Hct MCV MCH RDW Plt Count Seg Neuts % (Manual) Lymphocytes % (Manual) Nucleated RBC % Seg Neutrophils # Man Lymphocytes # (Manual) PT INR D-Dimer POC ABG pH POC ABG pCO2 POC ABG pO2 Sodium 135 L Potassium 6.0 H Carbon Dioxide 13 L BUN 87 H Creatinine 2.5 H Glucose 249 H POC Glucose 124 H Calcium 7.8 L Magnesium 2.40 H Total Bilirubin 2.60 H AST 60 H ALT Alkaline Phosphatase 592 H Ammonia Total Creatine Kinase 374 H CK-MB (CK-2) 22.3 H CK-MB (CK-2) Rel Index 5.9 H Troponin T 0.260 H* NT-Pro-B Natriuret Pep 78345 H Total Protein 5.5 L Albumin 3.0 L HDL Cholesterol 91 H 05/31/18 05/31/18 05/31/18 09:33 10:53 11:48 RBC Hgb 15.4 H Hct 49.2 H MCV MCH RDW Plt Count Seg Neuts % (Manual) Lymphocytes % (Manual) Nucleated RBC % Seg Neutrophils # Man Lymphocytes # (Manual) PT INR D-Dimer POC ABG pH POC ABG pCO2 POC ABG pO2 Sodium Potassium Carbon Dioxide BUN Creatinine Glucose POC Glucose 168 H 106 H Calcium Magnesium Total Bilirubin AST ALT Alkaline Phosphatase Ammonia Total Creatine Kinase CK-MB (CK-2) CK-MB (CK-2) Rel Index Troponin T NT-Pro-B Natriuret Pep Total Protein Albumin HDL Cholesterol 05/31/18 05/31/18 05/31/18 11:48 11:48 11:51 RBC Hgb Hct MCV MCH RDW Plt Count Seg Neuts % (Manual) Lymphocytes % (Manual) Nucleated RBC % Seg Neutrophils # Man Lymphocytes # (Manual) PT 20.6 H INR 1.71 H D-Dimer 1834.40 H POC ABG pH 6.997 L POC ABG pCO2 59.6 H POC ABG pO2 Sodium Potassium Carbon Dioxide BUN Creatinine Glucose POC Glucose Calcium Magnesium Total Bilirubin AST ALT Alkaline Phosphatase Ammonia Total Creatine Kinase CK-MB (CK-2) CK-MB (CK-2) Rel Index Troponin T 0.230 H* NT-Pro-B Natriuret Pep Total Protein Albumin HDL Cholesterol 05/31/18 05/31/18 05/31/18 15:53 18:29 19:26 RBC Hgb Hct MCV MCH RDW Plt Count Seg Neuts % (Manual) Lymphocytes % (Manual) Nucleated RBC % Seg Neutrophils # Man Lymphocytes # (Manual) PT INR D-Dimer POC ABG pH 7.328 L POC ABG pCO2 29.6 L POC ABG pO2 200 H Sodium Potassium Carbon Dioxide BUN Creatinine Glucose POC Glucose < 40 L 68 L Calcium Magnesium Total Bilirubin AST ALT Alkaline Phosphatase Ammonia Total Creatine Kinase CK-MB (CK-2) CK-MB (CK-2) Rel Index Troponin T NT-Pro-B Natriuret Pep Total Protein Albumin HDL Cholesterol 05/31/18 06/01/18 06/01/18 20:40 01:12 03:40 RBC Hgb Hct MCV 83 L MCH 27 L RDW 15.4 H Plt Count 135 L Seg Neuts % (Manual) 95.0 H Lymphocytes % (Manual) 4.0 L Nucleated RBC % Seg Neutrophils # Man Lymphocytes # (Manual) 0.3 L PT 21.4 H INR 1.79 H D-Dimer POC ABG pH POC ABG pCO2 POC ABG pO2 Sodium Potassium 5.5 H Carbon Dioxide 13 L BUN 89 H Creatinine 2.7 H Glucose 72 L POC Glucose Calcium 7.2 L Magnesium Total Bilirubin AST ALT Alkaline Phosphatase Ammonia Total Creatine Kinase CK-MB (CK-2) CK-MB (CK-2) Rel Index Troponin T NT-Pro-B Natriuret Pep Total Protein Albumin HDL Cholesterol 06/01/18 06/01/18 06/01/18 03:40 04:59 08:29 RBC Hgb Hct MCV MCH RDW Plt Count Seg Neuts % (Manual) Lymphocytes % (Manual) Nucleated RBC % Seg Neutrophils # Man Lymphocytes # (Manual) PT INR D-Dimer POC ABG pH 7.474 H POC ABG pCO2 26.1 L POC ABG pO2 116 H Sodium Potassium 5.3 H Carbon Dioxide 16 L BUN 92 H Creatinine 2.7 H Glucose 61 L POC Glucose 69 L Calcium 7.2 L Magnesium Total Bilirubin AST ALT Alkaline Phosphatase Ammonia Total Creatine Kinase CK-MB (CK-2) CK-MB (CK-2) Rel Index Troponin T NT-Pro-B Natriuret Pep Total Protein Albumin HDL Cholesterol 06/01/18 06/01/18 06/01/18 10:49 14:02 16:18 RBC Hgb Hct MCV MCH RDW Plt Count Seg Neuts % (Manual) Lymphocytes % (Manual) Nucleated RBC % Seg Neutrophils # Man Lymphocytes # (Manual) PT INR D-Dimer POC ABG pH POC ABG pCO2 33.1 L POC ABG pO2 121 H Sodium Potassium Carbon Dioxide BUN Creatinine Glucose POC Glucose 108 H Calcium Magnesium Total Bilirubin AST ALT Alkaline Phosphatase Ammonia Total Creatine Kinase CK-MB (CK-2) CK-MB (CK-2) Rel Index Troponin T 0.242 H* NT-Pro-B Natriuret Pep Total Protein Albumin HDL Cholesterol 06/01/18 06/02/18 06/02/18 16:58 04:52 04:53 RBC 5.12 H Hgb Hct MCV 81 L MCH 27 L RDW Plt Count Seg Neuts % (Manual) 87.0 H Lymphocytes % (Manual) 2.0 L Nucleated RBC % Seg Neutrophils # Man 9.2 H Lymphocytes # (Manual) 0.2 L PT INR D-Dimer POC ABG pH POC ABG pCO2 POC ABG pO2 Sodium Potassium Carbon Dioxide BUN Creatinine Glucose POC Glucose 69 L Calcium Magnesium Total Bilirubin AST ALT Alkaline Phosphatase Ammonia Total Creatine Kinase CK-MB (CK-2) CK-MB (CK-2) Rel Index Troponin T 0.268 H* NT-Pro-B Natriuret Pep Total Protein Albumin HDL Cholesterol 06/02/18 06/02/18 06/02/18 04:53 11:50 14:05 RBC Hgb Hct MCV MCH RDW Plt Count Seg Neuts % (Manual) Lymphocytes % (Manual) Nucleated RBC % Seg Neutrophils # Man Lymphocytes # (Manual) PT INR D-Dimer POC ABG pH POC ABG pCO2 POC ABG pO2 Sodium Potassium 5.4 H Carbon Dioxide 16 L BUN 94 H Creatinine 2.7 H Glucose 101 H POC Glucose 133 H 113 H Calcium 7.7 L Magnesium Total Bilirubin AST ALT Alkaline Phosphatase Ammonia Total Creatine Kinase CK-MB (CK-2) CK-MB (CK-2) Rel Index Troponin T NT-Pro-B Natriuret Pep Total Protein Albumin HDL Cholesterol 06/02/18 06/02/18 06/04/18 17:47 17:55 07:27 RBC Hgb Hct MCV MCH RDW Plt Count Seg Neuts % (Manual) Lymphocytes % (Manual) Nucleated RBC % Seg Neutrophils # Man Lymphocytes # (Manual) PT INR D-Dimer POC ABG pH POC ABG pCO2 POC ABG pO2 Sodium Potassium Carbon Dioxide 21 L 20 L BUN 90 H 87 H Creatinine 2.7 H 2.5 H Glucose 120 H 71 L POC Glucose 120 H Calcium 7.5 L 7.7 L Magnesium Total Bilirubin 2.70 H AST 92 H ALT 67 H Alkaline Phosphatase 624 H Ammonia Total Creatine Kinase CK-MB (CK-2) CK-MB (CK-2) Rel Index Troponin T NT-Pro-B Natriuret Pep Total Protein 5.4 L Albumin 2.9 L HDL Cholesterol 06/06/18 06/06/18 06/06/18 05:08 05:08 06:17 RBC Hgb Hct MCV MCH RDW Plt Count 124 L Seg Neuts % (Manual) Lymphocytes % (Manual) Nucleated RBC % Seg Neutrophils # Man Lymphocytes # (Manual) PT INR D-Dimer POC ABG pH POC ABG pCO2 POC ABG pO2 Sodium Potassium Carbon Dioxide 21 L BUN 98 H Creatinine 2.7 H Glucose 61 L POC Glucose 48 L Calcium 8.0 L Magnesium Total Bilirubin AST ALT Alkaline Phosphatase Ammonia Total Creatine Kinase CK-MB (CK-2) CK-MB (CK-2) Rel Index Troponin T NT-Pro-B Natriuret Pep Total Protein Albumin HDL Cholesterol 06/06/18 06/06/18 06/07/18 14:22 15:58 02:01 RBC Hgb Hct MCV MCH RDW Plt Count Seg Neuts % (Manual) Lymphocytes % (Manual) Nucleated RBC % Seg Neutrophils # Man Lymphocytes # (Manual) PT INR D-Dimer POC ABG pH POC ABG pCO2 POC ABG pO2 Sodium Potassium Carbon Dioxide BUN Creatinine Glucose POC Glucose 228 H 121 H 63 L Calcium Magnesium Total Bilirubin AST ALT Alkaline Phosphatase Ammonia Total Creatine Kinase CK-MB (CK-2) CK-MB (CK-2) Rel Index Troponin T NT-Pro-B Natriuret Pep Total Protein Albumin HDL Cholesterol 06/07/18 06/07/18 06/07/18 05:07 08:10 09:03 RBC Hgb Hct MCV MCH RDW Plt Count Seg Neuts % (Manual) Lymphocytes % (Manual) Nucleated RBC % Seg Neutrophils # Man Lymphocytes # (Manual) PT INR D-Dimer POC ABG pH POC ABG pCO2 POC ABG pO2 Sodium Potassium Carbon Dioxide BUN 111 H Creatinine 2.9 H Glucose POC Glucose 66 L 133 H Calcium 7.5 L Magnesium Total Bilirubin AST ALT Alkaline Phosphatase Ammonia Total Creatine Kinase CK-MB (CK-2) CK-MB (CK-2) Rel Index Troponin T NT-Pro-B Natriuret Pep Total Protein Albumin HDL Cholesterol Chest x-ray: report reviewed, image reviewed (CHF)
[2018-06-08 05:56] LABS: Hematocrit 38.2 % (35.5-45.6); Hemoglobin 12.5 gm/dl (11.8-15.2)
[2018-06-08 06:21] LABS: Calcium 7.4 mg/dL (8.4-10.2)
[2018-06-08] MEDS: IMDUR PO SCH (10:39)
[2018-06-08] MEDS: PEPCID PO SCH (10:40)
[2018-06-08] MEDS: COREG PO SCH ×2 (10:40→21:33)
[2018-06-08] MEDS: SODIUM CHLORIDE FLUSH SYRINGE 10 ML IV SCH (10:45)
--- NOTE | 2018-06-08 10:49 | Progress Note ---
Assessment and Plan Pt's volume status appears to be improving and pt appears clinically stable and comfortable. Renal indices trending upwards. Diuretics held per nephrology. Renal prognosis is guarded per nephrology. Continue coreg and Imdur. No ACEI/ARB at this time in setting of renal insufficiency. Overall prognosis remains guarded because of his multiple medical issues. Increase activity gradually. Cardiac defibrillator recommended in setting of severe CMP. Indications, potential risks and benefits of defibrillator reviewed with pt. Pt declines AICD at this time. D/w pt and pt's family members at bedside. The patient has been seen in conjunction with Dr. ANNE-MARIE Gil who agrees with the assessment and plan of care. - Patient Problems (1) Acute combined systolic and diastolic heart failure Current Visit: Yes Status: Acute (2) NICM (nonischemic cardiomyopathy) Current Visit: Yes Status: Chronic (3) Right ventricular systolic dysfunction Current Visit: Yes Status: Acute (4) Pulmonary HTN Current Visit: Yes Status: Chronic (5) Non-ST elevation [place] (NSTEMI) Current Visit: Yes Status: Acute (6) Metabolic encephalopathy Current Visit: Yes Status: Acute (7) Acute on chronic kidney failure Current Visit: Yes Status: Acute (8) Hyperkalemia Current Visit: Yes Status: Acute (9) Hypoglycemia Current Visit: Yes Status: Acute (10) Hypothermia Current Visit: Yes Status: Acute Qualifiers: Encounter type: initial encounter Qualified Code(s): T68.XXXA - Hypothermia , initial encounter (11) Moderate to severe mitral regurgitation Current Visit: Yes Status: Chronic (12) Tricuspid regurgitation Current Visit: Yes Status: Chronic Subjective Date of service: 06/08/18 Principal diagnosis: Respiratory failure, non STEMI,CMP Interval history: pt resting in bed, alert and oriented. states he is feeling well, although his appetite is poor and he is not eating well. family at bedside. Objective Last Vital Signs Temp 97.4 F L 06/08/18 08:00 Pulse 56 L 06/08/18 10:40 Resp 14 06/08/18 04:00 BP 123/88 06/08/18 10:40 Pulse Ox 98 06/08/18 09:37 - Physical Examination General: No Apparent Distress HEENT: Positive: PERRL Neck: Positive: neck supple, trachea midline Cardiac: Positive: Reg Rate and Rhythm, S1/S2 Lungs: Positive: Decreased Breath Sounds Neuro: Positive: Grossly Intact Abdomen: Positive: Soft. Negative: Tender Skin: Negative: Rash, Wound Extremities: Absent: edema - Labs and Meds CBC 06/08/18 Range/Units 04:41 Hgb 12.5 (11.8-15.2) gm/dl Hct 38.2 (35.5-45.6) % Plt Count 98 L (140-440) K/mm3 Comprehensive Metabolic Panel 06/08/18 Range/Units 04:41 Sodium 143 (137-145) mmol/L Potassium 3.6 (3.6-5.0) mmol/L Chloride 99.1 (98-107) mmol/L Carbon Dioxide 22 (22-30) mmol/L BUN 122 H (9-20) mg/dL Creatinine 3.1 H (0.8-1.5) mg/dL Glucose 109 H (75-100) mg/dL Calcium 7.4 L (8.4-10.2) mg/dL - Imaging and Cardiology EKG: report reviewed, image reviewed Echo: report reviewed (EF 5-10%, LA mild to mod dilated, RA mildly dilated, mod to severe MR, mod to severe TR, mild AR, pseudonormalization, RV mildly dilated , RV systolic function severely reduced, mod pulm HTN with RVSP 52mmHg, small pericardial effusion. ) Cardiac cath: report reviewed (pt underwent LHC & RHC on 12/27/2017 which showed nonobstructive CAD with RCA 40% and Cristiano 35% lesions; non-ischemic cardiomyoapthy. ) - Telemetry EKG Rhythm: Sinus Rhythm - EKG Sinus rhythms and dysrhythmias: sinus rhythm
--- NOTE | 2018-06-08 11:02 | Progress Note ---
Assessment and Plan Assessment * Acute kidney injury. * Severe cardiomyopathy status post non-ST elevation NE ejection fraction of the 10% range * Hyperkalemia * metabolic acidosis * History of coronary artery disease, poor ejection fraction, Recommendations * patient's volume status has improved * pt has a condom catheter in place . approx 2100 cc of urine recorded * BUN/ creatinine noted to be higher. Continue to hold diuretics for now * Hydrate patient gently * Avoid nephrotoxins * Not a good candidate for ACEI or ARB at this time * Renal prognosis remains guarded at this time * Repeat CXR still showing CHF * Discussed with patient daughter at bedside about possibility of dialysis if renal function worsens . She is to discuss with other family members . Patient however says that he does not want dialysis Subjective Date of service: 06/08/18 Principal diagnosis: Respiratory failure, non STEMI,CMP Interval history: patient is more alert today . SOB much improved . Denies nausea or vomiting . Appetite still poor . Objective - Vital Signs Vital signs: Vital Signs - 12hr 06/07/18 06/08/18 06/08/18 23:01 00:00 01:00 Temperature Pulse Rate 60 57 L 55 L Pulse Rate [ 59 L Left Dorsalis Pedis] Respiratory 12 10 L 12 Rate Blood Pressure 122/85 118/89 117/90 O2 Sat by Pulse 97 98 95 Oximetry 06/08/18 06/08/18 06/08/18 02:00 03:00 04:00 Temperature 97.7 F Pulse Rate 55 L 65 Pulse Rate [ 59 L Left Dorsalis Pedis] Respiratory 10 L 14 14 Rate Blood Pressure 117/90 117/90 O2 Sat by Pulse 98 97 98 Oximetry 06/08/18 06/08/18 06/08/18 08:00 09:37 10:39 Temperature 97.4 F L Pulse Rate 56 L Pulse Rate [ Left Dorsalis Pedis] Respiratory Rate Blood Pressure 123/88 O2 Sat by Pulse 98 Oximetry 06/08/18 10:40 Temperature Pulse Rate 56 L Pulse Rate [ Left Dorsalis Pedis] Respiratory Rate Blood Pressure 123/88 O2 Sat by Pulse Oximetry - General Appearance General appearance: chronically ill, frail EENT: PERRL, mucous membranes moist Neck: no JVD, no thyromegaly, no carotid bruit, supple Respiratory: Present: Clear to Ascultation Cardiology: regular, normal heart rate, S1S2, no murmurs Gastrointestinal: normal, normoactive bowel sounds Integumentary: other (1+ edema ) - Lab 06/08/18 04:41 06/08/18 04:41 Most recent lab results Calcium 7.4 mg/dL (8.4-10.2) L 06/08/18 04:41 Magnesium 2.40 mg/dL (1.7-2.3) H 05/31/18 07:13
--- NOTE | 2018-06-08 11:46 | Progress Note ---
Assessment and Plan Assessment and plan: NSTEMI - Cardiology consult appreciated - Continue coreg and Imdur. - No ACEI/ARB at this time in setting of renal insufficiency. Acute renal failure - Nephrology consulted Acute combined systolic and diastolic heart failure - EF 5-10%, will follow cardiology recommendations - No ACEI/ARB at this time in setting of renal insufficiency. - Cont diuresis per nephrology. - Cardiology to consider dobutamine gtt if necessary for additional diuresis. Severe nonischemic cardiomyopathy. - Cardiac defibrillator recommended in setting of severe CMP. Indications, potential risks and benefits of defibrillator reviewed with pt. Pt declines AICD at this time. Acute hypoxemic respiratory failure. - Patient was intubated and on mechanical ventilation, extubated on 06/01 -Resolved Encephalopathy Resolved. DVT prophylaxis - On heparin drip Disposition PT is recommending subacute rehabilitation placement. I discussed with the daughter at the bedside plan of care and placement. Overall prognosis remains guarded History Interval history: 63-year-old -[place] male was presented to the ED with complaints of shortness of breath, chest pain, altered mental status Cardiac enzymes was done in the ED and was high, chest x-ray showed bilateral pleural effusion, elevated BNP, elevated creatinine. The patient was admitted with diagnosis of acute combined systolic and diastolic heart failure and non- ST elevation WI. Echocardiogram reveals EF 5-10%. Patient with nonischemic cardiomyopathy, pulmonary hypertension and a right ventricular systolic dysfunction. Patient currently awaiting rehabilitation placement. Hospitalist Physical - Constitutional Vitals: Temp Pulse Resp BP Pulse Ox 97.4 F L 58 L 12 119/92 99 06/08/18 08:00 06/08/18 11:00 06/08/18 11:00 06/08/18 11:06/08/18 11:00 General appearance: Present: other (lethargic) - EENT Eyes: Present: PERRL, EOM intact ENT: hearing intact, clear oral mucosa, dentition normal - Neck Neck: Present: supple, normal ROM - Respiratory Respiratory effort: normal Respiratory: bilateral: CTA - Cardiovascular Rhythm: regular Heart Sounds: Present: S1 & S2. Absent: gallop, rub - Extremities Extremities: no ischemia, No edema, Full ROM - Abdominal General gastrointestinal: soft, non-tender, non-distended, normal bowel sounds - Integumentary Integumentary: Present: clear, warm, dry - Neurologic Neurologic: CNII-XII intact, moves all extremities Results - Labs CBC & Chem 7: 06/08/18 04:41 06/08/18 04:41 Labs: Laboratory Last Values WBC 10.6 K/mm3 (4.5-11.0) 06/02/18 04:53 RBC 5.12 M/mm3 (3.65-5.03) H 06/02/18 04:53 Hgb 12.5 gm/dl (11.8-15.2) 06/08/18 04:41 Hct 38.2 % (35.5-45.6) 06/08/18 04:41 MCV 81 fl (84-94) L 06/02/18 04:53 MCH 27 pg (28-32) L 06/02/18 04:53 MCHC 34 % (32-34) 06/02/18 04:53 RDW 15.1 % (13.2-15.2) 06/02/18 04:53 Plt Count 98 K/mm3 (140-440) L 06/08/18 04:41 Add Manual Diff Complete 06/02/18 04:53 Total Counted 100 06/02/18 04:53 Seg Neuts % (Manual) 87.0 % (40.0-70.0) H 06/02/18 04:53 Band Neutrophils % 9.0 % 06/02/18 04:53 Lymphocytes % (Manual) 2.0 % (13.4-35.0) L 06/02/18 04:53 Reactive Lymphs % (Man) 0 % 06/02/18 04:53 Monocytes % (Manual) 2.0 % (0.0-7.3) 06/02/18 04:53 Eosinophils % (Manual) 0 % (0.0-4.3) 06/02/18 04:53 Basophils % (Manual) 0 % (0.0-1.8) 06/02/18 04:53 Metamyelocytes % 0 % 06/02/18 04:53 Myelocytes % 0 % 06/02/18 04:53 Promyelocytes % 0 % 06/02/18 04:53 Blast Cells % 0 % 06/02/18 04:53 Nucleated RBC % Not Reportable 06/02/18 04:53 Seg Neutrophils # Man 9.2 K/mm3 (1.8-7.7) H 06/02/18 04:53 Band Neutrophils # 1.0 K/mm3 06/02/18 04:53 Lymphocytes # (Manual) 0.2 K/mm3 (1.2-5.4) L 06/02/18 04:53 Abs React Lymphs (Man) 0.0 K/mm3 06/02/18 04:53 Monocytes # (Manual) 0.2 K/mm3 (0.0-0.8) 06/02/18 04:53 Eosinophils # (Manual) 0.0 K/mm3 (0.0-0.4) 06/02/18 04:53 Basophils # (Manual) 0.0 K/mm3 (0.0-0.1) 06/02/18 04:53 Metamyelocytes # 0.0 K/mm3 06/02/18 04:53 Myelocytes # 0.0 K/mm3 06/02/18 04:53 Promyelocytes # 0.0 K/mm3 06/02/18 04:53 Blast Cells # 0.0 K/mm3 06/02/18 04:53 WBC Morphology Not Reportable 06/02/18 04:53 Hypersegmented Neuts Not Reportable 06/02/18 04:53 Hyposegmented Neuts Not Reportable 06/02/18 04:53 Hypogranular Neuts Not Reportable 06/02/18 04:53 Smudge Cells Not Reportable 06/02/18 04:53 Toxic Granulation Not Reportable 06/02/18 04:53 Toxic Vacuolation Not Reportable 06/02/18 04:53 Dohle Bodies Not Reportable 06/02/18 04:53 Pelger-Huet Anomaly Not Reportable 06/02/18 04:53 Trae Rods Not Reportable 06/02/18 04:53 Platelet Estimate Consistent w auto 06/02/18 04:53 Clumped Platelets Not Reportable 06/02/18 04:53 Plt Clumps, EDTA Not Reportable 06/02/18 04:53 Large Platelets Not Reportable 06/02/18 04:53 Giant Platelets Not Reportable 06/02/18 04:53 Platelet Satelliting Not Reportable 06/02/18 04:53 Plt Morphology Comment Not Reportable 06/02/18 04:53 RBC Morphology Not Reportable 06/02/18 04:53 Dimorphic RBCs Not Reportable 06/02/18 04:53 Polychromasia 1+ 06/02/18 04:53 Hypochromasia Not Reportable 06/02/18 04:53 Poikilocytosis Not Reportable 06/02/18 04:53 Anisocytosis Not Reportable 06/02/18 04:53 Microcytosis Not Reportable 06/02/18 04:53 Macrocytosis Not Reportable 06/02/18 04:53 Spherocytes Not Reportable 06/02/18 04:53 Pappenheimer Bodies Not Reportable 06/02/18 04:53 Sickle Cells Not Reportable 06/02/18 04:53 Target Cells 1+ 06/02/18 04:53 Tear Drop Cells Not Reportable 06/02/18 04:53 Ovalocytes Not Reportable 06/02/18 04:53 Helmet Cells Not Reportable 06/02/18 04:53 [place] Bodies Not Reportable 06/02/18 04:53 [place] Rings Not Reportable 06/02/18 04:53 Andres Cells Not Reportable 06/02/18 04:53 Bite Cells Not Reportable 06/02/18 04:53 Crenated Cell Not Reportable 06/02/18 04:53 Elliptocytes Not Reportable 06/02/18 04:53 Acanthocytes (Spur) Not Reportable 06/02/18 04:53 Rouleaux Not Reportable 06/02/18 04:53 Hemoglobin C Crystals Not Reportable 06/02/18 04:53 Schistocytes Not Reportable 06/02/18 04:53 Malaria parasites Not Reportable 06/02/18 04:53 Dann Bodies Not Reportable 06/02/18 04:53 Hem Pathologist Commnt No 06/02/18 04:53 PT 21.4 Sec. (12.2-14.9) H 06/01/18 01:12 INR 1.79 (0.87-1.13) H 06/01/18 01:12 APTT 33.2 Sec. (24.2-36.6) 06/01/18 01:12 D-Dimer 1834.40 ng/mlDDU (0-234) H 05/31/18 11:48 Heparin Anti-Xa Level 0.40 U.I./ml (0.3-0.7) 05/31/18 20:40 POC ABG pH 7.400 (7.35-7.45) 06/01/18 16:18 POC ABG pCO2 33.1 (35-45) L 06/01/18 16:18 POC ABG pO2 121 (80-105) H 06/01/18 16:18 POC ABG HCO3 20.5 06/01/18 16:18 POC ABG Total CO2 21 06/01/18 16:18 POC ABG O2 Sat 99 06/01/18 16:18 POC ABG Base Excess -4 06/01/18 16:18 FiO2 35 % 06/01/18 16:18 Sodium 143 mmol/L (137-145) 06/08/18 04:41 Potassium 3.6 mmol/L (3.6-5.0) 06/08/18 04:41 Chloride 99.1 mmol/L (98-107) 06/08/18 04:41 Carbon Dioxide 22 mmol/L (22-30) 06/08/18 04:41 Anion Gap 26 mmol/L 06/08/18 04:41 BUN 122 mg/dL (9-20) H 06/08/18 04:41 Creatinine 3.1 mg/dL (0.8-1.5) H 06/08/18 04:41 Estimated GFR 25 ml/min 06/08/18 04:41 BUN/Creatinine Ratio 39 % 06/08/18 04:41 Glucose 109 mg/dL (75-100) H 06/08/18 04:41 POC Glucose 92 (70-105) 06/08/18 08:00 Lactic Acid 1.50 mmol/L (0.7-2.0) 05/31/18 07:13 Calcium 7.4 mg/dL (8.4-10.2) L 06/08/18 04:41 Magnesium 2.40 mg/dL (1.7-2.3) H 05/31/18 07:13 Total Bilirubin 2.70 mg/dL (0.1-1.2) H 06/02/18 17:47 AST 92 units/L (5-40) H 06/02/18 17:47 ALT 67 units/L (7-56) H 06/02/18 17:47 Alkaline Phosphatase 624 units/L (35-129) H 06/02/18 17:47 Ammonia 35.0 umol/L (25-60) 06/04/18 10:48 Total Creatine Kinase 374 units/L (55-170) H 05/31/18 05:49 CK-MB (CK-2) 22.3 ng/mL (0.0-4.0) H 05/31/18 05:49 CK-MB (CK-2) Rel Index 5.9 (0-4) H 05/31/18 05:49 Troponin T 0.268 ng/mL (0.00-0.029) H* 06/02/18 04:52 NT-Pro-B Natriuret Pep 94888 pg/mL (0-900) H 05/31/18 05:49 Total Protein 5.4 g/dL (6.3-8.2) L 06/02/18 17:47 Albumin 2.9 g/dL (3.9-5) L 06/02/18 17:47 Albumin/Globulin Ratio 1.2 % 06/02/18 17:47 Triglycerides 16 mg/dL (2-149) 05/31/18 05:49 Cholesterol 142 mg/dL (50-199) 05/31/18 05:49 LDL Cholesterol Direct 52 mg/dL (50-130) 05/31/18 05:49 HDL Cholesterol 91 mg/dL (40-59) H 05/31/18 05:49 Cholesterol/HDL Ratio 1.56 % 05/31/18 05:49 TSH 1.010 mlU/mL (0.270-4.200) 06/07/18 12:53 Free T4 0.57 ng/dL (0.76-1.46) L 06/07/18 12:53 Urine Color Khloe (Yellow) 05/31/18 05:20 Urine Turbidity Slightly-cloudy (Clear) 05/31/18 05:20 Urine pH 5.0 (5.0-7.0) 05/31/18 05:20 Ur Specific Adger 1.016 (1.003-1.030) 05/31/18 05:20 Urine Protein >500 mg/dL (Negative) 05/31/18 05:20 Urine Glucose (UA) Neg mg/dL (Negative) 05/31/18 05:20 Urine Ketones Neg mg/dL (Negative) 05/31/18 05:20 Urine Blood Sm (Negative) 05/31/18 05:20 Urine Nitrite Neg (Negative) 05/31/18 05:20 Urine Bilirubin Neg (Negative) 05/31/18 05:20 Urine Urobilinogen 4.0 mg/dL (<2.0) 05/31/18 05:20 Ur Leukocyte Esterase Neg (Negative) 05/31/18 05:20 Urine WBC (Auto) 6.0 /HPF (0.0-6.0) 05/31/18 05:20 Urine RBC (Auto) 9.0 /HPF (0.0-6.0) 05/31/18 05:20 U Epithel Cells (Auto) < 1.0 /HPF (0-13.0) 05/31/18 05:20 Urine Mucus Few /HPF 05/31/18 05:20 Urine Yeast (Budding) 1+ /HPF 05/31/18 05:20 Urine Opiates Screen Presumptive negative 05/31/18 05:20 Urine Methadone Screen Presumptive negative 05/31/18 05:20 Ur Barbiturates Screen Presumptive negative 05/31/18 05:20 Ur Phencyclidine Scrn Presumptive negative 05/31/18 05:20 Ur Amphetamines Screen Presumptive negative 05/31/18 05:20 U Benzodiazepines Scrn Presumptive negative 05/31/18 05:20 Urine Cocaine Screen Presumptive negative 05/31/18 05:20 U Marijuana (THC) Screen Presumptive negative 05/31/18 05:20 Drugs of Abuse Note Disclamer 05/31/18 05:20 Plasma/Serum Alcohol < 0.01 % (0-0.07) 05/31/18 05:22
[2018-06-08] MEDS: NACL 0.45% 1000 ML 1,000 ML IV SCH (11:56)
--- NOTE | 2018-06-08 14:03 | Progress Note ---
Assessment and Plan Imp: 1. NICMP 2. A/C systolic CHF 3. Pleural effusions 2/2 above 4. EDER 5. Acute respiratory failure, hypoxia 6. Pulm HTN 2/2 #'s 1 and 2 Rec: 1. Diuresis as tolerated 2. BP/cardiac optimization 3. Monitor CXR periodically 4. Not convinced about the pneumonia diagnosis; stopped Zosyn 5. Wean O2 to keep sats 88% or above; home O2 eval. 6. Try to mobilize; needs to improve nutrition as well; pulm status stable 7. Still with significant CHF on CXR and diffuse peripheral edema; consider inotropic therapy if fails to adequately mobilize fluid with Lasix alone 8. Free T4 is low; consider treatment 9. Prognosis is guarded due to multiple issues Plan of care reviewed with patient/family, they understand/agree Subjective Date of service: 06/08/18 Principal diagnosis: Respiratory failure, non STEMI,CMP Interval history: No events. Breathing stable. On RA currently. Poor appetite and PO intake. Active Medications Acetaminophen (Tylenol) 650 mg PO Q4H PRN PRN Reason: Pain MILD(1-3)/Fever >100.5/VARGAS Albuterol (Proventil) 2.5 mg IH Q4HRT PRN PRN Reason: Shortness Of Breath Lipase/Protease/Amylase (Pancreshanice Richardson 10,500 Unit) 1 each FEEDTUBE PRN PRN PRN Reason: For Clogged Feeding Tube Carvedilol (Coreg) 3.125 mg PO BID [facility] Last Admin: 06/08/18 10:40 Dose: Not Given Dextrose (D50w (25gm) Syringe) 50 ml IV PRN PRN PRN Reason: Hypoglycemia Last Admin: 06/07/18 08:40 Dose: 50 ml Famotidine (Pepcid) 20 mg PO DAILY [facility] Last Admin: 06/08/18 10:40 Dose: 20 mg Hydrophilic Ointment (Vaseline Lip Therapy) 1 applic TP Q2HR PRN PRN Reason: Dry Lips Sodium Chloride (Nacl 0.45% 1000 Ml) 1,000 mls @ 60 mls/hr IV DIRECT [facility] Last Admin: 06/08/18 11:56 Dose: 60 mls/hr Isosorbide Mononitrate (Imdur) 30 mg PO QDAY [facility] Last Admin: 06/08/18 10:39 Dose: 30 mg Morphine Sulfate (Morphine) 2 mg IV Q4H PRN PRN Reason: Pain, Moderate (4-6) Last Admin: 06/02/18 22:57 Dose: 2 mg Multi-Ingred Cream/Lotion/Oil/Oint (Artificial Tears Ophth Oint) 1 applic OU Q4HR PRN PRN Reason: Dry Eye(s) Ondansetron HCl (Zofran) 4 mg IV Q8H PRN PRN Reason: Nausea And Vomiting Simple Syrup (Simple Syrup) 15 ml FEEDTUBE PRN PRN PRN Reason: Hypoglycemia Simple Syrup (Simple Syrup) 30 ml FEEDTUBE PRN PRN PRN Reason: Hypoglycemia Sodium Bicarbonate (Sodium Bicarbonate) 325 mg FEEDTUBE PRN PRN PRN Reason: For Clogged Feeding Tube Sodium Chloride (Sodium Chloride Flush Syringe 10 Ml) 10 ml IV BID [facility] Last Admin: 06/08/18 10:45 Dose: 10 ml Sodium Chloride (Sodium Chloride Flush Syringe 10 Ml) 10 ml IV PRN PRN PRN Reason: LINE FLUSH Sodium Chloride (Nacl 0.9% 500 Ml) 1 ml IV DIRECT [facility] Objective Vital Signs - 12hr 06/08/18 06/08/18 06/08/18 03:00 04:00 05:00 Temperature 97.7 F Pulse Rate 65 61 63 Pulse Rate [ 59 L Left Dorsalis Pedis] Respiratory 14 12 11 L Rate Blood Pressure 117/90 107/80 110/80 O2 Sat by Pulse 97 90 95 Oximetry 06/08/18 06/08/18 06/08/18 06:00 07:00 08:00 Temperature 97.4 F L Pulse Rate 63 61 61 Pulse Rate [ 56 L Left Dorsalis Pedis] Respiratory 11 L 13 16 Rate Blood Pressure 120/89 120/89 122/89 O2 Sat by Pulse 98 98 98 Oximetry 06/08/18 06/08/18 06/08/18 09:00 09:37 10:00 Temperature Pulse Rate 61 58 L Pulse Rate [ Left Dorsalis Pedis] Respiratory 14 11 L Rate Blood Pressure 112/85 123/88 O2 Sat by Pulse 96 98 98 Oximetry 06/08/18 06/08/18 06/08/18 10:39 10:40 11:00 Temperature Pulse Rate 56 L 56 L 58 L Pulse Rate [ Left Dorsalis Pedis] Respiratory 12 Rate Blood Pressure 123/88 123/88 119/92 O2 Sat by Pulse 99 Oximetry 06/08/18 12:00 Temperature Pulse Rate Pulse Rate [ 58 L Left Dorsalis Pedis] Respiratory 18 Rate Blood Pressure O2 Sat by Pulse 98 Oximetry Constitutional: no acute distress, other (weak-appearing) Eyes: non-icteric ENT: oropharynx moist Neck: supple Effort: normal Ascultation: Bilateral: clear (anteriorly) Cardiovascular: regular rate and rhythm (no mrg) Gastrointestinal: normoactive bowel sounds, non-distended Integumentary: normal Extremities: no cyanosis, edema (1+ bilateral edema up to thighs) Neurologic: normal mental status, non-focal exam, pupils equal and round Psychiatric: mood appropriate, affect normal CBC and BMP: 06/08/18 04:41 06/08/18 04:41 ABG, PT/INR, D-dimer: ABG POC ABG pH 7.400 (7.35-7.45) 06/01/18 16:18 POC ABG pCO2 33.1 (35-45) L 06/01/18 16:18 POC ABG pO2 121 (80-105) H 06/01/18 16:18 POC ABG HCO3 20.5 06/01/18 16:18 POC ABG Total CO2 21 06/01/18 16:18 POC ABG O2 Sat 99 06/01/18 16:18 PT/INR, D-dimer PT 21.4 Sec. (12.2-14.9) H 06/01/18 01:12 INR 1.79 (0.87-1.13) H 06/01/18 01:12 D-Dimer 1834.40 ng/mlDDU (0-234) H 05/31/18 11:48 Abnormal lab findings: Abnormal Labs 05/31/18 05/31/18 05/31/18 04:38 04:58 05:14 RBC Hgb Hct MCV MCH RDW Plt Count Seg Neuts % (Manual) Lymphocytes % (Manual) Nucleated RBC % Seg Neutrophils # Man Lymphocytes # (Manual) PT INR D-Dimer POC ABG pH POC ABG pCO2 POC ABG pO2 Sodium Potassium Carbon Dioxide BUN Creatinine Glucose POC Glucose < 40 L 64 L 258 H Calcium Magnesium Total Bilirubin AST ALT Alkaline Phosphatase Ammonia Total Creatine Kinase CK-MB (CK-2) CK-MB (CK-2) Rel Index Troponin T NT-Pro-B Natriuret Pep Total Protein Albumin HDL Cholesterol Free T4 05/31/18 05/31/18 05/31/18 05:15 05:15 05:22 RBC 5.33 H Hgb Hct 45.8 H MCV MCH RDW 16.4 H Plt Count Seg Neuts % (Manual) 88.0 H Lymphocytes % (Manual) 6.0 L Nucleated RBC % 1.0 H Seg Neutrophils # Man Lymphocytes # (Manual) 0.4 L PT 20.9 H INR 1.74 H D-Dimer POC ABG pH POC ABG pCO2 POC ABG pO2 Sodium Potassium Carbon Dioxide BUN Creatinine Glucose POC Glucose Calcium Magnesium Total Bilirubin AST ALT Alkaline Phosphatase Ammonia 68.0 H Total Creatine Kinase CK-MB (CK-2) CK-MB (CK-2) Rel Index Troponin T NT-Pro-B Natriuret Pep Total Protein Albumin HDL Cholesterol Free T4 05/31/18 05/31/18 05/31/18 05:49 07:13 07:22 RBC Hgb Hct MCV MCH RDW Plt Count Seg Neuts % (Manual) Lymphocytes % (Manual) Nucleated RBC % Seg Neutrophils # Man Lymphocytes # (Manual) PT INR D-Dimer POC ABG pH POC ABG pCO2 POC ABG pO2 Sodium 135 L Potassium 6.0 H Carbon Dioxide 13 L BUN 87 H Creatinine 2.5 H Glucose 249 H POC Glucose 124 H Calcium 7.8 L Magnesium 2.40 H Total Bilirubin 2.60 H AST 60 H ALT Alkaline Phosphatase 592 H Ammonia Total Creatine Kinase 374 H CK-MB (CK-2) 22.3 H CK-MB (CK-2) Rel Index 5.9 H Troponin T 0.260 H* NT-Pro-B Natriuret Pep 10840 H Total Protein 5.5 L Albumin 3.0 L HDL Cholesterol 91 H Free T4 05/31/18 05/31/18 05/31/18 09:33 10:53 11:48 RBC Hgb 15.4 H Hct 49.2 H MCV MCH RDW Plt Count Seg Neuts % (Manual) Lymphocytes % (Manual) Nucleated RBC % Seg Neutrophils # Man Lymphocytes # (Manual) PT INR D-Dimer POC ABG pH POC ABG pCO2 POC ABG pO2 Sodium Potassium Carbon Dioxide BUN Creatinine Glucose POC Glucose 168 H 106 H Calcium Magnesium Total Bilirubin AST ALT Alkaline Phosphatase Ammonia Total Creatine Kinase CK-MB (CK-2) CK-MB (CK-2) Rel Index Troponin T NT-Pro-B Natriuret Pep Total Protein Albumin HDL Cholesterol Free T4 05/31/18 05/31/18 05/31/18 11:48 11:48 11:51 RBC Hgb Hct MCV MCH RDW Plt Count Seg Neuts % (Manual) Lymphocytes % (Manual) Nucleated RBC % Seg Neutrophils # Man Lymphocytes # (Manual) PT 20.6 H INR 1.71 H D-Dimer 1834.40 H POC ABG pH 6.997 L POC ABG pCO2 59.6 H POC ABG pO2 Sodium Potassium Carbon Dioxide BUN Creatinine Glucose POC Glucose Calcium Magnesium Total Bilirubin AST ALT Alkaline Phosphatase Ammonia Total Creatine Kinase CK-MB (CK-2) CK-MB (CK-2) Rel Index Troponin T 0.230 H* NT-Pro-B Natriuret Pep Total Protein Albumin HDL Cholesterol Free T4 05/31/18 05/31/18 05/31/18 15:53 18:29 19:26 RBC Hgb Hct MCV MCH RDW Plt Count Seg Neuts % (Manual) Lymphocytes % (Manual) Nucleated RBC % Seg Neutrophils # Man Lymphocytes # (Manual) PT INR D-Dimer POC ABG pH 7.328 L POC ABG pCO2 29.6 L POC ABG pO2 200 H Sodium Potassium Carbon Dioxide BUN Creatinine Glucose POC Glucose < 40 L 68 L Calcium Magnesium Total Bilirubin AST ALT Alkaline Phosphatase Ammonia Total Creatine Kinase CK-MB (CK-2) CK-MB (CK-2) Rel Index Troponin T NT-Pro-B Natriuret Pep Total Protein Albumin HDL Cholesterol Free T4 05/31/18 06/01/18 06/01/18 20:40 01:12 03:40 RBC Hgb Hct MCV 83 L MCH 27 L RDW 15.4 H Plt Count 135 L Seg Neuts % (Manual) 95.0 H Lymphocytes % (Manual) 4.0 L Nucleated RBC % Seg Neutrophils # Man Lymphocytes # (Manual) 0.3 L PT 21.4 H INR 1.79 H D-Dimer POC ABG pH POC ABG pCO2 POC ABG pO2 Sodium Potassium 5.5 H Carbon Dioxide 13 L BUN 89 H Creatinine 2.7 H Glucose 72 L POC Glucose Calcium 7.2 L Magnesium Total Bilirubin AST ALT Alkaline Phosphatase Ammonia Total Creatine Kinase CK-MB (CK-2) CK-MB (CK-2) Rel Index Troponin T NT-Pro-B Natriuret Pep Total Protein Albumin HDL Cholesterol Free T4 06/01/18 06/01/18 06/01/18 03:40 04:59 08:29 RBC Hgb Hct MCV MCH RDW Plt Count Seg Neuts % (Manual) Lymphocytes % (Manual) Nucleated RBC % Seg Neutrophils # Man Lymphocytes # (Manual) PT INR D-Dimer POC ABG pH 7.474 H POC ABG pCO2 26.1 L POC ABG pO2 116 H Sodium Potassium 5.3 H Carbon Dioxide 16 L BUN 92 H Creatinine 2.7 H Glucose 61 L POC Glucose 69 L Calcium 7.2 L Magnesium Total Bilirubin AST ALT Alkaline Phosphatase Ammonia Total Creatine Kinase CK-MB (CK-2) CK-MB (CK-2) Rel Index Troponin T NT-Pro-B Natriuret Pep Total Protein Albumin HDL Cholesterol Free T4 06/01/18 06/01/18 06/01/18 10:49 14:02 16:18 RBC Hgb Hct MCV MCH RDW Plt Count Seg Neuts % (Manual) Lymphocytes % (Manual) Nucleated RBC % Seg Neutrophils # Man Lymphocytes # (Manual) PT INR D-Dimer POC ABG pH POC ABG pCO2 33.1 L POC ABG pO2 121 H Sodium Potassium Carbon Dioxide BUN Creatinine Glucose POC Glucose 108 H Calcium Magnesium Total Bilirubin AST ALT Alkaline Phosphatase Ammonia Total Creatine Kinase CK-MB (CK-2) CK-MB (CK-2) Rel Index Troponin T 0.242 H* NT-Pro-B Natriuret Pep Total Protein Albumin HDL Cholesterol Free T4 06/01/18 06/02/18 06/02/18 16:58 04:52 04:53 RBC 5.12 H Hgb Hct MCV 81 L MCH 27 L RDW Plt Count Seg Neuts % (Manual) 87.0 H Lymphocytes % (Manual) 2.0 L Nucleated RBC % Seg Neutrophils # Man 9.2 H Lymphocytes # (Manual) 0.2 L PT INR D-Dimer POC ABG pH POC ABG pCO2 POC ABG pO2 Sodium Potassium Carbon Dioxide BUN Creatinine Glucose POC Glucose 69 L Calcium Magnesium Total Bilirubin AST ALT Alkaline Phosphatase Ammonia Total Creatine Kinase CK-MB (CK-2) CK-MB (CK-2) Rel Index Troponin T 0.268 H* NT-Pro-B Natriuret Pep Total Protein Albumin HDL Cholesterol Free T4 06/02/18 06/02/1806/02/18 04:53 11:50 14:05 RBC Hgb Hct MCV MCH RDW Plt Count Seg Neuts % (Manual) Lymphocytes % (Manual) Nucleated RBC % Seg Neutrophils # Man Lymphocytes # (Manual) PT INR D-Dimer POC ABG pH POC ABG pCO2 POC ABG pO2 Sodium Potassium 5.4 H Carbon Dioxide 16 L BUN 94 H Creatinine 2.7 H Glucose 101 H POC Glucose 133 H 113 H Calcium 7.7 L Magnesium Total Bilirubin AST ALT Alkaline Phosphatase Ammonia Total Creatine Kinase CK-MB (CK-2) CK-MB (CK-2) Rel Index Troponin T NT-Pro-B Natriuret Pep Total Protein Albumin HDL Cholesterol Free T4 06/02/18 06/02/18 06/04/18 17:47 17:55 07:27 RBC Hgb Hct MCV MCH RDW Plt Count Seg Neuts % (Manual) Lymphocytes % (Manual) Nucleated RBC % Seg Neutrophils # Man Lymphocytes # (Manual) PT INR D-Dimer POC ABG pH POC ABG pCO2 POC ABG pO2 Sodium Potassium Carbon Dioxide 21 L 20 L BUN 90 H 87 H Creatinine 2.7 H 2.5 H Glucose 120 H 71 L POC Glucose 120 H Calcium 7.5 L 7.7 L Magnesium Total Bilirubin 2.70 H AST 92 H ALT 67 H Alkaline Phosphatase 624 H Ammonia Total Creatine Kinase CK-MB (CK-2) CK-MB (CK-2) Rel Index Troponin T NT-Pro-B Natriuret Pep Total Protein 5.4 L Albumin 2.9 L HDL Cholesterol Free T4 06/06/18 06/06/18 06/06/18 05:08 05:08 06:17 RBC Hgb Hct MCV MCH RDW Plt Count 124 L Seg Neuts % (Manual) Lymphocytes % (Manual) Nucleated RBC % Seg Neutrophils # Man Lymphocytes # (Manual) PT INR D-Dimer POC ABG pH POC ABG pCO2 POC ABG pO2 Sodium Potassium Carbon Dioxide 21 L BUN 98 H Creatinine 2.7 H Glucose 61 L POC Glucose 48 L Calcium 8.0 L Magnesium Total Bilirubin AST ALT Alkaline Phosphatase Ammonia Total Creatine Kinase CK-MB (CK-2) CK-MB (CK-2) Rel Index Troponin T NT-Pro-B Natriuret Pep Total Protein Albumin HDL Cholesterol Free T4 06/06/18 06/06/18 06/07/18 14:22 15:58 02:01 RBC Hgb Hct MCV MCH RDW Plt Count Seg Neuts % (Manual) Lymphocytes % (Manual) Nucleated RBC % Seg Neutrophils # Man Lymphocytes # (Manual) PT INR D-Dimer POC ABG pH POC ABG pCO2 POC ABG pO2 Sodium Potassium Carbon Dioxide BUN Creatinine Glucose POC Glucose 228 H 121 H 63 L Calcium Magnesium Total Bilirubin AST ALT Alkaline Phosphatase Ammonia Total Creatine Kinase CK-MB (CK-2) CK-MB (CK-2) Rel Index Troponin T NT-Pro-B Natriuret Pep Total Protein Albumin HDL Cholesterol Free T4 06/07/18 06/07/18 06/07/18 05:07 08:10 09:03 RBC Hgb Hct MCV MCH RDW Plt Count Seg Neuts % (Manual) Lymphocytes % (Manual) Nucleated RBC % Seg Neutrophils # Man Lymphocytes # (Manual) PT INR D-Dimer POC ABG pH POC ABG pCO2 POC ABG pO2 Sodium Potassium Carbon Dioxide BUN 111 H Creatinine 2.9 H Glucose POC Glucose 66 L 133 H Calcium 7.5 L Magnesium Total Bilirubin AST ALT Alkaline Phosphatase Ammonia Total Creatine Kinase CK-MB (CK-2) CK-MB (CK-2) Rel Index Troponin T NT-Pro-B Natriuret Pep Total Protein Albumin HDL Cholesterol Free T4 06/07/18 06/07/18 06/07/18 12:53 15:23 20:00 RBC Hgb Hct MCV MCH RDW Plt Count Seg Neuts % (Manual) Lymphocytes % (Manual) Nucleated RBC % Seg Neutrophils # Man Lymphocytes # (Manual) PT INR D-Dimer POC ABG pH POC ABG pCO2 POC ABG pO2 Sodium Potassium Carbon Dioxide BUN Creatinine Glucose POC Glucose 148 H 161 H Calcium Magnesium Total Bilirubin AST ALT Alkaline Phosphatase Ammonia Total Creatine Kinase CK-MB (CK-2) CK-MB (CK-2) Rel Index Troponin T NT-Pro-B Natriuret Pep Total Protein Albumin HDL Cholesterol Free T4 0.57 L 06/07/18 06/08/18 06/08/18 23:38 04:30 04:41 RBC Hgb Hct MCV MCH RDW Plt Count 98 L Seg Neuts % (Manual) Lymphocytes % (Manual) Nucleated RBC % Seg Neutrophils # Man Lymphocytes # (Manual) PT INR D-Dimer POC ABG pH POC ABG pCO2 POC ABG pO2 Sodium Potassium Carbon Dioxide BUN Creatinine Glucose POC Glucose 135 H 108 H Calcium Magnesium Total Bilirubin AST ALT Alkaline Phosphatase Ammonia Total Creatine Kinase CK-MB (CK-2) CK-MB (CK-2) Rel Index Troponin T NT-Pro-B Natriuret Pep Total Protein Albumin HDL Cholesterol Free T4 06/08/18 06/08/18 04:41 12:01 RBC Hgb Hct MCV MCH RDW Plt Count Seg Neuts % (Manual) Lymphocytes % (Manual) Nucleated RBC % Seg Neutrophils # Man Lymphocytes # (Manual) PT INR D-Dimer POC ABG pH POC ABG pCO2 POC ABG pO2 Sodium Potassium Carbon Dioxide BUN 122 H Creatinine 3.1 H Glucose 109 H POC Glucose 133 H Calcium 7.4 L Magnesium Total Bilirubin AST ALT Alkaline Phosphatase Ammonia Total Creatine Kinase CK-MB (CK-2) CK-MB (CK-2) Rel Index Troponin T NT-Pro-B Natriuret Pep Total Protein Albumin HDL Cholesterol Free T4 Chest x-ray: report reviewed, image reviewed
[2018-06-09] MEDS: NACL 0.45% 1000 ML 1,000 ML IV SCH ×2 (04:57→21:08)
[2018-06-09 05:23] LABS: Calcium 7.4 mg/dL (8.4-10.2)
[2018-06-09] MEDS: SODIUM CHLORIDE FLUSH SYRINGE 10 ML IV SCH ×3 (07:43→21:10)
[2018-06-09] MEDS: COREG PO SCH ×2 (09:23→21:08)
[2018-06-09] MEDS: IMDUR PO SCH (09:23)
[2018-06-09] MEDS: PEPCID PO SCH (09:24)
--- NOTE | 2018-06-09 11:08 | Progress Note ---
Assessment and Plan clinically improved Renal prognosis is guarded per nephrology. Continue coreg and Imdur. No ACEI/ARB at this time in setting of renal insufficiency. Overall prognosis remains guarded because of his multiple medical issues. Pt declines AICD at this time. - Patient Problems (1) Acute combined systolic and diastolic heart failure Current Visit: Yes Status: Acute (2) Acute heart failure Current Visit: Yes Status: Acute (3) Acute renal failure (ARF) Current Visit: Yes Status: Acute Qualifiers: Acute renal failure type: unspecified Qualified Code(s): N17.9 - Acute kidney failure, unspecified (4) Metabolic acidosis Current Visit: Yes Status: Acute (5) Metabolic encephalopathy Current Visit: Yes Status: Acute (6) Moderate to severe mitral regurgitation Current Visit: Yes Status: Chronic (7) NICM (nonischemic cardiomyopathy) Current Visit: Yes Status: Chronic (8) Pulmonary HTN Current Visit: Yes Status: Chronic Subjective Date of service: 06/09/18 Principal diagnosis: Respiratory failure, non STEMI,CMP Interval history: feels much better Objective Vital Signs Temp Pulse Pulse Pulse Pulse Resp BP 06/09/18 09:23 63 107/71 06/09/18 08:30 06/09/18 08:01 58 L 10 L 115/73 06/09/18 08:00 97.3 F L 59 L 12 06/09/18 07:01 55 L 7 L 109/82 06/09/18 06:01 58 L 8 L 103/85 06/09/18 05:32 97.2 F L 06/09/18 05:01 57 L 10 L 102/85 06/09/18 04:00 56 L 58 L 9 L 113/87 06/09/18 03:00 59 L 12 117/84 06/09/18 02:00 60 10 L 97/69 06/09/18 01:00 59 L 18 97/69 06/09/18 00:00 57 L 61 12 121/91 06/08/18 23:36 97.8 F 06/08/18 23:00 55 L 10 L 121/91 06/08/18 22:00 56 L 13 121/91 06/08/18 21:33 62 111/84 06/08/18 21:00 59 L 11 L 111/84 06/08/18 20:32 59 L 12 121/91 06/08/18 20:00 97.4 F L 59 L 10 L 121/91 06/08/18 19:00 57 L 10 L 122/92 06/08/18 18:00 57 L 11 L 115/89 06/08/18 17:00 57 L 11 L 115/89 06/08/18 16:00 98.0 F 58 L 62 18 115/77 06/08/18 15:00 56 L 10 L 115/77 06/08/18 14:00 58 L 13 127/96 06/08/18 13:00 56 L 12 122/90 06/08/18 12:00 98.1 F 64 58 L 14 119/92 Pulse Ox 06/09/18 09:23 06/09/18 08:30 95 06/09/18 08:01 06/09/18 08:00 96 06/09/18 07:01 06/09/18 06:01 06/09/18 05:32 06/09/18 05:01 06/09/18 04:00 97 06/09/18 03:00 06/09/18 02:00 06/09/18 01:00 06/09/18 00:00 98 06/08/18 23:36 06/08/18 23:00 96 06/08/18 22:00 96 06/08/18 21:33 06/08/18 21:00 98 06/08/18 20:32 99 06/08/18 20:00 99 06/08/18 19:00 97 06/08/18 18:00 96 06/08/18 17:00 100 06/08/18 16:00 97 06/08/18 15:00 94 06/08/18 14:00 99 06/08/18 13:00 98 06/08/18 12:00 96 - Physical Examination General: No Apparent Distress HEENT: Positive: PERRL Neck: Positive: neck supple, trachea midline Neuro: Positive: Grossly Intact Abdomen: Positive: Soft. Negative: Tender Skin: Negative: Rash, Wound Extremities: Absent: edema - Labs and Meds Comprehensive Metabolic Panel 06/09/18 Range/Units 04:31 Sodium 139 (137-145) mmol/L Potassium 3.4 L (3.6-5.0) mmol/L Chloride 96.4 L (98-107) mmol/L Carbon Dioxide 25 (22-30) mmol/L BUN 123 H (9-20) mg/dL Creatinine 3.0 H (0.8-1.5) mg/dL Glucose 119 H (75-100) mg/dL Calcium 7.4 L (8.4-10.2) mg/dL - Imaging and Cardiology EKG: report reviewed, image reviewed Echo: report reviewed (EF 5-10%, LA mild to mod dilated, RA mildly dilated, mod to severe MR, mod to severe TR, mild AR, pseudonormalization, RV mildly dilated , RV systolic function severely reduced, mod pulm HTN with RVSP 52mmHg, small pericardial effusion. ) Cardiac cath: report reviewed (pt underwent LHC & RHC on 12/27/2017 which showed nonobstructive CAD with RCA 40% and Cristiano 35% lesions; non-ischemic cardiomyoapthy. ) - EKG Sinus rhythms and dysrhythmias: sinus rhythm
--- NOTE | 2018-06-09 11:57 | Progress Note ---
Assessment and Plan Imp: 1. NICMP 2. A/C systolic CHF 3. Pleural effusions 2/2 above 4. EDER 5. Acute respiratory failure, hypoxia 6. Pulm HTN 2/2 #'s 1 and 2 Rec: 1. Diuresis as tolerated 2. BP/cardiac optimization 3. Monitor CXR periodically 4. Not convinced about the pneumonia diagnosis; stopped Zosyn 5. Wean O2 to keep sats 88% or above; home O2 eval. 6. Try to mobilize; needs to improve nutrition as well; pulm status stable 7. Still with significant CHF on CXR and diffuse peripheral edema; consider inotropic therapy if fails to adequately mobilize fluid with Lasix alone 8. Free T4 is low; consider treatment 9. Prognosis is guarded due to multiple issues 10. Declines dialysis and AICD Plan of care reviewed with patient/family, they understand/agree Subjective Date of service: 06/09/18 Principal diagnosis: Respiratory failure, non STEMI,CMP Interval history: No events. Breathing stable. On RA currently. Poor appetite and PO intake. Mitra chuckiegger in place. Active Medications Acetaminophen (Tylenol) 650 mg PO Q4H PRN PRN Reason: Pain MILD(1-3)/Fever >100.5/VARGAS Albuterol (Proventil) 2.5 mg IH Q4HRT PRN PRN Reason: Shortness Of Breath Lipase/Protease/Amylase (Alessio Richardson 10,500 Unit) 1 each FEEDTUBE PRN PRN PRN Reason: For Clogged Feeding Tube Carvedilol (Coreg) 3.125 mg PO BID [facility] Last Admin: 06/09/18 09:23 Dose: 3.125 mg Dextrose (D50w (25gm) Syringe) 50 ml IV PRN PRN PRN Reason: Hypoglycemia Last Admin: 06/07/18 08:40 Dose: 50 ml Famotidine (Pepcid) 20 mg PO DAILY [facility] Last Admin: 06/09/18 09:24 Dose: 20 mg Hydrophilic Ointment (Vaseline Lip Therapy) 1 applic TP Q2HR PRN PRN Reason: Dry Lips Sodium Chloride (Nacl 0.45% 1000 Ml) 1,000 mls @ 60 mls/hr IV DIRECT [facility] Last Admin: 06/09/18 04:57 Dose: 60 mls/hr Isosorbide Mononitrate (Imdur) 30 mg PO QDAY [facility] Last Admin: 06/09/18 09:23 Dose: 30 mg Morphine Sulfate (Morphine) 2 mg IV Q4H PRN PRN Reason: Pain, Moderate (4-6) Last Admin: 06/02/18 22:57 Dose: 2 mg Multi-Ingred Cream/Lotion/Oil/Oint (Artificial Tears Ophth Oint) 1 applic OU Q4HR PRN PRN Reason: Dry Eye(s) Ondansetron HCl (Zofran) 4 mg IV Q8H PRN PRN Reason: Nausea And Vomiting Simple Syrup (Simple Syrup) 15 ml FEEDTUBE PRN PRN PRN Reason: Hypoglycemia Simple Syrup (Simple Syrup) 30 ml FEEDTUBE PRN PRN PRN Reason: Hypoglycemia Sodium Bicarbonate (Sodium Bicarbonate) 325 mg FEEDTUBE PRN PRN PRN Reason: For Clogged Feeding Tube Sodium Chloride (Sodium Chloride Flush Syringe 10 Ml) 10 ml IV BID [facility] Last Admin: 06/09/18 09:24 Dose: 10 ml Sodium Chloride (Sodium Chloride Flush Syringe 10 Ml) 10 ml IV PRN PRN PRN Reason: LINE FLUSH Sodium Chloride (Nacl 0.9% 500 Ml) 1 ml IV DIRECT [facility] Objective Vital Signs - 12hr 06/09/18 06/09/18 06/09/18 00:00 01:00 02:00 Temperature Pulse Rate 57 L 59 L 60 Pulse Rate [ From Monitor] Pulse Rate [ 61 Right Dorsalis Pedis] Respiratory 12 18 10 L Rate Blood Pressure 121/91 97/69 97/69 O2 Sat by Pulse 98 Oximetry 06/09/18 06/09/18 06/09/18 03:00 04:00 05:01 Temperature Pulse Rate 59 L 56 L 57 L Pulse Rate [ From Monitor] Pulse Rate [ 58 L Right Dorsalis Pedis] Respiratory 12 9 L 10 L Rate Blood Pressure 117/84 113/87 102/85 O2 Sat by Pulse 97 Oximetry 06/09/18 06/09/18 06/09/18 05:32 06:01 07:01 Temperature 97.2 F L Pulse Rate 58 L 55 L Pulse Rate [ From Monitor] Pulse Rate [ Right Dorsalis Pedis] Respiratory 8 L 7 L Rate Blood Pressure 103/85 109/82 O2 Sat by Pulse Oximetry 06/09/18 06/09/18 06/09/18 08:00 08:01 08:30 Temperature 97.3 F L Pulse Rate 58 L Pulse Rate [ 59 L From Monitor] Pulse Rate [ Right Dorsalis Pedis] Respiratory 12 10 L Rate Blood Pressure 115/73 O2 Sat by Pulse 96 95 Oximetry 06/09/18 09:23 Temperature Pulse Rate 63 Pulse Rate [ From Monitor] Pulse Rate [ Right Dorsalis Pedis] Respiratory Rate Blood Pressure 107/71 O2 Sat by Pulse Oximetry Constitutional: no acute distress, other (weak-appearing) Eyes: non-icteric ENT: oropharynx moist Neck: supple Effort: normal Ascultation: Bilateral: clear (anteriorly) Cardiovascular: regular rate and rhythm (no mrg) Gastrointestinal: normoactive bowel sounds, non-distended Integumentary: normal Extremities: no cyanosis, edema (1+ bilateral edema up to thighs) Neurologic: normal mental status, non-focal exam, pupils equal and round Psychiatric: mood appropriate, affect normal CBC and BMP: 06/08/18 04:41 06/09/18 04:31 ABG, PT/INR, D-dimer: ABG POC ABG pH 7.400 (7.35-7.45) 06/01/18 16:18 POC ABG pCO2 33.1 (35-45) L 06/01/18 16:18 POC ABG pO2 121 (80-105) H 06/01/18 16:18 POC ABG HCO3 20.5 06/01/18 16:18 POC ABG Total CO2 21 06/01/18 16:18 POC ABG O2 Sat 99 06/01/18 16:18 PT/INR, D-dimer PT 21.4 Sec. (12.2-14.9) H 06/01/18 01:12 INR 1.79 (0.87-1.13) H 06/01/18 01:12 D-Dimer 1834.40 ng/mlDDU (0-234) H 05/31/18 11:48 Abnormal lab findings: Abnormal Labs 05/31/18 05/31/18 05/31/18 04:38 04:58 05:14 RBC Hgb Hct MCV MCH RDW Plt Count Seg Neuts % (Manual) Lymphocytes % (Manual) Nucleated RBC % Seg Neutrophils # Man Lymphocytes # (Manual) PT INR D-Dimer POC ABG pH POC ABG pCO2 POC ABG pO2 Sodium Potassium Chloride Carbon Dioxide BUN Creatinine Glucose POC Glucose < 40 L 64 L 258 H Calcium Magnesium Total Bilirubin AST ALT Alkaline Phosphatase Ammonia Total Creatine Kinase CK-MB (CK-2) CK-MB (CK-2) Rel Index Troponin T NT-Pro-B Natriuret Pep Total Protein Albumin HDL Cholesterol Free T4 05/31/18 05/31/18 05/31/18 05:15 05:15 05:22 RBC 5.33 H Hgb Hct 45.8 H MCV MCH RDW 16.4 H Plt Count Seg Neuts % (Manual) 88.0 H Lymphocytes % (Manual) 6.0 L Nucleated RBC % 1.0 H Seg Neutrophils # Man Lymphocytes # (Manual) 0.4 L PT 20.9 H INR 1.74 H D-Dimer POC ABG pH POC ABG pCO2 POC ABG pO2 Sodium Potassium Chloride Carbon Dioxide BUN Creatinine Glucose POC Glucose Calcium Magnesium Total Bilirubin AST ALT Alkaline Phosphatase Ammonia 68.0 H Total Creatine Kinase CK-MB (CK-2) CK-MB (CK-2) Rel Index Troponin T NT-Pro-B Natriuret Pep Total Protein Albumin HDL Cholesterol Free T4 05/31/18 05/31/18 05/31/18 05:49 07:13 07:22 RBC Hgb Hct MCV MCH RDW Plt Count Seg Neuts % (Manual) Lymphocytes % (Manual) Nucleated RBC % Seg Neutrophils # Man Lymphocytes # (Manual) PT INR D-Dimer POC ABG pH POC ABG pCO2 POC ABG pO2 Sodium 135 L Potassium 6.0 H Chloride Carbon Dioxide 13 L BUN 87 H Creatinine 2.5 H Glucose 249 H POC Glucose 124 H Calcium 7.8 L Magnesium 2.40 H Total Bilirubin 2.60 H AST 60 H ALT Alkaline Phosphatase 592 H Ammonia Total Creatine Kinase 374 H CK-MB (CK-2) 22.3 H CK-MB (CK-2) Rel Index 5.9 H Troponin T 0.260 H* NT-Pro-B Natriuret Pep 96064 H Total Protein 5.5 L Albumin 3.0 L HDL Cholesterol 91 H Free T4 05/31/18 05/31/18 05/31/18 09:33 10:53 11:48 RBC Hgb 15.4 H Hct 49.2 H MCV MCH RDW Plt Count Seg Neuts % (Manual) Lymphocytes % (Manual) Nucleated RBC % Seg Neutrophils # Man Lymphocytes # (Manual) PT INR D-Dimer POC ABG pH POC ABG pCO2 POC ABG pO2 Sodium Potassium Chloride Carbon Dioxide BUN Creatinine Glucose POC Glucose 168 H 106 H Calcium Magnesium Total Bilirubin AST ALT Alkaline Phosphatase Ammonia Total Creatine Kinase CK-MB (CK-2) CK-MB (CK-2) Rel Index Troponin T NT-Pro-B Natriuret Pep Total Protein Albumin HDL Cholesterol Free T4 05/31/18 05/31/18 05/31/18 11:48 11:48 11:51 RBC Hgb Hct MCV MCH RDW Plt Count Seg Neuts % (Manual) Lymphocytes % (Manual) Nucleated RBC % Seg Neutrophils # Man Lymphocytes # (Manual) PT 20.6 H INR 1.71 H D-Dimer 1834.40 H POC ABG pH 6.997 L POC ABG pCO2 59.6 H POC ABG pO2 Sodium Potassium Chloride Carbon Dioxide BUN Creatinine Glucose POC Glucose Calcium Magnesium Total Bilirubin AST ALT Alkaline Phosphatase Ammonia Total Creatine Kinase CK-MB (CK-2) CK-MB (CK-2) Rel Index Troponin T 0.230 H* NT-Pro-B Natriuret Pep Total Protein Albumin HDL Cholesterol Free T4 05/31/18 05/31/18 05/31/18 15:53 18:29 19:26 RBC Hgb Hct MCV MCH RDW Plt Count Seg Neuts % (Manual) Lymphocytes % (Manual) Nucleated RBC % Seg Neutrophils # Man Lymphocytes # (Manual) PT INR D-Dimer POC ABG pH 7.328 L POC ABG pCO2 29.6 L POC ABG pO2 200 H Sodium Potassium Chloride Carbon Dioxide BUN Creatinine Glucose POC Glucose < 40 L 68 L Calcium Magnesium Total Bilirubin AST ALT Alkaline Phosphatase Ammonia Total Creatine Kinase CK-MB (CK-2) CK-MB (CK-2) Rel Index Troponin T NT-Pro-B Natriuret Pep Total Protein Albumin HDL Cholesterol Free T4 05/31/18 06/01/18 06/01/18 20:40 01:12 03:40 RBC Hgb Hct MCV 83 L MCH 27 L RDW 15.4 H Plt Count 135 L Seg Neuts % (Manual) 95.0 H Lymphocytes % (Manual) 4.0 L Nucleated RBC % Seg Neutrophils # Man Lymphocytes # (Manual) 0.3 L PT 21.4 H INR 1.79 H D-Dimer POC ABG pH POC ABG pCO2 POC ABG pO2 Sodium Potassium 5.5 H Chloride Carbon Dioxide 13 L BUN 89 H Creatinine 2.7 H Glucose 72 L POC Glucose Calcium 7.2 L Magnesium Total Bilirubin AST ALT Alkaline Phosphatase Ammonia Total Creatine Kinase CK-MB (CK-2) CK-MB (CK-2) Rel Index Troponin T NT-Pro-B Natriuret Pep Total Protein Albumin HDL Cholesterol Free T4 06/01/18 06/01/18 06/01/18 03:40 04:59 08:29 RBC Hgb Hct MCV MCH RDW Plt Count Seg Neuts % (Manual) Lymphocytes % (Manual) Nucleated RBC % Seg Neutrophils # Man Lymphocytes # (Manual) PT INR D-Dimer POC ABG pH 7.474 H POC ABG pCO2 26.1 L POC ABG pO2 116 H Sodium Potassium 5.3 H Chloride Carbon Dioxide 16 L BUN 92 H Creatinine 2.7 H Glucose 61 L POC Glucose 69 L Calcium 7.2 L Magnesium Total Bilirubin AST ALT Alkaline Phosphatase Ammonia Total Creatine Kinase CK-MB (CK-2) CK-MB (CK-2) Rel Index Troponin T NT-Pro-B Natriuret Pep Total Protein Albumin HDL Cholesterol Free T4 06/01/18 06/01/18 06/01/18 10:49 14:02 16:18 RBC Hgb Hct MCV MCH RDW Plt Count Seg Neuts % (Manual) Lymphocytes % (Manual) Nucleated RBC % Seg Neutrophils # Man Lymphocytes # (Manual) PT INR D-Dimer POC ABG pH POC ABG pCO2 33.1 L POC ABG pO2 121 H Sodium Potassium Chloride Carbon Dioxide BUN Creatinine Glucose POC Glucose 108 H Calcium Magnesium Total Bilirubin AST ALT Alkaline Phosphatase Ammonia Total Creatine Kinase CK-MB (CK-2) CK-MB (CK-2) Rel Index Troponin T 0.242 H* NT-Pro-B Natriuret Pep Total Protein Albumin HDL Cholesterol Free T4 06/01/18 06/02/18 06/02/18 16:58 04:52 04:53 RBC 5.12 H Hgb Hct MCV 81 L MCH 27 L RDW Plt Count Seg Neuts % (Manual) 87.0 H Lymphocytes % (Manual) 2.0 L Nucleated RBC % Seg Neutrophils # Man 9.2 H Lymphocytes # (Manual) 0.2 L PT INR D-Dimer POC ABG pH POC ABG pCO2 POC ABG pO2 Sodium Potassium Chloride Carbon Dioxide BUN Creatinine Glucose POC Glucose 69 L Calcium Magnesium Total Bilirubin AST ALT Alkaline Phosphatase Ammonia Total Creatine Kinase CK-MB (CK-2) CK-MB (CK-2) Rel Index Troponin T 0.268 H* NT-Pro-B Natriuret Pep Total Protein Albumin HDL Cholesterol Free T4 06/02/18 06/02/18 06/02/18 04:53 11:50 14:05 RBC Hgb Hct MCV MCH RDW Plt Count Seg Neuts % (Manual) Lymphocytes % (Manual) Nucleated RBC % Seg Neutrophils # Man Lymphocytes # (Manual) PT INR D-Dimer POC ABG pH POC ABG pCO2 POC ABG pO2 Sodium Potassium 5.4 H Chloride Carbon Dioxide 16 L BUN 94 H Creatinine 2.7 H Glucose 101 H POC Glucose 133 H 113 H Calcium 7.7 L Magnesium Total Bilirubin AST ALT Alkaline Phosphatase Ammonia Total Creatine Kinase CK-MB (CK-2) CK-MB (CK-2) Rel Index Troponin T NT-Pro-B Natriuret Pep Total Protein Albumin HDL Cholesterol Free T4 06/02/18 06/02/18 06/04/18 17:47 17:55 07:27 RBC Hgb Hct MCV MCH RDW Plt Count Seg Neuts % (Manual) Lymphocytes % (Manual) Nucleated RBC % Seg Neutrophils # Man Lymphocytes # (Manual) PT INR D-Dimer POC ABG pH POC ABG pCO2 POC ABG pO2 Sodium Potassium Chloride Carbon Dioxide 21 L 20 L BUN 90 H 87 H Creatinine 2.7 H 2.5 H Glucose 120 H 71 L POC Glucose 120 H Calcium 7.5 L 7.7 L Magnesium Total Bilirubin 2.70 H AST 92 H ALT 67 H Alkaline Phosphatase 624 H Ammonia Total Creatine Kinase CK-MB (CK-2) CK-MB (CK-2) Rel Index Troponin T NT-Pro-B Natriuret Pep Total Protein 5.4 L Albumin 2.9 L HDL Cholesterol Free T4 06/06/18 06/06/18 06/06/18 05:08 05:08 06:17 RBC Hgb Hct MCV MCH RDW Plt Count 124 L Seg Neuts % (Manual) Lymphocytes % (Manual) Nucleated RBC % Seg Neutrophils # Man Lymphocytes # (Manual) PT INR D-Dimer POC ABG pH POC ABG pCO2 POC ABG pO2 Sodium Potassium Chloride Carbon Dioxide 21 L BUN 98 H Creatinine 2.7 H Glucose 61 L POC Glucose 48 L Calcium 8.0 L Magnesium Total Bilirubin AST ALT Alkaline Phosphatase Ammonia Total Creatine Kinase CK-MB (CK-2) CK-MB (CK-2) Rel Index Troponin T NT-Pro-B Natriuret Pep Total Protein Albumin HDL Cholesterol Free T4 06/06/18 06/06/18 06/07/18 14:22 15:58 02:01 RBC Hgb Hct MCV MCH RDW Plt Count Seg Neuts % (Manual) Lymphocytes % (Manual) Nucleated RBC % Seg Neutrophils # Man Lymphocytes # (Manual) PT INR D-Dimer POC ABG pH POC ABG pCO2 POC ABG pO2 Sodium Potassium Chloride Carbon Dioxide BUN Creatinine Glucose POC Glucose 228 H 121 H 63 L Calcium Magnesium Total Bilirubin AST ALT Alkaline Phosphatase Ammonia Total Creatine Kinase CK-MB (CK-2) CK-MB (CK-2) Rel Index Troponin T NT-Pro-B Natriuret Pep Total Protein Albumin HDL Cholesterol Free T4 06/07/18 06/07/18 06/07/18 05:07 08:10 09:03 RBC Hgb Hct MCV MCH RDW Plt Count Seg Neuts % (Manual) Lymphocytes % (Manual) Nucleated RBC % Seg Neutrophils # Man Lymphocytes # (Manual) PT INR D-Dimer POC ABG pH POC ABG pCO2 POC ABG pO2 Sodium Potassium Chloride Carbon Dioxide BUN 111 H Creatinine 2.9 H Glucose POC Glucose 66 L 133 H Calcium 7.5 L Magnesium Total Bilirubin AST ALT Alkaline Phosphatase Ammonia Total Creatine Kinase CK-MB (CK-2) CK-MB (CK-2) Rel Index Troponin T NT-Pro-B Natriuret Pep Total Protein Albumin HDL Cholesterol Free T4 06/07/18 06/07/18 06/07/18 12:53 15:23 20:00 RBC Hgb Hct MCV MCH RDW Plt Count Seg Neuts % (Manual) Lymphocytes % (Manual) Nucleated RBC % Seg Neutrophils # Man Lymphocytes # (Manual) PT INR D-Dimer POC ABG pH POC ABG pCO2 POC ABG pO2 Sodium Potassium Chloride Carbon Dioxide BUN Creatinine Glucose POC Glucose 148 H 161 H Calcium Magnesium Total Bilirubin AST ALT Alkaline Phosphatase Ammonia Total Creatine Kinase CK-MB (CK-2) CK-MB (CK-2) Rel Index Troponin T NT-Pro-B Natriuret Pep Total Protein Albumin HDL Cholesterol Free T4 0.57 L 06/07/18 06/08/18 06/08/18 23:38 04:30 04:41 RBC Hgb Hct MCV MCH RDW Plt Count 98 L Seg Neuts % (Manual) Lymphocytes % (Manual) Nucleated RBC % Seg Neutrophils # Man Lymphocytes # (Manual) PT INR D-Dimer POC ABG pH POC ABG pCO2 POC ABG pO2 Sodium Potassium Chloride Carbon Dioxide BUN Creatinine Glucose POC Glucose 135 H 108 H Calcium Magnesium Total Bilirubin AST ALT Alkaline Phosphatase Ammonia Total Creatine Kinase CK-MB (CK-2) CK-MB (CK-2) Rel Index Troponin T NT-Pro-B Natriuret Pep Total Protein Albumin HDL Cholesterol Free T4 06/08/18 06/08/18 06/08/18 04:41 12:01 15:53 RBC Hgb Hct MCV MCH RDW Plt Count Seg Neuts % (Manual) Lymphocytes % (Manual) Nucleated RBC % Seg Neutrophils # Man Lymphocytes # (Manual) PT INR D-Dimer POC ABG pH POC ABG pCO2 POC ABG pO2 Sodium Potassium Chloride Carbon Dioxide BUN 122 H Creatinine 3.1 H Glucose 109 H POC Glucose 133 H 128 H Calcium 7.4 L Magnesium Total Bilirubin AST ALT Alkaline Phosphatase Ammonia Total Creatine Kinase CK-MB (CK-2) CK-MB (CK-2) Rel Index Troponin T NT-Pro-B Natriuret Pep Total Protein Albumin HDL Cholesterol Free T4 06/08/18 06/09/18 06/09/18 22:01 01:37 04:31 RBC Hgb Hct MCV MCH RDW Plt Count Seg Neuts % (Manual) Lymphocytes % (Manual) Nucleated RBC % Seg Neutrophils # Man Lymphocytes # (Manual) PT INR D-Dimer POC ABG pH POC ABG pCO2 POC ABG pO2 Sodium Potassium 3.4 L Chloride 96.4 L Carbon Dioxide BUN 123 H Creatinine 3.0 H Glucose 119 H POC Glucose 129 H 143 H Calcium 7.4 L Magnesium Total Bilirubin AST ALT Alkaline Phosphatase Ammonia Total Creatine Kinase CK-MB (CK-2) CK-MB (CK-2) Rel Index Troponin T NT-Pro-B Natriuret Pep Total Protein Albumin HDL Cholesterol Free T4 Chest x-ray: report reviewed, image reviewed
--- NOTE | 2018-06-09 12:02 | Progress Note ---
Assessment and Plan Assessment * Acute kidney injury. * Severe cardiomyopathy status post non-ST elevation CO ejection fraction of the 10% range * Hyperkalemia * metabolic acidosis * History of coronary artery disease, poor ejection fraction, Recommendations * patient's volume status has improved * pt remains non-oliguric * BUN noted to be higher. Creatinine seems to be levelling off * Hydrate patient gently * Avoid nephrotoxins * Not a good candidate for ACEI or ARB at this time * Renal prognosis remains guarded at this time * Repeat CXR still showing CHF * Had discussed with patient daughter yesterday about possibility of dialysis if renal function worsens . She was to discuss with other family members . Patient however still says that he does not want dialysis Subjective Date of service: 06/09/18 Principal diagnosis: Respiratory failure, non STEMI,CMP Interval history: patient is alert today . SOB much improved . Denies nausea or vomiting . Appetite still poor . Objective - Vital Signs Vital signs: Vital Signs - 12hr 06/09/18 06/09/18 06/09/18 01:00 02:00 03:00 Temperature Pulse Rate 59 L 60 59 L Pulse Rate [ From Monitor] Pulse Rate [ Right Dorsalis Pedis] Respiratory 18 10 L 12 Rate Blood Pressure 97/69 97/69 117/84 O2 Sat by Pulse Oximetry 06/09/18 06/09/18 06/09/18 04:00 05:01 05:32 Temperature 97.2 F L Pulse Rate 56 L 57 L Pulse Rate [ From Monitor] Pulse Rate [ 58 L Right Dorsalis Pedis] Respiratory 9 L 10 L Rate Blood Pressure 113/87 102/85 O2 Sat by Pulse 97 Oximetry 06/09/18 06/09/18 06/09/18 06:01 07:01 08:00 Temperature 97.3 F L Pulse Rate 58 L 55 L Pulse Rate [ 59 L From Monitor] Pulse Rate [ Right Dorsalis Pedis] Respiratory 8 L 7 L 12 Rate Blood Pressure 103/85 109/82 O2 Sat by Pulse 96 Oximetry 06/09/18 06/09/18 06/09/18 08:01 08:30 09:23 Temperature Pulse Rate 58 L 63 Pulse Rate [ From Monitor] Pulse Rate [ Right Dorsalis Pedis] Respiratory 10 L Rate Blood Pressure 115/73 107/71 O2 Sat by Pulse 95 Oximetry - General Appearance General appearance: chronically ill, frail EENT: PERRL, mucous membranes moist Neck: no JVD, no thyromegaly Respiratory: Present: Clear to Ascultation Cardiology: regular, normal heart rate, S1S2, no murmurs Gastrointestinal: normal, normoactive bowel sounds Integumentary: other (1+ edema ) - Lab 06/08/18 04:41 06/09/18 04:31 Most recent lab results Calcium 7.4 mg/dL (8.4-10.2) L 06/09/18 04:31 Magnesium 2.40 mg/dL (1.7-2.3) H 05/31/18 07:13
--- NOTE | 2018-06-09 13:31 | Progress Note ---
Assessment and Plan Assessment and plan: NSTEMI - Cardiology consult appreciated - Continue coreg and Imdur. - No ACEI/ARB at this time in setting of renal insufficiency. Acute renal failure/EDER - Nephrology following - remains non-oliguric - Pt currently denies HD if it comes to that Acute combined systolic and diastolic heart failure - EF 5-10%, will follow cardiology recommendations - No ACEI/ARB at this time in setting of renal insufficiency. - Cont diuresis per nephrology--gentle hydration today though - Cardiology to consider dobutamine gtt if necessary for additional diuresis. Severe nonischemic cardiomyopathy. - Cardiac defibrillator recommended in setting of severe CMP. Indications, potential risks and benefits of defibrillator reviewed with pt. Pt declines AICD at this time. Acute hypoxemic respiratory failure. - Patient was intubated and on mechanical ventilation, extubated on 06/01 -Resolved Encephalopathy Resolved. DVT prophylaxis - On heparin drip Disposition PT is recommending subacute rehabilitation placement. I discussed with the daughter at the bedside plan of care and placement. Overall prognosis remains guarded History Interval history: 63-year-old -[place] male was presented to the ED with complaints of shortness of breath, chest pain, altered mental status Cardiac enzymes was done in the ED and was high, chest x-ray showed bilateral pleural effusion, elevated BNP, elevated creatinine. The patient was admitted with diagnosis of acute combined systolic and diastolic heart failure and non- ST elevation [place]. Echocardiogram reveals EF 5-10%. Patient with nonischemic cardiomyopathy, pulmonary hypertension and a right ventricular systolic dysfunction. Patient currently awaiting rehabilitation placement. Hospitalist Physical - Constitutional Vitals: Temp Pulse Resp BP Pulse Ox 97.7 F 63 10 L 107/71 95 06/09/18 12:00 06/09/18 09:23 06/09/18 08:01 06/09/18 09:23 06/09/18 08:30 General appearance: Present: other (lethargic) - EENT Eyes: Present: PERRL, EOM intact ENT: hearing intact, clear oral mucosa, dentition normal - Neck Neck: Present: supple, normal ROM - Respiratory Respiratory effort: normal Respiratory: bilateral: CTA - Cardiovascular Rhythm: regular Heart Sounds: Present: S1 & S2. Absent: gallop, rub - Extremities Extremities: no ischemia, No edema, Full ROM - Abdominal General gastrointestinal: soft, non-tender, non-distended, normal bowel sounds - Integumentary Integumentary: Present: clear, warm, dry - Neurologic Neurologic: CNII-XII intact, moves all extremities Results - Labs CBC & Chem 7: 06/08/18 04:41 06/09/18 04:31 Labs: Laboratory Last Values WBC 10.6 K/mm3 (4.5-11.0) 06/02/18 04:53 RBC 5.12 M/mm3 (3.65-5.03) H 06/02/18 04:53 Hgb 12.5 gm/dl (11.8-15.2) 06/08/18 04:41 Hct 38.2 % (35.5-45.6) 06/08/18 04:41 MCV 81 fl (84-94) L 06/02/18 04:53 MCH 27 pg (28-32) L 06/02/18 04:53 MCHC 34 % (32-34) 06/02/18 04:53 RDW 15.1 % (13.2-15.2) 06/02/18 04:53 Plt Count 98 K/mm3 (140-440) L 06/08/18 04:41 Add Manual Diff Complete 06/02/18 04:53 Total Counted 100 06/02/18 04:53 Seg Neuts % (Manual) 87.0 % (40.0-70.0) H 06/02/18 04:53 Band Neutrophils % 9.0 % 06/02/18 04:53 Lymphocytes % (Manual) 2.0 % (13.4-35.0) L 06/02/18 04:53 Reactive Lymphs % (Man) 0 % 06/02/18 04:53 Monocytes % (Manual) 2.0 % (0.0-7.3) 06/02/18 04:53 Eosinophils % (Manual) 0 % (0.0-4.3) 06/02/18 04:53 Basophils % (Manual) 0 % (0.0-1.8) 06/02/18 04:53 Metamyelocytes % 0 % 06/02/18 04:53 Myelocytes % 0 % 06/02/18 04:53 Promyelocytes % 0 % 06/02/18 04:53 Blast Cells % 0 % 06/02/18 04:53 Nucleated RBC % Not Reportable 06/02/18 04:53 Seg Neutrophils # Man 9.2 K/mm3 (1.8-7.7) H 06/02/18 04:53 Band Neutrophils # 1.0 K/mm3 06/02/18 04:53 Lymphocytes # (Manual) 0.2 K/mm3 (1.2-5.4) L 06/02/18 04:53 Abs React Lymphs (Man) 0.0 K/mm3 06/02/18 04:53 Monocytes # (Manual) 0.2 K/mm3 (0.0-0.8) 06/02/18 04:53 Eosinophils # (Manual) 0.0 K/mm3 (0.0-0.4) 06/02/18 04:53 Basophils # (Manual) 0.0 K/mm3 (0.0-0.1) 06/02/18 04:53 Metamyelocytes # 0.0 K/mm3 06/02/18 04:53 Myelocytes # 0.0 K/mm3 06/02/18 04:53 Promyelocytes # 0.0 K/mm3 06/02/18 04:53 Blast Cells # 0.0 K/mm3 06/02/18 04:53 WBC Morphology Not Reportable 06/02/18 04:53 Hypersegmented Neuts Not Reportable 06/02/18 04:53 Hyposegmented Neuts Not Reportable 06/02/18 04:53 Hypogranular Neuts Not Reportable 06/02/18 04:53 Smudge Cells Not Reportable 06/02/18 04:53 Toxic Granulation Not Reportable 06/02/18 04:53 Toxic Vacuolation Not Reportable 06/02/18 04:53 Dohle Bodies Not Reportable 06/02/18 04:53 Pelger-Huet Anomaly Not Reportable 06/02/18 04:53 Trae Rods Not Reportable 06/02/18 04:53 Platelet Estimate Consistent w auto 06/02/18 04:53 Clumped Platelets Not Reportable 06/02/18 04:53 Plt Clumps, EDTA Not Reportable 06/02/18 04:53 Large Platelets Not Reportable 06/02/18 04:53 Giant Platelets Not Reportable 06/02/18 04:53 Platelet Satelliting Not Reportable 06/02/18 04:53 Plt Morphology Comment Not Reportable 06/02/18 04:53 RBC Morphology Not Reportable 06/02/18 04:53 Dimorphic RBCs Not Reportable 06/02/18 04:53 Polychromasia 1+ 06/02/18 04:53 Hypochromasia Not Reportable 06/02/18 04:53 Poikilocytosis Not Reportable 06/02/18 04:53 Anisocytosis Not Reportable 06/02/18 04:53 Microcytosis Not Reportable 06/02/18 04:53 Macrocytosis Not Reportable 06/02/18 04:53 Spherocytes Not Reportable 06/02/18 04:53 Pappenheimer Bodies Not Reportable 06/02/18 04:53 Sickle Cells Not Reportable 06/02/18 04:53 Target Cells 1+ 06/02/18 04:53 Tear Drop Cells Not Reportable 06/02/18 04:53 Ovalocytes Not Reportable 06/02/18 04:53 Helmet Cells Not Reportable 06/02/18 04:53 [place] Bodies Not Reportable 06/02/18 04:53 Colbert Rings Not Reportable 06/02/18 04:53 Andres Cells Not Reportable 06/02/18 04:53 Bite Cells Not Reportable 06/02/18 04:53 Crenated Cell Not Reportable 06/02/18 04:53 Elliptocytes Not Reportable 06/02/18 04:53 Acanthocytes (Spur) Not Reportable 06/02/18 04:53 Rouleaux Not Reportable 06/02/18 04:53 Hemoglobin C Crystals Not Reportable 06/02/18 04:53 Schistocytes Not Reportable 06/02/18 04:53 Malaria parasites Not Reportable 06/02/18 04:53 Dann Bodies Not Reportable 06/02/18 04:53 Hem Pathologist Commnt No 06/02/18 04:53 PT 21.4 Sec. (12.2-14.9) H 06/01/18 01:12 INR 1.79 (0.87-1.13) H 06/01/18 01:12 APTT 33.2 Sec. (24.2-36.6) 06/01/18 01:12 D-Dimer 1834.40 ng/mlDDU (0-234) H 05/31/18 11:48 Heparin Anti-Xa Level 0.40 U.I./ml (0.3-0.7) 05/31/18 20:40 POC ABG pH 7.400 (7.35-7.45) 06/01/18 16:18 POC ABG pCO2 33.1 (35-45) L 06/01/18 16:18 POC ABG pO2 121 (80-105) H 06/01/18 16:18 POC ABG HCO3 20.5 06/01/18 16:18 POC ABG Total CO2 21 06/01/18 16:18 POC ABG O2 Sat 99 06/01/18 16:18 POC ABG Base Excess -4 06/01/18 16:18 FiO2 35 % 06/01/18 16:18 Sodium 139 mmol/L (137-145) 06/09/18 04:31 Potassium 3.4 mmol/L (3.6-5.0) L 06/09/18 04:31 Chloride 96.4 mmol/L (98-107) L 06/09/18 04:31 Carbon Dioxide 25 mmol/L (22-30) 06/09/18 04:31 Anion Gap 21 mmol/L 06/09/18 04:31 BUN 123 mg/dL (9-20) H 06/09/18 04:31 Creatinine 3.0 mg/dL (0.8-1.5) H 06/09/18 04:31 Estimated GFR 26 ml/min 06/09/18 04:31 BUN/Creatinine Ratio 41 % 06/09/18 04:31 Glucose 119 mg/dL (75-100) H 06/09/18 04:31 POC Glucose 81 (70-105) 06/09/18 10:03 Lactic Acid 1.50 mmol/L (0.7-2.0) 05/31/18 07:13 Calcium 7.4 mg/dL (8.4-10.2) L 06/09/18 04:31 Magnesium 2.40 mg/dL (1.7-2.3) H 05/31/18 07:13 Total Bilirubin 2.70 mg/dL (0.1-1.2) H 06/02/18 17:47 AST 92 units/L (5-40) H 06/02/18 17:47 ALT 67 units/L (7-56) H 06/02/18 17:47 Alkaline Phosphatase 624 units/L (35-129) H 06/02/18 17:47 Ammonia 35.0 umol/L (25-60) 06/04/18 10:48 Total Creatine Kinase 374 units/L (55-170) H 05/31/18 05:49 CK-MB (CK-2) 22.3 ng/mL (0.0-4.0) H 05/31/18 05:49 CK-MB (CK-2) Rel Index 5.9 (0-4) H 05/31/18 05:49 Troponin T 0.268 ng/mL (0.00-0.029) H* 06/02/18 04:52 NT-Pro-B Natriuret Pep 12592 pg/mL (0-900) H 05/31/18 05:49 Total Protein 5.4 g/dL (6.3-8.2) L 06/02/18 17:47 Albumin 2.9 g/dL (3.9-5) L 06/02/18 17:47 Albumin/Globulin Ratio 1.2 % 06/02/18 17:47 Triglycerides 16 mg/dL (2-149) 05/31/18 05:49 Cholesterol 142 mg/dL (50-199) 05/31/18 05:49 LDL Cholesterol Direct 52 mg/dL (50-130) 05/31/18 05:49 HDL Cholesterol 91 mg/dL (40-59) H 05/31/18 05:49 Cholesterol/HDL Ratio 1.56 % 05/31/18 05:49 TSH 1.010 mlU/mL (0.270-4.200) 06/07/18 12:53 Free T4 0.57 ng/dL (0.76-1.46) L 06/07/18 12:53 Urine Color Khloe (Yellow) 05/31/18 05:20 Urine Turbidity Slightly-cloudy (Clear) 05/31/18 05:20 Urine pH 5.0 (5.0-7.0) 05/31/18 05:20 Ur Specific [place] 1.016 (1.003-1.030) 05/31/18 05:20 Urine Protein >500 mg/dL (Negative) 05/31/18 05:20 Urine Glucose (UA) Neg mg/dL (Negative) 05/31/18 05:20 Urine Ketones Neg mg/dL (Negative) 05/31/18 05:20 Urine Blood Sm (Negative) 05/31/18 05:20 Urine Nitrite Neg (Negative) 05/31/18 05:20 Urine Bilirubin Neg (Negative) 05/31/18 05:20 Urine Urobilinogen 4.0 mg/dL (<2.0) 05/31/18 05:20 Ur Leukocyte Esterase Neg (Negative) 05/31/18 05:20 Urine WBC (Auto) 6.0 /HPF (0.0-6.0) 05/31/18 05:20 Urine RBC (Auto) 9.0 /HPF (0.0-6.0) 05/31/18 05:20 U Epithel Cells (Auto) < 1.0 /HPF (0-13.0) 05/31/18 05:20 Urine Mucus Few /HPF 05/31/18 05:20 Urine Yeast (Budding) 1+ /HPF 05/31/18 05:20 Urine Opiates Screen Presumptive negative 05/31/18 05:20 Urine Methadone Screen Presumptive negative 05/31/18 05:20 Ur Barbiturates Screen Presumptive negative 05/31/18 05:20 Ur Phencyclidine Scrn Presumptive negative 05/31/18 05:20 Ur Amphetamines Screen Presumptive negative 05/31/18 05:20 U Benzodiazepines Scrn Presumptive negative 05/31/18 05:20 Urine Cocaine Screen Presumptive negative 05/31/18 05:20 U Marijuana (THC) Screen Presumptive negative 05/31/18 05:20 Drugs of Abuse Note Disclamer 05/31/18 05:20 Plasma/Serum Alcohol < 0.01 % (0-0.07) 05/31/18 05:22
[2018-06-10] MEDS: MORPHINE IV PRN (01:41)
[2018-06-10 05:16] LABS: Calcium 7.2 mg/dL (8.4-10.2)
[2018-06-10] MEDS: PEPCID PO SCH (09:44)
[2018-06-10] MEDS: COREG PO SCH ×2 (09:45→21:36)
[2018-06-10] MEDS: IMDUR PO SCH (09:45)
[2018-06-10] MEDS: SODIUM CHLORIDE FLUSH SYRINGE 10 ML IV SCH ×2 (10:11→21:37)
--- NOTE | 2018-06-10 11:46 | Progress Note ---
Assessment and Plan Assessment * Acute kidney injury. * Severe cardiomyopathy status post non-ST elevation [place] ejection fraction of the 10% range * Hyperkalemia * metabolic acidosis * History of coronary artery disease, poor ejection fraction, Recommendations * patient's volume status has improved * pt remains non-oliguric * BUN/ Creatinine seems to be levelling off * Hydrate patient gently * Avoid nephrotoxins * Not a good candidate for ACEI or ARB at this time * Renal prognosis remains guarded at this time * Repeat CXR still showing CHF * Discussed with patient's another daughter at bedside about possibility of dialysis if renal function worsens . Family undecided . Patient however still says that he does not want dialysis Subjective Date of service: 06/10/18 Principal diagnosis: Respiratory failure, non STEMI,CMP Interval history: patient is alert today . SOB much improved . Denies nausea or vomiting . Appetite still poor . eating little better per his daughter Objective - Vital Signs Vital signs: Vital Signs - 12hr 06/10/18 06/10/18 06/10/18 00:00 02:31 02:41 Temperature 98.3 F Pulse Rate 64 60 58 L Pulse Rate [ From Monitor] Respiratory 16 8 L 8 L Rate Blood Pressure 115/83 115/83 Blood Pressure 123/90 [Left] O2 Sat by Pulse 97 98 97 Oximetry 06/10/18 06/10/18 06/10/18 02:51 03:00 03:11 Temperature Pulse Rate 58 L 62 59 L Pulse Rate [ From Monitor] Respiratory 8 L 11 L 8 L Rate Blood Pressure 115/83 119/84 119/84 Blood Pressure [Left] O2 Sat by Pulse 97 94 97 Oximetry 06/10/18 06/10/18 06/10/18 03:21 03:31 03:41 Temperature Pulse Rate 59 L 58 L 56 L Pulse Rate [ From Monitor] Respiratory 18 31 H 27 H Rate Blood Pressure 119/84 119/84 119/84 Blood Pressure [Left] O2 Sat by Pulse 97 96 96 Oximetry 06/10/18 06/10/18 06/10/18 03:51 04:00 04:01 Temperature 97.0 F L Pulse Rate 62 61 59 L Pulse Rate [ From Monitor] Respiratory 21 15 9 L Rate Blood Pressure 119/84 123/104 Blood Pressure 123/104 [Left] O2 Sat by Pulse 98 97 97 Oximetry 06/10/18 06/10/18 06/10/18 04:11 04:21 04:31 Temperature Pulse Rate 60 61 61 Pulse Rate [ From Monitor] Respiratory 9 L 8 L 9 L Rate Blood Pressure 123/104 123/104 123/104 Blood Pressure [Left] O2 Sat by Pulse 98 98 98 Oximetry 06/10/18 06/10/18 06/10/18 04:41 04:51 05:00 Temperature Pulse Rate 60 60 64 Pulse Rate [ From Monitor] Respiratory 7 L 10 L 10 L Rate Blood Pressure 123/104 123/104 119/93 Blood Pressure [Left] O2 Sat by Pulse 98 98 98 Oximetry 06/10/18 06/10/18 06/10/18 05:11 05:21 05:31 Temperature Pulse Rate 60 62 61 Pulse Rate [ From Monitor] Respiratory 9 L 10 L 9 L Rate Blood Pressure 119/93 119/93 119/93 Blood Pressure [Left] O2 Sat by Pulse 88 98 99 Oximetry 06/10/18 06/10/18 06/10/18 05:41 05:51 06:00 Temperature Pulse Rate 59 L 61 59 L Pulse Rate [ From Monitor] Respiratory 7 L 12 10 L Rate Blood Pressure 119/93 119/93 123/96 Blood Pressure [Left] O2 Sat by Pulse 97 100 97 Oximetry 06/10/18 06/10/18 06/10/18 06:10 06:21 06:31 Temperature Pulse Rate 59 L 59 L 60 Pulse Rate [ From Monitor] Respiratory 8 L 9 L 9 L Rate Blood Pressure 123/96 123/96 123/96 Blood Pressure [Left] O2 Sat by Pulse 93 96 98 Oximetry 06/10/18 06/10/18 06/10/18 06:41 06:51 07:00 Temperature Pulse Rate 58 L 59 L 59 L Pulse Rate [ From Monitor] Respiratory 10 L 7 L 7 L Rate Blood Pressure 123/96 123/96 127/101 Blood Pressure [Left] O2 Sat by Pulse 98 94 99 Oximetry 06/10/18 06/10/18 06/10/18 07:11 07:21 07:31 Temperature Pulse Rate 61 63 Pulse Rate [ From Monitor] Respiratory 10 L 8 L 10 L Rate Blood Pressure 129/95 129/95 129/95 Blood Pressure [Left] O2 Sat by Pulse 96 95 93 Oximetry 06/10/18 06/10/18 06/10/18 07:41 07:51 08:01 Temperature 97.5 F L Pulse Rate 58 L 61 62 Pulse Rate [ From Monitor] Respiratory 13 12 13 Rate Blood Pressure 129/95 129/95 129/95 Blood Pressure [Left] O2 Sat by Pulse 97 98 98 Oximetry 06/10/18 06/10/18 06/10/18 08:11 08:20 08:31 Temperature Pulse Rate 60 59 L 62 Pulse Rate [ From Monitor] Respiratory 9 L 10 L 8 L Rate Blood Pressure 129/95 126/97 126/97 Blood Pressure [Left] O2 Sat by Pulse 98 99 99 Oximetry 06/10/18 06/10/18 06/10/18 08:41 08:51 09:00 Temperature Pulse Rate 61 62 63 Pulse Rate [ From Monitor] Respiratory 15 11 L 8 L Rate Blood Pressure 126/97 126/97 119/79 Blood Pressure [Left] O2 Sat by Pulse 97 97 98 Oximetry 06/10/18 06/10/18 06/10/18 09:11 09:21 09:28 Temperature Pulse Rate 63 60 Pulse Rate [ From Monitor] Respiratory 8 L 10 L Rate Blood Pressure 119/79 126/97 Blood Pressure [Left] O2 Sat by Pulse 97 98 94 Oximetry 06/10/18 06/10/18 06/10/18 09:31 09:41 09:45 Temperature Pulse Rate 59 L 61 58 L Pulse Rate [ From Monitor] Respiratory 6 L 7 L Rate Blood Pressure 126/97 126/97 Blood Pressure [Left] O2 Sat by Pulse 95 98 Oximetry 06/10/18 06/10/18 06/10/18 09:51 10:00 10:11 Temperature Pulse Rate 61 62 61 Pulse Rate [ 58 L From Monitor] Respiratory 9 L 7 L 9 L Rate Blood Pressure 126/97 123/90 123/90 Blood Pressure [Left] O2 Sat by Pulse 96 98 98 Oximetry 06/10/18 06/10/18 06/10/18 10:21 10:31 10:41 Temperature Pulse Rate 63 62 61 Pulse Rate [ From Monitor] Respiratory 10 L 14 14 Rate Blood Pressure 123/90 123/90 123/90 Blood Pressure [Left] O2 Sat by Pulse 99 98 97 Oximetry 06/10/18 06/10/18 10:51 11:00 Temperature Pulse Rate 62 60 Pulse Rate [ From Monitor] Respiratory 9 L 9 L Rate Blood Pressure 123/90 132/100 Blood Pressure [Left] O2 Sat by Pulse 98 98 Oximetry - General Appearance General appearance: chronically ill, frail EENT: PERRL, mucous membranes moist Neck: no JVD, no thyromegaly, no carotid bruit, supple Respiratory: Present: Clear to Ascultation Cardiology: regular, normal heart rate Gastrointestinal: normal, normoactive bowel sounds Integumentary: other (1+ edema ) - Lab 06/08/18 04:41 06/10/18 04:31 Most recent lab results Calcium 7.2 mg/dL (8.4-10.2) L 06/10/18 04:31 Magnesium 2.40 mg/dL (1.7-2.3) H 05/31/18 07:13
--- NOTE | 2018-06-10 11:59 | Progress Note ---
Assessment and Plan clinically improved Renal prognosis is guarded per nephrology. Continue coreg and Imdur. No ACEI/ARB at this time in setting of renal insufficiency. Overall prognosis remains guarded because of his multiple medical issues. Pt declines AICD at this time. d/w pt and daughter at bedside - Patient Problems (1) Acute combined systolic and diastolic heart failure Current Visit: Yes Status: Acute (2) Acute heart failure Current Visit: Yes Status: Acute (3) Acute renal failure (ARF) Current Visit: Yes Status: Acute Qualifiers: Acute renal failure type: unspecified Qualified Code(s): N17.9 - Acute kidney failure, unspecified (4) Metabolic acidosis Current Visit: Yes Status: Acute (5) Metabolic encephalopathy Current Visit: Yes Status: Acute (6) Moderate to severe mitral regurgitation Current Visit: Yes Status: Chronic (7) NICM (nonischemic cardiomyopathy) Current Visit: Yes Status: Chronic (8) Pulmonary HTN Current Visit: Yes Status: Chronic Subjective Date of service: 06/10/18 Principal diagnosis: Respiratory failure, non STEMI,CMP Interval history: feels much better Objective Vital Signs Temp Pulse Pulse Resp BP BP Pulse Ox 06/10/18 11:00 60 9 L 132/100 98 06/10/18 10:51 62 9 L 123/90 98 06/10/18 10:41 61 14 123/90 97 06/10/18 10:31 62 14 123/90 98 06/10/18 10:21 63 10 L 123/90 99 06/10/18 10:11 61 9 L 123/90 98 06/10/18 10:00 62 58 L 7 L 123/90 98 06/10/18 09:51 61 9 L 126/97 96 06/10/18 09:45 58 L 06/10/18 09:41 61 7 L 126/97 98 06/10/18 09:31 59 L 6 L 126/97 95 06/10/18 09:28 94 06/10/18 09:21 60 10 L 126/97 98 06/10/18 09:11 63 8 L 119/79 97 06/10/18 09:00 63 8 L 119/79 98 06/10/18 08:51 62 11 L 126/97 97 06/10/18 08:41 61 15 126/97 97 06/10/18 08:31 62 8 L 126/97 99 06/10/18 08:20 59 L 10 L 126/97 99 06/10/18 08:11 60 9 L 129/95 98 06/10/18 08:01 62 13 129/95 98 06/10/18 07:51 97.5 F L 61 12 129/95 98 06/10/18 07:41 58 L 13 129/95 97 06/10/18 07:31 10 L 129/95 93 06/10/18 07:21 63 8 L 129/95 95 06/10/18 07:11 61 10 L 129/95 96 06/10/18 07:00 59 L 7 L 127/101 99 06/10/18 06:51 59 L 7 L 123/96 94 06/10/18 06:41 58 L 10 L 123/96 98 06/10/18 06:31 60 9 L 123/96 98 06/10/18 06:21 59 L 9 L 123/96 96 06/10/18 06:10 59 L 8 L 123/96 93 06/10/18 06:00 59 L 10 L 123/96 97 06/10/18 05:51 61 12 119/93 100 06/10/18 05:41 59 L 7 L 119/93 97 06/10/18 05:31 61 9 L 119/93 99 06/10/18 05:21 62 10 L 119/93 98 06/10/18 05:11 60 9 L 119/93 88 06/10/18 05:00 64 10 L 119/93 98 06/10/18 04:51 60 10 L 123/104 98 06/10/18 04:41 60 7 L 123/104 98 06/10/18 04:31 61 9 L 123/104 98 06/10/18 04:21 61 8 L 123/104 98 06/10/18 04:11 60 9 L 123/104 98 06/10/18 04:01 59 L 9 L 123/104 97 06/10/18 04:00 97.0 F L 61 15 123/104 97 06/10/18 03:51 62 21 119/84 98 06/10/18 03:41 56 L 27 H 119/84 96 06/10/18 03:31 58 L 31 H 119/84 96 06/10/18 03:21 59 L 18 119/84 97 06/10/18 03:11 59 L 8 L 119/84 97 06/10/18 03:00 62 11 L 119/84 94 06/10/18 02:51 58 L 8 L 115/83 97 06/10/18 02:41 58 L 8 L 115/83 97 06/10/18 02:31 60 8 L 115/83 98 06/10/18 00:00 98.3 F 64 16 123/90 97 06/09/18 22:00 65 65 16 98 06/09/18 21:08 65 126/92 06/09/18 21:00 95.0 F L 06/09/18 20:00 62 14 127/94 95 06/09/18 16:01 64 12 116/86 96 06/09/18 16:00 97.9 F 62 12 97 06/09/18 15:01 63 12 116/86 97 06/09/18 14:00 61 10 L 119/88 95 06/09/18 13:01 65 11 L 122/89 98 06/09/18 12:00 97.7 F 63 63 12 111/80 94 - Physical Examination General: No Apparent Distress HEENT: Positive: PERRL Neck: Positive: neck supple, trachea midline Neuro: Positive: Grossly Intact Abdomen: Positive: Soft. Negative: Tender Skin: Negative: Rash, Wound Extremities: Absent: edema - Labs and Meds Comprehensive Metabolic Panel 06/10/18 Range/Units 04:31 Sodium 138 (137-145) mmol/L Potassium 3.4 L (3.6-5.0) mmol/L Chloride 96.7 L (98-107) mmol/L Carbon Dioxide 23 (22-30) mmol/L BUN 119 H (9-20) mg/dL Creatinine 2.9 H (0.8-1.5) mg/dL Glucose 95 (75-100) mg/dL Calcium 7.2 L (8.4-10.2) mg/dL - Imaging and Cardiology EKG: report reviewed, image reviewed Echo: report reviewed (EF 5-10%, LA mild to mod dilated, RA mildly dilated, mod to severe MR, mod to severe TR, mild AR, pseudonormalization, RV mildly dilated , RV systolic function severely reduced, mod pulm HTN with RVSP 52mmHg, small pericardial effusion. ) Cardiac cath: report reviewed (pt underwent LHC & RHC on 12/27/2017 which showed nonobstructive CAD with RCA 40% and Cristiano 35% lesions; non-ischemic cardiomyoapthy. ) - EKG Sinus rhythms and dysrhythmias: sinus rhythm
[2018-06-10] MEDS: NACL 0.45% 1000 ML 1,000 ML IV SCH (13:58)
--- NOTE | 2018-06-10 16:31 | Progress Note ---
Assessment and Plan Imp: 1. NICMP 2. A/C systolic CHF 3. Pleural effusions 2/2 above 4. EDER 5. Acute respiratory failure, hypoxia 6. Pulm HTN 2/2 #'s 1 and 2 Rec: 1. Receiving IVFs now; will monitor respiratory status with you, stable today 2. BP/cardiac optimization 3. Monitor CXR periodically 4. Not convinced about the pneumonia diagnosis; stopped Zosyn 5. Wean O2 to keep sats 88% or above; home O2 eval. 6. Try to mobilize; needs to improve nutrition as well; pulm status stable 7. Consider inotropes 8. Free T4 is low; consider treatment 9. Prognosis is guarded due to multiple issues 10. Declines dialysis and AICD Plan of care reviewed with patient/family, they understand/agree Subjective Date of service: 06/10/18 Principal diagnosis: Respiratory failure, non STEMI,CMP Interval history: No events. Breathing stable. On RA currently. Feels a little better today, eating more, etc. Active Medications Acetaminophen (Tylenol) 650 mg PO Q4H PRN PRN Reason: Pain MILD(1-3)/Fever >100.5/VARGAS Albuterol (Proventil) 2.5 mg IH Q4HRT PRN PRN Reason: Shortness Of Breath Lipase/Protease/Amylase (lAessio Richardson 10,500 Unit) 1 each FEEDTUBE PRN PRN PRN Reason: For Clogged Feeding Tube Carvedilol (Coreg) 3.125 mg PO BID [facility] Last Admin: 06/10/18 09:45 Dose: Not Given Dextrose (D50w (25gm) Syringe) 50 ml IV PRN PRN PRN Reason: Hypoglycemia Last Admin: 06/07/18 08:40 Dose: 50 ml Famotidine (Pepcid) 20 mg PO DAILY [facility] Last Admin: 06/10/18 09:44 Dose: 20 mg Hydrophilic Ointment (Vaseline Lip Therapy) 1 applic TP Q2HR PRN PRN Reason: Dry Lips Sodium Chloride (Nacl 0.45% 1000 Ml) 1,000 mls @ 60 mls/hr IV DIRECT [facility] Last Admin: 06/10/18 13:58 Dose: 60 mls/hr Isosorbide Mononitrate (Imdur) 30 mg PO QDAY [facility] Last Admin: 09/09/18 09:45 Dose: Not Given Morphine Sulfate (Morphine) 2 mg IV Q4H PRN PRN Reason: Pain, Moderate (4-6) Last Admin: 06/10/18 01:41 Dose: 2 mg Multi-Ingred Cream/Lotion/Oil/Oint (Artificial Tears Ophth Oint) 1 applic OU Q4HR PRN PRN Reason: Dry Eye(s) Ondansetron HCl (Zofran) 4 mg IV Q8H PRN PRN Reason: Nausea And Vomiting Simple Syrup (Simple Syrup) 15 ml FEEDTUBE PRN PRN PRN Reason: Hypoglycemia Simple Syrup (Simple Syrup) 30 ml FEEDTUBE PRN PRN PRN Reason: Hypoglycemia Sodium Bicarbonate (Sodium Bicarbonate) 325 mg FEEDTUBE PRN PRN PRN Reason: For Clogged Feeding Tube Sodium Chloride (Sodium Chloride Flush Syringe 10 Ml) 10 ml IV BID [facility] Last Admin: 06/10/18 10:11 Dose: 10 ml Sodium Chloride (Sodium Chloride Flush Syringe 10 Ml) 10 ml IV PRN PRN PRN Reason: LINE FLUSH Sodium Chloride (Nacl 0.9% 500 Ml) 1 ml IV DIRECT [facility] Objective Vital Signs - 12hr 06/10/18 06/10/18 06/10/18 04:31 04:41 04:51 Temperature Pulse Rate 61 60 60 Pulse Rate [ From Monitor] Respiratory 9 L 7 L 10 L Rate Blood Pressure 123/104 123/104 123/104 O2 Sat by Pulse 98 98 98 Oximetry 06/10/18 06/10/18 06/10/18 05:00 05:11 05:21 Temperature Pulse Rate 64 60 62 Pulse Rate [ From Monitor] Respiratory 10 L 9 L 10 L Rate Blood Pressure 119/93 119/93 119/93 O2 Sat by Pulse 98 88 98 Oximetry 06/10/18 06/10/18 06/10/18 05:31 05:41 05:51 Temperature Pulse Rate 61 59 L 61 Pulse Rate [ From Monitor] Respiratory 9 L 7 L 12 Rate Blood Pressure 119/93 119/93 119/93 O2 Sat by Pulse 99 97 100 Oximetry 06/10/18 06/10/18 06/10/18 06:00 06:10 06:21 Temperature Pulse Rate 59 L 59 L 59 L Pulse Rate [ From Monitor] Respiratory 10 L 8 L 9 L Rate Blood Pressure 123/96 123/96 123/96 O2 Sat by Pulse 97 93 96 Oximetry 06/10/18 06/10/18 06/10/18 06:31 06:41 06:51 Temperature Pulse Rate 60 58 L 59 L Pulse Rate [ From Monitor] Respiratory 9 L 10 L 7 L Rate Blood Pressure 123/96 123/96 123/96 O2 Sat by Pulse 98 98 94 Oximetry 06/10/18 06/10/18 06/10/18 07:00 07:11 07:21 Temperature Pulse Rate 59 L 61 63 Pulse Rate [ From Monitor] Respiratory 7 L 10 L 8 L Rate Blood Pressure 127/101 129/95 129/95 O2 Sat by Pulse 99 96 95 Oximetry 06/10/18 06/10/18 06/10/18 07:31 07:41 07:51 Temperature 97.5 F L Pulse Rate 58 L 61 Pulse Rate [ From Monitor] Respiratory 10 L 13 12 Rate Blood Pressure 129/95 129/95 129/95 O2 Sat by Pulse 93 97 98 Oximetry 06/10/18 06/10/18 06/10/18 08:01 08:11 08:20 Temperature Pulse Rate 62 60 59 L Pulse Rate [ From Monitor] Respiratory 13 9 L 10 L Rate Blood Pressure 129/95 129/95 126/97 O2 Sat by Pulse 98 98 99 Oximetry 06/10/18 06/10/18 06/10/18 08:31 08:41 08:51 Temperature Pulse Rate 62 61 62 Pulse Rate [ From Monitor] Respiratory 8 L 15 11 L Rate Blood Pressure 126/97 126/97 126/97 O2 Sat by Pulse 99 97 97 Oximetry 06/10/18 06/10/18 06/10/18 09:00 09:11 09:21 Temperature Pulse Rate 63 63 60 Pulse Rate [ From Monitor] Respiratory 8 L 8 L 10 L Rate Blood Pressure 119/79 119/79 126/97 O2 Sat by Pulse 98 97 98 Oximetry 06/10/18 06/10/18 06/10/18 09:28 09:31 09:41 Temperature Pulse Rate 59 L 61 Pulse Rate [ From Monitor] Respiratory 6 L 7 L Rate Blood Pressure 126/97 126/97 O2 Sat by Pulse 94 95 98 Oximetry 06/10/18 06/10/18 06/10/18 09:45 09:51 10:00 Temperature Pulse Rate 58 L 61 62 Pulse Rate [ 58 L From Monitor] Respiratory 9 L 7 L Rate Blood Pressure 126/97 123/90 O2 Sat by Pulse 96 98 Oximetry 06/10/18 06/10/18 06/10/18 10:11 10:21 10:31 Temperature Pulse Rate 61 63 62 Pulse Rate [ From Monitor] Respiratory 9 L 10 L 14 Rate Blood Pressure 123/90 123/90 123/90 O2 Sat by Pulse 98 99 98 Oximetry 06/10/18 06/10/18 06/10/18 10:41 10:51 11:00 Temperature Pulse Rate 61 62 60 Pulse Rate [ From Monitor] Respiratory 14 9 L 9 L Rate Blood Pressure 123/90 123/90 132/100 O2 Sat by Pulse 97 98 98 Oximetry 06/10/18 06/10/18 06/10/18 11:11 11:20 11:31 Temperature Pulse Rate 60 63 61 Pulse Rate [ From Monitor] Respiratory 9 L 8 L 8 L Rate Blood Pressure 132/100 132/100 132/100 O2 Sat by Pulse 96 96 96 Oximetry 06/10/18 06/10/18 06/10/18 11:41 11:50 12:00 Temperature Pulse Rate 62 62 64 Pulse Rate [ From Monitor] Respiratory 10 L 11 L 9 L Rate Blood Pressure 132/100 141/99 130/92 O2 Sat by Pulse 96 96 95 Oximetry 06/10/18 06/10/18 06/10/18 12:10 12:20 12:30 Temperature Pulse Rate 63 63 63 Pulse Rate [ From Monitor] Respiratory 11 L 13 10 L Rate Blood Pressure 130/92 130/92 130/92 O2 Sat by Pulse 97 97 97 Oximetry 06/10/18 06/10/18 06/10/18 12:40 12:50 13:00 Temperature Pulse Rate 64 61 58 L Pulse Rate [ From Monitor] Respiratory 13 11 L 12 Rate Blood Pressure 130/92 130/92 130/92 O2 Sat by Pulse 99 98 93 Oximetry 06/10/18 06/10/18 06/10/18 13:10 13:20 13:30 Temperature Pulse Rate 65 61 62 Pulse Rate [ From Monitor] Respiratory 13 12 11 L Rate Blood Pressure 141/99 116/93 116/93 O2 Sat by Pulse 94 96 97 Oximetry 06/10/18 06/10/18 06/10/18 13:40 13:50 14:00 Temperature Pulse Rate 65 62 62 Pulse Rate [ From Monitor] Respiratory 12 10 L 9 L Rate Blood Pressure 116/93 116/93 138/93 O2 Sat by Pulse 100 98 96 Oximetry 06/10/18 06/10/18 06/10/18 14:10 14:20 14:30 Temperature Pulse Rate 62 62 61 Pulse Rate [ From Monitor] Respiratory 9 L 10 L 8 L Rate Blood Pressure 138/93 138/93 138/93 O2 Sat by Pulse 95 97 98 Oximetry 06/10/18 06/10/18 06/10/18 14:40 14:50 15:00 Temperature Pulse Rate 62 60 64 Pulse Rate [ From Monitor] Respiratory 9 L 9 L 7 L Rate Blood Pressure 138/93 138/93 138/93 O2 Sat by Pulse 95 98 98 Oximetry 06/10/18 06/10/18 06/10/18 15:10 15:20 15:30 Temperature Pulse Rate 67 63 59 L Pulse Rate [ From Monitor] Respiratory 10 L 9 L 8 L Rate Blood Pressure 137/102 137/102 137/102 O2 Sat by Pulse 97 97 99 Oximetry 06/10/18 06/10/18 06/10/18 15:40 15:50 16:00 Temperature Pulse Rate 62 65 63 Pulse Rate [ From Monitor] Respiratory 10 L 11 L 13 Rate Blood Pressure 127/92 127/92 127/92 O2 Sat by Pulse 99 97 98 Oximetry Constitutional: no acute distress, other (weak-appearing) Eyes: non-icteric ENT: oropharynx moist Neck: supple Effort: normal Ascultation: Bilateral: clear (anteriorly) Cardiovascular: regular rate and rhythm (no mrg) Gastrointestinal: normoactive bowel sounds, non-distended Integumentary: normal Extremities: no cyanosis, edema (1+ bilateral edema up to thighs) Neurologic: normal mental status, non-focal exam, pupils equal and round Psychiatric: mood appropriate, affect normal CBC and BMP: 06/08/18 04:41 06/10/18 04:31 ABG, PT/INR, D-dimer: ABG POC ABG pH 7.400 (7.35-7.45) 06/01/18 16:18 POC ABG pCO2 33.1 (35-45) L 06/01/18 16:18 POC ABG pO2 121 (80-105) H 06/01/18 16:18 POC ABG HCO3 20.5 06/01/18 16:18 POC ABG Total CO2 21 06/01/18 16:18 POC ABG O2 Sat 99 06/01/18 16:18 PT/INR, D-dimer PT 21.4 Sec. (12.2-14.9) H 06/01/18 01:12 INR 1.79 (0.87-1.13) H 06/01/18 01:12 D-Dimer 1834.40 ng/mlDDU (0-234) H 05/31/18 11:48 Abnormal lab findings: Abnormal Labs 05/31/18 05/31/18 05/31/18 04:38 04:58 05:14 RBC Hgb Hct MCV MCH RDW Plt Count Seg Neuts % (Manual) Lymphocytes % (Manual) Nucleated RBC % Seg Neutrophils # Man Lymphocytes # (Manual) PT INR D-Dimer POC ABG pH POC ABG pCO2 POC ABG pO2 Sodium Potassium Chloride Carbon Dioxide BUN Creatinine Glucose POC Glucose < 40 L 64 L 258 H Calcium Magnesium Total Bilirubin AST ALT Alkaline Phosphatase Ammonia Total Creatine Kinase CK-MB (CK-2) CK-MB (CK-2) Rel Index Troponin T NT-Pro-B Natriuret Pep Total Protein Albumin HDL Cholesterol Free T4 05/31/18 05/31/18 05/31/18 05:15 05:15 05:22 RBC 5.33 H Hgb Hct 45.8 H MCV MCH RDW 16.4 H Plt Count Seg Neuts % (Manual) 88.0 H Lymphocytes % (Manual) 6.0 L Nucleated RBC % 1.0 H Seg Neutrophils # Man Lymphocytes # (Manual) 0.4 L PT 20.9 H INR 1.74 H D-Dimer POC ABG pH POC ABG pCO2 POC ABG pO2 Sodium Potassium Chloride Carbon Dioxide BUN Creatinine Glucose POC Glucose Calcium Magnesium Total Bilirubin AST ALT Alkaline Phosphatase Ammonia 68.0 H Total Creatine Kinase CK-MB (CK-2) CK-MB (CK-2) Rel Index Troponin T NT-Pro-B Natriuret Pep Total Protein Albumin HDL Cholesterol Free T4 05/31/18 05/31/18 05/31/18 05:49 07:13 07:22 RBC Hgb Hct MCV MCH RDW Plt Count Seg Neuts % (Manual) Lymphocytes % (Manual) Nucleated RBC % Seg Neutrophils # Man Lymphocytes # (Manual) PT INR D-Dimer POC ABG pH POC ABG pCO2 POC ABG pO2 Sodium 135 L Potassium 6.0 H Chloride Carbon Dioxide 13 L BUN 87 H Creatinine 2.5 H Glucose 249 H POC Glucose 124 H Calcium 7.8 L Magnesium 2.40 H Total Bilirubin 2.60 H AST 60 H ALT Alkaline Phosphatase 592 H Ammonia Total Creatine Kinase 374 H CK-MB (CK-2) 22.3 H CK-MB (CK-2) Rel Index 5.9 H Troponin T 0.260 H* NT-Pro-B Natriuret Pep 93063 H Total Protein 5.5 L Albumin 3.0 L HDL Cholesterol 91 H Free T4 05/31/18 05/31/18 05/31/18 09:33 10:53 11:48 RBC Hgb 15.4 H Hct 49.2 H MCV MCH RDW Plt Count Seg Neuts % (Manual) Lymphocytes % (Manual) Nucleated RBC % Seg Neutrophils # Man Lymphocytes # (Manual) PT INR D-Dimer POC ABG pH POC ABG pCO2 POC ABG pO2 Sodium Potassium Chloride Carbon Dioxide BUN Creatinine Glucose POC Glucose 168 H 106 H Calcium Magnesium Total Bilirubin AST ALT Alkaline Phosphatase Ammonia Total Creatine Kinase CK-MB (CK-2) CK-MB (CK-2) Rel Index Troponin T NT-Pro-B Natriuret Pep Total Protein Albumin HDL Cholesterol Free T4 05/31/18 05/31/18 05/31/18 11:48 11:48 11:51 RBC Hgb Hct MCV MCH RDW Plt Count Seg Neuts % (Manual) Lymphocytes % (Manual) Nucleated RBC % Seg Neutrophils # Man Lymphocytes # (Manual) PT 20.6 H INR 1.71 H D-Dimer 1834.40 H POC ABG pH 6.997 L POC ABG pCO2 59.6 H POC ABG pO2 Sodium Potassium Chloride Carbon Dioxide BUN Creatinine Glucose POC Glucose Calcium Magnesium Total Bilirubin AST ALT Alkaline Phosphatase Ammonia Total Creatine Kinase CK-MB (CK-2) CK-MB (CK-2) Rel Index Troponin T 0.230 H* NT-Pro-B Natriuret Pep Total Protein Albumin HDL Cholesterol Free T4 05/31/18 05/31/18 05/31/18 15:53 18:29 19:26 RBC Hgb Hct MCV MCH RDW Plt Count Seg Neuts % (Manual) Lymphocytes % (Manual) Nucleated RBC % Seg Neutrophils # Man Lymphocytes # (Manual) PT INR D-Dimer POC ABG pH 7.328 L POC ABG pCO2 29.6 L POC ABG pO2 200 H Sodium Potassium Chloride Carbon Dioxide BUN Creatinine Glucose POC Glucose < 40 L 68 L Calcium Magnesium Total Bilirubin AST ALT Alkaline Phosphatase Ammonia Total Creatine Kinase CK-MB (CK-2) CK-MB (CK-2) Rel Index Troponin T NT-Pro-B Natriuret Pep Total Protein Albumin HDL Cholesterol Free T4 05/31/18 06/01/18 06/01/18 20:40 01:12 03:40 RBC Hgb Hct MCV 83 L MCH 27 L RDW 15.4 H Plt Count 135 L Seg Neuts % (Manual) 95.0 H Lymphocytes % (Manual) 4.0 L Nucleated RBC % Seg Neutrophils # Man Lymphocytes # (Manual) 0.3 L PT 21.4 H INR 1.79 H D-Dimer POC ABG pH POC ABG pCO2 POC ABG pO2 Sodium Potassium 5.5 H Chloride Carbon Dioxide 13 L BUN 89 H Creatinine 2.7 H Glucose 72 L POC Glucose Calcium 7.2 L Magnesium Total Bilirubin AST ALT Alkaline Phosphatase Ammonia Total Creatine Kinase CK-MB (CK-2) CK-MB (CK-2) Rel Index Troponin T NT-Pro-B Natriuret Pep Total Protein Albumin HDL Cholesterol Free T4 06/01/18 06/01/18 06/01/18 03:40 04:59 08:29 RBC Hgb Hct MCV MCH RDW Plt Count Seg Neuts % (Manual) Lymphocytes % (Manual) Nucleated RBC % Seg Neutrophils # Man Lymphocytes # (Manual) PT INR D-Dimer POC ABG pH 7.474 H POC ABG pCO2 26.1 L POC ABG pO2 116 H Sodium Potassium 5.3 H Chloride Carbon Dioxide 16 L BUN 92 H Creatinine 2.7 H Glucose 61 L POC Glucose 69 L Calcium 7.2 L Magnesium Total Bilirubin AST ALT Alkaline Phosphatase Ammonia Total Creatine Kinase CK-MB (CK-2) CK-MB (CK-2) Rel Index Troponin T NT-Pro-B Natriuret Pep Total Protein Albumin HDL Cholesterol Free T4 06/01/18 06/01/18 06/01/18 10:49 14:02 16:18 RBC Hgb Hct MCV MCH RDW Plt Count Seg Neuts % (Manual) Lymphocytes % (Manual) Nucleated RBC % Seg Neutrophils # Man Lymphocytes # (Manual) PT INR D-Dimer POC ABG pH POC ABG pCO2 33.1 L POC ABG pO2 121 H Sodium Potassium Chloride Carbon Dioxide BUN Creatinine Glucose POC Glucose 108 H Calcium Magnesium Total Bilirubin AST ALT Alkaline Phosphatase Ammonia Total Creatine Kinase CK-MB (CK-2) CK-MB (CK-2) Rel Index Troponin T 0.242 H* NT-Pro-B Natriuret Pep Total Protein Albumin HDL Cholesterol Free T4 06/01/18 06/02/18 06/02/18 16:58 04:52 04:53 RBC 5.12 H Hgb Hct MCV 81 L MCH 27 L RDW Plt Count Seg Neuts % (Manual) 87.0 H Lymphocytes % (Manual) 2.0 L Nucleated RBC % Seg Neutrophils # Man 9.2 H Lymphocytes # (Manual) 0.2 L PT INR D-Dimer POC ABG pH POC ABG pCO2 POC ABG pO2 Sodium Potassium Chloride Carbon Dioxide BUN Creatinine Glucose POC Glucose 69 L Calcium Magnesium Total Bilirubin AST ALT Alkaline Phosphatase Ammonia Total Creatine Kinase CK-MB (CK-2) CK-MB (CK-2) Rel Index Troponin T 0.268 H* NT-Pro-B Natriuret Pep Total Protein Albumin HDL Cholesterol Free T4 06/02/18 06/02/18 06/02/18 04:53 11:50 14:05 RBC Hgb Hct MCV MCH RDW Plt Count Seg Neuts % (Manual) Lymphocytes % (Manual) Nucleated RBC % Seg Neutrophils # Man Lymphocytes # (Manual) PT INR D-Dimer POC ABG pH POC ABG pCO2 POC ABG pO2 Sodium Potassium 5.4 H Chloride Carbon Dioxide 16 L BUN 94 H Creatinine 2.7 H Glucose 101 H POC Glucose 133 H 113 H Calcium 7.7 L Magnesium Total Bilirubin AST ALT Alkaline Phosphatase Ammonia Total Creatine Kinase CK-MB (CK-2) CK-MB (CK-2) Rel Index Troponin T NT-Pro-B Natriuret Pep Total Protein Albumin HDL Cholesterol Free T4 06/02/18 06/02/18 06/04/18 17:47 17:55 07:27 RBC Hgb Hct MCV MCH RDW Plt Count Seg Neuts % (Manual) Lymphocytes % (Manual) Nucleated RBC % Seg Neutrophils # Man Lymphocytes # (Manual) PT INR D-Dimer POC ABG pH POC ABG pCO2 POC ABG pO2 Sodium Potassium Chloride Carbon Dioxide 21 L 20 L BUN 90 H 87 H Creatinine 2.7 H 2.5 H Glucose 120 H 71 L POC Glucose 120 H Calcium 7.5 L 7.7 L Magnesium Total Bilirubin 2.70 H AST 92 H ALT 67 H Alkaline Phosphatase 624 H Ammonia Total Creatine Kinase CK-MB (CK-2) CK-MB (CK-2) Rel Index Troponin T NT-Pro-B Natriuret Pep Total Protein 5.4 L Albumin 2.9 L HDL Cholesterol Free T4 06/06/18 06/06/18 06/06/18 05:08 05:08 06:17 RBC Hgb Hct MCV MCH RDW Plt Count 124 L Seg Neuts % (Manual) Lymphocytes % (Manual) Nucleated RBC % Seg Neutrophils # Man Lymphocytes # (Manual) PT INR D-Dimer POC ABG pH POC ABG pCO2 POC ABG pO2 Sodium Potassium Chloride Carbon Dioxide 21 L BUN 98 H Creatinine 2.7 H Glucose 61 L POC Glucose 48 L Calcium 8.0 L Magnesium Total Bilirubin AST ALT Alkaline Phosphatase Ammonia Total Creatine Kinase CK-MB (CK-2) CK-MB (CK-2) Rel Index Troponin T NT-Pro-B Natriuret Pep Total Protein Albumin HDL Cholesterol Free T4 06/06/18 06/06/18 06/07/18 14:22 15:58 02:01 RBC Hgb Hct MCV MCH RDW Plt Count Seg Neuts % (Manual) Lymphocytes % (Manual) Nucleated RBC % Seg Neutrophils # Man Lymphocytes # (Manual) PT INR D-Dimer POC ABG pH POC ABG pCO2 POC ABG pO2 Sodium Potassium Chloride Carbon Dioxide BUN Creatinine Glucose POC Glucose 228 H 121 H 63 L Calcium Magnesium Total Bilirubin AST ALT Alkaline Phosphatase Ammonia Total Creatine Kinase CK-MB (CK-2) CK-MB (CK-2) Rel Index Troponin T NT-Pro-B Natriuret Pep Total Protein Albumin HDL Cholesterol Free T4 06/07/18 06/07/18 06/07/18 05:07 08:10 09:03 RBC Hgb Hct MCV MCH RDW Plt Count Seg Neuts % (Manual) Lymphocytes % (Manual) Nucleated RBC % Seg Neutrophils # Man Lymphocytes # (Manual) PT INR D-Dimer POC ABG pH POC ABG pCO2 POC ABG pO2 Sodium Potassium Chloride Carbon Dioxide BUN 111 H Creatinine 2.9 H Glucose POC Glucose 66 L 133 H Calcium 7.5 L Magnesium Total Bilirubin AST ALT Alkaline Phosphatase Ammonia Total Creatine Kinase CK-MB (CK-2) CK-MB (CK-2) Rel Index Troponin T NT-Pro-B Natriuret Pep Total Protein Albumin HDL Cholesterol Free T4 06/07/18 06/07/18 06/07/18 12:53 15:23 20:00 RBC Hgb Hct MCV MCH RDW Plt Count Seg Neuts % (Manual) Lymphocytes % (Manual) Nucleated RBC % Seg Neutrophils # Man Lymphocytes # (Manual) PT INR D-Dimer POC ABG pH POC ABG pCO2 POC ABG pO2 Sodium Potassium Chloride Carbon Dioxide BUN Creatinine Glucose POC Glucose 148 H 161 H Calcium Magnesium Total Bilirubin AST ALT Alkaline Phosphatase Ammonia Total Creatine Kinase CK-MB (CK-2) CK-MB (CK-2) Rel Index Troponin T NT-Pro-B Natriuret Pep Total Protein Albumin HDL Cholesterol Free T4 0.57 L 06/07/18 06/08/18 06/08/18 23:38 04:30 04:41 RBC Hgb Hct MCV MCH RDW Plt Count 98 L Seg Neuts % (Manual) Lymphocytes % (Manual) Nucleated RBC % Seg Neutrophils # Man Lymphocytes # (Manual) PT INR D-Dimer POC ABG pH POC ABG pCO2 POC ABG pO2 Sodium Potassium Chloride Carbon Dioxide BUN Creatinine Glucose POC Glucose 135 H 108 H Calcium Magnesium Total Bilirubin AST ALT Alkaline Phosphatase Ammonia Total Creatine Kinase CK-MB (CK-2) CK-MB (CK-2) Rel Index Troponin T NT-Pro-B Natriuret Pep Total Protein Albumin HDL Cholesterol Free T4 06/08/18 06/08/18 06/08/18 04:41 12:01 15:53 RBC Hgb Hct MCV MCH RDW Plt Count Seg Neuts % (Manual) Lymphocytes % (Manual) Nucleated RBC % Seg Neutrophils # Man Lymphocytes # (Manual) PT INR D-Dimer POC ABG pH POC ABG pCO2 POC ABG pO2 Sodium Potassium Chloride Carbon Dioxide BUN 122 H Creatinine 3.1 H Glucose 109 H POC Glucose 133 H 128 H Calcium 7.4 L Magnesium Total Bilirubin AST ALT Alkaline Phosphatase Ammonia Total Creatine Kinase CK-MB (CK-2) CK-MB (CK-2) Rel Index Troponin T NT-Pro-B Natriuret Pep Total Protein Albumin HDL Cholesterol Free T4 06/08/18 06/09/18 06/09/18 22:01 01:37 04:31 RBC Hgb Hct MCV MCH RDW Plt Count Seg Neuts % (Manual) Lymphocytes % (Manual) Nucleated RBC % Seg Neutrophils # Man Lymphocytes # (Manual) PT INR D-Dimer POC ABG pH POC ABG pCO2 POC ABG pO2 Sodium Potassium 3.4 L Chloride 96.4 L Carbon Dioxide BUN 123 H Creatinine 3.0 H Glucose 119 H POC Glucose 129 H 143 H Calcium 7.4 L Magnesium Total Bilirubin AST ALT Alkaline Phosphatase Ammonia Total Creatine Kinase CK-MB (CK-2) CK-MB (CK-2) Rel Index Troponin T NT-Pro-B Natriuret Pep Total Protein Albumin HDL Cholesterol Free T4 06/09/18 06/09/18 06/09/18 14:11 17:36 21:56 RBC Hgb Hct MCV MCH RDW Plt Count Seg Neuts % (Manual) Lymphocytes % (Manual) Nucleated RBC % Seg Neutrophils # Man Lymphocytes # (Manual) PT INR D-Dimer POC ABG pH POC ABG pCO2 POC ABG pO2 Sodium Potassium Chloride Carbon Dioxide BUN Creatinine Glucose POC Glucose 133 H 157 H 168 H Calcium Magnesium Total Bilirubin AST ALT Alkaline Phosphatase Ammonia Total Creatine Kinase CK-MB (CK-2) CK-MB (CK-2) Rel Index Troponin T NT-Pro-B Natriuret Pep Total Protein Albumin HDL Cholesterol Free T4 06/10/18 06/10/18 06/10/18 04:31 09:54 14:04 RBC Hgb Hct MCV MCH RDW Plt Count Seg Neuts % (Manual) Lymphocytes % (Manual) Nucleated RBC % Seg Neutrophils # Man Lymphocytes # (Manual) PT INR D-Dimer POC ABG pH POC ABG pCO2 POC ABG pO2 Sodium Potassium 3.4 L Chloride 96.7 L Carbon Dioxide BUN 119 H Creatinine 2.9 H Glucose POC Glucose 130 H 128 H Calcium 7.2 L Magnesium Total Bilirubin AST ALT Alkaline Phosphatase Ammonia Total Creatine Kinase CK-MB (CK-2) CK-MB (CK-2) Rel Index Troponin T NT-Pro-B Natriuret Pep Total Protein Albumin HDL Cholesterol Free T4 Chest x-ray: report reviewed, image reviewed
--- NOTE | 2018-06-10 16:53 | Progress Note ---
Assessment and Plan - Patient Problems (1) Acute combined systolic and diastolic heart failure Current Visit: Yes Status: Acute Plan to address problem: Patient with ejection fraction of 5-10%. Does not want pacemaker. Consider addition of dobutamine but patient appears stable at this time. No hypoxemia. No IVY inhibitor is secondary to renal failure renal insufficiency. Continue diuresis beta leslie. Patient will require long-term facility currently awaiting placement secondary to debility. (2) Acute on chronic kidney failure Current Visit: Yes Status: Acute (3) Acute respiratory failure Current Visit: Yes Status: Acute Plan to address problem: Patient extubated on 831. Overall prognosis appears to be extremely poor early awaiting placement. (4) Altered mental status, unspecified Current Visit: Yes Status: Acute Qualifiers: Altered mental status type: unspecified Qualified Code(s): R41.82 - Altered mental status, unspecified (5) Non-ST elevation LA (NSTEMI) Current Visit: Yes Status: Acute Plan to address problem: Patient is chest pain-free stable with long-acting nitroglycerin no A secondary to renal failure. Awaiting placement for disability. (6) Pleural effusion Current Visit: Yes Status: Acute Subjective Date of service: 06/10/18 Principal diagnosis: Respiratory failure, non STEMI,CMP Interval history: Patient is presently chest pain-free. . No miss of breath no dyspnea on exertion. He states he feels pretty good. Objective - Constitutional Vitals: Vital Signs - 12hr 06/10/18 06/10/18 06/10/18 04:51 05:00 05:11 Temperature Pulse Rate 60 64 60 Pulse Rate [ From Monitor] Respiratory 10 L 10 L 9 L Rate Blood Pressure 123/104 119/93 119/93 O2 Sat by Pulse 98 98 88 Oximetry 06/10/18 06/10/18 06/10/18 05:21 05:31 05:41 Temperature Pulse Rate 62 61 59 L Pulse Rate [ From Monitor] Respiratory 10 L 9 L 7 L Rate Blood Pressure 119/93 119/93 119/93 O2 Sat by Pulse 98 99 97 Oximetry 06/10/18 06/10/18 06/10/18 05:51 06:00 06:10 Temperature Pulse Rate 61 59 L 59 L Pulse Rate [ From Monitor] Respiratory 12 10 L 8 L Rate Blood Pressure 119/93 123/96 123/96 O2 Sat by Pulse 100 97 93 Oximetry 06/10/18 06/10/18 06/10/18 06:21 06:31 06:41 Temperature Pulse Rate 59 L 60 58 L Pulse Rate [ From Monitor] Respiratory 9 L 9 L 10 L Rate Blood Pressure 123/96 123/96 123/96 O2 Sat by Pulse 96 98 98 Oximetry 06/10/18 06/10/18 06/10/18 06:51 07:00 07:11 Temperature Pulse Rate 59 L 59 L 61 Pulse Rate [ From Monitor] Respiratory 7 L 7 L 10 L Rate Blood Pressure 123/96 127/101 129/95 O2 Sat by Pulse 94 99 96 Oximetry 06/10/18 06/10/18 06/10/18 07:21 07:31 07:41 Temperature Pulse Rate 63 58 L Pulse Rate [ From Monitor] Respiratory 8 L 10 L 13 Rate Blood Pressure 129/95 129/95 129/95 O2 Sat by Pulse 95 93 97 Oximetry 06/10/18 06/10/18 06/10/18 07:51 08:01 08:11 Temperature 97.5 F L Pulse Rate 61 62 60 Pulse Rate [ From Monitor] Respiratory 12 13 9 L Rate Blood Pressure 129/95 129/95 129/95 O2 Sat by Pulse 98 98 98 Oximetry 06/10/18 06/10/18 06/10/18 08:20 08:31 08:41 Temperature Pulse Rate 59 L 62 61 Pulse Rate [ From Monitor] Respiratory 10 L 8 L 15 Rate Blood Pressure 126/97 126/97 126/97 O2 Sat by Pulse 99 99 97 Oximetry 06/10/18 06/10/18 06/10/18 08:51 09:00 09:11 Temperature Pulse Rate 62 63 63 Pulse Rate [ From Monitor] Respiratory 11 L 8 L 8 L Rate Blood Pressure 126/97 119/79 119/79 O2 Sat by Pulse 97 98 97 Oximetry 06/10/18 06/10/18 06/10/18 09:21 09:28 09:31 Temperature Pulse Rate 60 59 L Pulse Rate [ From Monitor] Respiratory 10 L 6 L Rate Blood Pressure 126/97 126/97 O2 Sat by Pulse 98 94 95 Oximetry 06/10/18 06/10/18 06/10/18 09:41 09:45 09:51 Temperature Pulse Rate 61 58 L 61 Pulse Rate [ From Monitor] Respiratory 7 L 9 L Rate Blood Pressure 126/97 126/97 O2 Sat by Pulse 98 96 Oximetry 06/10/18 06/10/18 06/10/18 10:00 10:11 10:21 Temperature Pulse Rate 62 61 63 Pulse Rate [ 58 L From Monitor] Respiratory 7 L 9 L 10 L Rate Blood Pressure 123/90 123/90 123/90 O2 Sat by Pulse 98 98 99 Oximetry 06/10/18 06/10/18 06/10/18 10:31 10:41 10:51 Temperature Pulse Rate 62 61 62 Pulse Rate [ From Monitor] Respiratory 14 14 9 L Rate Blood Pressure 123/90 123/90 123/90 O2 Sat by Pulse 98 97 98 Oximetry 06/10/18 06/10/18 06/10/18 11:00 11:11 11:20 Temperature Pulse Rate 60 60 63 Pulse Rate [ From Monitor] Respiratory 9 L 9 L 8 L Rate Blood Pressure 132/100 132/100 132/100 O2 Sat by Pulse 98 96 96 Oximetry 06/10/18 06/10/18 06/10/18 11:31 11:41 11:50 Temperature Pulse Rate 61 62 62 Pulse Rate [ From Monitor] Respiratory 8 L 10 L 11 L Rate Blood Pressure 132/100 132/100 141/99 O2 Sat by Pulse 96 96 96 Oximetry 06/10/18 06/10/18 06/10/18 12:00 12:10 12:20 Temperature Pulse Rate 64 63 63 Pulse Rate [ From Monitor] Respiratory 9 L 11 L 13 Rate Blood Pressure 130/92 130/92 130/92 O2 Sat by Pulse 95 97 97 Oximetry 06/10/18 06/10/18 06/10/18 12:30 12:40 12:50 Temperature Pulse Rate 63 64 61 Pulse Rate [ From Monitor] Respiratory 10 L 13 11 L Rate Blood Pressure 130/92 130/92 130/92 O2 Sat by Pulse 97 99 98 Oximetry 06/10/18 06/10/18 06/10/18 13:00 13:10 13:20 Temperature Pulse Rate 58 L 65 61 Pulse Rate [ From Monitor] Respiratory 12 13 12 Rate Blood Pressure 130/92 141/99 116/93 O2 Sat by Pulse 93 94 96 Oximetry 06/10/18 06/10/18 06/10/18 13:30 13:40 13:50 Temperature Pulse Rate 62 65 62 Pulse Rate [ From Monitor] Respiratory 11 L 12 10 L Rate Blood Pressure 116/93 116/93 116/93 O2 Sat by Pulse 97 100 98 Oximetry 06/10/18 06/10/18 06/10/18 14:00 14:10 14:20 Temperature Pulse Rate 62 62 62 Pulse Rate [ From Monitor] Respiratory 9 L 9 L 10 L Rate Blood Pressure 138/93 138/93 138/93 O2 Sat by Pulse 96 95 97 Oximetry 06/10/18 06/10/18 06/10/18 14:30 14:40 14:50 Temperature Pulse Rate 61 62 60 Pulse Rate [ From Monitor] Respiratory 8 L 9 L 9 L Rate Blood Pressure 138/93 138/93 138/93 O2 Sat by Pulse 98 95 98 Oximetry 06/10/18 06/10/18 06/10/18 15:00 15:10 15:20 Temperature Pulse Rate 64 67 63 Pulse Rate [ From Monitor] Respiratory 7 L 10 L 9 L Rate Blood Pressure 138/93 137/102 137/102 O2 Sat by Pulse 98 97 97 Oximetry 06/10/18 06/10/18 06/10/18 15:30 15:40 15:50 Temperature Pulse Rate 59 L 62 65 Pulse Rate [ From Monitor] Respiratory 8 L 10 L 11 L Rate Blood Pressure 137/102 127/92 127/92 O2 Sat by Pulse 99 99 97 Oximetry 06/10/18 16:00 Temperature Pulse Rate 63 Pulse Rate [ From Monitor] Respiratory 13 Rate Blood Pressure 127/92 O2 Sat by Pulse 98 Oximetry General appearance: Present: no acute distress, well-nourished - EENT Eyes: PERRL, EOM intact ENT: hearing intact, clear oral mucosa Ears: bilateral: normal - Neck Neck: supple, normal ROM - Respiratory Respiratory effort: normal Respiratory: bilateral: CTA - Breasts Breasts: normal - Cardiovascular Rhythm: regular Heart Sounds: Present: S1 & S2. Absent: gallop, rub Extremities: pulses intact, No edema, normal color, Full ROM - Gastrointestinal General gastrointestinal: Present: soft, non-tender, non-distended, normal bowel sounds - Genitourinary Male genitourinary: normal - Integumentary Integumentary: clear, warm, dry - Musculoskeletal Musculoskeletal: 1, strength equal bilaterally - Neurologic Neurologic: moves all extremities - Psychiatric Psychiatric: memory intact, appropriate mood/affect, intact judgment & insight - Labs CBC & Chem 7: 06/08/18 04:41 06/10/18 04:31 Labs: Abnormal lab results 06/09/18 06/09/18 06/10/18 Range/Units 17:36 21:56 04:31 Potassium 3.4 L (3.6-5.0) mmol/L Chloride 96.7 L (98-107) mmol/L BUN 119 H (9-20) mg/dL Creatinine 2.9 H (0.8-1.5) mg/dL POC Glucose 157 H 168 H (70-105) Calcium 7.2 L (8.4-10.2) mg/dL 06/10/18 06/10/18 Range/Units 09:54 14:04 Potassium (3.6-5.0) mmol/L Chloride (98-107) mmol/L BUN (9-20) mg/dL Creatinine (0.8-1.5) mg/dL POC Glucose 130 H 128 H (70-105) Calcium (8.4-10.2) mg/dL
[2018-06-11 05:34] LABS: Calcium 7.2 mg/dL (8.4-10.2)
[2018-06-11] MEDS: NACL 0.45% 1000 ML 1,000 ML IV SCH ×2 (06:08→21:50)
--- NOTE | 2018-06-11 09:24 | Progress Note ---
Assessment and Plan Impression: * Nonoliguric acute kidney injury secondary to prerenal azotemia vs ATN * Acute respiratory failure on mechanical ventilation * NSTEMI * Severe cardiomyopathy - ejection fraction of the 10% range * Hyperkalemia - resolved * Severe hypoglycemia - resolved Recommendations * Renal function w/ slight improvement. Renal prognosis remains guarded at this time * Continue cautious hydration * Avoid nephrotoxins * Adjust medications for renal function * Not a good candidate for ACEI or ARB at this time * Discussed with patient today re: potential need for dialysis; patient declines dialysis; he acknowledges that without dialysis, he could potentially . * Recommend hospice/palliative care Subjective Date of service: 06/11/18 Principal diagnosis: Respiratory failure, non STEMI,CMP Interval history: Patient denies SOB. Denies nausea/vomiting. Appetite fair. Objective - Vital Signs Vital signs: Vital Signs - 12hr 06/10/18 06/10/18 06/10/18 21:30 21:36 21:40 Temperature Pulse Rate 67 68 66 Respiratory 11 L 10 L Rate Blood Pressure 139/106 139/106 139/106 O2 Sat by Pulse 100 98 Oximetry 06/10/18 06/10/18 06/10/18 21:50 22:00 22:10 Temperature Pulse Rate 64 65 69 Respiratory 11 L 10 L 12 Rate Blood Pressure 139/106 146/107 146/107 O2 Sat by Pulse 95 96 96 Oximetry 06/10/18 06/10/18 06/10/18 22:20 22:30 22:40 Temperature Pulse Rate 66 65 66 Respiratory 10 L 11 L 13 Rate Blood Pressure 146/107 146/107 146/107 O2 Sat by Pulse 96 96 99 Oximetry 06/10/18 06/10/18 06/10/18 22:50 23:00 23:10 Temperature Pulse Rate 66 66 Respiratory 13 10 L Rate Blood Pressure 146/107 138/101 138/101 O2 Sat by Pulse 97 95 96 Oximetry 06/10/18 06/10/18 06/10/18 23:20 23:30 23:40 Temperature Pulse Rate 63 67 64 Respiratory 8 L 12 7 L Rate Blood Pressure 138/101 138/101 138/101 O2 Sat by Pulse 98 93 95 Oximetry 06/10/18 06/11/18 06/11/18 23:50 00:00 00:10 Temperature 97.1 F L Pulse Rate 67 66 63 Respiratory 11 L 11 L 9 L Rate Blood Pressure 138/101 138/101 134/98 O2 Sat by Pulse 95 95 96 Oximetry 06/11/18 06/11/18 06/11/18 00:20 00:30 00:40 Temperature Pulse Rate 66 63 64 Respiratory 11 L 10 L 10 L Rate Blood Pressure 134/98 134/98 134/98 O2 Sat by Pulse 96 93 97 Oximetry 06/11/18 06/11/18 06/11/18 00:50 01:00 01:10 Temperature Pulse Rate 65 65 64 Respiratory 8 L 9 L 8 L Rate Blood Pressure 134/98 138/101 138/101 O2 Sat by Pulse 93 97 96 Oximetry 06/11/18 06/11/18 06/11/18 01:20 01:30 01:40 Temperature Pulse Rate 64 65 64 Respiratory 9 L 11 L 9 L Rate Blood Pressure 138/101 138/101 138/101 O2 Sat by Pulse 97 95 96 Oximetry 06/11/18 06/11/18 06/11/18 01:50 02:00 02:10 Temperature Pulse Rate 64 67 65 Respiratory 9 L 10 L 11 L Rate Blood Pressure 138/101 130/91 130/91 O2 Sat by Pulse 96 95 95 Oximetry 06/11/18 06/11/18 06/11/18 02:20 02:30 02:40 Temperature Pulse Rate 69 67 66 Respiratory 11 L 10 L 13 Rate Blood Pressure 130/91 130/91 130/91 O2 Sat by Pulse 97 97 95 Oximetry 06/11/18 06/11/18 06/11/18 02:50 03:00 03:10 Temperature Pulse Rate 66 67 71 Respiratory 9 L 10 L 12 Rate Blood Pressure 130/91 130/91 133/99 O2 Sat by Pulse 96 95 96 Oximetry 06/11/18 06/11/18 06/11/18 03:20 03:30 03:40 Temperature Pulse Rate 68 68 68 Respiratory 12 11 L 12 Rate Blood Pressure 133/99 133/99 133/99 O2 Sat by Pulse 95 95 96 Oximetry 06/11/18 06/11/18 06/11/18 03:50 04:00 04:10 Temperature 98.1 F Pulse Rate 72 68 71 Respiratory 10 L 10 L 11 L Rate Blood Pressure 133/99 131/90 133/99 O2 Sat by Pulse 96 95 95 Oximetry 06/11/18 06/11/18 06/11/18 04:20 04:30 04:40 Temperature Pulse Rate 70 70 71 Respiratory 12 11 L 11 L Rate Blood Pressure 133/99 133/99 131/90 O2 Sat by Pulse 95 95 97 Oximetry 06/11/18 06/11/18 06/11/18 04:50 05:00 05:10 Temperature Pulse Rate 74 74 73 Respiratory 10 L 11 L 10 L Rate Blood Pressure 131/90 131/90 130/82 O2 Sat by Pulse 96 96 96 Oximetry 06/11/18 06/11/18 06/11/18 05:20 05:30 05:40 Temperature Pulse Rate 73 71 72 Respiratory 11 L 12 10 L Rate Blood Pressure 130/82 130/82 130/82 O2 Sat by Pulse 97 95 96 Oximetry 06/11/18 06/11/18 06/11/18 05:50 06:00 06:10 Temperature Pulse Rate 74 72 79 Respiratory 10 L 12 8 L Rate Blood Pressure 130/82 130/82 132/81 O2 Sat by Pulse 96 94 95 Oximetry 06/11/18 06/11/18 06:20 08:00 Temperature 99.2 F Pulse Rate 72 Respiratory 10 L Rate Blood Pressure 132/81 O2 Sat by Pulse 97 Oximetry - General Appearance General appearance: well-developed, well-nourished EENT: ATNC Respiratory: Present: Decreased Breath Sounds Cardiology: regular, S1S2 Gastrointestinal: normal, no distended, no masses Neurologic: no focal deficit Musculoskeletal: other (1+ edema thighs) Psychiatric: cooperative - Lab 06/08/18 04:41 06/11/18 04:57 Most recent lab results Calcium 7.2 mg/dL (8.4-10.2) L 06/11/18 04:57 Magnesium 2.40 mg/dL (1.7-2.3) H 05/31/18 07:13
[2018-06-11] MEDS: IMDUR PO SCH (10:02)
[2018-06-11] MEDS: SODIUM CHLORIDE FLUSH SYRINGE 10 ML IV SCH ×2 (10:02→21:51)
[2018-06-11] MEDS: COREG PO SCH ×2 (10:03→21:49)
[2018-06-11] MEDS: PEPCID PO SCH (10:03)
--- NOTE | 2018-06-11 11:14 | Progress Note ---
Assessment and Plan clinically improved Renal prognosis is guarded per nephrology. Continue coreg and Imdur. No ACEI/ARB at this time in setting of renal insufficiency. Overall prognosis remains guarded because of his multiple medical issues. Pt declines AICD at this time. d/w pt at bedside The patient has been seen in conjunction with Dr. White who agrees with the assessment and plan of care. - Patient Problems (1) Acute combined systolic and diastolic heart failure Current Visit: Yes Status: Acute (2) NICM (nonischemic cardiomyopathy) Current Visit: Yes Status: Chronic (3) Right ventricular systolic dysfunction Current Visit: Yes Status: Acute (4) Pulmonary HTN Current Visit: Yes Status: Chronic (5) Non-ST elevation ND (NSTEMI) Current Visit: Yes Status: Acute (6) Metabolic encephalopathy Current Visit: Yes Status: Acute (7) Acute on chronic kidney failure Current Visit: Yes Status: Acute (8) Hyperkalemia Current Visit: Yes Status: Acute (9) Hypoglycemia Current Visit: Yes Status: Acute (10) Hypothermia Current Visit: Yes Status: Acute Qualifiers: Encounter type: initial encounter Qualified Code(s): T68.XXXA - Hypothermia , initial encounter (11) Moderate to severe mitral regurgitation Current Visit: Yes Status: Chronic (12) Tricuspid regurgitation Current Visit: Yes Status: Chronic Subjective Date of service: 06/11/18 Principal diagnosis: Respiratory failure, non STEMI,CMP Interval history: pt resting in bed, alert and oriented. no current complaints. Objective Last Vital Signs Temp 99.2 F 06/11/18 08:00 Pulse 71 06/11/18 10:03 Resp 12 06/11/18 09:00 BP 123/85 06/11/18 10:03 Pulse Ox 98 06/11/18 09:00 - Physical Examination General: No Apparent Distress HEENT: Positive: PERRL Neck: Positive: neck supple, trachea midline Cardiac: Positive: Reg Rate and Rhythm, S1/S2 Lungs: Positive: clear to auscultation Neuro: Positive: Grossly Intact Abdomen: Positive: Soft. Negative: Tender Skin: Negative: Rash, Wound Extremities: Absent: edema - Labs and Meds Comprehensive Metabolic Panel 06/11/18 Range/Units 04:57 Sodium 140 (137-145) mmol/L Potassium 3.7 (3.6-5.0) mmol/L Chloride 99.9 (98-107) mmol/L Carbon Dioxide 23 (22-30) mmol/L BUN 108 H (9-20) mg/dL Creatinine 2.5 H (0.8-1.5) mg/dL Glucose 100 (75-100) mg/dL Calcium 7.2 L (8.4-10.2) mg/dL - Imaging and Cardiology EKG: report reviewed, image reviewed Echo: report reviewed (EF 5-10%, LA mild to mod dilated, RA mildly dilated, mod to severe MR, mod to severe TR, mild AR, pseudonormalization, RV mildly dilated , RV systolic function severely reduced, mod pulm HTN with RVSP 52mmHg, small pericardial effusion. ) Cardiac cath: report reviewed (pt underwent LHC & RHC on 12/27/2017 which showed nonobstructive CAD with RCA 40% and Cristiano 35% lesions; non-ischemic cardiomyoapthy. ) - EKG Sinus rhythms and dysrhythmias: sinus rhythm
--- NOTE | 2018-06-11 16:41 | Progress Note ---
Assessment and Plan Agree with my partner. Monitor fluids and breathing closely. Continue hydration for now at gentle rates. Will continue to follow along with you. Subjective Date of service: 06/11/18 Principal diagnosis: Respiratory failure, non STEMI,CMP Interval history: No acute events. On room air. Stable. Objective Vital Signs - 12hr 06/11/18 06/11/18 06/11/18 04:40 04:50 05:00 Temperature Pulse Rate 71 74 74 Pulse Rate [ From Monitor] Respiratory 11 L 10 L 11 L Rate Blood Pressure 131/90 131/90 131/90 O2 Sat by Pulse 97 96 96 Oximetry 06/11/18 06/11/18 06/11/18 05:10 05:20 05:30 Temperature Pulse Rate 73 73 71 Pulse Rate [ From Monitor] Respiratory 10 L 11 L 12 Rate Blood Pressure 130/82 130/82 130/82 O2 Sat by Pulse 96 97 95 Oximetry 06/11/18 06/11/18 06/11/18 05:40 05:50 06:00 Temperature Pulse Rate 72 74 72 Pulse Rate [ From Monitor] Respiratory 10 L 10 L 12 Rate Blood Pressure 130/82 130/82 130/82 O2 Sat by Pulse 96 96 94 Oximetry 06/11/18 06/11/18 06/11/18 06:10 06:20 06:30 Temperature Pulse Rate 79 72 76 Pulse Rate [ From Monitor] Respiratory 8 L 10 L 9 L Rate Blood Pressure 132/81 132/81 132/81 O2 Sat by Pulse 95 97 97 Oximetry 06/11/18 06/11/18 06/11/18 06:40 06:50 07:00 Temperature Pulse Rate 77 77 75 Pulse Rate [ From Monitor] Respiratory 9 L 10 L 12 Rate Blood Pressure 132/81 132/81 132/81 O2 Sat by Pulse 97 97 91 Oximetry 06/11/18 06/11/18 06/11/18 07:10 07:20 07:30 Temperature Pulse Rate 78 77 73 Pulse Rate [ From Monitor] Respiratory 12 12 12 Rate Blood Pressure 121/77 121/77 121/77 O2 Sat by Pulse 93 95 98 Oximetry 06/11/18 06/11/18 06/11/18 07:40 07:50 08:00 Temperature 99.2 F Pulse Rate 73 73 72 Pulse Rate [ From Monitor] Respiratory 13 10 L 13 Rate Blood Pressure 121/77 121/77 121/77 O2 Sat by Pulse 95 94 Oximetry 06/11/18 06/11/18 06/11/18 08:10 08:20 08:30 Temperature Pulse Rate 75 75 68 Pulse Rate [ From Monitor] Respiratory 12 15 14 Rate Blood Pressure 121/77 121/77 121/77 O2 Sat by Pulse 97 96 96 Oximetry 06/11/18 06/11/18 06/11/18 08:40 08:50 09:00 Temperature Pulse Rate 75 73 72 Pulse Rate [ 71 From Monitor] Respiratory 16 14 10 L Rate Blood Pressure 121/77 121/77 121/77 O2 Sat by Pulse 96 97 97 Oximetry 06/11/18 06/11/18 06/11/18 09:10 09:20 09:30 Temperature Pulse Rate 72 73 70 Pulse Rate [ From Monitor] Respiratory 14 10 L 13 Rate Blood Pressure 121/77 121/77 121/77 O2 Sat by Pulse 99 Oximetry 06/11/18 06/11/18 06/11/18 09:40 09:50 10:00 Temperature Pulse Rate 70 71 71 Pulse Rate [ From Monitor] Respiratory 12 13 11 L Rate Blood Pressure 121/77 121/77 123/85 O2 Sat by Pulse Oximetry 06/11/18 06/11/18 06/11/18 10:02 10:03 10:10 Temperature Pulse Rate 71 71 71 Pulse Rate [ From Monitor] Respiratory 11 L Rate Blood Pressure 123/85 123/85 123/85 O2 Sat by Pulse Oximetry 06/11/18 06/11/18 06/11/18 10:20 10:30 10:40 Temperature Pulse Rate 70 71 70 Pulse Rate [ From Monitor] Respiratory 14 11 L 12 Rate Blood Pressure 123/85 123/85 123/85 O2 Sat by Pulse Oximetry 06/11/18 06/11/18 06/11/18 10:50 11:00 11:10 Temperature Pulse Rate 69 70 69 Pulse Rate [ From Monitor] Respiratory 12 9 L 11 L Rate Blood Pressure 123/85 127/95 127/95 O2 Sat by Pulse 92 96 Oximetry 06/11/18 12:00 Temperature 98.3 F Pulse Rate Pulse Rate [ From Monitor] Respiratory Rate Blood Pressure O2 Sat by Pulse Oximetry Constitutional: no acute distress, other (weak-appearing) Eyes: non-icteric ENT: oropharynx moist Neck: supple Effort: normal Ascultation: Bilateral: clear (anteriorly), diminished breath sounds (bases) Cardiovascular: regular rate and rhythm (no mrg) Gastrointestinal: normoactive bowel sounds, non-distended Integumentary: normal Extremities: no cyanosis, edema (1+ bilateral edema up to thighs) Neurologic: normal mental status, non-focal exam, pupils equal and round Psychiatric: mood appropriate, affect normal CBC and BMP: 06/08/18 04:41 06/11/18 04:57 ABG, PT/INR, D-dimer: ABG POC ABG pH 7.400 (7.35-7.45) 06/01/18 16:18 POC ABG pCO2 33.1 (35-45) L 06/01/18 16:18 POC ABG pO2 121 (80-105) H 06/01/18 16:18 POC ABG HCO3 20.5 06/01/18 16:18 POC ABG Total CO2 21 06/01/18 16:18 POC ABG O2 Sat 99 06/01/18 16:18 PT/INR, D-dimer PT 21.4 Sec. (12.2-14.9) H 06/01/18 01:12 INR 1.79 (0.87-1.13) H 06/01/18 01:12 D-Dimer 1834.40 ng/mlDDU (0-234) H 05/31/18 11:48 Abnormal lab findings: Abnormal Labs 05/31/18 05/31/18 05/31/18 04:38 04:58 05:14 RBC Hgb Hct MCV MCH RDW Plt Count Seg Neuts % (Manual) Lymphocytes % (Manual) Nucleated RBC % Seg Neutrophils # Man Lymphocytes # (Manual) PT INR D-Dimer POC ABG pH POC ABG pCO2 POC ABG pO2 Sodium Potassium Chloride Carbon Dioxide BUN Creatinine Glucose POC Glucose < 40 L 64 L 258 H Calcium Magnesium Total Bilirubin AST ALT Alkaline Phosphatase Ammonia Total Creatine Kinase CK-MB (CK-2) CK-MB (CK-2) Rel Index Troponin T NT-Pro-B Natriuret Pep Total Protein Albumin HDL Cholesterol Free T4 05/31/18 05/31/18 05/31/18 05:15 05:15 05:22 RBC 5.33 H Hgb Hct 45.8 H MCV MCH RDW 16.4 H Plt Count Seg Neuts % (Manual) 88.0 H Lymphocytes % (Manual) 6.0 L Nucleated RBC % 1.0 H Seg Neutrophils # Man Lymphocytes # (Manual) 0.4 L PT 20.9 H INR 1.74 H D-Dimer POC ABG pH POC ABG pCO2 POC ABG pO2 Sodium Potassium Chloride Carbon Dioxide BUN Creatinine Glucose POC Glucose Calcium Magnesium Total Bilirubin AST ALT Alkaline Phosphatase Ammonia 68.0 H Total Creatine Kinase CK-MB (CK-2) CK-MB (CK-2) Rel Index Troponin T NT-Pro-B Natriuret Pep Total Protein Albumin HDL Cholesterol Free T4 05/31/18 05/31/18 05/31/18 05:49 07:13 07:22 RBC Hgb Hct MCV MCH RDW Plt Count Seg Neuts % (Manual) Lymphocytes % (Manual) Nucleated RBC % Seg Neutrophils # Man Lymphocytes # (Manual) PT INR D-Dimer POC ABG pH POC ABG pCO2 POC ABG pO2 Sodium 135 L Potassium 6.0 H Chloride Carbon Dioxide 13 L BUN 87 H Creatinine 2.5 H Glucose 249 H POC Glucose 124 H Calcium 7.8 L Magnesium 2.40 H Total Bilirubin 2.60 H AST 60 H ALT Alkaline Phosphatase 592 H Ammonia Total Creatine Kinase 374 H CK-MB (CK-2) 22.3 H CK-MB (CK-2) Rel Index 5.9 H Troponin T 0.260 H* NT-Pro-B Natriuret Pep 62457 H Total Protein 5.5 L Albumin 3.0 L HDL Cholesterol 91 H Free T4 05/31/18 05/31/18 05/31/18 09:33 10:53 11:48 RBC Hgb 15.4 H Hct 49.2 H MCV MCH RDW Plt Count Seg Neuts % (Manual) Lymphocytes % (Manual) Nucleated RBC % Seg Neutrophils # Man Lymphocytes # (Manual) PT INR D-Dimer POC ABG pH POC ABG pCO2 POC ABG pO2 Sodium Potassium Chloride Carbon Dioxide BUN Creatinine Glucose POC Glucose 168 H 106 H Calcium Magnesium Total Bilirubin AST ALT Alkaline Phosphatase Ammonia Total Creatine Kinase CK-MB (CK-2) CK-MB (CK-2) Rel Index Troponin T NT-Pro-B Natriuret Pep Total Protein Albumin HDL Cholesterol Free T4 05/31/18 05/31/18 05/31/18 11:48 11:48 11:51 RBC Hgb Hct MCV MCH RDW Plt Count Seg Neuts % (Manual) Lymphocytes % (Manual) Nucleated RBC % Seg Neutrophils # Man Lymphocytes # (Manual) PT 20.6 H INR 1.71 H D-Dimer 1834.40 H POC ABG pH 6.997 L POC ABG pCO2 59.6 H POC ABG pO2 Sodium Potassium Chloride Carbon Dioxide BUN Creatinine Glucose POC Glucose Calcium Magnesium Total Bilirubin AST ALT Alkaline Phosphatase Ammonia Total Creatine Kinase CK-MB (CK-2) CK-MB (CK-2) Rel Index Troponin T 0.230 H* NT-Pro-B Natriuret Pep Total Protein Albumin HDL Cholesterol Free T4 05/31/18 05/31/18 05/31/18 15:53 18:29 19:26 RBC Hgb Hct MCV MCH RDW Plt Count Seg Neuts % (Manual) Lymphocytes % (Manual) Nucleated RBC % Seg Neutrophils # Man Lymphocytes # (Manual) PT INR D-Dimer POC ABG pH 7.328 L POC ABG pCO2 29.6 L POC ABG pO2 200 H Sodium Potassium Chloride Carbon Dioxide BUN Creatinine Glucose POC Glucose < 40 L 68 L Calcium Magnesium Total Bilirubin AST ALT Alkaline Phosphatase Ammonia Total Creatine Kinase CK-MB (CK-2) CK-MB (CK-2) Rel Index Troponin T NT-Pro-B Natriuret Pep Total Protein Albumin HDL Cholesterol Free T4 05/31/18 06/01/18 06/01/18 20:40 01:12 03:40 RBC Hgb Hct MCV 83 L MCH 27 L RDW 15.4 H Plt Count 135 L Seg Neuts % (Manual) 95.0 H Lymphocytes % (Manual) 4.0 L Nucleated RBC % Seg Neutrophils # Man Lymphocytes # (Manual) 0.3 L PT 21.4 H INR 1.79 H D-Dimer POC ABG pH POC ABG pCO2 POC ABG pO2 Sodium Potassium 5.5 H Chloride Carbon Dioxide 13 L BUN 89 H Creatinine 2.7 H Glucose 72 L POC Glucose Calcium 7.2 L Magnesium Total Bilirubin AST ALT Alkaline Phosphatase Ammonia Total Creatine Kinase CK-MB (CK-2) CK-MB (CK-2) Rel Index Troponin T NT-Pro-B Natriuret Pep Total Protein Albumin HDL Cholesterol Free T4 06/01/18 06/01/18 06/01/18 03:40 04:59 08:29 RBC Hgb Hct MCV MCH RDW Plt Count Seg Neuts % (Manual) Lymphocytes % (Manual) Nucleated RBC % Seg Neutrophils # Man Lymphocytes # (Manual) PT INR D-Dimer POC ABG pH 7.474 H POC ABG pCO2 26.1 L POC ABG pO2 116 H Sodium Potassium 5.3 H Chloride Carbon Dioxide 16 L BUN 92 H Creatinine 2.7 H Glucose 61 L POC Glucose 69 L Calcium 7.2 L Magnesium Total Bilirubin AST ALT Alkaline Phosphatase Ammonia Total Creatine Kinase CK-MB (CK-2) CK-MB (CK-2) Rel Index Troponin T NT-Pro-B Natriuret Pep Total Protein Albumin HDL Cholesterol Free T4 06/01/18 06/01/18 06/01/18 10:49 14:02 16:18 RBC Hgb Hct MCV MCH RDW Plt Count Seg Neuts % (Manual) Lymphocytes % (Manual) Nucleated RBC % Seg Neutrophils # Man Lymphocytes # (Manual) PT INR D-Dimer POC ABG pH POC ABG pCO2 33.1 L POC ABG pO2 121 H Sodium Potassium Chloride Carbon Dioxide BUN Creatinine Glucose POC Glucose 108 H Calcium Magnesium Total Bilirubin AST ALT Alkaline Phosphatase Ammonia Total Creatine Kinase CK-MB (CK-2) CK-MB (CK-2) Rel Index Troponin T 0.242 H* NT-Pro-B Natriuret Pep Total Protein Albumin HDL Cholesterol Free T4 06/01/18 06/02/18 06/02/18 16:58 04:52 04:53 RBC 5.12 H Hgb Hct MCV 81 L MCH 27 L RDW Plt Count Seg Neuts % (Manual) 87.0 H Lymphocytes % (Manual) 2.0 L Nucleated RBC % Seg Neutrophils # Man 9.2 H Lymphocytes # (Manual) 0.2 L PT INR D-Dimer POC ABG pH POC ABG pCO2 POC ABG pO2 Sodium Potassium Chloride Carbon Dioxide BUN Creatinine Glucose POC Glucose 69 L Calcium Magnesium Total Bilirubin AST ALT Alkaline Phosphatase Ammonia Total Creatine Kinase CK-MB (CK-2) CK-MB (CK-2) Rel Index Troponin T 0.268 H* NT-Pro-B Natriuret Pep Total Protein Albumin HDL Cholesterol Free T4 06/02/18 06/02/18 06/02/18 04:53 11:50 14:05 RBC Hgb Hct MCV MCH RDW Plt Count Seg Neuts % (Manual) Lymphocytes % (Manual) Nucleated RBC % Seg Neutrophils # Man Lymphocytes # (Manual) PT INR D-Dimer POC ABG pH POC ABG pCO2 POC ABG pO2 Sodium Potassium 5.4 H Chloride Carbon Dioxide 16 L BUN 94 H Creatinine 2.7 H Glucose 101 H POC Glucose 133 H 113 H Calcium 7.7 L Magnesium Total Bilirubin AST ALT Alkaline Phosphatase Ammonia Total Creatine Kinase CK-MB (CK-2) CK-MB (CK-2) Rel Index Troponin T NT-Pro-B Natriuret Pep Total Protein Albumin HDL Cholesterol Free T4 06/02/18 06/02/18 06/04/18 17:47 17:55 07:27 RBC Hgb Hct MCV MCH RDW Plt Count Seg Neuts % (Manual) Lymphocytes % (Manual) Nucleated RBC % Seg Neutrophils # Man Lymphocytes # (Manual) PT INR D-Dimer POC ABG pH POC ABG pCO2 POC ABG pO2 Sodium Potassium Chloride Carbon Dioxide 21 L 20 L BUN 90 H 87 H Creatinine 2.7 H 2.5 H Glucose 120 H 71 L POC Glucose 120 H Calcium 7.5 L 7.7 L Magnesium Total Bilirubin 2.70 H AST 92 H ALT 67 H Alkaline Phosphatase 624 H Ammonia Total Creatine Kinase CK-MB (CK-2) CK-MB (CK-2) Rel Index Troponin T NT-Pro-B Natriuret Pep Total Protein 5.4 L Albumin 2.9 L HDL Cholesterol Free T4 06/06/18 06/06/18 06/06/18 05:08 05:08 06:17 RBC Hgb Hct MCV MCH RDW Plt Count 124 L Seg Neuts % (Manual) Lymphocytes % (Manual) Nucleated RBC % Seg Neutrophils # Man Lymphocytes # (Manual) PT INR D-Dimer POC ABG pH POC ABG pCO2 POC ABG pO2 Sodium Potassium Chloride Carbon Dioxide 21 L BUN 98 H Creatinine 2.7 H Glucose 61 L POC Glucose 48 L Calcium 8.0 L Magnesium Total Bilirubin AST ALT Alkaline Phosphatase Ammonia Total Creatine Kinase CK-MB (CK-2) CK-MB (CK-2) Rel Index Troponin T NT-Pro-B Natriuret Pep Total Protein Albumin HDL Cholesterol Free T4 06/06/18 06/06/18 06/07/18 14:22 15:58 02:01 RBC Hgb Hct MCV MCH RDW Plt Count Seg Neuts % (Manual) Lymphocytes % (Manual) Nucleated RBC % Seg Neutrophils # Man Lymphocytes # (Manual) PT INR D-Dimer POC ABG pH POC ABG pCO2 POC ABG pO2 Sodium Potassium Chloride Carbon Dioxide BUN Creatinine Glucose POC Glucose 228 H 121 H 63 L Calcium Magnesium Total Bilirubin AST ALT Alkaline Phosphatase Ammonia Total Creatine Kinase CK-MB (CK-2) CK-MB (CK-2) Rel Index Troponin T NT-Pro-B Natriuret Pep Total Protein Albumin HDL Cholesterol Free T4 06/07/18 06/07/18 06/07/18 05:07 08:10 09:03 RBC Hgb Hct MCV MCH RDW Plt Count Seg Neuts % (Manual) Lymphocytes % (Manual) Nucleated RBC % Seg Neutrophils # Man Lymphocytes # (Manual) PT INR D-Dimer POC ABG pH POC ABG pCO2 POC ABG pO2 Sodium Potassium Chloride Carbon Dioxide BUN 111 H Creatinine 2.9 H Glucose POC Glucose 66 L 133 H Calcium 7.5 L Magnesium Total Bilirubin AST ALT Alkaline Phosphatase Ammonia Total Creatine Kinase CK-MB (CK-2) CK-MB (CK-2) Rel Index Troponin T NT-Pro-B Natriuret Pep Total Protein Albumin HDL Cholesterol Free T4 06/07/18 06/07/18 06/07/18 12:53 15:23 20:00 RBC Hgb Hct MCV MCH RDW Plt Count Seg Neuts % (Manual) Lymphocytes % (Manual) Nucleated RBC % Seg Neutrophils # Man Lymphocytes # (Manual) PT INR D-Dimer POC ABG pH POC ABG pCO2 POC ABG pO2 Sodium Potassium Chloride Carbon Dioxide BUN Creatinine Glucose POC Glucose 148 H 161 H Calcium Magnesium Total Bilirubin AST ALT Alkaline Phosphatase Ammonia Total Creatine Kinase CK-MB (CK-2) CK-MB (CK-2) Rel Index Troponin T NT-Pro-B Natriuret Pep Total Protein Albumin HDL Cholesterol Free T4 0.57 L 06/07/18 06/08/18 06/08/18 23:38 04:30 04:41 RBC Hgb Hct MCV MCH RDW Plt Count 98 L Seg Neuts % (Manual) Lymphocytes % (Manual) Nucleated RBC % Seg Neutrophils # Man Lymphocytes # (Manual) PT INR D-Dimer POC ABG pH POC ABG pCO2 POC ABG pO2 Sodium Potassium Chloride Carbon Dioxide BUN Creatinine Glucose POC Glucose 135 H 108 H Calcium Magnesium Total Bilirubin AST ALT Alkaline Phosphatase Ammonia Total Creatine Kinase CK-MB (CK-2) CK-MB (CK-2) Rel Index Troponin T NT-Pro-B Natriuret Pep Total Protein Albumin HDL Cholesterol Free T4 06/08/18 06/08/18 06/08/18 04:41 12:01 15:53 RBC Hgb Hct MCV MCH RDW Plt Count Seg Neuts % (Manual) Lymphocytes % (Manual) Nucleated RBC % Seg Neutrophils # Man Lymphocytes # (Manual) PT INR D-Dimer POC ABG pH POC ABG pCO2 POC ABG pO2 Sodium Potassium Chloride Carbon Dioxide BUN 122 H Creatinine 3.1 H Glucose 109 H POC Glucose 133 H 128 H Calcium 7.4 L Magnesium Total Bilirubin AST ALT Alkaline Phosphatase Ammonia Total Creatine Kinase CK-MB (CK-2) CK-MB (CK-2) Rel Index Troponin T NT-Pro-B Natriuret Pep Total Protein Albumin HDL Cholesterol Free T4 06/08/18 06/09/18 06/09/18 22:01 01:37 04:31 RBC Hgb Hct MCV MCH RDW Plt Count Seg Neuts % (Manual) Lymphocytes % (Manual) Nucleated RBC % Seg Neutrophils # Man Lymphocytes # (Manual) PT INR D-Dimer POC ABG pH POC ABG pCO2 POC ABG pO2 Sodium Potassium 3.4 L Chloride 96.4 L Carbon Dioxide BUN 123 H Creatinine 3.0 H Glucose 119 H POC Glucose 129 H 143 H Calcium 7.4 L Magnesium Total Bilirubin AST ALT Alkaline Phosphatase Ammonia Total Creatine Kinase CK-MB (CK-2) CK-MB (CK-2) Rel Index Troponin T NT-Pro-B Natriuret Pep Total Protein Albumin HDL Cholesterol Free T4 06/09/18 06/09/18 06/09/18 14:11 17:36 21:56 RBC Hgb Hct MCV MCH RDW Plt Count Seg Neuts % (Manual) Lymphocytes % (Manual) Nucleated RBC % Seg Neutrophils # Man Lymphocytes # (Manual) PT INR D-Dimer POC ABG pH POC ABG pCO2 POC ABG pO2 Sodium Potassium Chloride Carbon Dioxide BUN Creatinine Glucose POC Glucose 133 H 157 H 168 H Calcium Magnesium Total Bilirubin AST ALT Alkaline Phosphatase Ammonia Total Creatine Kinase CK-MB (CK-2) CK-MB (CK-2) Rel Index Troponin T NT-Pro-B Natriuret Pep Total Protein Albumin HDL Cholesterol Free T4 06/10/18 06/10/18 06/10/18 04:31 09:54 14:04 RBC Hgb Hct MCV MCH RDW Plt Count Seg Neuts % (Manual) Lymphocytes % (Manual) Nucleated RBC % Seg Neutrophils # Man Lymphocytes # (Manual) PT INR D-Dimer POC ABG pH POC ABG pCO2 POC ABG pO2 Sodium Potassium 3.4 L Chloride 96.7 L Carbon Dioxide BUN 119 H Creatinine 2.9 H Glucose POC Glucose 130 H 128 H Calcium 7.2 L Magnesium Total Bilirubin AST ALT Alkaline Phosphatase Ammonia Total Creatine Kinase CK-MB (CK-2) CK-MB (CK-2) Rel Index Troponin T NT-Pro-B Natriuret Pep Total Protein Albumin HDL Cholesterol Free T4 06/10/18 06/10/18 06/11/18 18:01 21:04 02:10 RBC Hgb Hct MCV MCH RDW Plt Count Seg Neuts % (Manual) Lymphocytes % (Manual) Nucleated RBC % Seg Neutrophils # Man Lymphocytes # (Manual) PT INR D-Dimer POC ABG pH POC ABG pCO2 POC ABG pO2 Sodium Potassium Chloride Carbon Dioxide BUN Creatinine Glucose POC Glucose 119 H 146 H 135 H Calcium Magnesium Total Bilirubin AST ALT Alkaline Phosphatase Ammonia Total Creatine Kinase CK-MB (CK-2) CK-MB (CK-2) Rel Index Troponin T NT-Pro-B Natriuret Pep Total Protein Albumin HDL Cholesterol Free T4 06/11/18 06/11/18 04:57 14:08 RBC Hgb Hct MCV MCH RDW Plt Count Seg Neuts % (Manual) Lymphocytes % (Manual) Nucleated RBC % Seg Neutrophils # Man Lymphocytes # (Manual) PT INR D-Dimer POC ABG pH POC ABG pCO2 POC ABG pO2 Sodium Potassium Chloride Carbon Dioxide BUN 108 H Creatinine 2.5 H Glucose POC Glucose 113 H Calcium 7.2 L Magnesium Total Bilirubin AST ALT Alkaline Phosphatase Ammonia Total Creatine Kinase CK-MB (CK-2) CK-MB (CK-2) Rel Index Troponin T NT-Pro-B Natriuret Pep Total Protein Albumin HDL Cholesterol Free T4
--- NOTE | 2018-06-11 17:52 | Progress Note ---
Assessment and Plan - Patient Problems (1) Acute combined systolic and diastolic heart failure Current Visit: Yes Status: Acute Plan to address problem: Patient with ejection fraction of 5-10%. Does not want pacemaker. Stable. Dobutamine was not needed. Patient has had some improvement No hypoxemia. No IVY inhibitor is secondary to renal failure renal insufficiency. Continue diuresis beta leslie. Patient will require long-term facility currently awaiting placement secondary to debility. (2) Acute on chronic kidney failure Current Visit: Yes Status: Acute (3) Acute respiratory failure Current Visit: Yes Status: Acute Plan to address problem: Patient extubated on 06-01. Overall prognosis appears to be poor early awaiting placement. (4) Altered mental status, unspecified Current Visit: Yes Status: Acute Qualifiers: Altered mental status type: unspecified Qualified Code(s): R41.82 - Altered mental status, unspecified Plan to address problem: Patient now alert and oriented 3. Able to make needs known (5) Non-ST elevation PR (NSTEMI) Current Visit: Yes Status: Acute Plan to address problem: Patient is chest pain-free stable with long-acting nitroglycerin no A secondary to renal failure. Awaiting placement for disability. (6) Pleural effusion Current Visit: Yes Status: Acute History Interval history: Patient being denies pain. No new events overnight. Hospitalist Physical - Constitutional Vitals: Temp Pulse Resp BP Pulse Ox 98.9 F 71 14 136/99 98 06/11/18 17:21 06/11/18 17:00 06/11/18 17:00 06/11/18 17:00 06/11/18 17:00 General appearance: Present: no acute distress, well-nourished - EENT Eyes: Present: PERRL, EOM intact ENT: hearing intact, clear oral mucosa, dentition normal, no oropharyngeal erythema, no poor dentition, no thrush, no edentulous - Neck Neck: Present: supple, normal ROM - Cardiovascular Rhythm: other (faint) Heart Sounds: Present: S1 & S2 - Extremities Extremities: no ischemia, pulses intact, pulses symmetrical Extremity abnormal: edema, other (deconditioning debility) Peripheral Pulses: within normal limits - Abdominal General gastrointestinal: soft, non-tender, non-distended, normal bowel sounds, no absent bowel sounds, no hepatomegaly, no splenomegaly - Integumentary Integumentary: Present: clear, warm, dry - Psychiatric Psychiatric: appropriate mood/affect, cooperative - Neurologic Neurologic: CNII-XII intact, moves all extremities Results - Labs CBC & Chem 7: 06/08/18 04:41 06/11/18 04:57 Labs: Laboratory Last Values WBC 10.6 K/mm3 (4.5-11.0) 06/02/18 04:53 RBC 5.12 M/mm3 (3.65-5.03) H 06/02/18 04:53 Hgb 12.5 gm/dl (11.8-15.2) 06/08/18 04:41 Hct 38.2 % (35.5-45.6) 06/08/18 04:41 MCV 81 fl (84-94) L 06/02/18 04:53 MCH 27 pg (28-32) L 06/02/18 04:53 MCHC 34 % (32-34) 06/02/18 04:53 RDW 15.1 % (13.2-15.2) 06/02/18 04:53 Plt Count 98 K/mm3 (140-440) L 06/08/18 04:41 Add Manual Diff Complete 06/02/18 04:53 Total Counted 100 06/02/18 04:53 Seg Neuts % (Manual) 87.0 % (40.0-70.0) H 06/02/18 04:53 Band Neutrophils % 9.0 % 06/02/18 04:53 Lymphocytes % (Manual) 2.0 % (13.4-35.0) L 06/02/18 04:53 Reactive Lymphs % (Man) 0 % 06/02/18 04:53 Monocytes % (Manual) 2.0 % (0.0-7.3) 06/02/18 04:53 Eosinophils % (Manual) 0 % (0.0-4.3) 06/02/18 04:53 Basophils % (Manual) 0 % (0.0-1.8) 06/02/18 04:53 Metamyelocytes % 0 % 06/02/18 04:53 Myelocytes % 0 % 06/02/18 04:53 Promyelocytes % 0 % 06/02/18 04:53 Blast Cells % 0 % 06/02/18 04:53 Nucleated RBC % Not Reportable 06/02/18 04:53 Seg Neutrophils # Man 9.2 K/mm3 (1.8-7.7) H 06/02/18 04:53 Band Neutrophils # 1.0 K/mm3 06/02/18 04:53 Lymphocytes # (Manual) 0.2 K/mm3 (1.2-5.4) L 06/02/18 04:53 Abs React Lymphs (Man) 0.0 K/mm3 06/02/18 04:53 Monocytes # (Manual) 0.2 K/mm3 (0.0-0.8) 06/02/18 04:53 Eosinophils # (Manual) 0.0 K/mm3 (0.0-0.4) 06/02/18 04:53 Basophils # (Manual) 0.0 K/mm3 (0.0-0.1) 06/02/18 04:53 Metamyelocytes # 0.0 K/mm3 06/02/18 04:53 Myelocytes # 0.0 K/mm3 06/02/18 04:53 Promyelocytes # 0.0 K/mm3 06/02/18 04:53 Blast Cells # 0.0 K/mm3 06/02/18 04:53 WBC Morphology Not Reportable 06/02/18 04:53 Hypersegmented Neuts Not Reportable 06/02/18 04:53 Hyposegmented Neuts Not Reportable 06/02/18 04:53 Hypogranular Neuts Not Reportable 06/02/18 04:53 Smudge Cells Not Reportable 06/02/18 04:53 Toxic Granulation Not Reportable 06/02/18 04:53 Toxic Vacuolation Not Reportable 06/02/18 04:53 Dohle Bodies Not Reportable 06/02/18 04:53 Pelger-Huet Anomaly Not Reportable 06/02/18 04:53 Trae Rods Not Reportable 06/02/18 04:53 Platelet Estimate Consistent w auto 06/02/18 04:53 Clumped Platelets Not Reportable 06/02/18 04:53 Plt Clumps, EDTA Not Reportable 06/02/18 04:53 Large Platelets Not Reportable 06/02/18 04:53 Giant Platelets Not Reportable 06/02/18 04:53 Platelet Satelliting Not Reportable 06/02/18 04:53 Plt Morphology Comment Not Reportable 06/02/18 04:53 RBC Morphology Not Reportable 06/02/18 04:53 Dimorphic RBCs Not Reportable 06/02/18 04:53 Polychromasia 1+ 06/02/18 04:53 Hypochromasia Not Reportable 06/02/18 04:53 Poikilocytosis Not Reportable 06/02/18 04:53 Anisocytosis Not Reportable 06/02/18 04:53 Microcytosis Not Reportable 06/02/18 04:53 Macrocytosis Not Reportable 06/02/18 04:53 Spherocytes Not Reportable 06/02/18 04:53 Pappenheimer Bodies Not Reportable 06/02/18 04:53 Sickle Cells Not Reportable 06/02/18 04:53 Target Cells 1+ 06/02/18 04:53 Tear Drop Cells Not Reportable 06/02/18 04:53 Ovalocytes Not Reportable 06/02/18 04:53 Helmet Cells Not Reportable 06/02/18 04:53 [place] Pocket Bodies Not Reportable 06/02/18 04:53 Emma Rings Not Reportable 06/02/18 04:53 Andres Cells Not Reportable 06/02/18 04:53 Bite Cells Not Reportable 06/02/18 04:53 Crenated Cell Not Reportable 06/02/18 04:53 Elliptocytes Not Reportable 06/02/18 04:53 Acanthocytes (Spur) Not Reportable 06/02/18 04:53 Rouleaux Not Reportable 06/02/18 04:53 Hemoglobin C Crystals Not Reportable 06/02/18 04:53 Schistocytes Not Reportable 06/02/18 04:53 Malaria parasites Not Reportable 06/02/18 04:53 Dann Bodies Not Reportable 06/02/18 04:53 Hem Pathologist Commnt No 06/02/18 04:53 PT 21.4 Sec. (12.2-14.9) H 06/01/18 01:12 INR 1.79 (0.87-1.13) H 06/01/18 01:12 APTT 33.2 Sec. (24.2-36.6) 06/01/18 01:12 D-Dimer 1834.40 ng/mlDDU (0-234) H 05/31/18 11:48 Heparin Anti-Xa Level 0.40 U.I./ml (0.3-0.7) 05/31/18 20:40 POC ABG pH 7.400 (7.35-7.45) 06/01/18 16:18 POC ABG pCO2 33.1 (35-45) L 06/01/18 16:18 POC ABG pO2 121 (80-105) H 06/01/18 16:18 POC ABG HCO3 20.5 06/01/18 16:18 POC ABG Total CO2 21 06/01/18 16:18 POC ABG O2 Sat 99 06/01/18 16:18 POC ABG Base Excess -4 06/01/18 16:18 FiO2 35 % 06/01/18 16:18 Sodium 140 mmol/L (137-145) 06/11/18 04:57 Potassium 3.7 mmol/L (3.6-5.0) 06/11/18 04:57 Chloride 99.9 mmol/L (98-107) 06/11/18 04:57 Carbon Dioxide 23 mmol/L (22-30) 06/11/18 04:57 Anion Gap 21 mmol/L 06/11/18 04:57 BUN 108 mg/dL (9-20) H 06/11/18 04:57 Creatinine 2.5 mg/dL (0.8-1.5) H 06/11/18 04:57 Estimated GFR 32 ml/min 06/11/18 04:57 BUN/Creatinine Ratio 43 % 06/11/18 04:57 Glucose 100 mg/dL (75-100) 06/11/18 04:57 POC Glucose 113 (70-105) H 06/11/18 14:08 Lactic Acid 1.50 mmol/L (0.7-2.0) 05/31/18 07:13 Calcium 7.2 mg/dL (8.4-10.2) L 06/11/18 04:57 Magnesium 2.40 mg/dL (1.7-2.3) H 05/31/18 07:13 Total Bilirubin 2.70 mg/dL (0.1-1.2) H 06/02/18 17:47 AST 92 units/L (5-40) H 06/02/18 17:47 ALT 67 units/L (7-56) H 06/02/18 17:47 Alkaline Phosphatase 624 units/L (35-129) H 06/02/18 17:47 Ammonia 35.0 umol/L (25-60) 06/04/18 10:48 Total Creatine Kinase 374 units/L (55-170) H 05/31/18 05:49 CK-MB (CK-2) 22.3 ng/mL (0.0-4.0) H 05/31/18 05:49 CK-MB (CK-2) Rel Index 5.9 (0-4) H 05/31/18 05:49 Troponin T 0.268 ng/mL (0.00-0.029) H* 06/02/18 04:52 NT-Pro-B Natriuret Pep 03623 pg/mL (0-900) H 05/31/18 05:49 Total Protein 5.4 g/dL (6.3-8.2) L 06/02/18 17:47 Albumin 2.9 g/dL (3.9-5) L 06/02/18 17:47 Albumin/Globulin Ratio 1.2 % 06/02/18 17:47 Triglycerides 16 mg/dL (2-149) 05/31/18 05:49 Cholesterol 142 mg/dL (50-199) 05/31/18 05:49 LDL Cholesterol Direct 52 mg/dL (50-130) 05/31/18 05:49 HDL Cholesterol 91 mg/dL (40-59) H 05/31/18 05:49 Cholesterol/HDL Ratio 1.56 % 05/31/18 05:49 TSH 1.010 mlU/mL (0.270-4.200) 06/07/18 12:53 Free T4 0.57 ng/dL (0.76-1.46) L 06/07/18 12:53 Total Cortisol 44.9 mcg/dL () 06/07/18 12:53 Urine Color Khloe (Yellow) 05/31/18 05:20 Urine Turbidity Slightly-cloudy (Clear) 05/31/18 05:20 Urine pH 5.0 (5.0-7.0) 05/31/18 05:20 Ur Specific [place] 1.016 (1.003-1.030) 05/31/18 05:20 Urine Protein >500 mg/dL (Negative) 05/31/18 05:20 Urine Glucose (UA) Neg mg/dL (Negative) 05/31/18 05:20 Urine Ketones Neg mg/dL (Negative) 05/31/18 05:20 Urine Blood Sm (Negative) 05/31/18 05:20 Urine Nitrite Neg (Negative) 05/31/18 05:20 Urine Bilirubin Neg (Negative) 05/31/18 05:20 Urine Urobilinogen 4.0 mg/dL (<2.0) 05/31/18 05:20 Ur Leukocyte Esterase Neg (Negative) 05/31/18 05:20 Urine WBC (Auto) 6.0 /HPF (0.0-6.0) 05/31/18 05:20 Urine RBC (Auto) 9.0 /HPF (0.0-6.0) 05/31/18 05:20 U Epithel Cells (Auto) < 1.0 /HPF (0-13.0) 05/31/18 05:20 Urine Mucus Few /HPF 05/31/18 05:20 Urine Yeast (Budding) 1+ /HPF 05/31/18 05:20 Urine Opiates Screen Presumptive negative 05/31/18 05:20 Urine Methadone Screen Presumptive negative 05/31/18 05:20 Ur Barbiturates Screen Presumptive negative 05/31/18 05:20 Ur Phencyclidine Scrn Presumptive negative 05/31/18 05:20 Ur Amphetamines Screen Presumptive negative 05/31/18 05:20 U Benzodiazepines Scrn Presumptive negative 05/31/18 05:20 Urine Cocaine Screen Presumptive negative 05/31/18 05:20 U Marijuana (THC) Screen Presumptive negative 05/31/18 05:20 Drugs of Abuse Note Disclamer 05/31/18 05:20 Plasma/Serum Alcohol < 0.01 % (0-0.07) 05/31/18 05:22
[2018-06-12 04:59] LABS: Calcium 7.3 mg/dL (8.4-10.2)
[2018-06-12 07:33] LABS: Basophils # (Auto) 0.1 K/mm3 (0.0-0.1); Basophils % (Auto) 0.9 % (0.0-1.8); Eosinophils % (Auto) 0.5 % (0.0-4.3); Hematocrit 38.1 % (35.5-45.6); Hemoglobin 12.3 gm/dl (11.8-15.2); Lymphocytes # (Auto) 0.5 K/mm3 (1.2-5.4); Lymphocytes % (Auto) 7.4 % (13.4-35.0); Mean Corpuscular HGB Conc 32 % (32-34); Mean Corpuscular Hemoglobin 27 pg (28-32); Mean Corpuscular Volume 83 fl (84-94); Monocytes # (Auto) 0.1 K/mm3 (0.0-0.8); Monocytes % (Auto) 2.2 % (0.0-7.3); Red Blood Count 4.61 M/mm3 (3.65-5.03); Red Cell Distribution Width 15.4 % (13.2-15.2)
[2018-06-12 07:36] LABS: Platelet Count 85 K/mm3 (140-440)
[2018-06-12 07:56] LABS: Calcium 7.2 mg/dL (8.4-10.2)
--- NOTE | 2018-06-12 08:32 | Progress Note ---
Assessment and Plan Will sign off, call if questions or concerns. Subjective Date of service: 06/12/18 Principal diagnosis: Respiratory failure, non STEMI,CMP Interval history: patient remains on room air with no issues. Objective Vital Signs - 12hr 06/11/18 06/11/18 06/11/18 21:00 21:49 22:00 Temperature Pulse Rate 72 72 72 Respiratory 11 L 12 Rate Blood Pressure 146/106 146/106 152/105 O2 Sat by Pulse 99 94 Oximetry 06/11/18 06/12/18 06/12/18 23:00 00:00 01:00 Temperature 97.8 F Pulse Rate 71 73 Respiratory 11 L 11 L Rate Blood Pressure 152/105 152/107 152/107 O2 Sat by Pulse 97 98 97 Oximetry 06/12/18 06/12/18 06/12/18 02:00 02:10 02:20 Temperature Pulse Rate 70 72 70 Respiratory 16 14 14 Rate Blood Pressure 126/91 129/96 129/96 O2 Sat by Pulse 97 97 96 Oximetry 06/12/18 06/12/18 06/12/18 02:30 03:00 04:00 Temperature 97.6 F Pulse Rate 71 73 71 Respiratory 12 13 14 Rate Blood Pressure 129/96 129/96 137/98 O2 Sat by Pulse 94 99 95 Oximetry 06/12/18 06/12/18 06/12/18 05:00 06:00 07:00 Temperature Pulse Rate 72 70 Respiratory 11 L 12 Rate Blood Pressure 137/98 140/106 124/85 O2 Sat by Pulse 97 96 90 Oximetry Constitutional: no acute distress, other (weak-appearing) Eyes: non-icteric ENT: oropharynx moist Neck: supple Effort: normal Ascultation: Bilateral: clear (anteriorly), diminished breath sounds (bases) Cardiovascular: regular rate and rhythm (no mrg) Gastrointestinal: normoactive bowel sounds, non-distended Integumentary: normal Extremities: no cyanosis, edema (1+ bilateral edema up to thighs) Neurologic: normal mental status, non-focal exam, pupils equal and round Psychiatric: mood appropriate, affect normal CBC and BMP: 06/12/18 07:19 06/12/18 07:19 ABG, PT/INR, D-dimer: ABG POC ABG pH 7.400 (7.35-7.45) 06/01/18 16:18 POC ABG pCO2 33.1 (35-45) L 06/01/18 16:18 POC ABG pO2 121 (80-105) H 06/01/18 16:18 POC ABG HCO3 20.5 06/01/18 16:18 POC ABG Total CO2 21 06/01/18 16:18 POC ABG O2 Sat 99 06/01/18 16:18 PT/INR, D-dimer PT 21.4 Sec. (12.2-14.9) H 06/01/18 01:12 INR 1.79 (0.87-1.13) H 06/01/18 01:12 D-Dimer 1834.40 ng/mlDDU (0-234) H 05/31/18 11:48 Abnormal lab findings: Abnormal Labs 05/31/18 05/31/18 05/31/18 04:38 04:58 05:14 RBC Hgb Hct MCV MCH RDW Plt Count Lymph % (Auto) Lymph # Seg Neutrophils % Seg Neuts % (Manual) Lymphocytes % (Manual) Nucleated RBC % Seg Neutrophils # Man Lymphocytes # (Manual) PT INR D-Dimer POC ABG pH POC ABG pCO2 POC ABG pO2 Sodium Potassium Chloride Carbon Dioxide BUN Creatinine Glucose POC Glucose < 40 L 64 L 258 H Calcium Magnesium Total Bilirubin AST ALT Alkaline Phosphatase Ammonia Total Creatine Kinase CK-MB (CK-2) CK-MB (CK-2) Rel Index Troponin T NT-Pro-B Natriuret Pep Total Protein Albumin HDL Cholesterol Free T4 05/31/18 05/31/18 05/31/18 05:15 05:15 05:22 RBC 5.33 H Hgb Hct 45.8 H MCV MCH RDW 16.4 H Plt Count Lymph % (Auto) Lymph # Seg Neutrophils % Seg Neuts % (Manual) 88.0 H Lymphocytes % (Manual) 6.0 L Nucleated RBC % 1.0 H Seg Neutrophils # Man Lymphocytes # (Manual) 0.4 L PT 20.9 H INR 1.74 H D-Dimer POC ABG pH POC ABG pCO2 POC ABG pO2 Sodium Potassium Chloride Carbon Dioxide BUN Creatinine Glucose POC Glucose Calcium Magnesium Total Bilirubin AST ALT Alkaline Phosphatase Ammonia 68.0 H Total Creatine Kinase CK-MB (CK-2) CK-MB (CK-2) Rel Index Troponin T NT-Pro-B Natriuret Pep Total Protein Albumin HDL Cholesterol Free T4 05/31/18 05/31/18 05/31/18 05:49 07:13 07:22 RBC Hgb Hct MCV MCH RDW Plt Count Lymph % (Auto) Lymph # Seg Neutrophils % Seg Neuts % (Manual) Lymphocytes % (Manual) Nucleated RBC % Seg Neutrophils # Man Lymphocytes # (Manual) PT INR D-Dimer POC ABG pH POC ABG pCO2 POC ABG pO2 Sodium 135 L Potassium 6.0 H Chloride Carbon Dioxide 13 L BUN 87 H Creatinine 2.5 H Glucose 249 H POC Glucose 124 H Calcium 7.8 L Magnesium 2.40 H Total Bilirubin 2.60 H AST 60 H ALT Alkaline Phosphatase 592 H Ammonia Total Creatine Kinase 374 H CK-MB (CK-2) 22.3 H CK-MB (CK-2) Rel Index 5.9 H Troponin T 0.260 H* NT-Pro-B Natriuret Pep 17460 H Total Protein 5.5 L Albumin 3.0 L HDL Cholesterol 91 H Free T4 05/31/18 05/31/18 05/31/18 09:33 10:53 11:48 RBC Hgb 15.4 H Hct 49.2 H MCV MCH RDW Plt Count Lymph % (Auto) Lymph # Seg Neutrophils % Seg Neuts % (Manual) Lymphocytes % (Manual) Nucleated RBC % Seg Neutrophils # Man Lymphocytes # (Manual) PT INR D-Dimer POC ABG pH POC ABG pCO2 POC ABG pO2 Sodium Potassium Chloride Carbon Dioxide BUN Creatinine Glucose POC Glucose 168 H 106 H Calcium Magnesium Total Bilirubin AST ALT Alkaline Phosphatase Ammonia Total Creatine Kinase CK-MB (CK-2) CK-MB (CK-2) Rel Index Troponin T NT-Pro-B Natriuret Pep Total Protein Albumin HDL Cholesterol Free T4 05/31/18 05/31/18 05/31/18 11:48 11:48 11:51 RBC Hgb Hct MCV MCH RDW Plt Count Lymph % (Auto) Lymph # Seg Neutrophils % Seg Neuts % (Manual) Lymphocytes % (Manual) Nucleated RBC % Seg Neutrophils # Man Lymphocytes # (Manual) PT 20.6 H INR 1.71 H D-Dimer 1834.40 H POC ABG pH 6.997 L POC ABG pCO2 59.6 H POC ABG pO2 Sodium Potassium Chloride Carbon Dioxide BUN Creatinine Glucose POC Glucose Calcium Magnesium Total Bilirubin AST ALT Alkaline Phosphatase Ammonia Total Creatine Kinase CK-MB (CK-2) CK-MB (CK-2) Rel Index Troponin T 0.230 H* NT-Pro-B Natriuret Pep Total Protein Albumin HDL Cholesterol Free T4 05/31/18 05/31/18 05/31/18 15:53 18:29 19:26 RBC Hgb Hct MCV MCH RDW Plt Count Lymph % (Auto) Lymph # Seg Neutrophils % Seg Neuts % (Manual) Lymphocytes % (Manual) Nucleated RBC % Seg Neutrophils # Man Lymphocytes # (Manual) PT INR D-Dimer POC ABG pH 7.328 L POC ABG pCO2 29.6 L POC ABG pO2 200 H Sodium Potassium Chloride Carbon Dioxide BUN Creatinine Glucose POC Glucose < 40 L 68 L Calcium Magnesium Total Bilirubin AST ALT Alkaline Phosphatase Ammonia Total Creatine Kinase CK-MB (CK-2) CK-MB (CK-2) Rel Index Troponin T NT-Pro-B Natriuret Pep Total Protein Albumin HDL Cholesterol Free T4 05/31/18 06/01/18 06/01/18 20:40 01:12 03:40 RBC Hgb Hct MCV 83 L MCH 27 L RDW 15.4 H Plt Count 135 L Lymph % (Auto) Lymph # Seg Neutrophils % Seg Neuts % (Manual) 95.0 H Lymphocytes % (Manual) 4.0 L Nucleated RBC % Seg Neutrophils # Man Lymphocytes # (Manual) 0.3 L PT 21.4 H INR 1.79 H D-Dimer POC ABG pH POC ABG pCO2 POC ABG pO2 Sodium Potassium 5.5 H Chloride Carbon Dioxide 13 L BUN 89 H Creatinine 2.7 H Glucose 72 L POC Glucose Calcium 7.2 L Magnesium Total Bilirubin AST ALT Alkaline Phosphatase Ammonia Total Creatine Kinase CK-MB (CK-2) CK-MB (CK-2) Rel Index Troponin T NT-Pro-B Natriuret Pep Total Protein Albumin HDL Cholesterol Free T4 06/01/18 06/01/18 06/01/18 03:40 04:59 08:29 RBC Hgb Hct MCV MCH RDW Plt Count Lymph % (Auto) Lymph # Seg Neutrophils % Seg Neuts % (Manual) Lymphocytes % (Manual) Nucleated RBC % Seg Neutrophils # Man Lymphocytes # (Manual) PT INR D-Dimer POC ABG pH 7.474 H POC ABG pCO2 26.1 L POC ABG pO2 116 H Sodium Potassium 5.3 H Chloride Carbon Dioxide 16 L BUN 92 H Creatinine 2.7 H Glucose 61 L POC Glucose 69 L Calcium 7.2 L Magnesium Total Bilirubin AST ALT Alkaline Phosphatase Ammonia Total Creatine Kinase CK-MB (CK-2) CK-MB (CK-2) Rel Index Troponin T NT-Pro-B Natriuret Pep Total Protein Albumin HDL Cholesterol Free T4 06/01/18 06/01/18 06/01/18 10:49 14:02 16:18 RBC Hgb Hct MCV MCH RDW Plt Count Lymph % (Auto) Lymph # Seg Neutrophils % Seg Neuts % (Manual) Lymphocytes % (Manual) Nucleated RBC % Seg Neutrophils # Man Lymphocytes # (Manual) PT INR D-Dimer POC ABG pH POC ABG pCO2 33.1 L POC ABG pO2 121 H Sodium Potassium Chloride Carbon Dioxide BUN Creatinine Glucose POC Glucose 108 H Calcium Magnesium Total Bilirubin AST ALT Alkaline Phosphatase Ammonia Total Creatine Kinase CK-MB (CK-2) CK-MB (CK-2) Rel Index Troponin T 0.242 H* NT-Pro-B Natriuret Pep Total Protein Albumin HDL Cholesterol Free T4 06/01/18 06/02/18 06/02/18 16:58 04:52 04:53 RBC 5.12 H Hgb Hct MCV 81 L MCH 27 L RDW Plt Count Lymph % (Auto) Lymph # Seg Neutrophils % Seg Neuts % (Manual) 87.0 H Lymphocytes % (Manual) 2.0 L Nucleated RBC % Seg Neutrophils # Man 9.2 H Lymphocytes # (Manual) 0.2 L PT INR D-Dimer POC ABG pH POC ABG pCO2 POC ABG pO2 Sodium Potassium Chloride Carbon Dioxide BUN Creatinine Glucose POC Glucose 69 L Calcium Magnesium Total Bilirubin AST ALT Alkaline Phosphatase Ammonia Total Creatine Kinase CK-MB (CK-2) CK-MB (CK-2) Rel Index Troponin T 0.268 H* NT-Pro-B Natriuret Pep Total Protein Albumin HDL Cholesterol Free T4 06/02/18 06/02/18 06/02/18 04:53 11:50 14:05 RBC Hgb Hct MCV MCH RDW Plt Count Lymph % (Auto) Lymph # Seg Neutrophils % Seg Neuts % (Manual) Lymphocytes % (Manual) Nucleated RBC % Seg Neutrophils # Man Lymphocytes # (Manual) PT INR D-Dimer POC ABG pH POC ABG pCO2 POC ABG pO2 Sodium Potassium 5.4 H Chloride Carbon Dioxide 16 L BUN 94 H Creatinine 2.7 H Glucose 101 H POC Glucose 133 H 113 H Calcium 7.7 L Magnesium Total Bilirubin AST ALT Alkaline Phosphatase Ammonia Total Creatine Kinase CK-MB (CK-2) CK-MB (CK-2) Rel Index Troponin T NT-Pro-B Natriuret Pep Total Protein Albumin HDL Cholesterol Free T4 06/02/18 06/02/18 06/04/18 17:47 17:55 07:27 RBC Hgb Hct MCV MCH RDW Plt Count Lymph % (Auto) Lymph # Seg Neutrophils % Seg Neuts % (Manual) Lymphocytes % (Manual) Nucleated RBC % Seg Neutrophils # Man Lymphocytes # (Manual) PT INR D-Dimer POC ABG pH POC ABG pCO2 POC ABG pO2 Sodium Potassium Chloride Carbon Dioxide 21 L 20 L BUN 90 H 87 H Creatinine 2.7 H 2.5 H Glucose 120 H 71 L POC Glucose 120 H Calcium 7.5 L 7.7 L Magnesium Total Bilirubin 2.70 H AST 92 H ALT 67 H Alkaline Phosphatase 624 H Ammonia Total Creatine Kinase CK-MB (CK-2) CK-MB (CK-2) Rel Index Troponin T NT-Pro-B Natriuret Pep Total Protein 5.4 L Albumin 2.9 L HDL Cholesterol Free T4 06/06/18 06/06/18 06/06/18 05:08 05:08 06:17 RBC Hgb Hct MCV MCH RDW Plt Count 124 L Lymph % (Auto) Lymph # Seg Neutrophils % Seg Neuts % (Manual) Lymphocytes % (Manual) Nucleated RBC % Seg Neutrophils # Man Lymphocytes # (Manual) PT INR D-Dimer POC ABG pH POC ABG pCO2 POC ABG pO2 Sodium Potassium Chloride Carbon Dioxide 21 L BUN 98 H Creatinine 2.7 H Glucose 61 L POC Glucose 48 L Calcium 8.0 L Magnesium Total Bilirubin AST ALT Alkaline Phosphatase Ammonia Total Creatine Kinase CK-MB (CK-2) CK-MB (CK-2) Rel Index Troponin T NT-Pro-B Natriuret Pep Total Protein Albumin HDL Cholesterol Free T4 06/06/18 06/06/18 06/07/18 14:22 15:58 02:01 RBC Hgb Hct MCV MCH RDW Plt Count Lymph % (Auto) Lymph # Seg Neutrophils % Seg Neuts % (Manual) Lymphocytes % (Manual) Nucleated RBC % Seg Neutrophils # Man Lymphocytes # (Manual) PT INR D-Dimer POC ABG pH POC ABG pCO2 POC ABG pO2 Sodium Potassium Chloride Carbon Dioxide BUN Creatinine Glucose POC Glucose 228 H 121 H 63 L Calcium Magnesium Total Bilirubin AST ALT Alkaline Phosphatase Ammonia Total Creatine Kinase CK-MB (CK-2) CK-MB (CK-2) Rel Index Troponin T NT-Pro-B Natriuret Pep Total Protein Albumin HDL Cholesterol Free T4 06/07/18 06/07/18 06/07/18 05:07 08:10 09:03 RBC Hgb Hct MCV MCH RDW Plt Count Lymph % (Auto) Lymph # Seg Neutrophils % Seg Neuts % (Manual) Lymphocytes % (Manual) Nucleated RBC % Seg Neutrophils # Man Lymphocytes # (Manual) PT INR D-Dimer POC ABG pH POC ABG pCO2 POC ABG pO2 Sodium Potassium Chloride Carbon Dioxide BUN 111 H Creatinine 2.9 H Glucose POC Glucose 66 L 133 H Calcium 7.5 L Magnesium Total Bilirubin AST ALT Alkaline Phosphatase Ammonia Total Creatine Kinase CK-MB (CK-2) CK-MB (CK-2) Rel Index Troponin T NT-Pro-B Natriuret Pep Total Protein Albumin HDL Cholesterol Free T4 06/07/18 06/07/18 06/07/18 12:53 15:23 20:00 RBC Hgb Hct MCV MCH RDW Plt Count Lymph % (Auto) Lymph # Seg Neutrophils % Seg Neuts % (Manual) Lymphocytes % (Manual) Nucleated RBC % Seg Neutrophils # Man Lymphocytes # (Manual) PT INR D-Dimer POC ABG pH POC ABG pCO2 POC ABG pO2 Sodium Potassium Chloride Carbon Dioxide BUN Creatinine Glucose POC Glucose 148 H 161 H Calcium Magnesium Total Bilirubin AST ALT Alkaline Phosphatase Ammonia Total Creatine Kinase CK-MB (CK-2) CK-MB (CK-2) Rel Index Troponin T NT-Pro-B Natriuret Pep Total Protein Albumin HDL Cholesterol Free T4 0.57 L 06/07/18 06/08/18 06/08/18 23:38 04:30 04:41 RBC Hgb Hct MCV MCH RDW Plt Count 98 L Lymph % (Auto) Lymph # Seg Neutrophils % Seg Neuts % (Manual) Lymphocytes % (Manual) Nucleated RBC % Seg Neutrophils # Man Lymphocytes # (Manual) PT INR D-Dimer POC ABG pH POC ABG pCO2 POC ABG pO2 Sodium Potassium Chloride Carbon Dioxide BUN Creatinine Glucose POC Glucose 135 H 108 H Calcium Magnesium Total Bilirubin AST ALT Alkaline Phosphatase Ammonia Total Creatine Kinase CK-MB (CK-2) CK-MB (CK-2) Rel Index Troponin T NT-Pro-B Natriuret Pep Total Protein Albumin HDL Cholesterol Free T4 06/08/18 06/08/18 06/08/18 04:41 12:01 15:53 RBC Hgb Hct MCV MCH RDW Plt Count Lymph % (Auto) Lymph # Seg Neutrophils % Seg Neuts % (Manual) Lymphocytes % (Manual) Nucleated RBC % Seg Neutrophils # Man Lymphocytes # (Manual) PT INR D-Dimer POC ABG pH POC ABG pCO2 POC ABG pO2 Sodium Potassium Chloride Carbon Dioxide BUN 122 H Creatinine 3.1 H Glucose 109 H POC Glucose 133 H 128 H Calcium 7.4 L Magnesium Total Bilirubin AST ALT Alkaline Phosphatase Ammonia Total Creatine Kinase CK-MB (CK-2) CK-MB (CK-2) Rel Index Troponin T NT-Pro-B Natriuret Pep Total Protein Albumin HDL Cholesterol Free T4 06/08/18 06/09/18 06/09/18 22:01 01:37 04:31 RBC Hgb Hct MCV MCH RDW Plt Count Lymph % (Auto) Lymph # Seg Neutrophils % Seg Neuts % (Manual) Lymphocytes % (Manual) Nucleated RBC % Seg Neutrophils # Man Lymphocytes # (Manual) PT INR D-Dimer POC ABG pH POC ABG pCO2 POC ABG pO2 Sodium Potassium 3.4 L Chloride 96.4 L Carbon Dioxide BUN 123 H Creatinine 3.0 H Glucose 119 H POC Glucose 129 H 143 H Calcium 7.4 L Magnesium Total Bilirubin AST ALT Alkaline Phosphatase Ammonia Total Creatine Kinase CK-MB (CK-2) CK-MB (CK-2) Rel Index Troponin T NT-Pro-B Natriuret Pep Total Protein Albumin HDL Cholesterol Free T4 06/09/18 06/09/18 06/09/18 14:11 17:36 21:56 RBC Hgb Hct MCV MCH RDW Plt Count Lymph % (Auto) Lymph # Seg Neutrophils % Seg Neuts % (Manual) Lymphocytes % (Manual) Nucleated RBC % Seg Neutrophils # Man Lymphocytes # (Manual) PT INR D-Dimer POC ABG pH POC ABG pCO2 POC ABG pO2 Sodium Potassium Chloride Carbon Dioxide BUN Creatinine Glucose POC Glucose 133 H 157 H 168 H Calcium Magnesium Total Bilirubin AST ALT Alkaline Phosphatase Ammonia Total Creatine Kinase CK-MB (CK-2) CK-MB (CK-2) Rel Index Troponin T NT-Pro-B Natriuret Pep Total Protein Albumin HDL Cholesterol Free T4 06/10/18 06/10/18 06/10/18 04:31 09:54 14:04 RBC Hgb Hct MCV MCH RDW Plt Count Lymph % (Auto) Lymph # Seg Neutrophils % Seg Neuts % (Manual) Lymphocytes % (Manual) Nucleated RBC % Seg Neutrophils # Man Lymphocytes # (Manual) PT INR D-Dimer POC ABG pH POC ABG pCO2 POC ABG pO2 Sodium Potassium 3.4 L Chloride 96.7 L Carbon Dioxide BUN 119 H Creatinine 2.9 H Glucose POC Glucose 130 H 128 H Calcium 7.2 L Magnesium Total Bilirubin AST ALT Alkaline Phosphatase Ammonia Total Creatine Kinase CK-MB (CK-2) CK-MB (CK-2) Rel Index Troponin T NT-Pro-B Natriuret Pep Total Protein Albumin HDL Cholesterol Free T4 06/10/18 06/10/18 06/11/18 18:01 21:04 02:10 RBC Hgb Hct MCV MCH RDW Plt Count Lymph % (Auto) Lymph # Seg Neutrophils % Seg Neuts % (Manual) Lymphocytes % (Manual) Nucleated RBC % Seg Neutrophils # Man Lymphocytes # (Manual) PT INR D-Dimer POC ABG pH POC ABG pCO2 POC ABG pO2 Sodium Potassium Chloride Carbon Dioxide BUN Creatinine Glucose POC Glucose 119 H 146 H 135 H Calcium Magnesium Total Bilirubin AST ALT Alkaline Phosphatase Ammonia Total Creatine Kinase CK-MB (CK-2) CK-MB (CK-2) Rel Index Troponin T NT-Pro-B Natriuret Pep Total Protein Albumin HDL Cholesterol Free T4 06/11/18 06/11/18 06/11/18 04:57 14:08 15:55 RBC Hgb Hct MCV MCH RDW Plt Count Lymph % (Auto) Lymph # Seg Neutrophils % Seg Neuts % (Manual) Lymphocytes % (Manual) Nucleated RBC % Seg Neutrophils # Man Lymphocytes # (Manual) PT INR D-Dimer POC ABG pH POC ABG pCO2 POC ABG pO2 Sodium Potassium Chloride Carbon Dioxide BUN 108 H Creatinine 2.5 H Glucose POC Glucose 113 H 120 H Calcium 7.2 L Magnesium Total Bilirubin AST ALT Alkaline Phosphatase Ammonia Total Creatine Kinase CK-MB (CK-2) CK-MB (CK-2) Rel Index Troponin T NT-Pro-B Natriuret Pep Total Protein Albumin HDL Cholesterol Free T4 06/11/18 06/12/18 06/12/18 19:49 00:19 04:19 RBC Hgb Hct MCV MCH RDW Plt Count Lymph % (Auto) Lymph # Seg Neutrophils % Seg Neuts % (Manual) Lymphocytes % (Manual) Nucleated RBC % Seg Neutrophils # Man Lymphocytes # (Manual) PT INR D-Dimer POC ABG pH POC ABG pCO2 POC ABG pO2 Sodium Potassium 3.4 L Chloride Carbon Dioxide BUN 102 H Creatinine 2.3 H Glucose 128 H POC Glucose 148 H 138 H Calcium 7.3 L Magnesium Total Bilirubin AST ALT Alkaline Phosphatase Ammonia Total Creatine Kinase CK-MB (CK-2) CK-MB (CK-2) Rel Index Troponin T NT-Pro-B Natriuret Pep Total Protein Albumin HDL Cholesterol Free T4 06/12/18 06/12/18 06/12/18 04:25 07:19 07:19 RBC Hgb Hct MCV 83 L MCH 27 L RDW 15.4 H Plt Count 85 L Lymph % (Auto) 7.4 L Lymph # 0.5 L Seg Neutrophils % 89.0 H Seg Neuts % (Manual) Lymphocytes % (Manual) Nucleated RBC % Seg Neutrophils # Man Lymphocytes # (Manual) PT INR D-Dimer POC ABG pH POC ABG pCO2 POC ABG pO2 Sodium Potassium 3.3 L Chloride Carbon Dioxide BUN 98 H Creatinine 2.3 H Glucose 107 H POC Glucose 121 H Calcium 7.2 L Magnesium Total Bilirubin AST ALT Alkaline Phosphatase Ammonia Total Creatine Kinase CK-MB (CK-2) CK-MB (CK-2) Rel Index Troponin T NT-Pro-B Natriuret Pep Total Protein Albumin HDL Cholesterol Free T4
--- NOTE | 2018-06-12 09:07 | Progress Note ---
Assessment and Plan Impression: * Nonoliguric acute kidney injury secondary to prerenal azotemia vs ATN * Acute respiratory failure on mechanical ventilation * NSTEMI * Severe cardiomyopathy - ejection fraction of the 10% range * Hypokalemia * Severe hypoglycemia - resolved Recommendations * Renal function continues to gradually improve. Renal prognosis remains guarded at this time * Will stop IVF to avoid fluid overload. Encourage po hydration * Replete lytes - KCl x 1 dose ordered * Avoid nephrotoxins * Adjust medications for renal function * Not a good candidate for ACEI or ARB at this time * Discussed with patient at 06/11 visit re: potential need for dialysis; patient declines dialysis; he acknowledges that without dialysis, he could potentially . * Recommend hospice/palliative care Subjective Date of service: 06/12/18 Principal diagnosis: Respiratory failure, non STEMI,CMP Interval history: Patient is eating/drinking well. He denies SOB. Objective - Vital Signs Vital signs: Vital Signs - 12hr 06/11/18 06/11/18 06/11/18 21:49 22:00 23:00 Temperature Pulse Rate 72 72 71 Respiratory 12 11 L Rate Blood Pressure 146/106 152/105 152/105 O2 Sat by Pulse 94 97 Oximetry 06/12/18 06/12/18 06/12/18 00:00 01:00 02:00 Temperature 97.8 F Pulse Rate 73 70 Respiratory 11 L 16 Rate Blood Pressure 152/107 152/107 126/91 O2 Sat by Pulse 98 97 97 Oximetry 06/12/18 06/12/18 06/12/18 02:10 02:20 02:30 Temperature Pulse Rate 72 70 71 Respiratory 14 14 12 Rate Blood Pressure 129/96 129/96 129/96 O2 Sat by Pulse 97 96 94 Oximetry 06/12/18 06/12/18 06/12/18 03:00 04:00 05:00 Temperature 97.6 F Pulse Rate 73 71 72 Respiratory 13 14 11 L Rate Blood Pressure 129/96 137/98 137/98 O2 Sat by Pulse 99 95 97 Oximetry 06/12/18 06/12/18 06:00 07:00 Temperature Pulse Rate 70 Respiratory 12 Rate Blood Pressure 140/106 124/85 O2 Sat by Pulse 96 90 Oximetry - General Appearance General appearance: well-developed, frail EENT: ATNC Respiratory: Present: Decreased Breath Sounds Cardiology: regular, S1S2 Gastrointestinal: normal, no tenderness, no distended Integumentary: no rash, warm and dry Neurologic: alert and oriented x3 Musculoskeletal: other (2+ pitting edema thighs) Psychiatric: cooperative - Lab 06/12/18 07:19 06/12/18 07:19 Most recent lab results Calcium 7.2 mg/dL (8.4-10.2) L 06/12/18 07:19 Magnesium 2.40 mg/dL (1.7-2.3) H 05/31/18 07:13
[2018-06-12] MEDS ORDERED: POTASSIUM CHLORIDE FEEDTUBE ONE (09:39)
[2018-06-12] MEDS ORDERED: K-DUR PO ONE ×2 (10:00→11:00)
[2018-06-12] MEDS: SODIUM CHLORIDE FLUSH SYRINGE 10 ML IV SCH ×2 (11:18→21:47)
[2018-06-12] MEDS: COREG PO SCH ×2 (11:18→21:46)
[2018-06-12] MEDS: IMDUR PO SCH (11:19)
[2018-06-12] MEDS: PEPCID PO SCH (11:19)
--- NOTE | 2018-06-12 11:35 | Progress Note ---
Assessment and Plan clinically improved Renal prognosis is guarded per nephrology. Pt currently declining dialysis. Cont volume optimization and electrolyte replacement per nephrology. Continue coreg and Imdur. No ACEI/ARB at this time in setting of renal insufficiency. Overall prognosis remains guarded because of his multiple medical issues. Pt declines AICD at this time. Nothing further to add from cardiac perspective at this time. Will follow on as needed basis. Recommend follow up in our office with Dr. Zamora within 3-5 days of hospital discharge ([phone]). The patient has been seen in conjunction with Dr. Rico who agrees with the assessment and plan of care. - Patient Problems (1) Acute combined systolic and diastolic heart failure Current Visit: Yes Status: Acute (2) NICM (nonischemic cardiomyopathy) Current Visit: Yes Status: Chronic (3) Right ventricular systolic dysfunction Current Visit: Yes Status: Acute (4) Pulmonary HTN Current Visit: Yes Status: Chronic (5) Non-ST elevation DC (NSTEMI) Current Visit: Yes Status: Acute (6) Metabolic encephalopathy Current Visit: Yes Status: Acute (7) Acute on chronic kidney failure Current Visit: Yes Status: Acute (8) Hyperkalemia Current Visit: Yes Status: Acute (9) Hypoglycemia Current Visit: Yes Status: Acute (10) Hypothermia Current Visit: Yes Status: Acute Qualifiers: Encounter type: initial encounter Qualified Code(s): T68.XXXA - Hypothermia , initial encounter (11) Moderate to severe mitral regurgitation Current Visit: Yes Status: Chronic (12) Tricuspid regurgitation Current Visit: Yes Status: Chronic Subjective Date of service: 06/12/18 Principal diagnosis: Respiratory failure, non STEMI,CMP Interval history: pt resting in bed, alert and oriented. no current complaints. daughter at bedside. Objective Last Vital Signs Temp 97.6 F 06/12/18 04:00 Pulse 70 06/12/18 11:19 Resp 12 06/12/18 06:00 BP 124/85 06/12/18 07:00 Pulse Ox 90 06/12/18 07:00 - Physical Examination General: No Apparent Distress HEENT: Positive: PERRL Neck: Positive: neck supple, trachea midline Cardiac: Positive: Reg Rate and Rhythm, S1/S2 Lungs: Positive: Decreased Breath Sounds Neuro: Positive: Grossly Intact Abdomen: Positive: Soft. Negative: Tender Skin: Negative: Rash, Wound Extremities: Absent: edema - Labs and Meds CBC 06/12/18 Range/Units 07:19 WBC 6.3 (4.5-11.0) K/mm3 RBC 4.61 (3.65-5.03) M/mm3 Hgb 12.3 (11.8-15.2) gm/dl Hct 38.1 (35.5-45.6) % Plt Count 85 L (140-440) K/mm3 Lymph # 0.5 L (1.2-5.4) K/mm3 Pratt # 0.1 (0.0-0.8) K/mm3 Eos # 0.0 (0.0-0.4) K/mm3 Baso # 0.1 (0.0-0.1) K/mm3 Comprehensive Metabolic Panel 06/12/18 06/12/18 Range/Units 04:19 07:19 Sodium 140 140 (137-145) mmol/L Potassium 3.4 L 3.3 L (3.6-5.0) mmol/L Chloride 100.6 100.5 (98-107) mmol/L Carbon Dioxide 25 25 (22-30) mmol/L BUN 102 H 98 H (9-20) mg/dL Creatinine 2.3 H 2.3 H (0.8-1.5) mg/dL Glucose 128 H 107 H (75-100) mg/dL Calcium 7.3 L 7.2 L (8.4-10.2) mg/dL - Imaging and Cardiology EKG: report reviewed, image reviewed Echo: report reviewed (EF 5-10%, LA mild to mod dilated, RA mildly dilated, mod to severe MR, mod to severe TR, mild AR, pseudonormalization, RV mildly dilated , RV systolic function severely reduced, mod pulm HTN with RVSP 52mmHg, small pericardial effusion. ) Cardiac cath: report reviewed (pt underwent LHC & RHC on 12/27/2017 which showed nonobstructive CAD with RCA 40% and Cristiano 35% lesions; non-ischemic cardiomyoapthy. ) - EKG Sinus rhythms and dysrhythmias: sinus rhythm
--- NOTE | 2018-06-12 12:46 | Discharge Summary ---
Providers - Providers Date of Admission: 05/31/18 11:24 Attending physician: ROBYN METZGER MD 05/31/18 11:16 Consult to Physician [CONS] Routine Comment: BLAIR AWARE OF PT 1230 Consulting Provider: MARTY CASTELLANOS Physician Instructions: Reason For Exam: NSTEMI 05/31/18 11:24 Consult to Physician [CONS] Routine Comment: OFFICE NOTIFIED 7130 Consulting Provider: NIKKI LEE Physician Instructions: Reason For Exam: acute renal failure 05/31/18 11:34 Consult to Physician [CONS] Stat Comment: DR ODELL NOTIFIED Consulting Provider: RM ODELL Physician Instructions: Reason For Exam: Multiorgan Failure 05/31/18 13:38 Consult to Dietitian/Nutrition [CONS] Routine Physician Instructions: Reason For Exam: Reason for Consult: Write/Manage Tube Feeding 06/01/18 09:20 Consult to Physician [CONS] Routine Comment: Consulting Provider: JOSEPH SYED Physician Instructions: Reason For Exam: Gi bleed 06/03/18 10:11 Physical Therapy Evaluation and Treat [CONS] Routine Comment: Reason For Exam: deconditioning 06/04/18 10:56 Physical Therapy Evaluation and Treat [CONS] Urgent Comment: Reason For Exam: PLEASE EVULATE PT FOR HOME O2 06/06/18 13:39 Consult to Dietitian/Nutrition [CONS] Routine Physician Instructions: Reason For Exam: Reason for Consult: Poor oral intake 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 Respiratory/metabolic acidosis; Patient was admitted to ICU intubated and on mechanical ventilation, extubated on 06/01 NSTEMI was treated with heparin drip, aspirin, cardiology consult appreciated, recommended to continue with medical management. CHF with EF 5-10% Patient declined AICD. Patient was diuresed on admission and SOB resolved. Acute renal failure; Nephrology consulted and patient declined dialysis Hypothermia; treated with Iv antibiotics emeprecially and resolved, blood cultures were negative Patient declined dialysis, AICD and hospice. patient discharged home with home health. Patient prognosis id poor. 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 (2) Acute on chronic kidney failure Status: Acute (3) Acute respiratory failure Status: Acute (4) Altered mental status, unspecified Status: Acute Qualifiers: Altered mental status type: unspecified Qualified Code(s): R41.82 - Altered mental status, unspecified (5) Hypoglycemia Status: Acute (6) Metabolic encephalopathy Status: Acute (7) NICM (nonischemic cardiomyopathy) Status: Chronic (8) Pulmonary HTN Status: Chronic Core Measure Documentation - Palliative Care Palliative Care/ Comfort Measures: Not Applicable - Core Measures Any of the following diagnoses?: heart failure - Heart Failure Discharge Requirements IVY/ARB for LVSD if EF <40%: No Reason for no IVY/ARB: Renal impairment Beta leslie at discharge: Yes Exam - Physical Exam Narrative exam: Patient was not in cardiopulmonary distress. The patient appeared well nourished and normally developed. Vital signs as documented. Head exam is unremarkable. No scleral icterus . Neck is without jugular venous distension, thyromegaly, or carotid bruits. Lungs coarse creptations. Cardiac exam reveals regular rate and Rhythm. Abdominal exam reveals normal bowel sounds, no masses, no organomegaly and no aortic enlargement. Extremities no edema. 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
[2018-06-13 05:46] LABS: Calcium 7.6 mg/dL (8.4-10.2)
--- NOTE | 2018-06-13 09:49 | Progress Note ---
Assessment and Plan Impression: * Nonoliguric acute kidney injury secondary to prerenal azotemia vs ATN * Acute respiratory failure on mechanical ventilation * NSTEMI * Severe cardiomyopathy - ejection fraction of the 10% range * Hypokalemia * Severe hypoglycemia - resolved Recommendations * Renal function improved * Encourage po hydration - 1500ml fluid restriction * Avoid nephrotoxins * Adjust medications for renal function * Not a good candidate for ACEI or ARB at this time * Discussed with patient at 06/11 visit re: potential need for dialysis; patient declines dialysis; he acknowledges that without dialysis, he could potentially . * Note plans for d/c - Recommend hospice/palliative care Subjective Date of service: 06/13/18 Principal diagnosis: Respiratory failure, non STEMI,CMP Interval history: Patient denies SOB. Objective - Vital Signs Vital signs: Vital Signs - 12hr 06/12/18 06/12/18 06/12/18 22:00 23:00 23:41 Temperature Pulse Rate 68 68 66 Respiratory 15 14 10 L Rate Blood Pressure 143/110 139/100 139/100 O2 Sat by Pulse 98 97 97 Oximetry 06/13/18 06/13/18 06/13/18 00:00 01:00 02:00 Temperature Pulse Rate 67 66 70 Respiratory 10 L 14 17 Rate Blood Pressure 128/90 124/100 124/100 O2 Sat by Pulse 98 97 Oximetry 06/13/18 06/13/18 06/13/18 03:00 04:00 05:00 Temperature 97.8 F Pulse Rate 69 69 69 Respiratory 15 14 14 Rate Blood Pressure 138/106 138/104 139/103 O2 Sat by Pulse 96 98 98 Oximetry 06/13/18 06/13/18 06/13/18 06:00 07:00 08:00 Temperature 97.7 F Pulse Rate 69 68 72 Respiratory 11 L 14 15 Rate Blood Pressure 137/106 137/101 137/106 O2 Sat by Pulse 96 Oximetry - General Appearance General appearance: frail EENT: ATNC Respiratory: Present: Decreased Breath Sounds Cardiology: regular, S1S2 Gastrointestinal: normal, no tenderness Integumentary: no rash, warm and dry Neurologic: no focal deficit Musculoskeletal: other (+edema thighs) Psychiatric: cooperative - Lab 06/12/18 07:19 06/13/18 04:46 Most recent lab results Calcium 7.6 mg/dL (8.4-10.2) L 06/13/18 04:46 Magnesium 2.40 mg/dL (1.7-2.3) H 05/31/18 07:13
[2018-06-13] MEDS: PEPCID PO SCH (10:02)
[2018-06-13] MEDS: IMDUR PO SCH (10:03)
[2018-06-13] MEDS: SODIUM CHLORIDE FLUSH SYRINGE 10 ML IV SCH ×2 (10:03→21:47)
[2018-06-13] MEDS: COREG PO SCH ×2 (10:03→21:46)
--- NOTE | 2018-06-13 17:44 | Progress Note ---
Assessment and Plan Assessment and plan: 63-year-old -[place] Citizen male was presented to the ED with complaints of shortness of breath, chest pain, altered mental status Cardiac enzymes was done in the ED and was high, chest x-ray showed bilateral pleural effusion, elevated BNP, elevated creatinine. NSTEMI - Patient is on heparin drip, aspirin, - Cardiology consult appreciated - Likely due to CHF Acute renal failure - Nephrology consulted CHF - EF 5-10%, will follow cardiology recommendations - Patient is breathing comfortable Hypothermia - Blood cultures no growth so far - Patient is on Zosyn Respiratory/metabolic acidosis - Patient was intubated and on mechanical ventilation, extubated on 06/01 -Resolved Per the daughter the patient was confused - he has chronic liver disease and ammonia was checked , normal DVT prophylaxis - On heparin drip Disposition -Patient will be discharged today. 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 (2) Acute on chronic kidney failure Current Visit: Yes Status: Acute (3) Acute respiratory failure Current Visit: Yes Status: Acute (4) Altered mental status, unspecified Current Visit: Yes Status: Acute Qualifiers: Altered mental status type: unspecified Qualified Code(s): R41.82 - Altered mental status, unspecified (5) Hypoglycemia Current Visit: Yes Status: Acute (6) Metabolic encephalopathy Current Visit: Yes Status: Acute (7) NICM (nonischemic cardiomyopathy) Current Visit: Yes Status: Chronic (8) Pulmonary HTN Current Visit: Yes Status: Chronic History Interval history: Patient was seen and evaluated this morning, patient was extubated on [06/01] and saturating well on room air. Hospitalist Physical - Physical exam Narrative exam: Patient was not in cardiopulmonary distress. The patient appeared well nourished and normally developed. Vital signs as documented. Head exam is unremarkable. No scleral icterus . Neck is without jugular venous distension, thyromegaly, or carotid bruits. Lungs coarse creptations. Cardiac exam reveals regular rate and Rhythm. Abdominal exam reveals normal bowel sounds, no masses, no organomegaly and no aortic enlargement. Extremities no edema. 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 3 - Constitutional Vitals: Temp Pulse Resp BP Pulse Ox 98.0 F 69 12 136/104 98 06/13/18 11:59 06/13/18 17:00 06/13/18 17:00 06/13/18 17:00 06/13/18 16:00 General appearance: Present: no acute distress, well-nourished Results - Labs CBC & Chem 7: 06/12/18 07:19 06/13/18 04:46 Labs: Laboratory Last Values WBC 6.3 K/mm3 (4.5-11.0) 06/12/18 07:19 RBC 4.61 M/mm3 (3.65-5.03) 06/12/18 07:19 Hgb 12.3 gm/dl (11.8-15.2) 06/12/18 07:19 Hct 38.1 % (35.5-45.6) 06/12/18 07:19 MCV 83 fl (84-94) L 06/12/18 07:19 MCH 27 pg (28-32) L 06/12/18 07:19 MCHC 32 % (32-34) 06/12/18 07:19 RDW 15.4 % (13.2-15.2) H 06/12/18 07:19 Plt Count 85 K/mm3 (140-440) L 06/12/18 07:19 Lymph % (Auto) 7.4 % (13.4-35.0) L 06/12/18 07:19 [place] % (Auto) 2.2 % (0.0-7.3) 06/12/18 07:19 Eos % (Auto) 0.5 % (0.0-4.3) 06/12/18 07:19 Baso % (Auto) 0.9 % (0.0-1.8) 06/12/18 07:19 Lymph # 0.5 K/mm3 (1.2-5.4) L 06/12/18 07:19 [place] # 0.1 K/mm3 (0.0-0.8) 06/12/18 07:19 Eos # 0.0 K/mm3 (0.0-0.4) 06/12/18 07:19 Baso # 0.1 K/mm3 (0.0-0.1) 06/12/18 07:19 Add Manual Diff Complete 06/02/18 04:53 Total Counted 100 06/02/18 04:53 Seg Neutrophils % 89.0 % (40.0-70.0) H 06/12/18 07:19 Seg Neuts % (Manual) 87.0 % (40.0-70.0) H 06/02/18 04:53 Band Neutrophils % 9.0 % 06/02/18 04:53 Lymphocytes % (Manual) 2.0 % (13.4-35.0) L 06/02/18 04:53 Reactive Lymphs % (Man) 0 % 06/02/18 04:53 Monocytes % (Manual) 2.0 % (0.0-7.3) 06/02/18 04:53 Eosinophils % (Manual) 0 % (0.0-4.3) 06/02/18 04:53 Basophils % (Manual) 0 % (0.0-1.8) 06/02/18 04:53 Metamyelocytes % 0 % 06/02/18 04:53 Myelocytes % 0 % 06/02/18 04:53 Promyelocytes % 0 % 06/02/18 04:53 Blast Cells % 0 % 06/02/18 04:53 Nucleated RBC % Not Reportable 06/02/18 04:53 Seg Neutrophils # 5.6 K/mm3 (1.8-7.7) 06/12/18 07:19 Seg Neutrophils # Man 9.2 K/mm3 (1.8-7.7) H 06/02/18 04:53 Band Neutrophils # 1.0 K/mm3 06/02/18 04:53 Lymphocytes # (Manual) 0.2 K/mm3 (1.2-5.4) L 06/02/18 04:53 Abs React Lymphs (Man) 0.0 K/mm3 06/02/18 04:53 Monocytes # (Manual) 0.2 K/mm3 (0.0-0.8) 06/02/18 04:53 Eosinophils # (Manual) 0.0 K/mm3 (0.0-0.4) 06/02/18 04:53 Basophils # (Manual) 0.0 K/mm3 (0.0-0.1) 06/02/18 04:53 Metamyelocytes # 0.0 K/mm3 06/02/18 04:53 Myelocytes # 0.0 K/mm3 06/02/18 04:53 Promyelocytes # 0.0 K/mm3 06/02/18 04:53 Blast Cells # 0.0 K/mm3 06/02/18 04:53 WBC Morphology Not Reportable 06/02/18 04:53 Hypersegmented Neuts Not Reportable 06/02/18 04:53 Hyposegmented Neuts Not Reportable 06/02/18 04:53 Hypogranular Neuts Not Reportable 06/02/18 04:53 Smudge Cells Not Reportable 06/02/18 04:53 Toxic Granulation Not Reportable 06/02/18 04:53 Toxic Vacuolation Not Reportable 06/02/18 04:53 Dohle Bodies Not Reportable 06/02/18 04:53 Pelger-Huet Anomaly Not Reportable 06/02/18 04:53 Trae Rods Not Reportable 06/02/18 04:53 Platelet Estimate Consistent w auto 06/02/18 04:53 Clumped Platelets Not Reportable 06/02/18 04:53 Plt Clumps, EDTA Not Reportable 06/02/18 04:53 Large Platelets Not Reportable 06/02/18 04:53 Giant Platelets Not Reportable 06/02/18 04:53 Platelet Satelliting Not Reportable 06/02/18 04:53 Plt Morphology Comment Not Reportable 06/02/18 04:53 RBC Morphology Not Reportable 06/02/18 04:53 Dimorphic RBCs Not Reportable 06/02/18 04:53 Polychromasia 1+ 06/02/18 04:53 Hypochromasia Not Reportable 06/02/18 04:53 Poikilocytosis Not Reportable 06/02/18 04:53 Anisocytosis Not Reportable 06/02/18 04:53 Microcytosis Not Reportable 06/02/18 04:53 Macrocytosis Not Reportable 06/02/18 04:53 Spherocytes Not Reportable 06/02/18 04:53 Pappenheimer Bodies Not Reportable 06/02/18 04:53 Sickle Cells Not Reportable 06/02/18 04:53 Target Cells 1+ 06/02/18 04:53 Tear Drop Cells Not Reportable 06/02/18 04:53 Ovalocytes Not Reportable 06/02/18 04:53 Helmet Cells Not Reportable 06/02/18 04:53 [place] Bodies Not Reportable 06/02/18 04:53 [place] Rings Not Reportable 06/02/18 04:53 [place] Cells Not Reportable 06/02/18 04:53 Bite Cells Not Reportable 06/02/18 04:53 Crenated Cell Not Reportable 06/02/18 04:53 Elliptocytes Not Reportable 06/02/18 04:53 Acanthocytes (Spur) Not Reportable 06/02/18 04:53 Rouleaux Not Reportable 06/02/18 04:53 Hemoglobin C Crystals Not Reportable 06/02/18 04:53 Schistocytes Not Reportable 06/02/18 04:53 Malaria parasites Not Reportable 06/02/18 04:53 Dann Bodies Not Reportable 06/02/18 04:53 Hem Pathologist Commnt No 06/02/18 04:53 PT 21.4 Sec. (12.2-14.9) H 06/01/18 01:12 INR 1.79 (0.87-1.13) H 06/01/18 01:12 APTT 33.2 Sec. (24.2-36.6) 06/01/18 01:12 D-Dimer 1834.40 ng/mlDDU (0-234) H 05/31/18 11:48 Heparin Anti-Xa Level 0.40 U.I./ml (0.3-0.7) 05/31/18 20:40 POC ABG pH 7.400 (7.35-7.45) 06/01/18 16:18 POC ABG pCO2 33.1 (35-45) L 06/01/18 16:18 POC ABG pO2 121 (80-105) H 06/01/18 16:18 POC ABG HCO3 20.5 06/01/18 16:18 POC ABG Total CO2 21 06/01/18 16:18 POC ABG O2 Sat 99 06/01/18 16:18 POC ABG Base Excess -4 06/01/18 16:18 FiO2 35 % 06/01/18 16:18 Sodium 139 mmol/L (137-145) 06/13/18 04:46 Potassium 4.2 mmol/L (3.6-5.0) D 06/13/18 04:46 Chloride 104.4 mmol/L (98-107) 06/13/18 04:46 Carbon Dioxide 23 mmol/L (22-30) 06/13/18 04:46 Anion Gap 16 mmol/L 06/13/18 04:46 BUN 96 mg/dL (9-20) H 06/13/18 04:46 Creatinine 1.9 mg/dL (0.8-1.5) H 06/13/18 04:46 Estimated GFR 43 ml/min 06/13/18 04:46 BUN/Creatinine Ratio 51 % 06/13/18 04:46 Glucose 110 mg/dL (75-100) H 06/13/18 04:46 POC Glucose 139 (70-105) H 06/13/18 14:16 Lactic Acid 1.50 mmol/L (0.7-2.0) 05/31/18 07:13 Calcium 7.6 mg/dL (8.4-10.2) L 06/13/18 04:46 Magnesium 2.40 mg/dL (1.7-2.3) H 05/31/18 07:13 Total Bilirubin 2.70 mg/dL (0.1-1.2) H 06/02/18 17:47 AST 92 units/L (5-40) H 06/02/18 17:47 ALT 67 units/L (7-56) H 06/02/18 17:47 Alkaline Phosphatase 624 units/L (35-129) H 06/02/18 17:47 Ammonia 35.0 umol/L (25-60) 06/04/18 10:48 Total Creatine Kinase 374 units/L (55-170) H 05/31/18 05:49 CK-MB (CK-2) 22.3 ng/mL (0.0-4.0) H 05/31/18 05:49 CK-MB (CK-2) Rel Index 5.9 (0-4) H 05/31/18 05:49 Troponin T 0.268 ng/mL (0.00-0.029) H* 06/02/18 04:52 NT-Pro-B Natriuret Pep 54447 pg/mL (0-900) H 05/31/18 05:49 Total Protein 5.4 g/dL (6.3-8.2) L 06/02/18 17:47 Albumin 2.9 g/dL (3.9-5) L 06/02/18 17:47 Albumin/Globulin Ratio 1.2 % 06/02/18 17:47 Triglycerides 16 mg/dL (2-149) 05/31/18 05:49 Cholesterol 142 mg/dL (50-199) 05/31/18 05:49 LDL Cholesterol Direct 52 mg/dL (50-130) 05/31/18 05:49 HDL Cholesterol 91 mg/dL (40-59) H 05/31/18 05:49 Cholesterol/HDL Ratio 1.56 % 05/31/18 05:49 TSH 1.010 mlU/mL (0.270-4.200) 06/07/18 12:53 Free T4 0.57 ng/dL (0.76-1.46) L 06/07/18 12:53 Total Cortisol 44.9 mcg/dL () 06/07/18 12:53 Urine Color [place] (Yellow) 05/31/18 05:20 Urine Turbidity Slightly-cloudy (Clear) 05/31/18 05:20 Urine pH 5.0 (5.0-7.0) 05/31/18 05:20 Ur Specific [place] 1.016 (1.003-1.030) 05/31/18 05:20 Urine Protein >500 mg/dL (Negative) 05/31/18 05:20 Urine Glucose (UA) Neg mg/dL (Negative) 05/31/18 05:20 Urine Ketones Neg mg/dL (Negative) 05/31/18 05:20 Urine Blood Sm (Negative) 05/31/18 05:20 Urine Nitrite Neg (Negative) 05/31/18 05:20 Urine Bilirubin Neg (Negative) 05/31/18 05:20 Urine Urobilinogen 4.0 mg/dL (<2.0) 05/31/18 05:20 Ur Leukocyte Esterase Neg (Negative) 05/31/18 05:20 Urine WBC (Auto) 6.0 /HPF (0.0-6.0) 05/31/18 05:20 Urine RBC (Auto) 9.0 /HPF (0.0-6.0) 05/31/18 05:20 U Epithel Cells (Auto) < 1.0 /HPF (0-13.0) 05/31/18 05:20 Urine Mucus Few /HPF 05/31/18 05:20 Urine Yeast (Budding) 1+ /HPF 05/31/18 05:20 Urine Opiates Screen Presumptive negative 05/31/18 05:20 Urine Methadone Screen Presumptive negative 05/31/18 05:20 Ur Barbiturates Screen Presumptive negative 05/31/18 05:20 Ur Phencyclidine Scrn Presumptive negative 05/31/18 05:20 Ur Amphetamines Screen Presumptive negative 05/31/18 05:20 U Benzodiazepines Scrn Presumptive negative 05/31/18 05:20 Urine Cocaine Screen Presumptive negative 05/31/18 05:20 U Marijuana (THC) Screen Presumptive negative 05/31/18 05:20 Drugs of Abuse Note Disclamer 05/31/18 05:20 Plasma/Serum Alcohol < 0.01 % (0-0.07) 05/31/18 05:22
--- NOTE | 2018-06-13 17:47 | Progress Note ---
Assessment and Plan Assessment and plan: 63-year-old -Russian male was presented to the ED with complaints of shortness of breath, chest pain, altered mental status Cardiac enzymes was done in the ED and was high, chest x-ray showed bilateral pleural effusion, elevated BNP, elevated creatinine. NSTEMI - Patient is on heparin drip, aspirin, - Cardiology consult appreciated - Likely due to CHF Acute renal failure - Nephrology consulted CHF - EF 5-10%, will follow cardiology recommendations - Patient is breathing comfortable Hypothermia - Blood cultures no growth so far - Patient is on Zosyn Respiratory/metabolic acidosis - Patient was intubated and on mechanical ventilation, extubated on 06/01 -Resolved - he has chronic liver disease and ammonia was checked , normal DVT prophylaxis - On heparin drip Disposition -Patient will be discharged today, but his daughter refused to take him and unable to place him because of his unfunded status. -Patient refused, dialysis, AICD placement and declined hospice care. 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 (2) Acute on chronic kidney failure Current Visit: Yes Status: Acute (3) Acute respiratory failure Current Visit: Yes Status: Acute (4) Altered mental status, unspecified Current Visit: Yes Status: Acute Qualifiers: Altered mental status type: unspecified Qualified Code(s): R41.82 - Altered mental status, unspecified (5) Hypoglycemia Current Visit: Yes Status: Acute (6) Metabolic encephalopathy Current Visit: Yes Status: Acute (7) NICM (nonischemic cardiomyopathy) Current Visit: Yes Status: Chronic (8) Pulmonary HTN Current Visit: Yes Status: Chronic History Interval history: Patient was seen and evaluated this morning, patient was extubated on [06/01] and saturating well on room air. Hospitalist Physical - Physical exam Narrative exam: Patient was not in cardiopulmonary distress. The patient appeared well nourished and normally developed. Vital signs as documented. Head exam is unremarkable. No scleral icterus . Neck is without jugular venous distension, thyromegaly, or carotid bruits. Lungs coarse creptations. Cardiac exam reveals regular rate and Rhythm. Abdominal exam reveals normal bowel sounds, no masses, no organomegaly and no aortic enlargement. Extremities no edema. 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 3 - Constitutional Vitals: Temp Pulse Resp BP Pulse Ox 98.0 F 69 12 136/104 98 06/13/18 11:59 06/13/18 17:00 06/13/18 17:00 06/13/18 17:00 06/13/18 16:00 General appearance: Present: no acute distress, well-nourished Results - Labs CBC & Chem 7: 06/12/18 07:19 06/13/18 04:46 Labs: Laboratory Last Values WBC 6.3 K/mm3 (4.5-11.0) 06/12/18 07:19 RBC 4.61 M/mm3 (3.65-5.03) 06/12/18 07:19 Hgb 12.3 gm/dl (11.8-15.2) 06/12/18 07:19 Hct 38.1 % (35.5-45.6) 06/12/18 07:19 MCV 83 fl (84-94) L 06/12/18 07:19 MCH 27 pg (28-32) L 06/12/18 07:19 MCHC 32 % (32-34) 06/12/18 07:19 RDW 15.4 % (13.2-15.2) H 06/12/18 07:19 Plt Count 85 K/mm3 (140-440) L 06/12/18 07:19 Lymph % (Auto) 7.4 % (13.4-35.0) L 06/12/18 07:19 [place] % (Auto) 2.2 % (0.0-7.3) 06/12/18 07:19 Eos % (Auto) 0.5 % (0.0-4.3) 06/12/18 07:19 Baso % (Auto) 0.9 % (0.0-1.8) 06/12/18 07:19 Lymph # 0.5 K/mm3 (1.2-5.4) L 06/12/18 07:19 [place] # 0.1 K/mm3 (0.0-0.8) 06/12/18 07:19 Eos # 0.0 K/mm3 (0.0-0.4) 06/12/18 07:19 Baso # 0.1 K/mm3 (0.0-0.1) 06/12/18 07:19 Add Manual Diff Complete 06/02/18 04:53 Total Counted 100 06/02/18 04:53 Seg Neutrophils % 89.0 % (40.0-70.0) H 06/12/18 07:19 Seg Neuts % (Manual) 87.0 % (40.0-70.0) H 06/02/18 04:53 Band Neutrophils % 9.0 % 06/02/18 04:53 Lymphocytes % (Manual) 2.0 % (13.4-35.0) L 06/02/18 04:53 Reactive Lymphs % (Man) 0 % 06/02/18 04:53 Monocytes % (Manual) 2.0 % (0.0-7.3) 06/02/18 04:53 Eosinophils % (Manual) 0 % (0.0-4.3) 06/02/18 04:53 Basophils % (Manual) 0 % (0.0-1.8) 06/02/18 04:53 Metamyelocytes % 0 % 06/02/18 04:53 Myelocytes % 0 % 06/02/18 04:53 Promyelocytes % 0 % 06/02/18 04:53 Blast Cells % 0 % 06/02/18 04:53 Nucleated RBC % Not Reportable 06/02/18 04:53 Seg Neutrophils # 5.6 K/mm3 (1.8-7.7) 06/12/18 07:19 Seg Neutrophils # Man 9.2 K/mm3 (1.8-7.7) H 06/02/18 04:53 Band Neutrophils # 1.0 K/mm3 06/02/18 04:53 Lymphocytes # (Manual) 0.2 K/mm3 (1.2-5.4) L 06/02/18 04:53 Abs React Lymphs (Man) 0.0 K/mm3 06/02/18 04:53 Monocytes # (Manual) 0.2 K/mm3 (0.0-0.8) 06/02/18 04:53 Eosinophils # (Manual) 0.0 K/mm3 (0.0-0.4) 06/02/18 04:53 Basophils # (Manual) 0.0 K/mm3 (0.0-0.1) 06/02/18 04:53 Metamyelocytes # 0.0 K/mm3 06/02/18 04:53 Myelocytes # 0.0 K/mm3 06/02/18 04:53 Promyelocytes # 0.0 K/mm3 06/02/18 04:53 Blast Cells # 0.0 K/mm3 06/02/18 04:53 WBC Morphology Not Reportable 06/02/18 04:53 Hypersegmented Neuts Not Reportable 06/02/18 04:53 Hyposegmented Neuts Not Reportable 06/02/18 04:53 Hypogranular Neuts Not Reportable 06/02/18 04:53 Smudge Cells Not Reportable 06/02/18 04:53 Toxic Granulation Not Reportable 06/02/18 04:53 Toxic Vacuolation Not Reportable 06/02/18 04:53 Dohle Bodies Not Reportable 06/02/18 04:53 Pelger-Huet Anomaly Not Reportable 06/02/18 04:53 Trae Rods Not Reportable 06/02/18 04:53 Platelet Estimate Consistent w auto 06/02/18 04:53 Clumped Platelets Not Reportable 06/02/18 04:53 Plt Clumps, EDTA Not Reportable 06/02/18 04:53 Large Platelets Not Reportable 06/02/18 04:53 Giant Platelets Not Reportable 06/02/18 04:53 Platelet Satelliting Not Reportable 06/02/18 04:53 Plt Morphology Comment Not Reportable 06/02/18 04:53 RBC Morphology Not Reportable 06/02/18 04:53 Dimorphic RBCs Not Reportable 06/02/18 04:53 Polychromasia 1+ 06/02/18 04:53 Hypochromasia Not Reportable 06/02/18 04:53 Poikilocytosis Not Reportable 06/02/18 04:53 Anisocytosis Not Reportable 06/02/18 04:53 Microcytosis Not Reportable 06/02/18 04:53 Macrocytosis Not Reportable 06/02/18 04:53 Spherocytes Not Reportable 06/02/18 04:53 Pappenheimer Bodies Not Reportable 06/02/18 04:53 Sickle Cells Not Reportable 06/02/18 04:53 Target Cells 1+ 06/02/18 04:53 Tear Drop Cells Not Reportable 06/02/18 04:53 Ovalocytes Not Reportable 06/02/18 04:53 Helmet Cells Not Reportable 06/02/18 04:53 [place] Bodies Not Reportable 06/02/18 04:53 [place] Rings Not Reportable 06/02/18 04:53 Andres Cells Not Reportable 06/02/18 04:53 Bite Cells Not Reportable 06/02/18 04:53 Crenated Cell Not Reportable 06/02/18 04:53 Elliptocytes Not Reportable 06/02/18 04:53 Acanthocytes (Spur) Not Reportable 06/02/18 04:53 Rouleaux Not Reportable 06/02/18 04:53 Hemoglobin C Crystals Not Reportable 06/02/18 04:53 Schistocytes Not Reportable 06/02/18 04:53 Malaria parasites Not Reportable 06/02/18 04:53 Dann Bodies Not Reportable 06/02/18 04:53 Hem Pathologist Commnt No 06/02/18 04:53 PT 21.4 Sec. (12.2-14.9) H 06/01/18 01:12 INR 1.79 (0.87-1.13) H 06/01/18 01:12 APTT 33.2 Sec. (24.2-36.6) 06/01/18 01:12 D-Dimer 1834.40 ng/mlDDU (0-234) H 05/31/18 11:48 Heparin Anti-Xa Level 0.40 U.I./ml (0.3-0.7) 05/31/18 20:40 POC ABG pH 7.400 (7.35-7.45) 06/01/18 16:18 POC ABG pCO2 33.1 (35-45) L 06/01/18 16:18 POC ABG pO2 121 (80-105) H 06/01/18 16:18 POC ABG HCO3 20.5 06/01/18 16:18 POC ABG Total CO2 21 06/01/18 16:18 POC ABG O2 Sat 99 06/01/18 16:18 POC ABG Base Excess -4 06/01/18 16:18 FiO2 35 % 06/01/18 16:18 Sodium 139 mmol/L (137-145) 06/13/18 04:46 Potassium 4.2 mmol/L (3.6-5.0) D 06/13/18 04:46 Chloride 104.4 mmol/L (98-107) 06/13/18 04:46 Carbon Dioxide 23 mmol/L (22-30) 06/13/18 04:46 Anion Gap 16 mmol/L 06/13/18 04:46 BUN 96 mg/dL (9-20) H 06/13/18 04:46 Creatinine 1.9 mg/dL (0.8-1.5) H 06/13/18 04:46 Estimated GFR 43 ml/min 06/13/18 04:46 BUN/Creatinine Ratio 51 % 06/13/18 04:46 Glucose 110 mg/dL (75-100) H 06/13/18 04:46 POC Glucose 139 (70-105) H 06/13/18 14:16 Lactic Acid 1.50 mmol/L (0.7-2.0) 05/31/18 07:13 Calcium 7.6 mg/dL (8.4-10.2) L 06/13/18 04:46 Magnesium 2.40 mg/dL (1.7-2.3) H 05/31/18 07:13 Total Bilirubin 2.70 mg/dL (0.1-1.2) H 06/02/18 17:47 AST 92 units/L (5-40) H 06/02/18 17:47 ALT 67 units/L (7-56) H 06/02/18 17:47 Alkaline Phosphatase 624 units/L (35-129) H 06/02/18 17:47 Ammonia 35.0 umol/L (25-60) 06/04/18 10:48 Total Creatine Kinase 374 units/L (55-170) H 05/31/18 05:49 CK-MB (CK-2) 22.3 ng/mL (0.0-4.0) H 05/31/18 05:49 CK-MB (CK-2) Rel Index 5.9 (0-4) H 05/31/18 05:49 Troponin T 0.268 ng/mL (0.00-0.029) H* 06/02/18 04:52 NT-Pro-B Natriuret Pep 97145 pg/mL (0-900) H 05/31/18 05:49 Total Protein 5.4 g/dL (6.3-8.2) L 06/02/18 17:47 Albumin 2.9 g/dL (3.9-5) L 06/02/18 17:47 Albumin/Globulin Ratio 1.2 % 06/02/18 17:47 Triglycerides 16 mg/dL (2-149) 05/31/18 05:49 Cholesterol 142 mg/dL (50-199) 05/31/18 05:49 LDL Cholesterol Direct 52 mg/dL (50-130) 05/31/18 05:49 HDL Cholesterol 91 mg/dL (40-59) H 05/31/18 05:49 Cholesterol/HDL Ratio 1.56 % 05/31/18 05:49 TSH 1.010 mlU/mL (0.270-4.200) 06/07/18 12:53 Free T4 0.57 ng/dL (0.76-1.46) L 06/07/18 12:53 Total Cortisol 44.9 mcg/dL () 06/07/18 12:53 Urine Color [place] (Yellow) 05/31/18 05:20 Urine Turbidity Slightly-cloudy (Clear) 05/31/18 05:20 Urine pH 5.0 (5.0-7.0) 05/31/18 05:20 Ur Specific [place] 1.016 (1.003-1.030) 05/31/18 05:20 Urine Protein >500 mg/dL (Negative) 05/31/18 05:20 Urine Glucose (UA) Neg mg/dL (Negative) 05/31/18 05:20 Urine Ketones Neg mg/dL (Negative) 05/31/18 05:20 Urine Blood Sm (Negative) 05/31/18 05:20 Urine Nitrite Neg (Negative) 05/31/18 05:20 Urine Bilirubin Neg (Negative) 05/31/18 05:20 Urine Urobilinogen 4.0 mg/dL (<2.0) 05/31/18 05:20 Ur Leukocyte Esterase Neg (Negative) 05/31/18 05:20 Urine WBC (Auto) 6.0 /HPF (0.0-6.0) 05/31/18 05:20 Urine RBC (Auto) 9.0 /HPF (0.0-6.0) 05/31/18 05:20 U Epithel Cells (Auto) < 1.0 /HPF (0-13.0) 05/31/18 05:20 Urine Mucus Few /HPF 05/31/18 05:20 Urine Yeast (Budding) 1+ /HPF 05/31/18 05:20 Urine Opiates Screen Presumptive negative 05/31/18 05:20 Urine Methadone Screen Presumptive negative 05/31/18 05:20 Ur Barbiturates Screen Presumptive negative 05/31/18 05:20 Ur Phencyclidine Scrn Presumptive negative 05/31/18 05:20 Ur Amphetamines Screen Presumptive negative 05/31/18 05:20 U Benzodiazepines Scrn Presumptive negative 05/31/18 05:20 Urine Cocaine Screen Presumptive negative 05/31/18 05:20 U Marijuana (THC) Screen Presumptive negative 05/31/18 05:20 Drugs of Abuse Note Disclamer 05/31/18 05:20 Plasma/Serum Alcohol < 0.01 % (0-0.07) 05/31/18 05:22
--- NOTE | 2018-06-14 09:58 | Progress Note ---
Assessment and Plan Impression: * Nonoliguric acute kidney injury secondary to prerenal azotemia vs ATN * Acute respiratory failure on mechanical ventilation * NSTEMI * Severe cardiomyopathy - ejection fraction of the 10% range * Hypokalemia * Severe hypoglycemia - resolved Recommendations * No AM labs as patient has been cleared for d/c, but per review of chart, daughter refuses to take patient home * Encourage po hydration - 1500ml fluid restriction * Avoid nephrotoxins * Adjust medications for renal function * Not a good candidate for ACEI or ARB at this time * Discussed with patient at 06/11 visit re: potential need for dialysis; patient declines dialysis; he acknowledges that without dialysis, he could potentially . * Recommend hospice/palliative care * Will see prn Subjective Date of service: 06/14/18 Principal diagnosis: Respiratory failure, non STEMI,CMP Interval history: Patient reports leg weakness Objective - Vital Signs Vital signs: Vital Signs - 12hr 06/14/18 06/14/18 06/14/18 01:00 02:00 02:19 Temperature 96.4 F L 96.4 F L Pulse Rate 74 Pulse Rate [ 69 From Monitor] Respiratory 16 18 18 Rate Blood Pressure 128/98 Blood Pressure 128/98 [Left] O2 Sat by Pulse 95 95 Oximetry - General Appearance General appearance: well-developed, frail Respiratory: Present: Decreased Breath Sounds Cardiology: regular, S1S2 Gastrointestinal: normal, no tenderness, no distended Integumentary: warm and dry Musculoskeletal: other (pitting edema thigh) Psychiatric: cooperative - Lab 06/12/18 07:19 06/13/18 04:46 Most recent lab results Calcium 7.6 mg/dL (8.4-10.2) L 06/13/18 04:46 Magnesium 2.40 mg/dL (1.7-2.3) H 05/31/18 07:13
[2018-06-14] MEDS: PEPCID PO SCH (10:35)
[2018-06-14] MEDS: IMDUR PO SCH (10:35)
[2018-06-14] MEDS: SODIUM CHLORIDE FLUSH SYRINGE 10 ML IV SCH ×2 (10:35→23:12)
[2018-06-14] MEDS: COREG PO SCH ×2 (10:35→23:10)
--- NOTE | 2018-06-14 12:06 | Progress Note ---
Assessment and Plan Assessment and plan: 63-year-old -[place] male was presented to the ED with complaints of shortness of breath, chest pain, altered mental status Cardiac enzymes was done in the ED and was high, chest x-ray showed bilateral pleural effusion, elevated BNP, elevated creatinine. NSTEMI - Patient is on heparin drip, aspirin, - Cardiology consult appreciated - Likely due to CHF - Medical management Acute renal failure - Nephrology consulted - Improving - patient declined dialysis CHF - EF 5-10%, will follow cardiology recommendations - Patient is breathing comfortably - Patient declined AICD - We have explained the disease condition and offered hospice but he declined Hypothermia - treated with Iv antibiotics emeprecially and resolved Respiratory/metabolic acidosis - Patient was intubated and on mechanical ventilation, extubated on 06/01 -Resolved - he has chronic liver disease and ammonia was checked , normal DVT prophylaxis - On heparin drip Disposition - Patient was discharged but his daughter refused to take him home. Patient is unfunded for placement. Management plan discussed with block and case maker and patient. 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 (2) Acute on chronic kidney failure Current Visit: Yes Status: Acute (3) Acute respiratory failure Current Visit: Yes Status: Acute (4) Altered mental status, unspecified Current Visit: Yes Status: Acute Qualifiers: Altered mental status type: unspecified Qualified Code(s): R41.82 - Altered mental status, unspecified (5) Hypoglycemia Current Visit: Yes Status: Acute (6) Metabolic encephalopathy Current Visit: Yes Status: Acute (7) NICM (nonischemic cardiomyopathy) Current Visit: Yes Status: Chronic (8) Pulmonary HTN Current Visit: Yes Status: Chronic History Interval history: Patient was seen and evaluated this morning, patient didn't have any complaints , he was breathing well on room air, he finished his breakfast. Hospitalist Physical - Physical exam Narrative exam: Patient was not in cardiopulmonary distress. The patient appeared well nourished and normally developed. Vital signs as documented. Head exam is unremarkable. No scleral icterus . Neck is without jugular venous distension, thyromegaly, or carotid bruits. Lungs coarse creptations. Cardiac exam reveals regular rate and Rhythm. Abdominal exam reveals normal bowel sounds, no masses, no organomegaly and no aortic enlargement. Extremities no edema. 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 3 - Constitutional Vitals: Temp Pulse Resp BP Pulse Ox 96.4 F L 63 18 146/105 83 L 06/14/18 02:19 06/14/18 08:00 06/14/18 08:00 06/14/18 08:00 06/14/18 08:00 General appearance: Present: no acute distress, well-nourished Results - Labs CBC & Chem 7: 06/12/18 07:19 06/13/18 04:46 Labs: Laboratory Last Values WBC 6.3 K/mm3 (4.5-11.0) 06/12/18 07:19 RBC 4.61 M/mm3 (3.65-5.03) 06/12/18 07:19 Hgb 12.3 gm/dl (11.8-15.2) 06/12/18 07:19 Hct 38.1 % (35.5-45.6) 06/12/18 07:19 MCV 83 fl (84-94) L 06/12/18 07:19 MCH 27 pg (28-32) L 06/12/18 07:19 MCHC 32 % (32-34) 06/12/18 07:19 RDW 15.4 % (13.2-15.2) H 06/12/18 07:19 Plt Count 85 K/mm3 (140-440) L 06/12/18 07:19 Lymph % (Auto) 7.4 % (13.4-35.0) L 06/12/18 07:19 [place] % (Auto) 2.2 % (0.0-7.3) 06/12/18 07:19 Eos % (Auto) 0.5 % (0.0-4.3) 06/12/18 07:19 Baso % (Auto) 0.9 % (0.0-1.8) 06/12/18 07:19 Lymph # 0.5 K/mm3 (1.2-5.4) L 06/12/18 07:19 [place] # 0.1 K/mm3 (0.0-0.8) 06/12/18 07:19 Eos # 0.0 K/mm3 (0.0-0.4) 06/12/18 07:19 Baso # 0.1 K/mm3 (0.0-0.1) 06/12/18 07:19 Add Manual Diff Complete 06/02/18 04:53 Total Counted 100 06/02/18 04:53 Seg Neutrophils % 89.0 % (40.0-70.0) H 06/12/18 07:19 Seg Neuts % (Manual) 87.0 % (40.0-70.0) H 06/02/18 04:53 Band Neutrophils % 9.0 % 06/02/18 04:53 Lymphocytes % (Manual) 2.0 % (13.4-35.0) L 06/02/18 04:53 Reactive Lymphs % (Man) 0 % 06/02/18 04:53 Monocytes % (Manual) 2.0 % (0.0-7.3) 06/02/18 04:53 Eosinophils % (Manual) 0 % (0.0-4.3) 06/02/18 04:53 Basophils % (Manual) 0 % (0.0-1.8) 06/02/18 04:53 Metamyelocytes % 0 % 06/02/18 04:53 Myelocytes % 0 % 06/02/18 04:53 Promyelocytes % 0 % 06/02/18 04:53 Blast Cells % 0 % 06/02/18 04:53 Nucleated RBC % Not Reportable 06/02/18 04:53 Seg Neutrophils # 5.6 K/mm3 (1.8-7.7) 06/12/18 07:19 Seg Neutrophils # Man 9.2 K/mm3 (1.8-7.7) H 06/02/18 04:53 Band Neutrophils # 1.0 K/mm3 06/02/18 04:53 Lymphocytes # (Manual) 0.2 K/mm3 (1.2-5.4) L 06/02/18 04:53 Abs React Lymphs (Man) 0.0 K/mm3 06/02/18 04:53 Monocytes # (Manual) 0.2 K/mm3 (0.0-0.8) 06/02/18 04:53 Eosinophils # (Manual) 0.0 K/mm3 (0.0-0.4) 06/02/18 04:53 Basophils # (Manual) 0.0 K/mm3 (0.0-0.1) 06/02/18 04:53 Metamyelocytes # 0.0 K/mm3 06/02/18 04:53 Myelocytes # 0.0 K/mm3 06/02/18 04:53 Promyelocytes # 0.0 K/mm3 06/02/18 04:53 Blast Cells # 0.0 K/mm3 06/02/18 04:53 WBC Morphology Not Reportable 06/02/18 04:53 Hypersegmented Neuts Not Reportable 06/02/18 04:53 Hyposegmented Neuts Not Reportable 06/02/18 04:53 Hypogranular Neuts Not Reportable 06/02/18 04:53 Smudge Cells Not Reportable 06/02/18 04:53 Toxic Granulation Not Reportable 06/02/18 04:53 Toxic Vacuolation Not Reportable 06/02/18 04:53 Dohle Bodies Not Reportable 06/02/18 04:53 [place]uet Anomaly Not Reportable 06/02/18 04:53 Trae Rods Not Reportable 06/02/18 04:53 Platelet Estimate Consistent w auto 06/02/18 04:53 Clumped Platelets Not Reportable 06/02/18 04:53 Plt Clumps, EDTA Not Reportable 06/02/18 04:53 Large Platelets Not Reportable 06/02/18 04:53 Giant Platelets Not Reportable 06/02/18 04:53 Platelet Satelliting Not Reportable 06/02/18 04:53 Plt Morphology Comment Not Reportable 06/02/18 04:53 RBC Morphology Not Reportable 06/02/18 04:53 Dimorphic RBCs Not Reportable 06/02/18 04:53 Polychromasia 1+ 06/02/18 04:53 Hypochromasia Not Reportable 06/02/18 04:53 Poikilocytosis Not Reportable 06/02/18 04:53 Anisocytosis Not Reportable 06/02/18 04:53 Microcytosis Not Reportable 06/02/18 04:53 Macrocytosis Not Reportable 06/02/18 04:53 Spherocytes Not Reportable 06/02/18 04:53 Pappenheimer Bodies Not Reportable 06/02/18 04:53 Sickle Cells Not Reportable 06/02/18 04:53 Target Cells 1+ 06/02/18 04:53 Tear Drop Cells Not Reportable 06/02/18 04:53 Ovalocytes Not Reportable 06/02/18 04:53 Helmet Cells Not Reportable 06/02/18 04:53 [place] Bodies Not Reportable 06/02/18 04:53 [place] Rings Not Reportable 06/02/18 04:53 Andres Cells Not Reportable 06/02/18 04:53 Bite Cells Not Reportable 06/02/18 04:53 Crenated Cell Not Reportable 06/02/18 04:53 Elliptocytes Not Reportable 06/02/18 04:53 Acanthocytes (Spur) Not Reportable 06/02/18 04:53 Rouleaux Not Reportable 06/02/18 04:53 Hemoglobin C Crystals Not Reportable 06/02/18 04:53 Schistocytes Not Reportable 06/02/18 04:53 Malaria parasites Not Reportable 06/02/18 04:53 Dann Bodies Not Reportable 06/02/18 04:53 Hem Pathologist Commnt No 06/02/18 04:53 PT 21.4 Sec. (12.2-14.9) H 06/01/18 01:12 INR 1.79 (0.87-1.13) H 06/01/18 01:12 APTT 33.2 Sec. (24.2-36.6) 06/01/18 01:12 D-Dimer 1834.40 ng/mlDDU (0-234) H 05/31/18 11:48 Heparin Anti-Xa Level 0.40 U.I./ml (0.3-0.7) 05/31/18 20:40 POC ABG pH 7.400 (7.35-7.45) 06/01/18 16:18 POC ABG pCO2 33.1 (35-45) L 06/01/18 16:18 POC ABG pO2 121 (80-105) H 06/01/18 16:18 POC ABG HCO3 20.5 06/01/18 16:18 POC ABG Total CO2 21 06/01/18 16:18 POC ABG O2 Sat 99 06/01/18 16:18 POC ABG Base Excess -4 06/01/18 16:18 FiO2 35 % 06/01/18 16:18 Sodium 139 mmol/L (137-145) 06/13/18 04:46 Potassium 4.2 mmol/L (3.6-5.0) D 06/13/18 04:46 Chloride 104.4 mmol/L (98-107) 06/13/18 04:46 Carbon Dioxide 23 mmol/L (22-30) 06/13/18 04:46 Anion Gap 16 mmol/L 06/13/18 04:46 BUN 96 mg/dL (9-20) H 06/13/18 04:46 Creatinine 1.9 mg/dL (0.8-1.5) H 06/13/18 04:46 Estimated GFR 43 ml/min 06/13/18 04:46 BUN/Creatinine Ratio 51 % 06/13/18 04:46 Glucose 110 mg/dL (75-100) H 06/13/18 04:46 POC Glucose 196 (70-105) H 06/14/18 11:47 Lactic Acid 1.50 mmol/L (0.7-2.0) 05/31/18 07:13 Calcium 7.6 mg/dL (8.4-10.2) L 06/13/18 04:46 Magnesium 2.40 mg/dL (1.7-2.3) H 05/31/18 07:13 Total Bilirubin 2.70 mg/dL (0.1-1.2) H 06/02/18 17:47 AST 92 units/L (5-40) H 06/02/18 17:47 ALT 67 units/L (7-56) H 06/02/18 17:47 Alkaline Phosphatase 624 units/L (35-129) H 06/02/18 17:47 Ammonia 35.0 umol/L (25-60) 06/04/18 10:48 Total Creatine Kinase 374 units/L (55-170) H 05/31/18 05:49 CK-MB (CK-2) 22.3 ng/mL (0.0-4.0) H 05/31/18 05:49 CK-MB (CK-2) Rel Index 5.9 (0-4) H 05/31/18 05:49 Troponin T 0.268 ng/mL (0.00-0.029) H* 06/02/18 04:52 NT-Pro-B Natriuret Pep 64506 pg/mL (0-900) H 05/31/18 05:49 Total Protein 5.4 g/dL (6.3-8.2) L 06/02/18 17:47 Albumin 2.9 g/dL (3.9-5) L 06/02/18 17:47 Albumin/Globulin Ratio 1.2 % 06/02/18 17:47 Triglycerides 16 mg/dL (2-149) 05/31/18 05:49 Cholesterol 142 mg/dL (50-199) 05/31/18 05:49 LDL Cholesterol Direct 52 mg/dL (50-130) 05/31/18 05:49 HDL Cholesterol 91 mg/dL (40-59) H 05/31/18 05:49 Cholesterol/HDL Ratio 1.56 % 05/31/18 05:49 TSH 1.010 mlU/mL (0.270-4.200) 06/07/18 12:53 Free T4 0.57 ng/dL (0.76-1.46) L 06/07/18 12:53 Total Cortisol 44.9 mcg/dL () 06/07/18 12:53 Urine Color [place] (Yellow) 05/31/18 05:20 Urine Turbidity Slightly-cloudy (Clear) 05/31/18 05:20 Urine pH 5.0 (5.0-7.0) 05/31/18 05:20 Ur Specific [place] 1.016 (1.003-1.030) 05/31/18 05:20 Urine Protein >500 mg/dL (Negative) 05/31/18 05:20 Urine Glucose (UA) Neg mg/dL (Negative) 05/31/18 05:20 Urine Ketones Neg mg/dL (Negative) 05/31/18 05:20 Urine Blood Sm (Negative) 05/31/18 05:20 Urine Nitrite Neg (Negative) 05/31/18 05:20 Urine Bilirubin Neg (Negative) 05/31/18 05:20 Urine Urobilinogen 4.0 mg/dL (<2.0) 05/31/18 05:20 Ur Leukocyte Esterase Neg (Negative) 05/31/18 05:20 Urine WBC (Auto) 6.0 /HPF (0.0-6.0) 05/31/18 05:20 Urine RBC (Auto) 9.0 /HPF (0.0-6.0) 05/31/18 05:20 U Epithel Cells (Auto) < 1.0 /HPF (0-13.0) 05/31/18 05:20 Urine Mucus Few /HPF 05/31/18 05:20 Urine Yeast (Budding) 1+ /HPF 05/31/18 05:20 Urine Opiates Screen Presumptive negative 05/31/18 05:20 Urine Methadone Screen Presumptive negative 05/31/18 05:20 Ur Barbiturates Screen Presumptive negative 05/31/18 05:20 Ur Phencyclidine Scrn Presumptive negative 05/31/18 05:20 Ur Amphetamines Screen Presumptive negative 05/31/18 05:20 U Benzodiazepines Scrn Presumptive negative 05/31/18 05:20 Urine Cocaine Screen Presumptive negative 05/31/18 05:20 U Marijuana (THC) Screen Presumptive negative 05/31/18 05:20 Drugs of Abuse Note Disclamer 05/31/18 05:20 Plasma/Serum Alcohol < 0.01 % (0-0.07) 05/31/18 05:22
[2018-06-15] MEDS: COREG PO SCH (10:35)
[2018-06-15] MEDS: PEPCID PO SCH (10:35)
[2018-06-15] MEDS: IMDUR PO SCH (10:35)
[2018-06-15] MEDS: SODIUM CHLORIDE FLUSH SYRINGE 10 ML IV SCH (10:36)
[2018-06-15 15:24] VITALS: BP 121/93
== END 2018-06-15 20:45 | disposition home health service (06) | DRG 871 ==
LOC: ED 04:32 → CC1 11:24 → IMCU 06-02 21:29 → 2B-ACE 06-13 18:16
PROVIDERS: ADMIT Internal Medicine; ATTEND Internal Medicine
PROC: 4A033R1 Measurement of Arterial Saturation, Peripheral, Percutaneous Approach (ICD-10-PCS; principal; 2018-05-31)
PROC: 5A09357 Assistance with Respiratory Ventilation, Less than 24 Consecutive Hours, Continuous Positive Airway Pressure (ICD-10-PCS; 2018-05-31)
PROC: 5A1945Z Respiratory Ventilation, 24-96 Consecutive Hours (ICD-10-PCS; 2018-05-31)
PROC: 0BH17EZ Insertion of Endotracheal Airway into Trachea, Via Natural or Artificial Opening (ICD-10-PCS; 2018-05-31)
DX: A41.9 Sepsis, unspecified organism (principal); I21.4 Non-ST elevation (NSTEMI) myocardial infarction; J96.02 Acute respiratory failure with hypercapnia; G93.41 Metabolic encephalopathy; J18.9 Pneumonia, unspecified organism; I50.43 Acute on chronic combined systolic (congestive) and diastolic (congestive) heart failure; J96.01 Acute respiratory failure with hypoxia; N17.9 Acute kidney failure, unspecified; I13.0 Hypertensive heart and chronic kidney disease with heart failure and stage 1 through stage 4 chronic kidney disease, or unspecified chronic kidney disease; I42.9 Cardiomyopathy, unspecified; E87.2 Acidosis; K62.5 Hemorrhage of anus and rectum; I50.9 Heart failure, unspecified; T68.XXXA Hypothermia, initial encounter; N18.9 Chronic kidney disease, unspecified; E11.22 Type 2 diabetes mellitus with diabetic chronic kidney disease; E87.5 Hyperkalemia; E11.649 Type 2 diabetes mellitus with hypoglycemia without coma; I08.1 Rheumatic disorders of both mitral and tricuspid valves; I27.20 Pulmonary hypertension, unspecified; Z79.899 Other long term (current) drug therapy
CPT/HCPCS: 31500; 36415; 36600; 51702; 70450; 71045; 71250; 72170; 80048; 80053; 80061; 80307; 80320; 81001; 82140; 82533; 82550; 82553; 82803; 82962; 83735; 83880; 84439; 84443; 84484; 85007; 85014; 85018; 85025; 85049; 85379; 85520; 85610; 85730; 87040; 87070; 87205; 93005; 93010; 93306; 94002; 94003; 94640; 94660; 94760; 96365; 96366; 96367; 96375; G0480; J0360; J0610; J0692; J0696; J1644; J1815; J1940; J2270; J2543; J2704; J3370; J3430; J7040; J7070